=== PATIENT | female | born 1945 | race Caucasian/White ===

== ENCOUNTER 2016-06-14 19:11 | Inpatient (IN) | payer MEDICARE, OTHER ==
[~2016-06-14] VITALS: Ht 160 cm; Wt 65.3 kg
[~2016-06-14 19:11] MED LIST: ACET325T9 PO; ACET500T68 PO; AMLO5TAB4 PO; ATOR40TA59 PO; Albuterol Sulfate NEB; Amoxicillin/Potassium Clav PO; CARV12.5 PO; CLOP75TA PO; CYCL1DRO EACHEYE; DOCU-27 PO; DULO30CA2 PO; DULO60CA6 GT; FESO8TAB PO; FEXO1TAB31 PO; FURO-68 PO; Furosemide PO; GLUC1CAP57 PO; HYDR-2666 PO; HYDR-2868 GT; INSU100C4 SQ; INSU100I13 SQ; INSU100I17 SQ; INSU100V13 SQ; INSU100V8 SQ; IPRA4AER IH; Insulin Detemir SQ; LANS30CA17 PO; LEVO250T25 PO; LEVO500T38 PO; LISI-334 PO; META800T21 PO; MIRT15TA3 PO; MULT-121 PO; NITR0.4T SL; OMEG1CAP72 PO; ONDA4TAB7 PO; OXYB5TAB7 PO; PANT40GR GT; POTA10CA PO; POTA20LI PEG; POTA20PA8 GT; POTA20TA12 PO; POTA20TA82 PO; PREG100C PO; PREG150C PO; PREG300C PO; PREG50CA PO; PROM25TA10 PO; RAMI10CA28 GT; SIMV80TA3 GT; TRAM50TA GT; ZOLP10TA GT
[2016-06-14 20:00] LABS: BASO # 0.1 x10^3/uL (0.0-0.2); BASO % 1 % (0-3); EOS % 1 % (0-3); HEMATOCRIT 36.6 % (36.0-47.0); HEMOGLOBIN 12.1 g/dL (12.0-15.5); LYMPH # 1.4 x10^3/uL (1.0-4.8); LYMPH % 11 % (24-48); MEAN CORPUSCULAR HEMOGLOBIN 29 pg (25-35); MEAN CORPUSCULAR HGB CONC 33 g/dL (31-37); MEAN CORPUSCULAR VOLUME 89 fL (79-100); MONO % 8 % (0-9); NEUT % 79 % (31-73); PLATELET COUNT 202 x10^3/uL (140-400); RED BLOOD COUNT 4.12 x10^6/uL (3.50-5.40); WHITE BLOOD COUNT 12.1 x10^3/uL (4.0-11.0)
[2016-06-14 20:19] LABS: PROTHROMBIN TIME PATIENT 12.7 SEC (11.7-14.0)
[2016-06-14 20:22] LABS: CREATININE 0.9 mg/dL (0.6-1.0); GFR 61.5; POTASSIUM 3.9 mmol/L (3.5-5.1)
[2016-06-14 20:27] LABS: ALBUMIN/GLOBULIN RATIO 1.2 (1.0-1.7); TOTAL BILIRUBIN 0.5 mg/dL (0.2-1.0); TOTAL PROTEIN 7.3 g/dL (6.4-8.2)
[2016-06-14] MEDS ORDERED: IOHEXOL 300 MG/ML 75 ML VIAL IV ONE (20:30)
[2016-06-14] MEDS: FENTANYL PF 100 MCG/2 ML VIAL. IV PRN ×2 (21:20→21:46)
--- NOTE | 2016-06-14 21:22 | RAD ---
PROCEDURE CT head and C-spine without contrast HISTORY Syncope head and neck pain after fall CT HEAD WITHOUT CONTRAST: Noncontrast axial cross sectional CT scanning of the head was performed. COMPARISON April 05, 2014 FINDINGS There is moderate diffuse atrophy. There is encephalomalacia from an old large right MCA infarct and a moderate size old left parietal lobe infarct. No acute intracranial hemorrhage or midline shift or mass-effect or hydrocephalus or extra-axial fluid collection is seen. No focal hypodense area is seen to indicate an acute infarct or edema radiographically. No skull fracture or pneumocephalus is seen. No opacification of the mastoid sinuses or the paranasal sinuses is seen. The maxillary sinuses are not completely seen in this study. IMPRESSION Old infarcts and moderate atrophy. No acute intracranial abnormality is seen. CT of the C-spine without contrast: Axial helical images of the C-spine were obtained without contrast and axial coronal sagittal reconstruction was performed. The vertebra bodies are aligned. There is no loss of vertebral body stature. There is no prevertebral soft tissue swelling. There is a cyst carotid stent on the right. Evaluation of the central canal is limited without contrast however there does not appear to be significant central stenosis. There is moderate narrowing of a few the neuroforamen. Impression No acute findings. PQRS Statement: One or more of the following individualized dose reduction techniques were utilized for this study: 1. Automated exposure control. 2. Adjustment of the mA and/or kV according to patient size. 3. Use of iterative reconstruction technique. Electronically signed by: Eligio Loera MD (Jun 14, 2016 21:20:56)
--- NOTE | 2016-06-14 21:27 | RAD ---
PROCEDURE CT of the abdomen and pelvis with contrast HISTORY Generalized abdominal pain TECHNIQUE After IV infusion of95 cc of Optiray-320, helical CT scanning of the abdomen and pelvis was performed.GI contrast was not administered. FINDINGS The liveer is homogeous in appearance and normal in size. The spleen is unremarkable and normal in size. The pancreas is homogeneous in appearance and no focal enlargement is seen. The gallbladder appears normal and no intra or extrahepatic biliary ductal dilatation is seen. No focal aneurysmal dilatation of the abdominal aorta is seen. No enlarged abdominal or pelvic lymphadenopathy is seen. No soft tissue mass is seen. No obstructive bowel pattern or bowel wall thickening or inflammatory change is seen. No free intraperitoneal fluid or abscess or free intraperitoneal air is seen. The lung bases are clear. The right kidney is atrophic. The left kidney appears normal. The urinary bladder wall is smooth. No adrenal masses are seen. No osteolytic process is seen. There are stents in the common iliac arteries bilaterally which appear patent. The appendix is not well seen but appears normal. IMPRESSION Atrophic right kidney. No acute findings. Electronically signed by: Eligio Loera MD (Jun 14, 2016 21:26:11)
[2016-06-14 21:31] LABS: BILIRUBIN,URINE NEGATIVE (NEG); GLUCOSE,URINE NEGATIVE (NEG); NITRITE,URINE NEGATIVE (NEG); PH,URINE 6.5; PROTEIN,URINE NEGATIVE (NEG-TRACE); UROBILINOGEN,URINE 0.2 mg/dL (0.2 mg/dL)
[2016-06-14 21:40] LABS: BACTERIA,URINE MANY /HPF (0-FEW); RBC,URINE 0 /HPF (0-2); SQUAMOUS EPITHELIAL CELL,UR OCC /LPF
[2016-06-14] MEDS ORDERED: ONDANSETRON PF 4 MG/2 ML VIAL. ONE (22:00)
[2016-06-14] MEDS ORDERED: IV NORMAL SALINE 1000ML BAG 1,000 ML IV ONE (22:15)
[2016-06-14] MEDS ORDERED: PANTOPRAZOLE SODIUM IV 80 MG in IV NORMAL SALINE 100ML 100 ML IV ONE (22:15)
[2016-06-14] MEDS: IV NORMAL SALINE 1000ML BAG 1,000 ML IV SCH (22:27)
[2016-06-14] MEDS ORDERED: PANTOPRAZOLE IV PUSH 40 MG VIAL. IVP ONE (22:30)
[2016-06-14] MEDS ORDERED: ONDANSETRON PF 4 MG/2 ML VIAL. IV PRN (22:30)
[2016-06-14] MEDS: PANTOPRAZOLE SODIUM IV 80 MG in IV NORMAL SALINE 100ML 100 ML IV SCH (22:40)
[2016-06-14] MEDS ORDERED: ONDANSETRON PF 4 MG/2 ML VIAL. IV ONE (23:00)
[2016-06-14 23:30] VITALS: BP 162/82
--- NOTE | 2016-06-14 23:41 | ED.ADGEN ---
Past Medical History Past Medical History: CAD, CHF, Constipation, CVA, Depression, Diabetes-Type II , GERD, High Cholesterol, Hypertension, PA Additional Past Medical Histor: medication non compliance, DYSPHAGIA Past Surgical History: Hip Replacement, Other Additional Past Surgical Histo: carotid, peg tube placement Alcohol Use: None Drug Use: None Adult General Chief Complaint Chief Complaint: SYNCOPE HPI HPI Patient is a 70 year woman, history of CHF, CAD, CVA, depression, hypertension , who presents the emergency department with multiple complaints. Per EMS report , it is believed the patient expressed a syncopal episode, although patient is unclear, and thinks that she may have fallen. Patient however cannot recall the events surrounding the "fall". She is complaining of pain in the left wrist, which is noted to be swollen and slightly deformed. Patient's family is at bedside. They state that they arrived at the nursing facility state the patient out for dinner, and fell acute fallen earlier during the day. [facility] also reported the patient had one episode of emesis, which per EMS report was dark red, with food and fluid, with concern for GI bleeding. Patient does not have any history of GI bleeding. She denies any lightheadedness or dizziness, chest pain or shortness breath, complaining of mild lower quadrant abdominal pain. Denies any blood in stool. No fevers, no rashes, no headache or blurry vision, however patient is a very limited historian, and due to age, comorbidities, and presently distracting injury, a c-collar was placed upon arrival to the ED. Review of Systems Review of Systems Constitutional: Denies fever or chills. [] Eyes: Denies change in visual acuity. [] HENT: Denies nasal congestion or sore throat. [] Respiratory: Denies cough or shortness of breath. [] Cardiovascular: Denies chest pain or edema. [] GI: Denies bloody stools or diarrhea. [] Vomiting 1, with mild lower quadrant abdominal pain. : Denies dysuria. [] Musculoskeletal: Denies back pain, left wrist pain. Integument: Denies rash. [] Neurologic: Denies headache, focal weakness or sensory changes. [] Endocrine: Denies polyuria or polydipsia. [] Lymphatic: Denies swollen glands. [] Psychiatric: Denies depression or anxiety. [] Current Medications Current Medications Current Medications Medications (Trade) Dose Ordered Sig/Pawan Start Time Stop Time Status Last Admin Dose Admin Fentanyl Citrate (Fentanyl 2ml Vial) 25 mcg PRN Q15MIN PRN 06/14/16 19:45 06/15/16 19:44 06/14/16 21:46 25 MCG Iohexol (Omnipaque 300 Mg/ml) 75 ml 1X ONCE 06/14/16 20:30 06/14/16 20:31 DC 06/14/16 20:30 75 ML Allergies Allergies Allergies Coded Allergies Type Severity Reaction Last Updated Verified adhesive Allergy Intermediate Rash 11/25/15 Yes Physical Exam Physical Exam Constitutional: Well developed, well nourished, no acute distress, non-toxic appearance. [] HENT: Normocephalic, atraumatic, bilateral external ears normal, oropharynx moist, no oral exudates, nose normal. [] Eyes: PERRLA, EOMI, conjunctiva normal, no discharge. [] Neck: Normal range of motion, no tenderness, supple, no stridor. [] Cardiovascular:Heart rate regular rhythm, no murmur [] Lungs & Thorax: Bilateral breath sounds clear to auscultation [] Abdomen: Bowel sounds normal, soft, no tenderness, no masses, no pulsatile masses. [] Skin: Warm, dry, no erythema, no rash. [] Back: No tenderness, no CVA tenderness. [] Extremities: No tenderness, no cyanosis, no clubbing, ROM intact, no edema. [] Neurologic: Alert and oriented X 3, normal motor function, normal sensory function, no focal deficits noted. [] Psychologic: Affect normal, judgement normal, mood normal. [] Current Patient Data Vital Signs Vital Signs Date Time Temp Pulse Resp B/P Pulse Ox O2 Delivery O2 Flow Rate FiO2 06/14/16 21:39 98.5 90 20 227/91 99 Room Air 98.5 Lab Values Laboratory Tests Test 06/14/16 19:45 06/14/16 21:15 White Blood Count 12.1x10^3/uL (4.0-11.0) H Red Blood Count 4.12x10^6/uL (3.50-5.40) Hemoglobin 12.1g/dL (12.0-15.5) Hematocrit 36.6% (36.0-47.0) Mean Corpuscular Volume 89fL (79-100) Mean Corpuscular Hemoglobin 29pg (25-35) Mean Corpuscular Hemoglobin Concent 33g/dL (31-37) Red Cell Distribution Width 14.0% (11.5-14.5) Platelet Count 202x10^3/uL (140-400) Neutrophils (%) (Auto) 79% (31-73) H Lymphocytes (%) (Auto) 11% (24-48) L Monocytes (%) (Auto) 8% (0-9) Eosinophils (%) (Auto) 1% (0-3) Basophils (%) (Auto) 1% (0-3) Neutrophils # (Auto) 9.5x10^3uL (1.8-7.7) H Lymphocytes # (Auto) 1.4x10^3/uL (1.0-4.8) Monocytes # (Auto) 1.0x10^3/uL (0.0-1.1) Eosinophils # (Auto) 0.1x10^3/uL (0.0-0.7) Basophils # (Auto) 0.1x10^3/uL (0.0-0.2) Prothrombin Time 12.7SEC (11.7-14.0) Prothrombin Time INR 1.0 (0.8-1.1) PTT 25SEC (24-38) Sodium Level 135mmol/L (136-145) L Potassium Level 3.9mmol/L (3.5-5.1) Chloride Level 98mmol/L (98-107) Carbon Dioxide Level 19mmol/L (21-32) L Anion Gap 18 (6-14) H Blood Urea Nitrogen 18mg/dL (7-20) Creatinine 0.9mg/dL (0.6-1.0) Estimated GFR (Cockcroft-Gault) 61.5 BUN/Creatinine Ratio 20 (6-20) Glucose Level 119mg/dL (70-99) H Calcium Level 10.0mg/dL (8.5-10.1) Total Bilirubin 0.5mg/dL (0.2-1.0) Aspartate Amino Transferase (AST) 16U/L (15-37) Alanine Aminotransferase (ALT) 25U/L (14-59) Alkaline Phosphatase 87U/L (46-116) Troponin I Quantitative < 0.017ng/mL (0.000-0.055) RR-Msy-D-Type Natriuretic Peptide 521pg/mL (0-124) H Total Protein 7.3g/dL (6.4-8.2) Albumin 4.0g/dL (3.4-5.0) Albumin/Globulin Ratio 1.2 (1.0-1.7) Urine Color Yellow Urine Clarity Clear Urine pH 6.5 Urine Specific [place] 1.010 Urine Protein Negativemg/dL (NEG-TRACE) Urine Glucose (UA) Negativemg/dL (NEG) Urine Ketones (Stick) Negativemg/dL (NEG) Urine Blood Negative (NEG) Urine Nitrite Negative (NEG) Urine Bilirubin Negative (NEG) Urine Urobilinogen Dipstick 0.2mg/dL (0.2 mg/dL) Urine Leukocyte Esterase Small (NEG) Urine RBC 0/HPF (0-2) Urine WBC 1-4/HPF (0-4) Urine Squamous Epithelial Cells Occ/LPF Urine Bacteria Many/HPF (0-FEW) Laboratory Tests 06/14/16 19:45 Laboratory Tests 06/14/16 19:45 EKG EKG EC: Patient with sinus rhythm, heart rate 91 bpm, QTC of 444, FL 100, QRS of 106, patient with contour abnormalities noted in the inferior and lateral leads, does not meet STEMI criteria. Abnormal ECG. As interpreted by me. [] Radiology/Procedures Radiology/Procedures [] [facility] [address] [place] [address] IMAGING REPORT Signed PATIENT: BELLA SAONN ACCOUNT: [id number] : 1945 LOCATION: ER AGE: 70 SEX: F EXAM STATUS: REG ER ORD. PHYSICIAN: SONAL MOHR DO REASON: abd pain/hematemesis PROCEDURE: ABD PELV W/ IV CONTRAST ONLY PROCEDURE CT of the abdomen and pelvis with contrast HISTORY Generalized abdominal pain TECHNIQUE After IV infusion of95 cc of Optiray-320, helical CT scanning of the abdomen and pelvis was performed.GI contrast was not administered. FINDINGS The liveer is homogeous in appearance and normal in size. The spleen is unremarkable and normal in size. The pancreas is homogeneous in appearance and no focal enlargement is seen. The gallbladder appears normal and no intra or extrahepatic biliary ductal dilatation is seen. No focal aneurysmal dilatation of the abdominal aorta is seen. No enlarged abdominal or pelvic lymphadenopathy is seen. No soft tissue mass is seen. No obstructive bowel pattern or bowel wall thickening or inflammatory change is seen. No free intraperitoneal fluid or abscess or free intraperitoneal air is seen. The lung bases are clear. The right kidney is atrophic. The left kidney appears normal. The urinary bladder wall is smooth. No adrenal masses are seen. No osteolytic process is seen. There are stents in the common iliac arteries bilaterally which appear patent. The appendix is not well seen but appears normal. IMPRESSION Atrophic right kidney. No acute findings. Electronically signed by: Tory De MD (Jun 14, 2016 21:26:11) DICTATED and SIGNED BY: TORY DE III, MD DATE: 06/14/162124 CC: SONAL MOHR DO; CRISTIANO MARTINEZ MD ~ Impressions: [facility] [address] [place] [address] IMAGING REPORT Signed PATIENT: BELLA SANON ACCOUNT: [id number] : 1945 LOCATION: ER AGE: 70 SEX: F EXAM STATUS: REG ER ORD. PHYSICIAN: SONAL MOHR DO REASON: syncope PROCEDURE: HEAD AND CERVICAL SPINE WO PROCEDURE CT head and C-spine without contrast HISTORY Syncope head and neck pain after fall CT HEAD WITHOUT CONTRAST: Noncontrast axial cross sectional CT scanning of the head was performed. COMPARISON April 05, 2014 FINDINGS There is moderate diffuse atrophy. There is encephalomalacia from an old large right MCA infarct and a moderate size old left parietal lobe infarct. No acute intracranial hemorrhage or midline shift or mass-effect or hydrocephalus or extra-axial fluid collection is seen. No focal hypodense area is seen to indicate an acute infarct or edema radiographically. No skull fracture or pneumocephalus is seen. No opacification of the mastoid sinuses or the paranasal sinuses is seen. The maxillary sinuses are not completely seen in this study. IMPRESSION Old infarcts and moderate atrophy. No acute intracranial abnormality is seen. CT of the C-spine without contrast: Axial helical images of the C-spine were obtained without contrast and axial coronal sagittal reconstruction was performed. The vertebra bodies are aligned. There is no loss of vertebral body stature. There is no prevertebral soft tissue swelling. There is a cyst carotid stent on the right. Evaluation of the central canal is limited without contrast however there does not appear to be significant central stenosis. There is moderate narrowing of a few the neuroforamen. Impression No acute findings. PQRS Statement: One or more of the following individualized dose reduction techniques were utilized for this study: 1. Automated exposure control. 2. Adjustment of the mA and/or kV according to patient size. 3. Use of iterative reconstruction technique. Electronically signed by: Tory De MD (Jun 14, 2016 21:20:56) DICTATED and SIGNED BY: TORY DE III, MD DATE: 06/14/162119 CC: SONAL MOHR DO; CRISTIANO MARTINEZ MD ~ Course & Med Decision Making Course & Med Decision Making Pertinent Labs and Imaging studies reviewed. (See chart for details) As stated, patient's picture was unclear upon her initial arrival, whether she had a mechanical fall, episode of syncope, and even if there had been an episode of vomiting with potentially GI bleeding. We did contact the nursing facility to obtain additional information. Patient received CT of the head and neck, x-ray of the shoulder, forearm, and wrist of the left upper extremity. Did reveal evidence of a distal radius fracture with an ulnar styloid fracture, a sugar tong splint was placed with good effect, please see covering noted. Patient's head and neck CT were unremarkable, as was her abdominal CT. Patient had an episode of vomiting in the ED, which was dark red in nature, food and fluid, consistent with an upper GI bleeding source. Patient is resting comfortably at this time, denies any nausea, was initiated on Protonix bolus and Protonix infusion, she has no history of GI bleeding. Denies any pain at this time. Laboratory studies reveal hemoglobin 12.1. I did discuss these changes with patient and family, they are agreeable for admission, consultation with GI and orthopedics, close monitoring. Findings as above discussed with Dr. Page of internal medicine, patient accepted his service as a full admission to the medical telemetry floor, as vital signs remained stable in the emergency department, with consultation and bridge orders as stated. Dragon Disclaimer Dragon Disclaimer This electronic medical record was generated, in whole or in part, using a voice recognition dictation system. Departure Impression: Primary Impression: Syncope Additional Impressions: GI bleed Distal radius fracture Disposition: ADMITTED INPATIENT Admitting Physician: Sri Page Condition: STABLE Splinting [PATIENT/GUARDIAN/FAMILY: Patient family informed of distal radius fracture, slightly comminuted, nondisplaced, with ulnar styloid fracture, patient agreeable to placement of splint, patient with a sugar tong splint placed by [facility] without issue. She tolerated procedure without issue. Splint checked by myself, Dr. Mohr, adequate stabilization stabilization of the injury. Distal capillary refill normal, neurovascularly intact. Problem Qualifiers SONAL MOHR DO Jun 14, 2016 23:41
[2016-06-15] MEDS ORDERED: PANT40TA3 PO (00:38)
[2016-06-15] MEDS ORDERED: POLY17PO5 PO ×2 (00:38)
[2016-06-15] MEDS ORDERED: SENN1TAB99 PO (00:38)
[2016-06-15] MEDS ORDERED: MELA3TAB PO (00:38)
[2016-06-15] MEDS ORDERED: NICO1PAT21 TP (00:38)
[2016-06-15] MEDS ORDERED: ACET325T9 PO (00:38)
--- NOTE | 2016-06-15 01:20 | ACF ---
Admission Forms Criteria SYNCOPE Clinical Indications for Admission to Inpatient Care ( Place 'X' for any and all applicable criteria): Admission is indicated for syncope and ANY ONE of the following (1)(2)(3)(4)(5) (6)(7) : [ ]I. Inpatient admission required rather than observation care (Also use Syncope: Observation Care Criteria as appropriate) because of ANY ONE of the following: [ ]a) Hemodynamic instability that is severe or persistent [ ]b) Cardiac arrhythmias of immediate concern identified or strongly suspected (eg, needs electrophysiologic study) [ ]c) Acute coronary syndrome identified (Also use Myocardial Infarction or Angina Criteria form ) [ ]d) Structural cardiac disorder (eg, aortic stenosis) suspected as cause that requires immediate correction [ ]e) Respiratory symptoms (eg, dyspnea, tachypnea) that are severe or persistent [ ]f) Neurologic signs or symptoms that are severe or persistent ( eg, stroke, seizures, altered mental status) [ ]g) Severe electrolyte abnormalities requiring inpatient care [ ]h) Supplemental oxygen or respiratory treatment for over 24 hrs that are performable only in acute inpatient setting [ ]i) IV fluid to replace significant ongoing (eg, for over 24 hrs ) losses (>3 L/m2 per day) [ ]j) Continuous intravenous infusion of anticoagulation, platelet inhibitor, vasoactive, or antiarrhythmic medication(15)(16) [ ]k) Pulmonary artery catheter monitoring [ ]l) Temporary pacemaker placement(17) [ ]m) Emergent cardioversion(18) [ ]n) Other conditions, treatment or monitoring requiring inpatient admission [ ]II. Suspicion of imminently dangerous cause (eg, rare causes like pericardial tamponade, pulmonary embolism) [X]III. Syncope causing severe injury requiring hospitalization Extended stay beyond goal length of stay may be needed for(28) [ ]a) Dangerous arrhythmia(15)(23)(27)(29) [ ]b) Myocardial ischemia [ ]c) Seizure disorder [ ]d) Syncope-related injuries The original [email or web address] content created by [email or web address] has been revised. The portions of the content which have been revised are identified through the use of italic text or in bold, and [facility] has neither reviewed nor approved the modified material. All other unmodified content is copyright [facility]. Please see references footnoted in the original [facility] 2016 Admission Criteria Met?: Yes LIZ LYNCH Jun 15, 2016 01:20
[2016-06-15] MEDS: MORPHINE SULFATE 2 MG/ML DISP.SYRIN. IV PRN ×7 (01:21→20:33)
[2016-06-15 03:20] VITALS: BP 187/73
--- NOTE | 2016-06-15 06:39 | EKG ---
[facility] [address] [place] [address] Test Date: 2016-06-14 Test Time: 19:21:45 Pat Name: BELLA SANON Department: Room: Gender: F Licensing Specialist: : 1945 Requested By: SONAL MOHR Order Number: [id number] Reading MD: Measurements Intervals [place] Rate: 91 P: 90 [place]: 100 QRS: 60 QRSD: 106 T: -21 QT: 360 QTc: 444 Interpretive Statements SINUS RHYTHM LEFT ATRIAL ABNORMALITY QRS(T) CONTOUR ABNORMALITY CONSIDER INFERIOR MYOCARDIAL DAMAGE ABNORMAL ECG RI6.01 No previous ECG available for comparison
[2016-06-15 07:00] VITALS: BP 193/66
[2016-06-15] MEDS: IV NORMAL SALINE 1000ML BAG 1,000 ML IV SCH ×2 (08:39→17:25)
--- NOTE | 2016-06-15 08:47 | RAD ---
Portable left shoulder, 3 views, 06/14/2016: History: Fall, pain The bony structures are demineralized. No shoulder fracture or dislocation is identified. There is minimal spurring along the glenoid rim and at the AC joint. Old healed rib fractures are present on the lower left. IMPRESSION: 1. Demineralization. 2. No acute abnormality is detected.
[2016-06-15 08:52] LABS: BASO % 1 % (0-3); EOS % 1 % (0-3); HEMATOCRIT 36.3 % (36.0-47.0); LYMPH # 0.9 x10^3/uL (1.0-4.8); LYMPH % 14 % (24-48); MEAN CORPUSCULAR HEMOGLOBIN 30 pg (25-35); MEAN CORPUSCULAR HGB CONC 33 g/dL (31-37); MEAN CORPUSCULAR VOLUME 90 fL (79-100); MONO % 13 % (0-9); NEUT % 71 % (31-73); PLATELET COUNT 185 x10^3/uL (140-400); RED BLOOD COUNT 4.06 x10^6/uL (3.50-5.40); WHITE BLOOD COUNT 6.5 x10^3/uL (4.0-11.0)
--- NOTE | 2016-06-15 08:54 | RAD ---
Portable chest, 06/14/2016: History: Syncope, altered mental status Comparison is made to a study from 11/24/2015. The heart size is normal. There is calcific plaquing of the aorta. The pulmonary vascularity is within normal limits. No pulmonary infiltrates are seen. There is no evidence of pleural fluid or pneumothorax. Old healed rib fractures are present on the lower left. IMPRESSION: No acute cardiopulmonary abnormality is detected.
--- NOTE | 2016-06-15 08:55 | RAD ---
Left elbow, 3 views, 06/14/2016: History: Fall, injuries No fracture or dislocation is identified. There is mild spurring at the elbow joint. There is no radiographic evidence of a joint effusion. IMPRESSION: No acute bony abnormality is detected.
--- NOTE | 2016-06-15 09:00 | RAD ---
Left wrist, 3 views, 06/14/2016: History: Injury There is patchy bony demineralization. There is a comminuted fracture of the distal radius. The fracture fragments are impacted. A fracture line involves the articular surface of the distal radius. A nondisplaced ulnar styloid fracture is also present. No carpal bone fracture is seen. There is moderate diffuse soft tissue swelling. Left hand, 3 views, 06/14/2016: No additional fracture or dislocation is identified. There are mild scattered degenerative changes. Left forearm, 2 views, 06/14/2016: No additional fracture or bony abnormality is detected. IMPRESSION: 1. Comminuted, impacted fracture of the distal left radius with intra-articular extension. 2. Ulnar styloid fracture.
[2016-06-15] MEDS: PANTOPRAZOLE SODIUM IV 80 MG in IV NORMAL SALINE 100ML 100 ML IV SCH (09:04)
[2016-06-15 09:07] LABS: CALCIUM 9.6 mg/dL (8.5-10.1); CREATININE 0.8 mg/dL (0.6-1.0); GFR 70.5; POTASSIUM 4.5 mmol/L (3.5-5.1)
[2016-06-15] MEDS ORDERED: ONDANSETRON PF 4 MG/2 ML VIAL. IV PRN (10:06)
[2016-06-15] MEDS ORDERED: LABETALOL 20 MG/4 ML DISP.SYRIN. IVP PRN (10:15)
--- NOTE | 2016-06-15 10:24 | PDOC2 ---
GI CONSULT Reason For Consult: GI Bleed HPI: HPI: 70 y/o female brought to ER via EMS after fall, admitted w/ distal radius fracture with an ulnar styloid fracture. Noted w/ dark red emesis x 1 in ambulance and x 1 in ER. No recurrence since admission. Labs WBC 12.1, Hgb 12.1, normal plt and INR, BNP 571, normal BUN and Cr. In room w/ daughter and who supplement history. They say she occasionally c/o "upset stomach" and indigestion and had a couple episodes of vomiting recently. She takes Tums PRN. Med list also shows PPI; family unsure about this. Did have previous EGD for PEG placement after CVA; has since been removed, maintains normal diet. H/ o alternating diarrhea and constipation which is of no concern at this time. Last BM 06/14. No melena or hematochezia. Recalls previous colonoscopy (unsure when) as normal. Daughter believes she takes Naproxen for arthritis. Has been kept NPO on PPI drip. Note usually on Plavix (held). PMH: PMH: CVA, dementia, CHF, NH, HTN, HLD, OA, DM, depression, carotid endarterectomy, previous G tube placement/removal. left hip surgery FH: Family History: CAD Social History: Smoke: Quit ALCOHOL: none Drugs: None ROS: GEN: Denies fevers, chills, sweats HEENT: Denies blurred vision, sore throat CV: Denies chest pain RESP: Denies shortness of air, cough GI: Per HPI : Denies hematuria, dysuria ENDO: Denies weight changes NEURO: +dementia MSK: +left arm pain SKIN: Denies jaundice, pruritus VItals: Vitals: Vital Signs Date Time Temp Pulse Resp B/P Pulse Ox O2 Delivery O2 Flow Rate FiO2 06/15/16 09:18 18 95 Room Air 06/15/16 07:00 97.9 72 193/66 97.9 Labs: Labs: Laboratory Tests Test 06/14/16 19:45 06/14/16 21:15 06/15/16 02:03 06/15/16 08:10 White Blood Count 12.1x10^3/uL (4.0-11.0) 6.5x10^3/uL (4.0-11.0) Red Blood Count 4.12x10^6/uL (3.50-5.40) 4.06x10^6/uL (3.50-5.40) Hemoglobin 12.1g/dL (12.0-15.5) 12.0g/dL (12.0-15.5) Hematocrit 36.6% (36.0-47.0) 36.3% (36.0-47.0) Mean Corpuscular Volume 89fL (79-100) 90fL (79-100) Mean Corpuscular Hemoglobin 29pg (25-35) 30pg (25-35) Mean Corpuscular Hemoglobin Concent 33g/dL (31-37) 33g/dL (31-37) Red Cell Distribution Width 14.0% (11.5-14.5) 14.0% (11.5-14.5) Platelet Count 202x10^3/uL (140-400) 185x10^3/uL (140-400) Neutrophils (%) (Auto) 79% (31-73) 71% (31-73) Lymphocytes (%) (Auto) 11% (24-48) 14% (24-48) Monocytes (%) (Auto) 8% (0-9) 13% (0-9) Eosinophils (%) (Auto) 1% (0-3) 1% (0-3) Basophils (%) (Auto) 1% (0-3) 1% (0-3) Neutrophils # (Auto) 9.5x10^3uL (1.8-7.7) 4.6x10^3uL (1.8-7.7) Lymphocytes # (Auto) 1.4x10^3/uL (1.0-4.8) 0.9x10^3/uL (1.0-4.8) Monocytes # (Auto) 1.0x10^3/uL (0.0-1.1) 0.9x10^3/uL (0.0-1.1) Eosinophils # (Auto) 0.1x10^3/uL (0.0-0.7) 0.0x10^3/uL (0.0-0.7) Basophils # (Auto) 0.1x10^3/uL (0.0-0.2) 0.0x10^3/uL (0.0-0.2) Prothrombin Time 12.7SEC (11.7-14.0) Prothromb Time International Ratio 1.0 (0.8-1.1) Activated Partial Thromboplast Time 25SEC (24-38) Sodium Level 135mmol/L (136-145) 139mmol/L (136-145) Potassium Level 3.9mmol/L (3.5-5.1) 4.5mmol/L (3.5-5.1) Chloride Level 98mmol/L (98-107) 105mmol/L (98-107) Carbon Dioxide Level 19mmol/L (21-32) 22mmol/L (21-32) Anion Gap 18 (6-14) 12 (6-14) Blood Urea Nitrogen 18mg/dL (7-20) 12mg/dL (7-20) Creatinine 0.9mg/dL (0.6-1.0) 0.8mg/dL (0.6-1.0) Estimated GFR (Cockcroft-Gault) 61.5 70.5 BUN/Creatinine Ratio 20 (6-20) Glucose Level 119mg/dL (70-99) 181mg/dL (70-99) Calcium Level 10.0mg/dL (8.5-10.1) 9.6mg/dL (8.5-10.1) Total Bilirubin 0.5mg/dL (0.2-1.0) Aspartate Amino Transf (AST/SGOT) 16U/L (15-37) Alanine Aminotransferase (ALT/SGPT) 25U/L (14-59) Alkaline Phosphatase 87U/L (46-116) Troponin I Quantitative < 0.017ng/mL (0.000-0.055) < 0.017ng/mL (0.000-0.055) < 0.017ng/mL (0.000-0.055) AN-Yrv-T-Type Natriuretic Peptide 521pg/mL (0-124) Total Protein 7.3g/dL (6.4-8.2) Albumin 4.0g/dL (3.4-5.0) Albumin/Globulin Ratio 1.2 (1.0-1.7) Urine Color Yellow Urine Clarity Clear Urine pH 6.5 Urine Specific [place] 1.010 Urine Protein Negativemg/dL (NEG-TRACE) Urine Glucose (UA) Negativemg/dL (NEG) Urine Ketones (Stick) Negativemg/dL (NEG) Urine Blood Negative (NEG) Urine Nitrite Negative (NEG) Urine Bilirubin Negative (NEG) Urine Urobilinogen Dipstick 0.2mg/dL (0.2 mg/dL) Urine Leukocyte Esterase Small (NEG) Urine RBC 0/HPF (0-2) Urine WBC 1-4/HPF (0-4) Urine Squamous Epithelial Cells Occ/LPF Urine Bacteria Many/HPF (0-FEW) Allergies: Coded Allergies: adhesive (Verified Allergy, Intermediate, Rash, 11/25/15) Medications: Current Medications Medications (Trade) Dose Ordered Sig/Pawan Route PRN Reason Start Time Stop Time Status Last Admin Dose Admin Fentanyl Citrate (Fentanyl 2ml Vial) 25 mcg PRN Q15MIN PRN IV PAIN GREATER THAN 3/10 06/14/16 19:45 06/15/16 10:09 DC 06/14/16 21:46 Iohexol 75 ml 75 ml 1X ONCE IV 06/14/16 20:30 06/14/16 20:31 DC 06/14/16 20:30 Pantoprazole Sodium 80 mg/ Sodium Chloride 100 ml @ 10 mls/hr Q10H IV 06/14/16 23:00 06/15/16 22:59 06/15/16 09:04 Sodium Chloride (Iv Sodium Chloride 0.9% 1000ml Bag) 1,000 ml @ 100 mls/hr 1X ONCE IV 06/14/16 22:15 06/15/16 08:14 DC 06/14/16 22:40 Pantoprazole Sodium (Protonix Vial) 80 mg 1X ONCE IVP 06/14/16 22:30 06/14/16 22:31 DC 06/14/16 22:40 Ondansetron HCl (Zofran) 4 mg 1X ONCE IV 06/14/16 23:00 06/14/16 23:01 DC 06/14/16 22:10 Morphine Sulfate 2 mg 2 mg PRN Q2HR PRN IV SEVERE PAIN 06/14/16 22:30 06/15/16 22:29 06/15/16 08:46 Sodium Chloride (Iv Sodium Chloride 0.9% 1000ml Bag) 1,000 ml @ 100 mls/hr Q10H IV 06/14/16 22:27 06/15/16 22:26 06/15/16 08:39 Imaging: Imaging: CT A/P 06/14/16 IMPRESSION Atrophic right kidney. No acute findings. PE: GEN: NAD HEENT: Atraumatic, PERRL LUNGS: clear anteriorly HEART: S1S2 ABD: NABS, S/ND/NT EXTREMITY: left forearm wrapped w/ ice SKIN: No rashes, no jaundice NEURO/PSYCH: probably some confusion A/P: A/P: Distal radius fracture, ulnar styloid fracture Dark red emesis -x 2 yesterday -Hgb 12.1 -has been NPO on IV PPI Dyspepsia -family reports -improved w/ Tums, unsure if taking PPI at home H/o CVA w/ previous PEG (removed) -usually on Plavix ?NSAID use -Naproxen for arthritis Alternating constipation and diarrhea - unchanged CRC screen -recalls previous normal colonoscopy, unsure of date -- Will keep NPO (w/ ice chips) until Dr. Crouch sees. Agree w/ PPI. GENOVEVA ROJAS Jun 15, 2016 10:24
[2016-06-15] MEDS: NICOTINE 21MG PATCH. TD SCH (10:49)
[2016-06-15] MEDS: AMLODIPINE BESYLATE 10 MG TABLET PO SCH (10:51)
[2016-06-15] MEDS: CARVEDILOL 12.5 MG TABLET PO SCH ×2 (10:51→17:25)
[2016-06-15] MEDS: POLYETHYLENE GLYCOL 3350 17 GM PACKET. PO SCH (10:51)
[2016-06-15] MEDS: OXYBUTYNIN CHLORIDE 5 MG TABLET PO SCH ×2 (10:51→20:32)
[2016-06-15] MEDS: DULOXETINE HCL 30 MG CAPSULE.DR. PO SCH (10:51)
[2016-06-15] MEDS: LISINOPRIL 20 MG TABLET PO SCH (10:51)
[2016-06-15] MEDS: INSULIN DETEMIR 300 UNITS/3 ML INSULN.PEN. SQ SCH ×2 (10:52→20:40)
[2016-06-15 11:00] VITALS: BP 188/57
[2016-06-15] MEDS ORDERED: METOCLOPRAMIDE HCL 10 MG/2 ML VIAL. IV ONE (11:15)
[2016-06-15] MEDS: ACETAMINOPHEN 325 MG TABLET. PO SCH ×2 (12:27→20:34)
[2016-06-15] MEDS ORDERED: PROPOFOL 20 ML IV ONE (12:36)
[2016-06-15] MEDS ORDERED: EPHEDRINE PF IN SALINE 50 MG/5 ML DISP.SYRIN. IV ONE (12:37)
[2016-06-15] MEDS ORDERED: LIDOCAINE 2% PF Vial for OR 5 ML VIAL. ONE (12:37)
--- NOTE | 2016-06-15 13:05 | PDOC4 ---
PROCEDURE Procedure EGD Indication: hematemesis Meds: per anesthesia Findings: E-irregular Z-line c/w some reflux. No MW, etc. G--Normal with sliding HH. D--Normal to second portion; careful exam of apex/second portion junction. tolerated well. IMP: Healed GERD No active or potential bleeding site seen. REC: OK to feed Continue PPI, po. Observe for any problems. Thanks. ИРИНА ZARCO MD Jun 15, 2016 13:05
--- NOTE | 2016-06-15 14:25 | PDOC1 ---
History and Physical Date of Admission Date of Admission DATE: 06/15/16 TIME: 14:20 Identification/Chief Complaint Chief Complaint fall in SNU Source Source: Caregiver, Chart review, Patient History of Present Illness History of Present Illness 70 y.o female, SNU resident, lots of past medical hx and recent admits here for the ff: 1. AMS, likely 2/2 hypoglycemia 2. hypoglycemia with insulin but low po intake 3. h/o CAD wo stents 4. accelerated HTN 5. CHF 6. CVA WIth mild left side residual weakness 7. DM2 8. hld 9. UTI 10. mild malnutrition Came in bec vomited food and blood like material in SNU 1 day [employer] and possibly might have syncopized or had a syncopal like event at SNU. Hemodyanamically stable based on labs but on imaing of left wrist/arm which she was complaining of pain and visible was displaced/dislocated, showed distal radius and ulnar fx. Seen by ortho, non surgical EGD done already, clean,. Pt poor historian, appears weak, full code per documentation PPI gtt running Past Medical History Cardiovascular: CAD, CHF, HTN, Hyperlipidemia Pulmonary: COPD CENTRAL NERVOUS SYSTEM: CVA Psych: Depression Musculoskeletal: Osteoarthritis Renal/: UTI Endocrine: Diabetes Past Surgical History Past Surgical History: Other Family History Family History: Diabetes, Hypertension, Family History Unknown Social History Smoke: No ALCOHOL: none Drugs: None Current Problem List Problem List Problems Medical Problems: (1) Distal radius fracture Status: Acute (2) GI bleed Status: Acute (3) Syncope Status: Acute Problems: Current Medications Current Medications Current Medications Fentanyl Citrate (Fentanyl 2ml Vial) 25 mcg PRN Q15MIN PRN IV PAIN GREATER THAN 3/10 Last administered on 06/14/16 21:46; Start 06/14/16 at 19:45; Stop at 10:09; Status DC Iohexol 75 ml 75 ml 1X ONCE IV Last administered on 06/14/16 20:30; Start at 20:30; Stop 06/14/16 at 20:31; Status DC Pantoprazole Sodium 80 mg/ Sodium Chloride 100 ml @ 10 mls/hr 1X ONCE IV ; Start 06/14/16 at 22:15; Stop 06/15/16 at 08:14; Status UNV Pantoprazole Sodium 80 mg/ Sodium Chloride 100 ml @ 10 mls/hr Q10H IV Last administered on 06/15/16 09:04; Start 06/14/16 at 23:00; Stop 06/15/16 at 13:06 ; Status DC Sodium Chloride (Iv Sodium Chloride 0.9% 1000ml Bag) 1,000 ml @ 100 mls/hr 1X ONCE IV Last administered on 06/14/16 22:40; Start 06/14/16 at 22:15; Stop at 08:14; Status DC Pantoprazole Sodium (Protonix Vial) 80 mg 1X ONCE IVP Last administered on 22:40; Start 06/14/16 at 22:30; Stop 06/14/16 at 22:31; Status DC Ondansetron HCl (Zofran) 4 mg 1X ONCE IV Last administered on 06/14/16 22:10 ; Start 06/14/16 at 23:00; Stop 06/14/16 at 23:01; Status DC Ondansetron HCl (Zofran) 4 mg PRN Q8HRS PRN IV NAUSEA/VOMITING; Start 06/14/16 at 22:30; Stop 06/15/16 at 10:09; Status DC Morphine Sulfate 2 mg 2 mg PRN Q2HR PRN IV SEVERE PAIN Last administered on 14:04; Start 06/14/16 at 22:30; Stop 06/15/16 at 22:29 Sodium Chloride (Iv Sodium Chloride 0.9% 1000ml Bag) 1,000 ml @ 100 mls/hr Q10H IV Last administered on 06/15/16 08:39; Start 06/14/16 at 22:27; Stop at 22:26 Ondansetron HCl (Zofran) 4 mg STK-MED ONCE .ROUTE ; Start 06/14/16 at 22:00; Stop 06/15/16 at 10:04; Status DC Ondansetron HCl (Zofran) 4 mg PRN Q6HRS PRN IV NAUSEA/VOMITING; Start 06/15/16 at 10:06 Labetalol HCl (Normodyne) 10 mg PRN Q2HR PRN IVP HYPERTENSION, SEE COMMENTS; Start 06/15/16 at 10:15 Acetaminophen/ Hydrocodone Bitart (Lortab 5/325) 1 tab PRN Q4HRS PRN PO PAIN; Start 06/15/16 at 10:15 Acetaminophen (Tylenol) 650 mg TID PO ; Start 06/15/16 at 14:00 Amlodipine Besylate (Norvasc) 10 mg DAILY PO ; Start 06/15/16 at 11:00 Atorvastatin Calcium (Lipitor) 40 mg QHS PO ; Start 06/15/16 at 21:00 Carvedilol (Coreg) 25 mg BIDWMEALS PO ; Start 06/15/16 at 11:00 Cyclosporine (Restasis) 1 drop HS OU ; Start 06/15/16 at 21:00 Duloxetine HCl (Cymbalta) 30 mg DAILY PO ; Start 06/15/16 at 11:00 Lisinopril (Prinivil) 20 mg DAILY PO ; Start 06/15/16 at 11:00 Mirtazapine (Remeron) 15 mg QHS PO ; Start 06/15/16 at 21:00 Nicotine (Nicoderm Cq 21mg) 1 patch DAILY TD Last administered on 06/15/16t 10: 49; Start 06/15/16 at 11:00 Oxybutynin Chloride (Ditropan) 5 mg BID PO ; Start 06/15/16 at 11:00 Polyethylene Glycol (miraLAX PACKET) 17 gm DAILY PO ; Start 06/15/16 at 11:00 Senna/Docusate Sodium (Senna Plus) 2 tab HS PO ; Start 06/15/16 at 21:00 Insulin Aspart (Novolog) 5 units DAILYWSUP SQ ; Start 06/15/16 at 17:00 Insulin Detemir (Levemir) 30 units DAILY SQ ; Start 06/15/16 at 11:00 Non-Formulary Medication 10 mg QHS PO ; Start 06/15/16 at 21:00; Stop 06/15/16 at 21:00; Status DC Potassium Chloride (Klor-Con) 10 meq DAILYWBKFT PO ; Start 06/16/16 at 08:00 Metoclopramide HCl 10 mg 10 mg 1X ONCE IV Last administered on 06/15/16t 11:18 ; Start 06/15/16 at 11:15; Stop 06/15/16 at 11:16; Status DC Propofol (Diprivan) 20 ml @ As Directed STK-MED ONCE IV ; Start 06/15/16 at 12: 36; Stop 06/15/16 at 12:37; Status DC Lidocaine HCl (Lidocaine Pf 2% Vial) 5 ml STK-MED ONCE .ROUTE ; Start 06/15/16 at 12:37; Stop 06/15/16 at 12:38; Status DC Ephedrine Sulfate 50 mg STK-MED ONCE IV ; Start 06/15/16 at 12:37; Stop at 12:38; Status DC Active Scripts Active Reported Tylenol (Acetaminophen) 325 Mg Tablet 650 Mg PO TID Senna-Docusate Sodium Tablet (Sennosides/Docusate Sodium) 1 Each Tablet 2 Each PO HS Protonix (Pantoprazole Sodium) 40 Mg Tablet.dr 1 Tab PO DAILY NICODERM CQ 21mg (Nicotine) 1 Each Patch.td24 1 Patch TP DAILY Miralax (Polyethylene Glycol 3350) 17 Gm Powd.pack 1 Packet PO DAILY Miralax (Polyethylene Glycol 3350) 17 Gm Powd.pack 1 Packet PO PRN DAILY PRN Melatonin 3 Mg Tablet 10 Mg PO QHS Mirtazapine 15 Mg Tablet 1 Tab PO QHS Cymbalta (Duloxetine Hcl) 30 Mg Capsule.dr 1 Cap PO DAILY Acetaminophen 500 Mg Tablet 1 Tab PO PRN Q6HRS PRN Novolog (Insulin Aspart) 100 Unit/1 Ml Cartridge 5 Unit SQ DAILYWSUP Restasis (Cyclosporine) 1 Each Droperette 1 Drop EACHEYE HS Multiple Vitamins (Multivitamin) 1 Each Tablet 1 Each PO Potassium Chloride 10 Meq Capsule.er 1 Cap PO DAILY05 Levemir (Insulin Detemir) 100 Unit/1 Ml Vial 30 Unit SQ DAILY Atorvastatin Calcium 40 Mg Tablet 1 Tab PO DAILY Lisinopril 20 Mg Tablet 1 Tab PO DAILY Oxybutynin Chloride 5 Mg Tablet 5 Mg PO BID Norvasc (Amlodipine Besylate) 5 Mg Tablet 10 Mg PO DAILY Clopidogrel (Clopidogrel Bisulfate) 75 Mg Tablet 75 Mg PO DAILY Coreg (Carvedilol) 12.5 Mg Tablet 25 Mg PO BID Allergies Allergies: Coded Allergies: adhesive (Verified Allergy, Intermediate, Rash, 06/15/16) ROS Review of System limited sec to dementia Physical Exam General: No acute distress, Other (weak looking, frail) HEENT: PERRLA Lungs: Clear to auscultation, Normal air movement Heart: S1S2 Cardiovascular: S1, S2 Breasts: Normal Abdomen: Normal bowel sounds, Soft, No tenderness, No hepatosplenomegaly, No masses PELVIC: Nml ext genitalia Extremities: No clubbing, No cyanosis, No edema, Normal pulses, No tenderness/ swelling Skin: No rashes, No breakdown, No significant lesion Neuro: Normal gait, Normal speech, Strength at 5/5 X4 ext, Normal tone, Sensation intact, Cranial nerves 3-12 NL, Reflexes 2+ Psych/Mental Status: Mental status NL, Mood NL Vitals Vitals Vital Signs Date Time Temp Pulse Resp B/P Pulse Ox O2 Delivery O2 Flow Rate FiO2 06/15/16 14:04 18 98 Room Air 2.0 06/15/16 13:18 99.2 85 178/77 99.2 Labs Labs Laboratory Tests Test 06/14/16 19:45 06/14/16 21:15 06/15/16 02:03 06/15/16 08:10 White Blood Count 12.1x10^3/uL (4.0-11.0) 6.5x10^3/uL (4.0-11.0) Red Blood Count 4.12x10^6/uL (3.50-5.40) 4.06x10^6/uL (3.50-5.40) Hemoglobin 12.1g/dL (12.0-15.5) 12.0g/dL (12.0-15.5) Hematocrit 36.6% (36.0-47.0) 36.3% (36.0-47.0) Mean Corpuscular Volume 89fL (79-100) 90fL (79-100) Mean Corpuscular Hemoglobin 29pg (25-35) 30pg (25-35) Mean Corpuscular Hemoglobin Concent 33g/dL (31-37) 33g/dL (31-37) Red Cell Distribution Width 14.0% (11.5-14.5) 14.0% (11.5-14.5) Platelet Count 202x10^3/uL (140-400) 185x10^3/uL (140-400) Neutrophils (%) (Auto) 79% (31-73) 71% (31-73) Lymphocytes (%) (Auto) 11% (24-48) 14% (24-48) Monocytes (%) (Auto) 8% (0-9) 13% (0-9) Eosinophils (%) (Auto) 1% (0-3) 1% (0-3) Basophils (%) (Auto) 1% (0-3) 1% (0-3) Neutrophils # (Auto) 9.5x10^3uL (1.8-7.7) 4.6x10^3uL (1.8-7.7) Lymphocytes # (Auto) 1.4x10^3/uL (1.0-4.8) 0.9x10^3/uL (1.0-4.8) Monocytes # (Auto) 1.0x10^3/uL (0.0-1.1) 0.9x10^3/uL (0.0-1.1) Eosinophils # (Auto) 0.1x10^3/uL (0.0-0.7) 0.0x10^3/uL (0.0-0.7) Basophils # (Auto) 0.1x10^3/uL (0.0-0.2) 0.0x10^3/uL (0.0-0.2) Prothrombin Time 12.7SEC (11.7-14.0) Prothromb Time International Ratio 1.0 (0.8-1.1) Activated Partial Thromboplast Time 25SEC (24-38) Sodium Level 135mmol/L (136-145) 139mmol/L (136-145) Potassium Level 3.9mmol/L (3.5-5.1) 4.5mmol/L (3.5-5.1) Chloride Level 98mmol/L (98-107) 105mmol/L (98-107) Carbon Dioxide Level 19mmol/L (21-32) 22mmol/L (21-32) Anion Gap 18 (6-14) 12 (6-14) Blood Urea Nitrogen 18mg/dL (7-20) 12mg/dL (7-20) Creatinine 0.9mg/dL (0.6-1.0) 0.8mg/dL (0.6-1.0) Estimated GFR (Cockcroft-Gault) 61.5 70.5 BUN/Creatinine Ratio 20 (6-20) Glucose Level 119mg/dL (70-99) 181mg/dL (70-99) Calcium Level 10.0mg/dL (8.5-10.1) 9.6mg/dL (8.5-10.1) Total Bilirubin 0.5mg/dL (0.2-1.0) Aspartate Amino Transf (AST/SGOT) 16U/L (15-37) Alanine Aminotransferase (ALT/SGPT) 25U/L (14-59) Alkaline Phosphatase 87U/L (46-116) Troponin I Quantitative < 0.017ng/mL (0.000-0.055) < 0.017ng/mL (0.000-0.055) < 0.017ng/mL (0.000-0.055) RF-Duw-I-Type Natriuretic Peptide 521pg/mL (0-124) Total Protein 7.3g/dL (6.4-8.2) Albumin 4.0g/dL (3.4-5.0) Albumin/Globulin Ratio 1.2 (1.0-1.7) Urine Color Yellow Urine Clarity Clear Urine pH 6.5 Urine Specific [place] 1.010 Urine Protein Negativemg/dL (NEG-TRACE) Urine Glucose (UA) Negativemg/dL (NEG) Urine Ketones (Stick) Negativemg/dL (NEG) Urine Blood Negative (NEG) Urine Nitrite Negative (NEG) Urine Bilirubin Negative (NEG) Urine Urobilinogen Dipstick 0.2mg/dL (0.2 mg/dL) Urine Leukocyte Esterase Small (NEG) Urine RBC 0/HPF (0-2) Urine WBC 1-4/HPF (0-4) Urine Squamous Epithelial Cells Occ/LPF Urine Bacteria Many/HPF (0-FEW) Laboratory Tests Test 06/14/16 19:45 06/14/16 21:15 06/15/16 02:03 06/15/16 08:10 White Blood Count 12.1x10^3/uL (4.0-11.0) 6.5x10^3/uL (4.0-11.0) Red Blood Count 4.12x10^6/uL (3.50-5.40) 4.06x10^6/uL (3.50-5.40) Hemoglobin 12.1g/dL (12.0-15.5) 12.0g/dL (12.0-15.5) Hematocrit 36.6% (36.0-47.0) 36.3% (36.0-47.0) Mean Corpuscular Volume 89fL (79-100) 90fL (79-100) Mean Corpuscular Hemoglobin 29pg (25-35) 30pg (25-35) Mean Corpuscular Hemoglobin Concent 33g/dL (31-37) 33g/dL (31-37) Red Cell Distribution Width 14.0% (11.5-14.5) 14.0% (11.5-14.5) Platelet Count 202x10^3/uL (140-400) 185x10^3/uL (140-400) Neutrophils (%) (Auto) 79% (31-73) 71% (31-73) Lymphocytes (%) (Auto) 11% (24-48) 14% (24-48) Monocytes (%) (Auto) 8% (0-9) 13% (0-9) Eosinophils (%) (Auto) 1% (0-3) 1% (0-3) Basophils (%) (Auto) 1% (0-3) 1% (0-3) Neutrophils # (Auto) 9.5x10^3uL (1.8-7.7) 4.6x10^3uL (1.8-7.7) Lymphocytes # (Auto) 1.4x10^3/uL (1.0-4.8) 0.9x10^3/uL (1.0-4.8) Monocytes # (Auto) 1.0x10^3/uL (0.0-1.1) 0.9x10^3/uL (0.0-1.1) Eosinophils # (Auto) 0.1x10^3/uL (0.0-0.7) 0.0x10^3/uL (0.0-0.7) Basophils # (Auto) 0.1x10^3/uL (0.0-0.2) 0.0x10^3/uL (0.0-0.2) Prothrombin Time 12.7SEC (11.7-14.0) Prothromb Time International Ratio 1.0 (0.8-1.1) Activated Partial Thromboplast Time 25SEC (24-38) Sodium Level 135mmol/L (136-145) 139mmol/L (136-145) Potassium Level 3.9mmol/L (3.5-5.1) 4.5mmol/L (3.5-5.1) Chloride Level 98mmol/L (98-107) 105mmol/L (98-107) Carbon Dioxide Level 19mmol/L (21-32) 22mmol/L (21-32) Anion Gap 18 (6-14) 12 (6-14) Blood Urea Nitrogen 18mg/dL (7-20) 12mg/dL (7-20) Creatinine 0.9mg/dL (0.6-1.0) 0.8mg/dL (0.6-1.0) Estimated GFR (Cockcroft-Gault) 61.5 70.5 BUN/Creatinine Ratio 20 (6-20) Glucose Level 119mg/dL (70-99) 181mg/dL (70-99) Calcium Level 10.0mg/dL (8.5-10.1) 9.6mg/dL (8.5-10.1) Total Bilirubin 0.5mg/dL (0.2-1.0) Aspartate Amino Transf (AST/SGOT) 16U/L (15-37) Alanine Aminotransferase (ALT/SGPT) 25U/L (14-59) Alkaline Phosphatase 87U/L (46-116) Troponin I Quantitative < 0.017ng/mL (0.000-0.055) < 0.017ng/mL (0.000-0.055) < 0.017ng/mL (0.000-0.055) AN-Jxp-L-Type Natriuretic Peptide 521pg/mL (0-124) Total Protein 7.3g/dL (6.4-8.2) Albumin 4.0g/dL (3.4-5.0) Albumin/Globulin Ratio 1.2 (1.0-1.7) Urine Color Yellow Urine Clarity Clear Urine pH 6.5 Urine Specific [place] 1.010 Urine Protein Negativemg/dL (NEG-TRACE) Urine Glucose (UA) Negativemg/dL (NEG) Urine Ketones (Stick) Negativemg/dL (NEG) Urine Blood Negative (NEG) Urine Nitrite Negative (NEG) Urine Bilirubin Negative (NEG) Urine Urobilinogen Dipstick 0.2mg/dL (0.2 mg/dL) Urine Leukocyte Esterase Small (NEG) Urine RBC 0/HPF (0-2) Urine WBC 1-4/HPF (0-4) Urine Squamous Epithelial Cells Occ/LPF Urine Bacteria Many/HPF (0-FEW) VTE Prophylaxis Ordered VTE Prophylaxis Devices: Yes VTE Pharmacological Prophylaxi: Yes Assessment/Plan Assessment/Plan 1. Left distal radius and ulnar fx - non surgical mx 2. Hematemesis s/o EGD clean 3. FRailty, gen weakness 4 severe pCM 5. HIgh fall risk 6. Fall encephalopathy, hypoglycemi,a CAD withs tents, DM2, dyslipidemia, UTI, PLAN: Start diet tonight (EGD is clean) PT/OT Julio Rodriguez elevls BAck to [facility] michelle if no more hemetemesis or acute issues overnight CAROLE BUTCHER MD Jun 15, 2016 14:25
[2016-06-15 15:00] VITALS: BP 179/61
[2016-06-15] MEDS: INSULIN ASPART 300 UNITS/3 ML INSULN.PEN SQ SCH (17:49)
[2016-06-15 19:15] VITALS: BP 168/57
[2016-06-15] MEDS ORDERED: ATORVASTATIN CALCIUM 40 MG TABLET. PO SCH (21:00)
[2016-06-15] MEDS ORDERED: SENNOSIDES/DOCUSATE 8.6/50MG TABLET. PO SCH (21:00)
[2016-06-15] MEDS ORDERED: MIRTAZAPINE 15 MG TABLET PO SCH (21:00)
[2016-06-15] MEDS ORDERED: NON FORMULARY ITEM (Melatonin 10 MG) PO SCH (21:00)
[2016-06-15] MEDS ORDERED: CYCLOSPORINE 0.05% OPTH DROPERETTE. OU SCH (21:00)
[2016-06-15 23:15] VITALS: BP 169/72
[2016-06-16 03:20] VITALS: BP 141/57
[2016-06-16] MEDS: HYDROCODONE/APAP 5/325MG TABLET. PO PRN ×4 (06:10→18:57)
[2016-06-16 07:00] VITALS: BP 191/52
[2016-06-16] MEDS ORDERED: PANTOPRAZOLE 40 MG TABLET. PO SCH (07:30)
[2016-06-16] MEDS ORDERED: POTASSIUM CHLORIDE 10 MEQ TABLET.ER. PO SCH (08:00)
[2016-06-16] MEDS: OXYBUTYNIN CHLORIDE 5 MG TABLET PO SCH (09:07)
[2016-06-16] MEDS: NICOTINE 21MG PATCH. TD SCH (09:07)
[2016-06-16] MEDS: POLYETHYLENE GLYCOL 3350 17 GM PACKET. PO SCH (09:07)
[2016-06-16] MEDS: DULOXETINE HCL 30 MG CAPSULE.DR. PO SCH (09:08)
[2016-06-16] MEDS: AMLODIPINE BESYLATE 10 MG TABLET PO SCH (09:08)
[2016-06-16] MEDS: ACETAMINOPHEN 325 MG TABLET. PO SCH ×2 (09:08→14:00)
[2016-06-16] MEDS: LISINOPRIL 20 MG TABLET PO SCH (09:09)
[2016-06-16] MEDS: CARVEDILOL 12.5 MG TABLET PO SCH ×2 (09:09→17:00)
[2016-06-16] MEDS: INSULIN DETEMIR 300 UNITS/3 ML INSULN.PEN. SQ SCH (09:22)
[2016-06-16] MEDS ORDERED: LABETALOL 20 MG/4 ML DISP.SYRIN. IVP PRN (10:00)
[2016-06-16 11:00] VITALS: BP 156/39
--- NOTE | 2016-06-16 11:05 | PDOC ---
G I PROGRESS NOTE Subjective No GI complaints. Tolerating diet. Physical Exam Lungs clear. RRR Abdomen soft, not tender nor distended. Review of Relevant I have reviewed the following items [place] (where applicable) has been applied. Labs Laboratory Tests Test 06/14/16 19:45 06/14/16 21:15 06/15/16 01:00 06/15/16 02:03 White Blood Count 12.1x10^3/uL (4.0-11.0) Red Blood Count 4.12x10^6/uL (3.50-5.40) Hemoglobin 12.1g/dL (12.0-15.5) Hematocrit 36.6% (36.0-47.0) Mean Corpuscular Volume 89fL (79-100) Mean Corpuscular Hemoglobin 29pg (25-35) Mean Corpuscular Hemoglobin Concent 33g/dL (31-37) Red Cell Distribution Width 14.0% (11.5-14.5) Platelet Count 202x10^3/uL (140-400) Neutrophils (%) (Auto) 79% (31-73) Lymphocytes (%) (Auto) 11% (24-48) Monocytes (%) (Auto) 8% (0-9) Eosinophils (%) (Auto) 1% (0-3) Basophils (%) (Auto) 1% (0-3) Neutrophils # (Auto) 9.5x10^3uL (1.8-7.7) Lymphocytes # (Auto) 1.4x10^3/uL (1.0-4.8) Monocytes # (Auto) 1.0x10^3/uL (0.0-1.1) Eosinophils # (Auto) 0.1x10^3/uL (0.0-0.7) Basophils # (Auto) 0.1x10^3/uL (0.0-0.2) Prothrombin Time 12.7SEC (11.7-14.0) Prothromb Time International Ratio 1.0 (0.8-1.1) Activated Partial Thromboplast Time 25SEC (24-38) Sodium Level 135mmol/L (136-145) Potassium Level 3.9mmol/L (3.5-5.1) Chloride Level 98mmol/L (98-107) Carbon Dioxide Level 19mmol/L (21-32) Anion Gap 18 (6-14) Blood Urea Nitrogen 18mg/dL (7-20) Creatinine 0.9mg/dL (0.6-1.0) Estimated GFR (Cockcroft-Gault) 61.5 BUN/Creatinine Ratio 20 (6-20) Glucose Level 119mg/dL (70-99) Calcium Level 10.0mg/dL (8.5-10.1) Total Bilirubin 0.5mg/dL (0.2-1.0) Aspartate Amino Transf (AST/SGOT) 16U/L (15-37) Alanine Aminotransferase (ALT/SGPT) 25U/L (14-59) Alkaline Phosphatase 87U/L (46-116) Troponin I Quantitative < 0.017ng/mL (0.000-0.055) < 0.017ng/mL (0.000-0.055) KD-Eja-F-Type Natriuretic Peptide 521pg/mL (0-124) Total Protein 7.3g/dL (6.4-8.2) Albumin 4.0g/dL (3.4-5.0) Albumin/Globulin Ratio 1.2 (1.0-1.7) Urine Color Yellow Urine Clarity Clear Urine pH 6.5 Urine Specific [place] 1.010 Urine Protein Negativemg/dL (NEG-TRACE) Urine Glucose (UA) Negativemg/dL (NEG) Urine Ketones (Stick) Negativemg/dL (NEG) Urine Blood Negative (NEG) Urine Nitrite Negative (NEG) Urine Bilirubin Negative (NEG) Urine Urobilinogen Dipstick 0.2mg/dL (0.2 mg/dL) Urine Leukocyte Esterase Small (NEG) Urine RBC 0/HPF (0-2) Urine WBC 1-4/HPF (0-4) Urine Squamous Epithelial Cells Occ/LPF Urine Bacteria Many/HPF (0-FEW) Nasal Screen MRSA (PCR) Negative (Negative) Test 06/15/16 08:10 06/15/16 17:34 06/15/16 20:33 06/16/16 09:16 White Blood Count 6.5x10^3/uL (4.0-11.0) Red Blood Count 4.06x10^6/uL (3.50-5.40) Hemoglobin 12.0g/dL (12.0-15.5) Hematocrit 36.3% (36.0-47.0) Mean Corpuscular Volume 90fL (79-100) Mean Corpuscular Hemoglobin 30pg (25-35) Mean Corpuscular Hemoglobin Concent 33g/dL (31-37) Red Cell Distribution Width 14.0% (11.5-14.5) Platelet Count 185x10^3/uL (140-400) Neutrophils (%) (Auto) 71% (31-73) Lymphocytes (%) (Auto) 14% (24-48) Monocytes (%) (Auto) 13% (0-9) Eosinophils (%) (Auto) 1% (0-3) Basophils (%) (Auto) 1% (0-3) Neutrophils # (Auto) 4.6x10^3uL (1.8-7.7) Lymphocytes # (Auto) 0.9x10^3/uL (1.0-4.8) Monocytes # (Auto) 0.9x10^3/uL (0.0-1.1) Eosinophils # (Auto) 0.0x10^3/uL (0.0-0.7) Basophils # (Auto) 0.0x10^3/uL (0.0-0.2) Sodium Level 139mmol/L (136-145) Potassium Level 4.5mmol/L (3.5-5.1) Chloride Level 105mmol/L (98-107) Carbon Dioxide Level 22mmol/L (21-32) Anion Gap 12 (6-14) Blood Urea Nitrogen 12mg/dL (7-20) Creatinine 0.8mg/dL (0.6-1.0) Estimated GFR (Cockcroft-Gault) 70.5 Glucose Level 181mg/dL (70-99) Calcium Level 9.6mg/dL (8.5-10.1) Troponin I Quantitative < 0.017ng/mL (0.000-0.055) 25-Hydroxy Vitamin D Total 19.6ng/mL (30.0-100.0) Glucose (Fingerstick) 278mg/dL (70-99) 207mg/dL (70-99) 124mg/dL (70-99) Laboratory Tests Test 06/15/16 17:34 06/15/16 20:33 06/16/16 09:16 Glucose (Fingerstick) 278mg/dL (70-99) 207mg/dL (70-99) 124mg/dL (70-99) Microbiology 06/14/16 Urine Culture - Preliminary, Resulted 06/14/16 Urine Culture Result 1 (ÁNGEL) - Preliminary, Resulted Medications Current Medications Fentanyl Citrate (Fentanyl 2ml Vial) 25 mcg PRN Q15MIN PRN IV PAIN GREATER THAN 3/10 Last administered on 06/14/16 21:46; Start 06/14/16 at 19:45; Stop at 10:09; Status DC Iohexol 75 ml 75 ml 1X ONCE IV Last administered on 06/14/16 20:30; Start at 20:30; Stop 06/14/16 at 20:31; Status DC Pantoprazole Sodium 80 mg/ Sodium Chloride 100 ml @ 10 mls/hr 1X ONCE IV ; Start 06/14/16 at 22:15; Stop 06/15/16 at 08:14; Status UNV Pantoprazole Sodium 80 mg/ Sodium Chloride 100 ml @ 10 mls/hr Q10H IV Last administered on 06/15/16 09:04; Start 06/14/16 at 23:00; Stop 06/15/16 at 13:06 ; Status DC Sodium Chloride (Iv Sodium Chloride 0.9% 1000ml Bag) 1,000 ml @ 100 mls/hr 1X ONCE IV Last administered on 06/14/16 22:40; Start 06/14/16 at 22:15; Stop at 08:14; Status DC Pantoprazole Sodium (Protonix Vial) 80 mg 1X ONCE IVP Last administered on 22:40; Start 06/14/16 at 22:30; Stop 06/14/16 at 22:31; Status DC Ondansetron HCl (Zofran) 4 mg 1X ONCE IV Last administered on 06/14/16 22:10 ; Start 06/14/16 at 23:00; Stop 06/14/16 at 23:01; Status DC Ondansetron HCl (Zofran) 4 mg PRN Q8HRS PRN IV NAUSEA/VOMITING; Start 06/14/16 at 22:30; Stop 06/15/16 at 10:09; Status DC Morphine Sulfate 2 mg 2 mg PRN Q2HR PRN IV SEVERE PAIN Last administered on 20:33; Start 06/14/16 at 22:30; Stop 06/15/16 at 22:29; Status DC Sodium Chloride (Iv Sodium Chloride 0.9% 1000ml Bag) 1,000 ml @ 100 mls/hr Q10H IV Last administered on 06/15/16 17:25; Start 06/14/16 at 22:27; Stop at 22:26; Status DC Ondansetron HCl (Zofran) 4 mg STK-MED ONCE .ROUTE ; Start 06/14/16 at 22:00; Stop 06/15/16 at 10:04; Status DC Ondansetron HCl (Zofran) 4 mg PRN Q6HRS PRN IV NAUSEA/VOMITING; Start 06/15/16 at 10:06 Labetalol HCl (Normodyne) 10 mg PRN Q2HR PRN IVP HYPERTENSION, SEE COMMENTS Last administered on 06/15/16 20:44; Start 06/15/16 at 10:15; Stop 06/16/16 at 10:03; Status DC Acetaminophen/ Hydrocodone Bitart (Lortab 5/325) 1 tab PRN Q4HRS PRN PO PAIN Last administered on 06/16/16 10:19; Start 06/15/16 at 10:15 Acetaminophen (Tylenol) 650 mg TID PO Last administered on 06/16/16 09:08; Start 06/15/16 at 14:00 Amlodipine Besylate (Norvasc) 10 mg DAILY PO Last administered on 06/16/16 09: 08; Start 06/15/16 at 11:00 Atorvastatin Calcium (Lipitor) 40 mg QHS PO Last administered on 06/15/16 20: 32; Start 06/15/16 at 21:00 Carvedilol (Coreg) 25 mg BIDWMEALS PO Last administered on 06/16/16 09:09; Start 06/15/16 at 11:00 Cyclosporine (Restasis) 1 drop HS OU Last administered on 06/15/16 20:32; Start 06/15/16 at 21:00 Duloxetine HCl (Cymbalta) 30 mg DAILY PO Last administered on 06/16/16 09:08; Start 06/15/16 at 11:00 Lisinopril (Prinivil) 20 mg DAILY PO Last administered on 06/16/16 09:09; Start 06/15/16 at 11:00 Mirtazapine (Remeron) 15 mg QHS PO Last administered on 06/15/16 20:32; Start 06/15/16 at 21:00 Nicotine (Nicoderm Cq 21mg) 1 patch DAILY TD Last administered on 06/16/16 09: 07; Start 06/15/16 at 11:00 Oxybutynin Chloride (Ditropan) 5 mg BID PO Last administered on 06/16/16 09:07 ; Start 06/15/16 at 11:00 Polyethylene Glycol (miraLAX PACKET) 17 gm DAILY PO Last administered on 09:07; Start 06/15/16 at 11:00 Senna/Docusate Sodium (Senna Plus) 2 tab HS PO Last administered on 06/15/16 20:32; Start 06/15/16 at 21:00 Insulin Aspart (Novolog) 5 units DAILYWSUP SQ Last administered on 06/15/16 17 :49; Start 06/15/16 at 17:00 Insulin Detemir (Levemir) 30 units DAILY SQ Last administered on 06/16/16 09: 22; Start 06/15/16 at 11:00 Non-Formulary Medication 10 mg QHS PO ; Start 06/15/16 at 21:00; Stop 06/15/16 at 21:00; Status DC Potassium Chloride (Klor-Con) 10 meq DAILYWBKFT PO Last administered on 09:08; Start 06/16/16 at 08:00 Metoclopramide HCl 10 mg 10 mg 1X ONCE IV Last administered on 06/15/16 11:18 ; Start 06/15/16 at 11:15; Stop 06/15/16 at 11:16; Status DC Propofol (Diprivan) 20 ml @ As Directed STK-MED ONCE IV ; Start 06/15/16 at 12: 36; Stop 06/15/16 at 12:37; Status DC Lidocaine HCl (Lidocaine Pf 2% Vial) 5 ml STK-MED ONCE .ROUTE ; Start 06/15/16 at 12:37; Stop 06/15/16 at 12:38; Status DC Ephedrine Sulfate 50 mg STK-MED ONCE IV ; Start 06/15/16 at 12:37; Stop at 12:38; Status DC Pantoprazole Sodium 40 mg 40 mg DAILYAC PO Last administered on 06/16/16 06:08 ; Start 06/16/16 at 07:30 Levofloxacin/ Dextrose (LEVAQUIN 500mg PREMIX) 100 ml @ 100 mls/hr Q24H IV Last administered on 06/15/16 17:26; Start 06/15/16 at 17:00 Labetalol HCl (Normodyne) 10 mg PRN Q2HR PRN IVP HYPERTENSION, SEE COMMENTS; Start 06/16/16 at 10:00 Active Scripts Active Reported Tylenol (Acetaminophen) 325 Mg Tablet 650 Mg PO TID Senna-Docusate Sodium Tablet (Sennosides/Docusate Sodium) 1 Each Tablet 2 Each PO HS Protonix (Pantoprazole Sodium) 40 Mg Tablet.dr 1 Tab PO DAILY NICODERM CQ 21mg (Nicotine) 1 Each Patch.td24 1 Patch TP DAILY Miralax (Polyethylene Glycol 3350) 17 Gm Powd.pack 1 Packet PO DAILY Miralax (Polyethylene Glycol 3350) 17 Gm Powd.pack 1 Packet PO PRN DAILY PRN Melatonin 3 Mg Tablet 10 Mg PO QHS Mirtazapine 15 Mg Tablet 1 Tab PO QHS Cymbalta (Duloxetine Hcl) 30 Mg Capsule.dr 1 Cap PO DAILY Acetaminophen 500 Mg Tablet 1 Tab PO PRN Q6HRS PRN Novolog (Insulin Aspart) 100 Unit/1 Ml Cartridge 5 Unit SQ DAILYWSUP Restasis (Cyclosporine) 1 Each Droperette 1 Drop EACHEYE HS Multiple Vitamins (Multivitamin) 1 Each Tablet 1 Each PO Potassium Chloride 10 Meq Capsule.er 1 Cap PO DAILY05 Levemir (Insulin Detemir) 100 Unit/1 Ml Vial 30 Unit SQ DAILY Atorvastatin Calcium 40 Mg Tablet 1 Tab PO DAILY Lisinopril 20 Mg Tablet 1 Tab PO DAILY Oxybutynin Chloride 5 Mg Tablet 5 Mg PO BID Norvasc (Amlodipine Besylate) 5 Mg Tablet 10 Mg PO DAILY Clopidogrel (Clopidogrel Bisulfate) 75 Mg Tablet 75 Mg PO DAILY Coreg (Carvedilol) 12.5 Mg Tablet 25 Mg PO BID Vitals/I & O Vital Sign - Last 24 Hours 06/15/16 06/15/16 06/15/16 06/15/16 12:11 12:28 13:03 13:18 Temp 99.4 99.2 99.2 99.4 99.2 99.2 Pulse 81 86 85 Resp 18 18 B/P 163/71 178/77 Pulse Ox 96 98 98 O2 Delivery Room Air Room Air Room Air Nasal Cannula O2 Flow Rate 2 06/15/16 06/15/16 06/15/16 06/15/16 14:04 15:00 17:24 17:25 Temp 98.0 98.0 Pulse 94 88 Resp 18 B/P 179/61 168/72 Pulse Ox 98 94 94 O2 Delivery Room Air Room Air Room Air O2 Flow Rate 2.0 2.0 06/15/16 06/15/16 06/15/16 06/15/16 17:57 19:15 20:00 20:44 Temp 99.3 99.3 Pulse 90 90 Resp 18 18 B/P 168/57 168/57 Pulse Ox 94 95 O2 Delivery Room Air Room Air Room Air O2 Flow Rate 2.0 06/15/16 06/16/16 06/16/16 06/16/16 23:15 03:20 07:00 07:25 Temp 97.9 97.7 97.7 97.9 97.7 97.7 Pulse 90 70 78 Resp 18 B/P 169/72 141/57 191/52 Pulse Ox 94 93 94 O2 Delivery Room Air Room Air Room Air Room Air 06/16/16 06/16/16 06/16/16 06/16/16 07:59 09:08 09:09 09:09 Pulse 78 78 78 B/P 191/52 191/52 191/52 O2 Delivery Room Air 06/16/16 10:19 O2 Delivery Room Air Intake and Output 06/15/16 06/15/16 06/16/16 15:00 23:00 07:00 Intake Total 1467 ml 250 ml Balance 1467 ml 250 ml Problem List Problems Medical Problems: (1) Distal radius fracture Status: Acute (2) GI bleed Status: Acute (3) Syncope Status: Acute Assessment "Hematemesis"; not sure what she vomited, but doubt was blood or at least blood from UGI tract. Probably some reflux issues. Plan of Care Note Continue PPI; consider chronic. ИРИНА ZARCO MD Jun 16, 2016 11:05
--- NOTE | 2016-06-16 14:01 | PDOC3 ---
Discharge Summary Visit Information Date of Admission: Jun 14, 2016 Date of Discharge: Jun 16, 2016 Admitting Diagnosis Comment: 1. Left distal radius and ulnar fx - non surgical mx 2. Hematemesis s/o EGD clean 3. FRailty, gen weakness 4 severe pCM 5. HIgh fall risk 6. Fall encephalopathy, hypoglycemi,a CAD withs tents, DM2, dyslipidemia, 7. UTI, lama sensitive Final Diagnosis Problems Medical Problems: (1) Complicated UTI (urinary tract infection) Status: Acute (2) Distal radius fracture Status: Acute (3) GI bleed Status: Acute (4) Syncope Status: Acute Brief Hospital Course Allergies Allergies Coded Allergies Type Severity Reaction Last Updated Verified adhesive Allergy Intermediate Rash 06/15/16 Yes Vital Signs Vital Signs Date Time Temp Pulse Resp B/P Pulse Ox O2 Delivery O2 Flow Rate FiO2 06/16/16 11:27 20 Room Air 06/16/16 11:00 97.9 72 156/39 97 97.9 06/15/16 17:57 2.0 Lab Results Laboratory Tests Test 06/14/16 19:45 06/14/16 21:15 06/15/16 01:00 06/15/16 02:03 White Blood Count 12.1x10^3/uL (4.0-11.0) Red Blood Count 4.12x10^6/uL (3.50-5.40) Hemoglobin 12.1g/dL (12.0-15.5) Hematocrit 36.6% (36.0-47.0) Mean Corpuscular Volume 89fL (79-100) Mean Corpuscular Hemoglobin 29pg (25-35) Mean Corpuscular Hemoglobin Concent 33g/dL (31-37) Red Cell Distribution Width 14.0% (11.5-14.5) Platelet Count 202x10^3/uL (140-400) Neutrophils (%) (Auto) 79% (31-73) Lymphocytes (%) (Auto) 11% (24-48) Monocytes (%) (Auto) 8% (0-9) Eosinophils (%) (Auto) 1% (0-3) Basophils (%) (Auto) 1% (0-3) Neutrophils # (Auto) 9.5x10^3uL (1.8-7.7) Lymphocytes # (Auto) 1.4x10^3/uL (1.0-4.8) Monocytes # (Auto) 1.0x10^3/uL (0.0-1.1) Eosinophils # (Auto) 0.1x10^3/uL (0.0-0.7) Basophils # (Auto) 0.1x10^3/uL (0.0-0.2) Prothrombin Time 12.7SEC (11.7-14.0) Prothromb Time International Ratio 1.0 (0.8-1.1) Activated Partial Thromboplast Time 25SEC (24-38) Sodium Level 135mmol/L (136-145) Potassium Level 3.9mmol/L (3.5-5.1) Chloride Level 98mmol/L (98-107) Carbon Dioxide Level 19mmol/L (21-32) Anion Gap 18 (6-14) Blood Urea Nitrogen 18mg/dL (7-20) Creatinine 0.9mg/dL (0.6-1.0) Estimated GFR (Cockcroft-Gault) 61.5 BUN/Creatinine Ratio 20 (6-20) Glucose Level 119mg/dL (70-99) Calcium Level 10.0mg/dL (8.5-10.1) Total Bilirubin 0.5mg/dL (0.2-1.0) Aspartate Amino Transf (AST/SGOT) 16U/L (15-37) Alanine Aminotransferase (ALT/SGPT) 25U/L (14-59) Alkaline Phosphatase 87U/L (46-116) Troponin I Quantitative < 0.017ng/mL (0.000-0.055) < 0.017ng/mL (0.000-0.055) LH-Tlb-U-Type Natriuretic Peptide 521pg/mL (0-124) Total Protein 7.3g/dL (6.4-8.2) Albumin 4.0g/dL (3.4-5.0) Albumin/Globulin Ratio 1.2 (1.0-1.7) Urine Color Yellow Urine Clarity Clear Urine pH 6.5 Urine Specific [place] 1.010 Urine Protein Negativemg/dL (NEG-TRACE) Urine Glucose (UA) Negativemg/dL (NEG) Urine Ketones (Stick) Negativemg/dL (NEG) Urine Blood Negative (NEG) Urine Nitrite Negative (NEG) Urine Bilirubin Negative (NEG) Urine Urobilinogen Dipstick 0.2mg/dL (0.2 mg/dL) Urine Leukocyte Esterase Small (NEG) Urine RBC 0/HPF (0-2) Urine WBC 1-4/HPF (0-4) Urine Squamous Epithelial Cells Occ/LPF Urine Bacteria Many/HPF (0-FEW) Nasal Screen MRSA (PCR) Negative (Negative) Test 06/15/16 08:10 06/15/16 17:34 06/15/16 20:33 06/16/16 09:16 White Blood Count 6.5x10^3/uL (4.0-11.0) Red Blood Count 4.06x10^6/uL (3.50-5.40) Hemoglobin 12.0g/dL (12.0-15.5) Hematocrit 36.3% (36.0-47.0) Mean Corpuscular Volume 90fL (79-100) Mean Corpuscular Hemoglobin 30pg (25-35) Mean Corpuscular Hemoglobin Concent 33g/dL (31-37) Red Cell Distribution Width 14.0% (11.5-14.5) Platelet Count 185x10^3/uL (140-400) Neutrophils (%) (Auto) 71% (31-73) Lymphocytes (%) (Auto) 14% (24-48) Monocytes (%) (Auto) 13% (0-9) Eosinophils (%) (Auto) 1% (0-3) Basophils (%) (Auto) 1% (0-3) Neutrophils # (Auto) 4.6x10^3uL (1.8-7.7) Lymphocytes # (Auto) 0.9x10^3/uL (1.0-4.8) Monocytes # (Auto) 0.9x10^3/uL (0.0-1.1) Eosinophils # (Auto) 0.0x10^3/uL (0.0-0.7) Basophils # (Auto) 0.0x10^3/uL (0.0-0.2) Sodium Level 139mmol/L (136-145) Potassium Level 4.5mmol/L (3.5-5.1) Chloride Level 105mmol/L (98-107) Carbon Dioxide Level 22mmol/L (21-32) Anion Gap 12 (6-14) Blood Urea Nitrogen 12mg/dL (7-20) Creatinine 0.8mg/dL (0.6-1.0) Estimated GFR (Cockcroft-Gault) 70.5 Glucose Level 181mg/dL (70-99) Calcium Level 9.6mg/dL (8.5-10.1) Troponin I Quantitative < 0.017ng/mL (0.000-0.055) 25-Hydroxy Vitamin D Total 19.6ng/mL (30.0-100.0) Glucose (Fingerstick) 278mg/dL (70-99) 207mg/dL (70-99) 124mg/dL (70-99) Test 06/16/16 11:29 Glucose (Fingerstick) 221mg/dL (70-99) Laboratory Tests Test 06/15/16 17:34 06/15/16 20:33 06/16/16 09:16 06/16/16 11:29 Glucose (Fingerstick) 278mg/dL (70-99) 207mg/dL (70-99) 124mg/dL (70-99) 221mg/dL (70-99) Brief Hospital Course Ms. Martinez is a 70 old female who c=vomited food and blood at [facility]U, on plavix, EGD done neg, Likely chronic, old, reflux, advised PPI which she is already on, Hemodynamically stable, Fell at SNU fractured left distal radius and ulna- non surgical per ortho, INcidental UTI< urine cx lama senstive - shifting to PO levaquin x 7 days Lots of med issues time 31mins Dw pt, rn and sw Pt seen and exmained Discharge Information Condition at Discharge: Improved, Stable Disposition/Orders: Other (snu) Scheduled Acetaminophen (Tylenol) 650 MG PO TID (Reported) Amlodipine Besylate (Norvasc) 10 MG PO DAILY (Reported) Atorvastatin Calcium (Atorvastatin Calcium) 1 TAB PO DAILY (Reported) Carvedilol (Coreg) 25 MG PO BID (Reported) Clopidogrel Bisulfate (Clopidogrel) 75 MG PO DAILY (Reported) Cyclosporine (Restasis) 1 DROP EACHEYE HS (Reported) Duloxetine Hcl (Cymbalta) 1 CAP PO DAILY (Reported) Insulin Aspart (Novolog) 5 UNIT SQ DAILYWSUP (Reported) Insulin Detemir (Levemir) 30 UNIT SQ DAILY (Reported) Lisinopril (Lisinopril) 1 TAB PO DAILY (Reported) Melatonin (Melatonin) 10 MG PO QHS (Reported) Mirtazapine (Mirtazapine) 1 TAB PO QHS (Reported) Nicotine (NICODERM CQ 21mg) 1 PATCH TP DAILY (Reported) Oxybutynin Chloride (Oxybutynin Chloride) 5 MG PO BID (Reported) Pantoprazole Sodium (Protonix) 1 TAB PO DAILY (Reported) Polyethylene Glycol 3350 (Miralax) 1 PACKET PO DAILY (Reported) Potassium Chloride (Potassium Chloride) 1 CAP PO DAILY05 (Reported) Sennosides/Docusate Sodium (Senna-Docusate Sodium Tablet) 2 EACH PO HS (Reported ) Scheduled PRN Acetaminophen (Acetaminophen) 1 TAB PO PRN Q6HRS PRN PRN PAIN (Reported) Polyethylene Glycol 3350 (Miralax) 1 PACKET PO PRN DAILY PRN PRN CONSTIPATION ( Reported) Miscellaneous Medications Multivitamin (Multiple Vitamins) 1 EACH PO (Reported) Discontinued Medications Lansoprazole (Prevacid) 1 CAP PO DAILY (Reported) Ondansetron Hcl (Zofran) 1 TAB PO PRN Q4-6HRS PRN PRN NAUSEA/VOMITING (Reported ) Potassium Chloride (Potassium Chloride) 1 TAB PO DAILY16 (Reported) CAROLE BUTCHER MD Jun 16, 2016 14:01
[2016-06-16 15:00] VITALS: BP 97/76
[2016-06-16 17:00] VITALS: BP 97/76
[2016-06-16] MEDS: INSULIN ASPART 300 UNITS/3 ML INSULN.PEN SQ SCH (17:45)
== END 2016-06-16 19:15 | DRG 377 ==
LOC: ER 19:11 → 6 SOUTH 21:44
PROVIDERS: ADMIT Internal Medicine; ATTEND Internal Medicine
PROC: 0DJ08ZZ Inspection of Upper Intestinal Tract, Via Natural or Artificial Opening Endoscopic (ICD-10-PCS; principal; 2016-06-15 13:00)
DX: K92.2 Gastrointestinal hemorrhage, unspecified (principal); G93.40 Encephalopathy, unspecified; E43 Unspecified severe protein-calorie malnutrition; S52.502A Unspecified fracture of the lower end of left radius, initial encounter for closed fracture; N39.0 Urinary tract infection, site not specified; I69.954 Hemiplegia and hemiparesis following unspecified cerebrovascular disease affecting left non-dominant side; S52.612A Displaced fracture of left ulna styloid process, initial encounter for closed fracture; K92.0 Hematemesis; E11.649 Type 2 diabetes mellitus with hypoglycemia without coma; E78.00 Pure hypercholesterolemia, unspecified; E78.5 Hyperlipidemia, unspecified; F03.90 Unspecified dementia, unspecified severity, without behavioral disturbance, psychotic disturbance, mood disturbance, and anxiety; I25.10 Atherosclerotic heart disease of native coronary artery without angina pectoris; I50.9 Heart failure, unspecified; J44.9 Chronic obstructive pulmonary disease, unspecified; K21.9 Gastro-esophageal reflux disease without esophagitis; Z96.649 Presence of unspecified artificial hip joint; F32.9 Major depressive disorder, single episode, unspecified; I11.0 Hypertensive heart disease with heart failure; W19.XXXA Unspecified fall, initial encounter; R13.10 Dysphagia, unspecified; K59.00 Constipation, unspecified; M19.90 Unspecified osteoarthritis, unspecified site; Z79.02 Long term (current) use of antithrombotics/antiplatelets; Z82.49 Family history of ischemic heart disease and other diseases of the circulatory system; Z91.14 Patient's other noncompliance with medication regimen; Y93.89 Activity, other specified; Y92.89 Other specified places as the place of occurrence of the external cause; Y99.8 Other external cause status; Z91.81 History of falling; Z88.8 Allergy status to other drugs, medicaments and biological substances; Z93.1 Gastrostomy status; Z79.1 Long term (current) use of non-steroidal anti-inflammatories (NSAID); Z68.25 Body mass index [BMI] 25.0-25.9, adult
CPT/HCPCS: 36415; 70450; 71010; 72125; 73030; 73080; 73090; 73110; 73130; 74177; 80048; 80053; 81001; 82306; 82947; 83880; 84484; 85027; 85610; 85730; 86850; 86900; 86901; 87086; 87186; 87641; 93005; 96374; 96375; C9113; J1815; J1956; J2270; J2405; J2704; J2765; J3010; J3490; J7030; Q9967; 97535; 99285-25

== ENCOUNTER 2016-06-30 06:41 | Inpatient (IN) | payer MEDICARE, OTHER ==
[~2016-06-30] VITALS: Ht 160 cm; Wt 62.8 kg
[~2016-06-30 06:41] MED LIST changes: +MELA3TAB PO; +NICO1PAT21 TP; +PANT40TA3 PO; +POLY17PO5 PO; +SENN1TAB99 PO
--- NOTE | 2016-06-30 06:57 | PHYS DOC ---
Past Medical History Past Medical History: CAD, CHF, Constipation, CVA, Depression, Diabetes-Type II , GERD, High Cholesterol, Hypertension, ID Additional Past Medical Histor: medication non compliance, DYSPHAGIA Past Surgical History: Hip Replacement, Other Additional Past Surgical Histo: carotid, peg tube placement Alcohol Use: None Drug Use: None Adult General Chief Complaint Chief Complaint: MECHANICAL FALL HPI HPI Patient is a 70 year old female who presents after being found down on the floor of her residence at [facility]. Patient says she is unsure how she ended up on the ground. Staff did not witness any fall. Patient has c/o pain in her R lower back/hip, L shoulder. She denies any lightheadedness, chest discomfort, SOB. No other acute complaints. Review of Systems Review of Systems Constitutional: Syncope? Denies fever or chills Eyes: Denies change in visual acuity or eye pain HENT: Denies nasal congestion or sore throat Respiratory: Denies cough or shortness of breath Cardiovascular: Denies chest pain GI: Denies abdominal pain, nausea, vomiting, bloody stools or diarrhea : Denies dysuria or hematuria Musculoskeletal: L shoulder pain, R lower back/hip pain Integument: Denies rash or skin lesions Neurologic: Denies headache, focal weakness or sensory changes Current Medications Current Medications Current Medications Medications (Trade) Dose Ordered Sig/Pawan Start Time Stop Time Status Last Admin Dose Admin Acetaminophen (Tylenol) 650 mg PRN Q4HRS PRN 06/30/16 08:45 07/01/16 08:44 UNV Dextrose 12.5 gm PRN Q15MIN PRN 06/30/16 08:45 UNV Insulin Aspart (Novolog) 0-7 UNITS TIDWMEALS 06/30/16 12:00 UNV Morphine Sulfate 2 mg PRN Q2HR PRN 06/30/16 08:45 07/01/16 08:44 UNV Ondansetron HCl (Zofran) 4 mg PRN Q8HRS PRN 06/30/16 08:45 07/01/16 08:44 UNV Ondansetron HCl 4 mg 4 mg 1X ONCE 06/30/16 07:15 06/30/16 07:16 DC 06/30/16 07:32 4 MG Sodium Chloride (Iv Sodium Chloride 0.9% 500ml Bag) 500 ml @ 500 mls/hr 1X ONCE 06/30/16 08:45 06/30/16 09:44 Allergies Allergies Allergies Coded Allergies Type Severity Reaction Last Updated Verified adhesive Allergy Intermediate Rash 06/15/16 Yes Physical Exam Physical Exam Constitutional: Well developed, well nourished, no acute distress, non-toxic appearance HENT: Normocephalic, atraumatic, bilateral external ears normal Eyes: PERRL, EOMI, conjunctiva normal, no discharge Neck: Normal range of motion, no stridor Cardiovascular: Heart rate normal, regular rhythm, no murmur Lungs & Thorax: Bilateral breath sounds clear to auscultation Abdomen: Bowel sounds normal, soft, non-distended, no TTP Skin: Warm, dry, no erythema, no rash Back: No tenderness, no stepoff or deformity Extremities: L wrist brace, LUE bruising (from prior incident); all extremities palpated and examined with no deformity or bony TTP; neurovascularly intact throughout Neurologic: Alert and oriented X 3, GCS 15, CN II-XII grossly intact, strength grossly intact and symmetrical throughout, sensation to light touch intact throughout Current Patient Data Vital Signs Vital Signs Date Time Temp Pulse Resp B/P Pulse Ox O2 Delivery O2 Flow Rate FiO2 06/30/16 06:52 98.4 74 20 152/65 92 Room Air 98.4 Lab Values Laboratory Tests Test 06/30/16 06:49 White Blood Count 9.4x10^3/uL (4.0-11.0) Red Blood Count 3.95x10^6/uL (3.50-5.40) Hemoglobin 11.8g/dL (12.0-15.5) L Hematocrit 35.8% (36.0-47.0) L Mean Corpuscular Volume 91fL (79-100) Mean Corpuscular Hemoglobin 30pg (25-35) Mean Corpuscular Hemoglobin Concent 33g/dL (31-37) Red Cell Distribution Width 13.7% (11.5-14.5) Platelet Count 204x10^3/uL (140-400) Neutrophils (%) (Auto) 77% (31-73) H Lymphocytes (%) (Auto) 8% (24-48) L Monocytes (%) (Auto) 13% (0-9) H Eosinophils (%) (Auto) 1% (0-3) Basophils (%) (Auto) 1% (0-3) Neutrophils # (Auto) 7.2x10^3uL (1.8-7.7) Lymphocytes # (Auto) 0.8x10^3/uL (1.0-4.8) L Monocytes # (Auto) 1.3x10^3/uL (0.0-1.1) H Eosinophils # (Auto) 0.1x10^3/uL (0.0-0.7) Basophils # (Auto) 0.1x10^3/uL (0.0-0.2) Sodium Level 135mmol/L (136-145) L Potassium Level 4.9mmol/L (3.5-5.1) Chloride Level 102mmol/L (98-107) Carbon Dioxide Level 23mmol/L (21-32) Anion Gap 10 (6-14) Blood Urea Nitrogen 26mg/dL (7-20) H Creatinine 1.5mg/dL (0.6-1.0) H Estimated GFR (Cockcroft-Gault) 34.1 Glucose Level 149mg/dL (70-99) H Calcium Level 9.8mg/dL (8.5-10.1) Troponin I Quantitative < 0.017ng/mL (0.000-0.055) Laboratory Tests 06/30/16 06:49 Laboratory Tests 06/30/16 06:49 EKG EKG EKG (my read): sinus rhythm, rate 78, normal axis, intervals wnl except for QRS 110ms, nonspecific ST changes Radiology/Procedures Radiology/Procedures CT head/C-spine: IMPRESSION: 1. No acute intracranial findings. 2. Encephalomalacia secondary to multiple chronic infarcts as detailed above. Moderate diffuse chronic small vessel ischemic white matter change. 3. Moderate generalized cerebral atrophy. 4. No cervical fracture or malalignment. 5. Degenerative disc disease is mild from C4 through C6. 6. Central canal stenosis is mild to moderate at C5-6 and mild at C4-5. 7. Foraminal stenosis is mild at multiple levels as detailed above. CXR/L shoulder: IMPRESSION: 1. No fracture or malalignment at the left shoulder. 2. 9 mm left basilar nodule, likely superimposed shadows versus additional chronic infiltrate as seen on prior CT. Radiographic follow-up is suggested to demonstrate stability/resolution. 3. Mild bibasilar opacities are consistent with atelectasis or chronic infiltrates as seen on prior CT. 4. Small to moderate hiatal hernia. X-ray Lumbar spine/R hip/pelvis: IMPRESSION: 1. Moderate T12 and mild L1 compression fractures are likely chronic, but are new since 2010. Correlate for focal tenderness. No evidence of significant retropulsion. 2. No acute pelvic or hip fracture. Chronic healed fractures as above. 3. Constipation. Course & Med Decision Making Course & Med Decision Making Pertinent Labs and Imaging studies reviewed. (See chart for details) Patient is 70 year old female who was found down on the floor of her residence at an assisted living facility. Concern for syncope as patient is otherwise A& Ox3. No obvious serious injury noted on exam, will obtain CT head/c-spine and x- rays of areas of reported pain. EKG and labs also ordered. Also of concern is hypoxia: O2 sats in mid to upper 70s on room air (does not wear O2 normally), although patient denies SOB. O2 sats improved with nasal cannula. Labs largely unremarkable, slight bump in creatinine from prior. Imaging results as above. Discussed results with patient and visitor. Discussed with Dr. Rush, will admit under her care for further evaluation and treatment. Dragon Disclaimer Dragon Disclaimer This electronic medical record was generated, in whole or in part, using a voice recognition dictation system. Departure Departure Impression: Primary Impression: Syncope Additional Impression: Hypoxia Disposition: ADMITTED INPATIENT Admitting Physician: Amber Rush Condition: STABLE Referrals: CRISTIANO MARTINEZ MD (PCP) Problem Qualifiers LESLIE JUNG MD Jun 30, 2016 06:57
[2016-06-30] MEDS ORDERED: ACETAMINOPHEN 500 MG TABLET PO ONE (07:00)
[2016-06-30 07:11] LABS: BASO # 0.1 x10^3/uL (0.0-0.2); BASO % 1 % (0-3); EOS % 1 % (0-3); HEMATOCRIT 35.8 % (36.0-47.0); HEMOGLOBIN 11.8 g/dL (12.0-15.5); LYMPH # 0.8 x10^3/uL (1.0-4.8); LYMPH % 8 % (24-48); MEAN CORPUSCULAR HEMOGLOBIN 30 pg (25-35); MEAN CORPUSCULAR HGB CONC 33 g/dL (31-37); MEAN CORPUSCULAR VOLUME 91 fL (79-100); MONO % 13 % (0-9); NEUT % 77 % (31-73); PLATELET COUNT 204 x10^3/uL (140-400); RED BLOOD COUNT 3.95 x10^6/uL (3.50-5.40); RED CELL DISTRIBUTION WIDTH 13.7 % (11.5-14.5); WHITE BLOOD COUNT 9.4 x10^3/uL (4.0-11.0)
[2016-06-30] MEDS ORDERED: ONDANSETRON PF 4 MG/2 ML VIAL. IV ONE (07:15)
[2016-06-30 07:22] LABS: CALCIUM 9.8 mg/dL (8.5-10.1); CREATININE 1.5 mg/dL (0.6-1.0); GFR 34.1; POTASSIUM 4.9 mmol/L (3.5-5.1)
--- NOTE | 2016-06-30 08:14 | RAD ---
EXAM: 1. CT head without contrast. 2. CT cervical spine without contrast. HISTORY: Fall. TECHNIQUE: Computed tomography of the head and cervical spine was performed without intravenous contrast. COMPARISON: 06/14/2016. FINDINGS: There is no intracranial hemorrhage. There is encephalomalacia consistent with a large chronic right middle cerebral artery territory infarct. Additional infarcts are seen in the left parietal lobe and bilaterally in the basal ganglia. There is moderate chronic small vessel ischemic white matter change elsewhere. There is some ex vacuo dilatation of the right lateral ventricle and Wallerian degeneration of the right cerebral peduncle. Generalized atrophy is moderate. There are changes of bilateral cataract surgery. The paranasal sinuses, temporal bones and calvarium are unremarkable. There is a stent in the right common carotid and proximal internal carotid artery. There are changes consistent with bilateral carotid in moderate to me. The thyroid is diffusely mildly enlarged. A mild cervical levocurvature is likely positional. There is mild to moderate osteoarthritis at C1-2 for patient age. No fractures are identified. Osteopenia is moderate. Degenerative disc disease is mild from C4 through C6. There is no prevertebral soft tissue swelling. At C2-3, there is a small posterior disc bulge. There is no stenosis. At C3-4, there is a small to be. There is mild bilateral uncovertebral osteoarthritis. Right facet osteoarthritis is moderate. There is no significant stenosis. At C4-5, there is a small posterior disc-osteophyte complex. The central canal is mildly narrowed. Uncovertebral osteoarthritis is moderate bilaterally. Facet osteoarthritis is mild to moderate bilaterally. Foraminal stenosis is mild on the right greater than left. At C5-6, there is a moderate posterior disc-osteophyte complex. Central canal stenosis appears mild to moderate. Uncovertebral osteoarthritis is moderate on the left greater than right. Facet osteoarthritis is mild to moderate on the left greater than right. Foraminal stenosis is mild on the left. At C6-7, there is a small posterior disc-osteophyte complex. Uncovertebral osteoarthritis is mild on the left. Left foraminal stenosis is mild. IMPRESSION: 1. No acute intracranial findings. 2. Encephalomalacia secondary to multiple chronic infarcts as detailed above. Moderate diffuse chronic small vessel ischemic white matter change. 3. Moderate generalized cerebral atrophy. 4. No cervical fracture or malalignment. 5. Degenerative disc disease is mild from C4 through C6. 6. Central canal stenosis is mild to moderate at C5-6 and mild at C4-5. 7. Foraminal stenosis is mild at multiple levels as detailed above. *One or more of the following individualized dose reduction techniques were utilized for this examination: 1. Automated exposure control. 2. Adjustment of the mA and/or kV according to patient size. 3. Use of iterative reconstruction technique.
--- NOTE | 2016-06-30 08:25 | RAD ---
EXAM: 1. Left shoulder 3 views. 2. Chest one view. HISTORY: Fall with left shoulder and chest pain. COMPARISON: 06/14/2016. 11/25/2015. FINDINGS: No fractures are appreciated at the left shoulder. Acromioclavicular and glenohumeral joint spaces and alignment are maintained for patient age. A right carotid stent is noted. There are surgical clips bilaterally in the neck. Atherosclerotic calcifications are noted. A nodular opacity projects between the left posterior seventh and eighth ribs and measures 9 mm. This was not clearly seen previously. There are mild opacities in both bases which may indicate atelectasis or chronic infiltrates as seen on prior CT of 11/25/2015. There is a small to moderate hiatal hernia with mild associated retrocardiac atelectasis. There is no pneumothorax or pleural effusion. The heart is not enlarged. There are chronic healed left lateral rib fractures. IMPRESSION: 1. No fracture or malalignment at the left shoulder. 2. 9 mm left basilar nodule, likely superimposed shadows versus additional chronic infiltrate as seen on prior CT. Radiographic follow-up is suggested to demonstrate stability/resolution. 3. Mild bibasilar opacities are consistent with atelectasis or chronic infiltrates as seen on prior CT. 4. Small to moderate hiatal hernia.
--- NOTE | 2016-06-30 08:31 | RAD ---
EXAM: 1. Lumbar spine 3 views. 2. Frontal pelvis with 2V right hip. HISTORY: Fall COMPARISON: 04/30/2010. FINDINGS: There is grade 1 anterolisthesis at L4-5. There is a moderate superior plate compression fracture at T12, likely chronic. There is mild central superior endplate depression at L1, also likely chronic. Osteopenia appears moderate to severe. Intervertebral disc heights are maintained for patient age, with only mild endplate remodeling. Stool throughout the colon is consistent with constipation. Multiple densities projecting throughout the abdomen are likely pills. Stents are noted in both common iliac arteries. There are vascular clips in the right proximal thigh. There are chronic healed fracture deformities of the right superior and inferior pubic rami. A chronic healed left proximal femoral fracture is status post internal fixation. There are also likely chronic healed fractures of the left superior and inferior pubic rami. No acute fractures are identified at the right hip or elsewhere. The joint spaces of both hips are maintained. IMPRESSION: 1. Moderate T12 and mild L1 compression fractures are likely chronic, but are new since 2010. Correlate for focal tenderness. No evidence of significant retropulsion. 2. No acute pelvic or hip fracture. Chronic healed fractures as above. 3. Constipation.
[2016-06-30] MEDS ORDERED: ACETAMINOPHEN 325 MG TABLET. PO PRN ×2 (08:45→12:15)
[2016-06-30] MEDS ORDERED: DEXTROSE 50% 25 GM / 50ML DISP.SYRIN. IV PRN (08:45)
[2016-06-30] MEDS ORDERED: ONDANSETRON PF 4 MG/2 ML VIAL. IV PRN (08:45)
[2016-06-30] MEDS ORDERED: IV NORMAL SALINE 500ML BAG 500 ML IV ONE (08:45)
[2016-06-30 09:09] LABS: BILIRUBIN,URINE NEGATIVE (NEG); GLUCOSE,URINE NEGATIVE (NEG); NITRITE,URINE NEGATIVE (NEG); PROTEIN,URINE NEGATIVE (NEG-TRACE); UROBILINOGEN,URINE 0.2 mg/dL (0.2 mg/dL)
[2016-06-30 09:10] LABS: BACTERIA,URINE 0 /HPF (0-FEW)
--- NOTE | 2016-06-30 09:31 | EKG ---
[facility] [address] [place] [address] Test Date: 2016-06-30 Test Time: 07:13:23 Pat Name: BELLA SANON Department: Room: Gender: F Senior Ui Designer: : 1945 Requested By: LESLIE JUNG Order Number: [id number] Reading MD: Measurements Intervals [place] Rate: 78 P: 59 [place]: 124 QRS: 19 QRSD: 110 T: 15 QT: 372 QTc: 428 Interpretive Statements SINUS RHYTHM QRS(T) CONTOUR ABNORMALITY CONSISTENT WITH INFERIOR INFARCT PROBABLY OLD RI6.01 Unconfirmed report No previous ECG available for comparison
--- NOTE | 2016-06-30 10:30 | ACF ---
Admission Forms Criteria SYNCOPE Clinical Indications for Admission to Inpatient Care ( Place 'X' for any and all applicable criteria): Admission is indicated for syncope and ANY ONE of the following (1)(2)(3)(4)(5) (6)(7) : [X]I. Inpatient admission required rather than observation care (Also use Syncope: Observation Care Criteria as appropriate) because of ANY ONE of the following: [ ]a) Hemodynamic instability that is severe or persistent [ ]b) Cardiac arrhythmias of immediate concern identified or strongly suspected (eg, needs electrophysiologic study) [ ]c) Acute coronary syndrome identified (Also use Myocardial Infarction or Angina Criteria form ) [ ]d) Structural cardiac disorder (eg, aortic stenosis) suspected as cause that requires immediate correction [ ]e) Respiratory symptoms (eg, dyspnea, tachypnea) that are severe or persistent [ ]f) Neurologic signs or symptoms that are severe or persistent ( eg, stroke, seizures, altered mental status) [ ]g) Severe electrolyte abnormalities requiring inpatient care [ ]h) Supplemental oxygen or respiratory treatment for over 24 hrs that are performable only in acute inpatient setting [ ]i) IV fluid to replace significant ongoing (eg, for over 24 hrs ) losses (>3 L/m2 per day) [ ]j) Continuous intravenous infusion of anticoagulation, platelet inhibitor, vasoactive, or antiarrhythmic medication(15)(16) [ ]k) Pulmonary artery catheter monitoring [ ]l) Temporary pacemaker placement(17) [ ]m) Emergent cardioversion(18) [X]n) Other conditions, treatment or monitoring requiring inpatient admission [ ]II. Suspicion of imminently dangerous cause (eg, rare causes like pericardial tamponade, pulmonary embolism) [ ]III. Syncope causing severe injury requiring hospitalization Extended stay beyond goal length of stay may be needed for(28) [ ]a) Dangerous arrhythmia(15)(23)(27)(29) [ ]b) Myocardial ischemia [ ]c) Seizure disorder [ ]d) Syncope-related injuries The original [employer] content created by [employer] has been revised. The portions of the content which have been revised are identified through the use of italic text or in bold, and [employer] has neither reviewed nor approved the modified material. All other unmodified content is copyright [employer]. Please see references footnoted in the original [facility] edition 2016 Admission Criteria Met?: Yes GABRIEL BASS Jun 30, 2016 10:30
[2016-06-30 10:45] VITALS: BP 137/46
[2016-06-30 10:48] VITALS: BP 137/46
[2016-06-30] MEDS ORDERED: PNEUMOCOCCAL VAX SCREEN BY RX. MC ONE (11:30)
[2016-06-30] MEDS: MORPHINE SULFATE 2 MG/ML DISP.SYRIN. IV PRN ×2 (12:05→17:56)
[2016-06-30] MEDS: INSULIN ASPART 300 UNITS/3 ML INSULN.PEN SQ SCH ×3 (12:12→18:01)
[2016-06-30] MEDS ORDERED: ACETAMINOPHEN 500 MG TABLET PO PRN (12:15)
[2016-06-30] MEDS ORDERED: IV NORMAL SALINE 1000ML BAG 1,000 ML IV ONE (12:15)
[2016-06-30] MEDS: POLYETHYLENE GLYCOL 3350 17 GM PACKET. PO SCH (13:00)
[2016-06-30] MEDS: OXYBUTYNIN CHLORIDE 5 MG TABLET PO SCH ×2 (13:21→20:40)
[2016-06-30] MEDS: POTASSIUM CHLORIDE 10 MEQ TABLET.ER. PO SCH (13:22)
[2016-06-30] MEDS: GUAIFENESIN ER 600 MG TABLET.ER PO SCH ×2 (13:22→20:40)
[2016-06-30] MEDS: CLOPIDOGREL BISULFATE 75 MG TABLET PO SCH (13:22)
[2016-06-30] MEDS: PANTOPRAZOLE 40 MG TABLET. PO SCH (13:22)
[2016-06-30] MEDS: AMLODIPINE BESYLATE 10 MG TABLET PO SCH (13:22)
[2016-06-30] MEDS: DOXYCYCLINE HYCLATE 100 MG TABLET PO SCH ×2 (13:22→20:40)
[2016-06-30] MEDS: DULOXETINE HCL 30 MG CAPSULE.DR. PO SCH (13:22)
[2016-06-30] MEDS: NICOTINE 21MG PATCH. TD SCH (13:22)
[2016-06-30] MEDS: HEPARIN PF for SUB-Q USE 5,000 UNIT/0.5 ML VIAL. SQ SCH ×2 (13:36→20:55)
[2016-06-30 14:09] LABS: OBC FLU VALID
--- NOTE | 2016-06-30 14:31 | PDOC ---
Provider Note Provider Note DICTATED DAVID OROZCO MD Jun 30, 2016 14:30
[2016-06-30 14:45] VITALS: BP 142/50
--- NOTE | 2016-06-30 15:11 | CONS ---
DATE OF CONSULTATION: ATTENDING PHYSICIAN: Judi Rush MD REASON FOR CONSULTATION: Abnormal chest x-ray. HISTORY OF PRESENT ILLNESS: The patient is a 70-year-old female who has history of chronic obstructive pulmonary disease. The patient was brought into the hospital after she was found down on the floor of her residence at [facility]. The patient states there was no syncopal episode. She was complaining of pain in her right lower back area and left shoulder. She has a mild cough. No fever, no chills, no chest pains. I have reviewed the patient's chest x-ray. There are faint prominent interstitial markings. There was a left 9 mm basilar nodule reported by radiologist. She had an old CT chest, which was also reviewed by me; this was from last year. At that time, the patient had bilateral reticulonodular fine interstitial infiltrates involving the lower lobes and right upper lobe. Etiology of that is not so obvious, suspect inflammatory. She does not appear to be in any obvious respiratory distress. She is on 2 liters nasal cannula. PAST MEDICAL HISTORY: History of coronary artery disease, congestive heart failure, constipation, cerebrovascular accident, depression, type 2 diabetes, gastroesophageal reflux disease, dyslipidemia, hypertension, myocardial infarction, and dysphagia. PAST SURGICAL HISTORY: Hip replacement, PEG tube placement, and carotid surgery. ALLERGIES: MEDICATIONS: All reviewed as listed in the MRAD including antibiotic and doxycycline. REVIEW OF SYSTEMS: A 10-point system obtained. Pertinent positives discussed in history of present illness, otherwise noncontributory. All systems that were negative were reviewed as well. SOCIAL HISTORY: She said she quit tobacco 10 years ago. PHYSICAL EXAMINATION: VITAL SIGNS: Stable, afebrile, pulse ox 94% on 3 liters. HEENT: Sclerae nonicteric. NECK: Supple. LUNGS: Diminished breath sounds. CARDIOVASCULAR: Regular rate and rhythm. ABDOMEN: Soft. EXTREMITIES: No pitting edema. LABORATORY DATA: Reviewed. Influenza is negative. BUN 26 and creatinine 1.5. White cell count 9.4, hemoglobin 11.8, and platelets are 204. IMPRESSION: 1. Syncope of unclear etiology, maybe she tripped and fell. From a pulmonary standpoint, she does have an abnormal chest x-ray and there is a left basilar nodule which needs to be further evaluated by CT chest. She also has some mildly prominent interstitial markings. Prior CT from last year showed some reticulonodular interstitial infiltrates and a CT chest would be ordered to follow up on that. 2. Possible mild chronic obstructive pulmonary disease. 3. Status post fall with no obvious fracture. 4. [id number] hiatal hernia. RECOMMENDATIONS: 1. Continue with present oxygen. 2. Noncontrast CT chest for further evaluation. 3. Consider cardiology evaluation for syncope. 4. Continue with empiric antibiotics. 5. Bronchodilators as needed. 6. Further recommendations to follow after review of CT chest. DAVID OROZCO MD DR: JESSICA/cl JOB#: [id number] / [id number]
--- NOTE | 2016-06-30 15:51 | PDOC1 ---
History and Physical Date of Admission Date of Admission 06/30/16 Identification/Chief Complaint Chief Complaint fall Problems: Source Source: Chart review, Patient History of Present Illness History of Present Illness HPI HPI Patient is a 70 year old female who presents after being found down on the floor of her residence at [facility]. p PT IS aaox3, SAYING SHE was walking in the assisted living facility, then fell, not sure how, but denies syncope. She yelled for help, and sent to ER. has back pain, cough for 1 week, no sob. smoking. has left arm fx recently with syncope, no sx , but i dont see ortho consultation note in the computer. denies chest pain, fever, chills. sat 70s on RA in ER. image neg for fx no meds for COPD AT HOME Past Medical History Cardiovascular: CAD, CHF, HTN, Hyperlipidemia Pulmonary: COPD CENTRAL NERVOUS SYSTEM: CVA Psych: Depression Renal/: UTI Endocrine: Diabetes Past Surgical History Past Surgical History: Other Family History Family History: Diabetes, Hypertension, Family History Unknown Social History Smoke: <1 pack per day ALCOHOL: none Drugs: None Current Problem List Problem List Problems Medical Problems: (1) Hypoxia Status: Acute (2) Syncope Status: Acute Current Medications Current Medications Current Medications Medications (Trade) Dose Ordered Sig/Pawan Start Time Stop Time Status Last Admin Dose Admin Acetaminophen (Tylenol) 650 mg PRN Q6HRS PRN 06/30/16 12:18 Amlodipine Besylate (Norvasc) 10 mg DAILY 06/30/16 13:00 06/30/16 13:22 10 MG Atorvastatin Calcium (Lipitor) 40 mg QHS 06/30/16 21:00 Carvedilol (Coreg) 25 mg BIDWMEALS 06/30/16 17:00 Clopidogrel Bisulfate (Plavix) 75 mg DAILY07 06/30/16 13:00 06/30/16 13:22 75 MG Cyclosporine (Restasis) 1 drop HS 06/30/16 21:00 Dextrose 12.5 gm PRN Q15MIN PRN 06/30/16 08:45 Doxycycline Hyclate (Vibra-Tab) 100 mg BID 06/30/16 13:00 06/30/16 13:22 100 MG Duloxetine HCl (Cymbalta) 30 mg DAILY 06/30/16 13:00 3/8/17 13:22 30 MG Guaifenesin 600 mg 600 mg BID 06/30/16 13:00 06/30/16 13:22 600 MG Heparin Sodium (Porcine) 5,000 unit Q8HRS 06/30/16 14:00 06/30/16 13:36 5,000 UNIT Insulin Aspart (Novolog) 5 units TIDAC 06/30/16 16:30 Insulin Detemir (Levemir) 20 units QHS 06/30/16 21:00 Mirtazapine (Remeron) 15 mg QHS 06/30/16 21:00 Morphine Sulfate 2 mg PRN Q2HR PRN 06/30/16 08:45 07/01/16 08:44 06/30/16 12:05 2 MG Nicotine (Nicoderm Cq 21mg) 1 patch DAILY 06/30/16 13:00 06/30/16 13:22 1 PATCH Non-Formulary Medication 10 mg QHS 06/30/16 21:00 UNV Ondansetron HCl (Zofran) 4 mg PRN Q6HRS PRN 06/30/16 12:15 Ondansetron HCl 4 mg 4 mg 1X ONCE 06/30/16 07:15 06/30/16 07:16 DC 06/30/16 07:32 4 MG Oxybutynin Chloride (Ditropan) 5 mg BID 06/30/16 13:00 06/30/16 13:21 5 MG Pantoprazole Sodium (Protonix) 40 mg DAILY07 06/30/16 13:00 06/30/16 13:22 40 MG Pneumococcal Polyvalent Vaccine (Do NOT chart on this placeholder) 1 each 1X ONCE 06/30/16 11:30 06/30/16 11:31 UNV Polyethylene Glycol (miraLAX PACKET) 17 gm DAILY 06/30/16 13:00 Potassium Chloride (Klor-Con) 10 meq DAILYWBKFT 06/30/16 13:00 06/30/16 13:22 10 MEQ Senna/Docusate Sodium (Senna Plus) 2 tab HS 06/30/16 21:00 Sodium Chloride (Iv Sodium Chloride 0.9% 500ml Bag) 500 ml @ 500 mls/hr 1X ONCE 06/30/16 08:45 06/30/16 09:44 DC 06/30/16 09:57 500 MLS/HR Sodium Chloride (Iv Sodium Chloride 0.9% 1000ml Bag) 1,000 ml @ 75 mls/hr 1X ONCE 06/30/16 12:15 07/01/16 01:34 06/30/16 13:21 75 MLS/HR Allergies Allergies Allergies Coded Allergies Type Severity Reaction Last Updated Verified adhesive Allergy Intermediate Rash 06/15/16 Yes ROS Review of System CONSTITUTIONAL: No fever or chills EYES: No recent changes SKIN: No rash or itching CARDIOVASCULAR: No chest pain, syncope, palpitations, or edema RESPIRATORY: No SOB or cough GASTROINTESTINAL: No nausea, vomiting or abdominal pain NEUROLOGICAL: No headaches or weakness ENDOCRINE: No cold or heat intolerance GENITOURINARY: No urgency or frequency of urination MUSCULOSKELETAL: No back pain or joint pain LYMPHATICS: No enlarged lymph nodes PSYCHIATRIC: No anxiety or depression Physical Exam Physical Exam GEN.: No apparent distress. Alert and oriented. HEENT: Head is normocephalic, atraumatic NECK: Supple. LUNGS: bl decreased bs HEART: RRR, S1, S2 present. Peripheral pulses intact ABDOMEN: Soft, nontender. Positive bowel sounds. EXTREMITIES: Without any cyanosis. NEUROLOGIC: Normal speech, normal tone PSYCHIATRIC: Normal affect, normal mood. SKIN: No ulcerations Vitals Vitals Vital Signs Date Time Temp Pulse Resp B/P Pulse Ox O2 Delivery O2 Flow Rate FiO2 06/30/16 14:45 97.3 82 18 142/50 93 Nasal Cannula 2.0 97.3 Labs Labs Laboratory Tests Test 06/30/16 06:49 06/30/16 08:35 06/30/16 12:03 06/30/16 13:37 White Blood Count 9.4x10^3/uL (4.0-11.0) Red Blood Count 3.95x10^6/uL (3.50-5.40) Hemoglobin 11.8g/dL (12.0-15.5) Hematocrit 35.8% (36.0-47.0) Mean Corpuscular Volume 91fL (79-100) Mean Corpuscular Hemoglobin 30pg (25-35) Mean Corpuscular Hemoglobin Concent 33g/dL (31-37) Red Cell Distribution Width 13.7% (11.5-14.5) Platelet Count 204x10^3/uL (140-400) Neutrophils (%) (Auto) 77% (31-73) Lymphocytes (%) (Auto) 8% (24-48) Monocytes (%) (Auto) 13% (0-9) Eosinophils (%) (Auto) 1% (0-3) Basophils (%) (Auto) 1% (0-3) Neutrophils # (Auto) 7.2x10^3uL (1.8-7.7) Lymphocytes # (Auto) 0.8x10^3/uL (1.0-4.8) Monocytes # (Auto) 1.3x10^3/uL (0.0-1.1) Eosinophils # (Auto) 0.1x10^3/uL (0.0-0.7) Basophils # (Auto) 0.1x10^3/uL (0.0-0.2) Sodium Level 135mmol/L (136-145) Potassium Level 4.9mmol/L (3.5-5.1) Chloride Level 102mmol/L (98-107) Carbon Dioxide Level 23mmol/L (21-32) Anion Gap 10 (6-14) Blood Urea Nitrogen 26mg/dL (7-20) Creatinine 1.5mg/dL (0.6-1.0) Estimated GFR (Cockcroft-Gault) 34.1 Glucose Level 149mg/dL (70-99) Calcium Level 9.8mg/dL (8.5-10.1) Troponin I Quantitative < 0.017ng/mL (0.000-0.055) Urine Collection Type U cath Urine Color Yellow Urine Clarity Cloudy Urine pH 6.0 Urine Specific Ione 1.010 Urine Protein Negativemg/dL (NEG-TRACE) Urine Glucose (UA) Negativemg/dL (NEG) Urine Ketones (Stick) Negativemg/dL (NEG) Urine Blood Small (NEG) Urine Nitrite Negative (NEG) Urine Bilirubin Negative (NEG) Urine Urobilinogen Dipstick 0.2mg/dL (0.2 mg/dL) Urine Leukocyte Esterase Large (NEG) Urine RBC 6-10/HPF (0-2) Urine WBC 11-20/HPF (0-4) Urine Bacteria 0/HPF (0-FEW) Glucose (Fingerstick) 287mg/dL (70-99) Influenza Type A Antigen Negative (NEGATIVE) Influenza Type B Antigen Negative (NEGATIVE) Laboratory Tests Test 06/30/16 06:49 06/30/16 08:35 06/30/16 12:03 06/30/16 13:37 White Blood Count 9.4x10^3/uL (4.0-11.0) Red Blood Count 3.95x10^6/uL (3.50-5.40) Hemoglobin 11.8g/dL (12.0-15.5) Hematocrit 35.8% (36.0-47.0) Mean Corpuscular Volume 91fL (79-100) Mean Corpuscular Hemoglobin 30pg (25-35) Mean Corpuscular Hemoglobin Concent 33g/dL (31-37) Red Cell Distribution Width 13.7% (11.5-14.5) Platelet Count 204x10^3/uL (140-400) Neutrophils (%) (Auto) 77% (31-73) Lymphocytes (%) (Auto) 8% (24-48) Monocytes (%) (Auto) 13% (0-9) Eosinophils (%) (Auto) 1% (0-3) Basophils (%) (Auto) 1% (0-3) Neutrophils # (Auto) 7.2x10^3uL (1.8-7.7) Lymphocytes # (Auto) 0.8x10^3/uL (1.0-4.8) Monocytes # (Auto) 1.3x10^3/uL (0.0-1.1) Eosinophils # (Auto) 0.1x10^3/uL (0.0-0.7) Basophils # (Auto) 0.1x10^3/uL (0.0-0.2) Sodium Level 135mmol/L (136-145) Potassium Level 4.9mmol/L (3.5-5.1) Chloride Level 102mmol/L (98-107) Carbon Dioxide Level 23mmol/L (21-32) Anion Gap 10 (6-14) Blood Urea Nitrogen 26mg/dL (7-20) Creatinine 1.5mg/dL (0.6-1.0) Estimated GFR (Cockcroft-Gault) 34.1 Glucose Level 149mg/dL (70-99) Calcium Level 9.8mg/dL (8.5-10.1) Troponin I Quantitative < 0.017ng/mL (0.000-0.055) Urine Collection Type U cath Urine Color Yellow Urine Clarity Cloudy Urine pH 6.0 Urine Specific Ione 1.010 Urine Protein Negativemg/dL (NEG-TRACE) Urine Glucose (UA) Negativemg/dL (NEG) Urine Ketones (Stick) Negativemg/dL (NEG) Urine Blood Small (NEG) Urine Nitrite Negative (NEG) Urine Bilirubin Negative (NEG) Urine Urobilinogen Dipstick 0.2mg/dL (0.2 mg/dL) Urine Leukocyte Esterase Large (NEG) Urine RBC 6-10/HPF (0-2) Urine WBC 11-20/HPF (0-4) Urine Bacteria 0/HPF (0-FEW) Glucose (Fingerstick) 287mg/dL (70-99) Influenza Type A Antigen Negative (NEGATIVE) Influenza Type B Antigen Negative (NEGATIVE) VTE Prophylaxis Ordered VTE Prophylaxis Devices: No VTE Pharmacological Prophylaxi: Yes Assessment/Plan Assessment/Plan 1. acute resp failure with COPD likely 2. fall, 2/2 unsteady gait likely 3. recent syncope and left forearm fx, no sx 4. h/o CAD 5. h/o CHF 6. H/O cva WITH MILD left side weakness 7. depression 8. dm2 on insulin 9. gerd 10. htn 11. hld 12. MELONIE, vasomotor 13. h/o PEG 14. cervical DJD, CHRONIC spine fx 15. CT showed one 9mm lung nodule plan: 1. pulm, ortho, dr. López consult 2. duoneb 3. chest CT as per pulm 4. ptot 5. check orthostatic hold lisinopril for htn, on coreg, amlodipine ivf labs tmr 6. aspart 5u tid, levemir 20u qhs, ssi gi ppx flu neg SW for snf ADINA DEVI MD Jun 30, 2016 15:51
--- NOTE | 2016-06-30 16:16 | RAD ---
CT scan of the chest without contrast 06/30/2016 Clinical history: Nodular density seen in the left lower lobe recent chest radiograph. Technique: Unenhanced, contiguous, 5 mm axial sections were obtained through the chest and upper abdomen. One or more of the following individualized dose reduction techniques were utilized for this study: 1. Automated exposure control. 2. Adjustment of the mA and/or kV according to patient size. 3. Use of iterative reconstruction technique. Findings: Comparison is made to the patient's portable chest radiograph performed earlier today. Additional comparison is made to the patient's previous CT scan of the chest dated 11/25/2015. Moderate atherosclerotic calcification of the thoracic aorta and its branches to include the coronary arteries is seen. The heart is mildly enlarged. The thoracic aorta is tortuous but tapers normally. Slightly prominent likely reactive mediastinal lymph nodes are seen which measure 1 to 1.5 cm in size. They have not significantly changed. There is minimal right pleural effusion. Dependent atelectasis is seen involving both lungs particularly involving both lower lobes. No pneumothorax is seen. No pulmonary mass or nodule is seen. The nodular opacity seen on the patient's chest radiograph likely reflected superimposition of normal structures. Images through the upper abdomen demonstrate mild to moderate atherosclerotic calcification of the abdominal aorta and its branches. Degenerative changes are seen involving the thoracic spine. Impression: No pulmonary mass or nodule is seen.
[2016-06-30] MEDS ORDERED: MAGNESIUM HYDROXIDE 2,400 MG/30 ML ORAL.SUSP. PO PRN (17:30)
[2016-06-30] MEDS: CARVEDILOL 12.5 MG TABLET PO SCH (17:55)
[2016-06-30 19:00] VITALS: BP 159/53
[2016-06-30] MEDS: SENNOSIDES/DOCUSATE 8.6/50MG TABLET. PO SCH (20:40)
[2016-06-30] MEDS: CYCLOSPORINE 0.05% OPTH DROPERETTE. OU SCH (20:40)
[2016-06-30] MEDS: ATORVASTATIN CALCIUM 40 MG TABLET. PO SCH (20:40)
[2016-06-30] MEDS: MIRTAZAPINE 15 MG TABLET PO SCH (20:40)
[2016-06-30] MEDS ORDERED: NON FORMULARY ITEM (Melatonin 10 MG) PO SCH (21:00)
[2016-06-30] MEDS ORDERED: INSULIN DETEMIR 300 UNITS/3 ML INSULN.PEN. SQ SCH (21:00)
[2016-06-30 23:00] VITALS: BP 170/57
[2016-07-01] VITALS (7 sets, daily range): BP systolic 105–178; BP diastolic 51–68
[2016-07-01 03:51] LABS: BASO # 0.1 x10^3/uL (0.0-0.2); BASO % 1 % (0-3); EOS % 1 % (0-3); HEMATOCRIT 34.8 % (36.0-47.0); HEMOGLOBIN 11.6 g/dL (12.0-15.5); LYMPH # 0.9 x10^3/uL (1.0-4.8); LYMPH % 12 % (24-48); MEAN CORPUSCULAR HEMOGLOBIN 30 pg (25-35); MEAN CORPUSCULAR HGB CONC 33 g/dL (31-37); MEAN CORPUSCULAR VOLUME 89 fL (79-100); MONO % 14 % (0-9); NEUT % 73 % (31-73); PLATELET COUNT 205 x10^3/uL (140-400); RED BLOOD COUNT 3.94 x10^6/uL (3.50-5.40); RED CELL DISTRIBUTION WIDTH 13.8 % (11.5-14.5); WHITE BLOOD COUNT 7.7 x10^3/uL (4.0-11.0)
[2016-07-01 04:05] LABS: CALCIUM 9.7 mg/dL (8.5-10.1); CREATININE 0.9 mg/dL (0.6-1.0); GFR 61.5; POTASSIUM 4.5 mmol/L (3.5-5.1)
[2016-07-01] MEDS: CLOPIDOGREL BISULFATE 75 MG TABLET PO SCH (05:16)
[2016-07-01] MEDS: PANTOPRAZOLE 40 MG TABLET. PO SCH (05:16)
[2016-07-01] MEDS: MORPHINE SULFATE 2 MG/ML DISP.SYRIN. IV PRN (05:16)
[2016-07-01] MEDS: HEPARIN PF for SUB-Q USE 5,000 UNIT/0.5 ML VIAL. SQ SCH ×3 (05:24→21:13)
[2016-07-01] MEDS: POLYETHYLENE GLYCOL 3350 17 GM PACKET. PO SCH (08:34)
[2016-07-01] MEDS: NICOTINE 21MG PATCH. TD SCH (08:35)
[2016-07-01] MEDS: CARVEDILOL 12.5 MG TABLET PO SCH ×2 (08:35→17:56)
[2016-07-01] MEDS: OXYBUTYNIN CHLORIDE 5 MG TABLET PO SCH ×2 (08:36→20:40)
[2016-07-01] MEDS: DULOXETINE HCL 30 MG CAPSULE.DR. PO SCH (08:36)
[2016-07-01] MEDS: GUAIFENESIN ER 600 MG TABLET.ER PO SCH ×2 (08:36→20:54)
[2016-07-01] MEDS: DOXYCYCLINE HYCLATE 100 MG TABLET PO SCH ×2 (08:36→20:40)
[2016-07-01] MEDS: POTASSIUM CHLORIDE 10 MEQ TABLET.ER. PO SCH (08:36)
[2016-07-01] MEDS: AMLODIPINE BESYLATE 10 MG TABLET PO SCH (08:36)
[2016-07-01] MEDS: INSULIN ASPART 300 UNITS/3 ML INSULN.PEN SQ SCH ×6 (08:46→17:58)
--- NOTE | 2016-07-01 09:57 | PDOC ---
PROGRESS NOTES Subjective Subjective She admits continued low back pain. Objective Objective Vital Signs Date Time Temp Pulse Resp B/P Pulse Ox O2 Delivery O2 Flow Rate FiO2 07/01/16 08:36 92 148/68 07/01/16 05:48 93 Nasal Cannula 3.0 07/01/16 03:19 98.1 20 98.1 Intake and Output 07/01/16 07:00 Intake Total 760.83 ml Balance 760.83 ml Intake Oral 600 ml IV Total 160.83 ml # Voids 3 Physical Exam Physical Exam She had painfully limited movements of lumbar spine with tenderness to palpation over lower thoracic and upper lumbar paraspinal muscles.She keeps oxygen away from her nostrils. Assessment Assessment Problems Medical Problems: (1) Hypoxia Status: Acute (2) Syncope Status: Acute Plan Plan of Care Await mri scan to rule out any new compression fracture and to try her with lumbar corset and physical therapy and occupational therapy to see her.To consider asking interventional radiology for consideration of kyphoplasty if there is a new vertebral body compression fracture. Comment Review of Relevant I have reviewed the following items carlota (where applicable) has been applied. Labs Laboratory Tests Test 06/30/16 06:49 06/30/16 08:35 06/30/16 12:03 06/30/16 12:16 White Blood Count 9.4x10^3/uL (4.0-11.0) Red Blood Count 3.95x10^6/uL (3.50-5.40) Hemoglobin 11.8g/dL (12.0-15.5) Hematocrit 35.8% (36.0-47.0) Mean Corpuscular Volume 91fL (79-100) Mean Corpuscular Hemoglobin 30pg (25-35) Mean Corpuscular Hemoglobin Concent 33g/dL (31-37) Red Cell Distribution Width 13.7% (11.5-14.5) Platelet Count 204x10^3/uL (140-400) Neutrophils (%) (Auto) 77% (31-73) Lymphocytes (%) (Auto) 8% (24-48) Monocytes (%) (Auto) 13% (0-9) Eosinophils (%) (Auto) 1% (0-3) Basophils (%) (Auto) 1% (0-3) Neutrophils # (Auto) 7.2x10^3uL (1.8-7.7) Lymphocytes # (Auto) 0.8x10^3/uL (1.0-4.8) Monocytes # (Auto) 1.3x10^3/uL (0.0-1.1) Eosinophils # (Auto) 0.1x10^3/uL (0.0-0.7) Basophils # (Auto) 0.1x10^3/uL (0.0-0.2) Sodium Level 135mmol/L (136-145) Potassium Level 4.9mmol/L (3.5-5.1) Chloride Level 102mmol/L (98-107) Carbon Dioxide Level 23mmol/L (21-32) Anion Gap 10 (6-14) Blood Urea Nitrogen 26mg/dL (7-20) Creatinine 1.5mg/dL (0.6-1.0) Estimated GFR (Cockcroft-Gault) 34.1 Glucose Level 149mg/dL (70-99) Calcium Level 9.8mg/dL (8.5-10.1) Troponin I Quantitative < 0.017ng/mL (0.000-0.055) Urine Collection Type U cath Urine Color Yellow Urine Clarity Cloudy Urine pH 6.0 Urine Specific Mead 1.010 Urine Protein Negativemg/dL (NEG-TRACE) Urine Glucose (UA) Negativemg/dL (NEG) Urine Ketones (Stick) Negativemg/dL (NEG) Urine Blood Small (NEG) Urine Nitrite Negative (NEG) Urine Bilirubin Negative (NEG) Urine Urobilinogen Dipstick 0.2mg/dL (0.2 mg/dL) Urine Leukocyte Esterase Large (NEG) Urine RBC 6-10/HPF (0-2) Urine WBC 11-20/HPF (0-4) Urine Bacteria 0/HPF (0-FEW) Glucose (Fingerstick) 287mg/dL (70-99) Nasal Screen MRSA (PCR) Negative (Negative) Test 06/30/16 13:37 06/30/16 16:06 07/01/16 03:15 07/01/16 07:24 Influenza Type A Antigen Negative (NEGATIVE) Influenza Type B Antigen Negative (NEGATIVE) Glucose (Fingerstick) 228mg/dL (70-99) 160mg/dL (70-99) White Blood Count 7.7x10^3/uL (4.0-11.0) Red Blood Count 3.94x10^6/uL (3.50-5.40) Hemoglobin 11.6g/dL (12.0-15.5) Hematocrit 34.8% (36.0-47.0) Mean Corpuscular Volume 89fL (79-100) Mean Corpuscular Hemoglobin 30pg (25-35) Mean Corpuscular Hemoglobin Concent 33g/dL (31-37) Red Cell Distribution Width 13.8% (11.5-14.5) Platelet Count 205x10^3/uL (140-400) Neutrophils (%) (Auto) 73% (31-73) Lymphocytes (%) (Auto) 12% (24-48) Monocytes (%) (Auto) 14% (0-9) Eosinophils (%) (Auto) 1% (0-3) Basophils (%) (Auto) 1% (0-3) Neutrophils # (Auto) 5.6x10^3uL (1.8-7.7) Lymphocytes # (Auto) 0.9x10^3/uL (1.0-4.8) Monocytes # (Auto) 1.1x10^3/uL (0.0-1.1) Eosinophils # (Auto) 0.0x10^3/uL (0.0-0.7) Basophils # (Auto) 0.1x10^3/uL (0.0-0.2) Sodium Level 137mmol/L (136-145) Potassium Level 4.5mmol/L (3.5-5.1) Chloride Level 103mmol/L (98-107) Carbon Dioxide Level 22mmol/L (21-32) Anion Gap 12 (6-14) Blood Urea Nitrogen 18mg/dL (7-20) Creatinine 0.9mg/dL (0.6-1.0) Estimated GFR (Cockcroft-Gault) 61.5 Glucose Level 214mg/dL (70-99) Calcium Level 9.7mg/dL (8.5-10.1) Laboratory Tests Test 06/30/16 12:03 06/30/16 12:16 06/30/16 13:37 06/30/16 16:06 Glucose (Fingerstick) 287mg/dL (70-99) 228mg/dL (70-99) Nasal Screen MRSA (PCR) Negative (Negative) Influenza Type A Antigen Negative (NEGATIVE) Influenza Type B Antigen Negative (NEGATIVE) Test 07/01/16 03:15 07/01/16 07:24 White Blood Count 7.7x10^3/uL (4.0-11.0) Red Blood Count 3.94x10^6/uL (3.50-5.40) Hemoglobin 11.6g/dL (12.0-15.5) Hematocrit 34.8% (36.0-47.0) Mean Corpuscular Volume 89fL (79-100) Mean Corpuscular Hemoglobin 30pg (25-35) Mean Corpuscular Hemoglobin Concent 33g/dL (31-37) Red Cell Distribution Width 13.8% (11.5-14.5) Platelet Count 205x10^3/uL (140-400) Neutrophils (%) (Auto) 73% (31-73) Lymphocytes (%) (Auto) 12% (24-48) Monocytes (%) (Auto) 14% (0-9) Eosinophils (%) (Auto) 1% (0-3) Basophils (%) (Auto) 1% (0-3) Neutrophils # (Auto) 5.6x10^3uL (1.8-7.7) Lymphocytes # (Auto) 0.9x10^3/uL (1.0-4.8) Monocytes # (Auto) 1.1x10^3/uL (0.0-1.1) Eosinophils # (Auto) 0.0x10^3/uL (0.0-0.7) Basophils # (Auto) 0.1x10^3/uL (0.0-0.2) Sodium Level 137mmol/L (136-145) Potassium Level 4.5mmol/L (3.5-5.1) Chloride Level 103mmol/L (98-107) Carbon Dioxide Level 22mmol/L (21-32) Anion Gap 12 (6-14) Blood Urea Nitrogen 18mg/dL (7-20) Creatinine 0.9mg/dL (0.6-1.0) Estimated GFR (Cockcroft-Gault) 61.5 Glucose Level 214mg/dL (70-99) Calcium Level 9.7mg/dL (8.5-10.1) Glucose (Fingerstick) 160mg/dL (70-99) Medications Current Medications Acetaminophen (Tylenol) 1,000 mg 1X ONCE PO Last administered on 06/30/16 07: 33; Start 06/30/16 at 07:00; Stop 06/30/16 at 07:04; Status DC Ondansetron HCl 4 mg 4 mg 1X ONCE IV Last administered on 06/30/16 07:32; Start 06/30/16 at 07:15; Stop 06/30/16 at 07:16; Status DC Sodium Chloride (Iv Sodium Chloride 0.9% 500ml Bag) 500 ml @ 500 mls/hr 1X ONCE IV Last administered on 06/30/16 09:57; Start 06/30/16 at 08:45; Stop at 09:44; Status DC Ondansetron HCl (Zofran) 4 mg PRN Q8HRS PRN IV NAUSEA/VOMITING Last administered on 06/30/16 20:58; Start 06/30/16 at 08:45; Stop 07/01/16 at 08:44; Status DC Morphine Sulfate 2 mg PRN Q2HR PRN IV PAIN Last administered on 07/01/16 05:16 ; Start 06/30/16 at 08:45; Stop 07/01/16 at 08:44; Status DC Acetaminophen (Tylenol) 650 mg PRN Q4HRS PRN PO FEVER Last administered on 20:40; Start 06/30/16 at 08:45; Stop 07/01/16 at 08:44; Status DC Insulin Aspart (Novolog) 0-7 UNITS TIDWMEALS SQ Last administered on 07/01/16 08:46; Start 06/30/16 at 12:00 Dextrose 12.5 gm PRN Q15MIN PRN IV SEE COMMENTS; Start 06/30/16 at 08:45 Pneumococcal Polyvalent Vaccine (Do NOT chart on this placeholder) 1 each 1X ONCE MC ; Start 06/30/16 at 11:30; Stop 06/30/16 at 11:31; Status UNV Acetaminophen (Tylenol) 650 mg PRN Q6HRS PRN PO PAIN; Start 06/30/16 at 12:15; Stop 06/30/16 at 12:18; Status DC Amlodipine Besylate (Norvasc) 10 mg DAILY PO Last administered on 07/01/16 08: 36; Start 06/30/16 at 13:00 Atorvastatin Calcium (Lipitor) 40 mg QHS PO Last administered on 06/30/16 20:40 ; Start 06/30/16 at 21:00 Carvedilol (Coreg) 25 mg BIDWMEALS PO Last administered on 07/01/16 08:35; Start 06/30/16 at 17:00 Clopidogrel Bisulfate (Plavix) 75 mg DAILY07 PO Last administered on 07/01/16 05:16; Start 06/30/16 at 13:00 Cyclosporine (Restasis) 1 drop HS OU ; Start 06/30/16 at 21:00 Duloxetine HCl (Cymbalta) 30 mg DAILY PO Last administered on 07/01/16 08:36; Start 06/30/16 at 13:00 Mirtazapine (Remeron) 15 mg QHS PO Last administered on 06/30/16 20:40; Start 06/30/16 at 21:00 Nicotine (Nicoderm Cq 21mg) 1 patch DAILY TD Last administered on 07/01/16 08: 35; Start 06/30/16 at 13:00 Oxybutynin Chloride (Ditropan) 5 mg BID PO Last administered on 07/01/16 08:36 ; Start 06/30/16 at 13:00 Pantoprazole Sodium (Protonix) 40 mg DAILY07 PO Last administered on 07/01/16 05:16; Start 06/30/16 at 13:00 Polyethylene Glycol (miraLAX PACKET) 17 gm DAILY PO Last administered on 08:34; Start 06/30/16 at 13:00 Senna/Docusate Sodium (Senna Plus) 2 tab HS PO Last administered on 06/30/16 20 :40; Start 06/30/16 at 21:00 Non-Formulary Medication 10 mg QHS PO ; Start 06/30/16 at 21:00; Status UNV Potassium Chloride (Klor-Con) 10 meq DAILYWBKFT PO Last administered on 08:36; Start 06/30/16 at 13:00 Acetaminophen (Tylenol) 650 mg PRN Q6HRS PRN PO MILD PAIN / TEMP; Start at 12:15; Status UNV Ondansetron HCl (Zofran) 4 mg PRN Q6HRS PRN IV NAUSEA/VOMITING; Start 06/30/16 at 12:15 Heparin Sodium (Porcine) 5,000 unit Q8HRS SQ Last administered on 07/01/16 05: 24; Start 06/30/16 at 14:00 Insulin Aspart (Novolog) 5 units TIDAC SQ Last administered on 07/01/16 08:46; Start 06/30/16 at 16:30 Insulin Detemir (Levemir) 20 units QHS SQ Last administered on 06/30/16 20:55; Start 06/30/16 at 21:00 Doxycycline Hyclate (Vibra-Tab) 100 mg BID PO Last administered on 07/01/16 08: 36; Start 06/30/16 at 13:00 Guaifenesin 600 mg 600 mg BID PO Last administered on 07/01/16 08:36; Start 06/30/16 at 13:00 Sodium Chloride (Iv Sodium Chloride 0.9% 1000ml Bag) 1,000 ml @ 75 mls/hr 1X ONCE IV Last administered on 06/30/16 13:21; Start 06/30/16 at 12:15; Stop at 01:34; Status DC Acetaminophen (Tylenol) 650 mg PRN Q6HRS PRN PO PAIN; Start 06/30/16 at 12:18 Magnesium Hydroxide (Milk Of Magnesia) 2,400 mg PRN DAILY PRN PO CONSTIPATION; Start 06/30/16 at 17:30 Active Scripts Active Reported Tylenol (Acetaminophen) 325 Mg Tablet 650 Mg PO TID Senna-Docusate Sodium Tablet (Sennosides/Docusate Sodium) 1 Each Tablet 2 Each PO HS Protonix (Pantoprazole Sodium) 40 Mg Tablet.dr 1 Tab PO DAILY NICODERM CQ 21mg (Nicotine) 1 Each Patch.td24 1 Patch TP DAILY Miralax (Polyethylene Glycol 3350) 17 Gm Powd.pack 1 Packet PO DAILY Miralax (Polyethylene Glycol 3350) 17 Gm Powd.pack 1 Packet PO PRN DAILY PRN Melatonin 3 Mg Tablet 10 Mg PO QHS Mirtazapine 15 Mg Tablet 1 Tab PO QHS Cymbalta (Duloxetine Hcl) 30 Mg Capsule.dr 1 Cap PO DAILY Acetaminophen 500 Mg Tablet 1 Tab PO PRN Q6HRS PRN Novolog (Insulin Aspart) 100 Unit/1 Ml Cartridge 5 Unit SQ DAILYWSUP Restasis (Cyclosporine) 1 Each Droperette 1 Drop EACHEYE HS Multiple Vitamins (Multivitamin) 1 Each Tablet 1 Each PO Potassium Chloride 10 Meq Capsule.er 1 Cap PO DAILY05 Levemir (Insulin Detemir) 100 Unit/1 Ml Vial 30 Unit SQ DAILY Atorvastatin Calcium 40 Mg Tablet 1 Tab PO DAILY Lisinopril 20 Mg Tablet 1 Tab PO DAILY Oxybutynin Chloride 5 Mg Tablet 5 Mg PO BID Norvasc (Amlodipine Besylate) 5 Mg Tablet 10 Mg PO DAILY Clopidogrel (Clopidogrel Bisulfate) 75 Mg Tablet 75 Mg PO DAILY Coreg (Carvedilol) 12.5 Mg Tablet 25 Mg PO BID Vitals/I & O Vital Sign - Last 24 Hours 06/30/16 06/30/16 06/30/16 06/30/16 10:45 10:48 11:10 12:05 Temp 97.5 97.5 97.5 97.5 Pulse 82 82 Resp 18 18 B/P 137/46 137/46 Pulse Ox 94 94 O2 Delivery Nasal Cannula Nasal Cannula Nasal Cannula Nasal Cannula O2 Flow Rate 2.0 3.0 3.0 3.0 06/30/16 06/30/16 06/30/16 06/30/16 13:22 14:45 17:55 17:56 Temp 97.3 97.3 Pulse 82 82 82 Resp 18 B/P 137/46 142/50 142/50 Pulse Ox 93 O2 Delivery Nasal Cannula Nasal Cannula O2 Flow Rate 2.0 3.0 06/30/16 06/30/16 06/30/16 07/01/16 19:00 19:47 23:00 03:19 Temp 101.1 98.3 98.1 101.1 98.3 98.1 Pulse 94 90 90 Resp 20 20 20 B/P 159/53 170/57 178/67 Pulse Ox 91 94 91 O2 Delivery Nasal Cannula Nasal Cannula Nasal Cannula Nasal Cannula O2 Flow Rate 3.0 07/01/16 07/01/16 07/01/16 07/01/16 03:58 05:16 05:48 08:35 Pulse 92 92 B/P 148/68 148/68 Pulse Ox 93 93 93 O2 Delivery Nasal Cannula Nasal Cannula Nasal Cannula O2 Flow Rate 3.0 3.0 3.0 07/01/16 08:36 Pulse 92 B/P 148/68 Intake and Output 06/30/16 06/30/16 07/01/16 15:00 23:00 07:00 Intake Total 240 ml 400.83 ml 120 ml Balance 240 ml 400.83 ml 120 ml FLORY SMITH MD Jul 01, 2016 09:57
--- NOTE | 2016-07-01 11:05 | PDOC ---
PULMONARY PROGRESS NOTES Subjective feels better Vitals Vital Signs Date Time Temp Pulse Resp B/P Pulse Ox O2 Delivery O2 Flow Rate FiO2 07/01/16 08:36 92 148/68 07/01/16 05:48 93 Nasal Cannula 3.0 07/01/16 03:19 98.1 20 98.1 General: Alert, No acute distress Lungs: Other (decrease bs) Cardiovascular: S1, S2 Abdomen: Soft Extremities: No Edema Labs Laboratory Tests Test 06/30/16 06:49 06/30/16 08:35 06/30/16 12:03 06/30/16 12:16 White Blood Count 9.4x10^3/uL (4.0-11.0) Red Blood Count 3.95x10^6/uL (3.50-5.40) Hemoglobin 11.8g/dL (12.0-15.5) Hematocrit 35.8% (36.0-47.0) Mean Corpuscular Volume 91fL (79-100) Mean Corpuscular Hemoglobin 30pg (25-35) Mean Corpuscular Hemoglobin Concent 33g/dL (31-37) Red Cell Distribution Width 13.7% (11.5-14.5) Platelet Count 204x10^3/uL (140-400) Neutrophils (%) (Auto) 77% (31-73) Lymphocytes (%) (Auto) 8% (24-48) Monocytes (%) (Auto) 13% (0-9) Eosinophils (%) (Auto) 1% (0-3) Basophils (%) (Auto) 1% (0-3) Neutrophils # (Auto) 7.2x10^3uL (1.8-7.7) Lymphocytes # (Auto) 0.8x10^3/uL (1.0-4.8) Monocytes # (Auto) 1.3x10^3/uL (0.0-1.1) Eosinophils # (Auto) 0.1x10^3/uL (0.0-0.7) Basophils # (Auto) 0.1x10^3/uL (0.0-0.2) Sodium Level 135mmol/L (136-145) Potassium Level 4.9mmol/L (3.5-5.1) Chloride Level 102mmol/L (98-107) Carbon Dioxide Level 23mmol/L (21-32) Anion Gap 10 (6-14) Blood Urea Nitrogen 26mg/dL (7-20) Creatinine 1.5mg/dL (0.6-1.0) Estimated GFR (Cockcroft-Gault) 34.1 Glucose Level 149mg/dL (70-99) Calcium Level 9.8mg/dL (8.5-10.1) Troponin I Quantitative < 0.017ng/mL (0.000-0.055) Urine Collection Type U cath Urine Color Yellow Urine Clarity Cloudy Urine pH 6.0 Urine Specific [place] 1.010 Urine Protein Negativemg/dL (NEG-TRACE) Urine Glucose (UA) Negativemg/dL (NEG) Urine Ketones (Stick) Negativemg/dL (NEG) Urine Blood Small (NEG) Urine Nitrite Negative (NEG) Urine Bilirubin Negative (NEG) Urine Urobilinogen Dipstick 0.2mg/dL (0.2 mg/dL) Urine Leukocyte Esterase Large (NEG) Urine RBC 6-10/HPF (0-2) Urine WBC 11-20/HPF (0-4) Urine Bacteria 0/HPF (0-FEW) Glucose (Fingerstick) 287mg/dL (70-99) Nasal Screen MRSA (PCR) Negative (Negative) Test 06/30/16 13:37 06/30/16 16:06 07/01/16 03:15 07/01/16 07:24 Influenza Type A Antigen Negative (NEGATIVE) Influenza Type B Antigen Negative (NEGATIVE) Glucose (Fingerstick) 228mg/dL (70-99) 160mg/dL (70-99) White Blood Count 7.7x10^3/uL (4.0-11.0) Red Blood Count 3.94x10^6/uL (3.50-5.40) Hemoglobin 11.6g/dL (12.0-15.5) Hematocrit 34.8% (36.0-47.0) Mean Corpuscular Volume 89fL (79-100) Mean Corpuscular Hemoglobin 30pg (25-35) Mean Corpuscular Hemoglobin Concent 33g/dL (31-37) Red Cell Distribution Width 13.8% (11.5-14.5) Platelet Count 205x10^3/uL (140-400) Neutrophils (%) (Auto) 73% (31-73) Lymphocytes (%) (Auto) 12% (24-48) Monocytes (%) (Auto) 14% (0-9) Eosinophils (%) (Auto) 1% (0-3) Basophils (%) (Auto) 1% (0-3) Neutrophils # (Auto) 5.6x10^3uL (1.8-7.7) Lymphocytes # (Auto) 0.9x10^3/uL (1.0-4.8) Monocytes # (Auto) 1.1x10^3/uL (0.0-1.1) Eosinophils # (Auto) 0.0x10^3/uL (0.0-0.7) Basophils # (Auto) 0.1x10^3/uL (0.0-0.2) Sodium Level 137mmol/L (136-145) Potassium Level 4.5mmol/L (3.5-5.1) Chloride Level 103mmol/L (98-107) Carbon Dioxide Level 22mmol/L (21-32) Anion Gap 12 (6-14) Blood Urea Nitrogen 18mg/dL (7-20) Creatinine 0.9mg/dL (0.6-1.0) Estimated GFR (Cockcroft-Gault) 61.5 Glucose Level 214mg/dL (70-99) Calcium Level 9.7mg/dL (8.5-10.1) Laboratory Tests Test 06/30/16 12:03 06/30/16 12:16 06/30/16 13:37 06/30/16 16:06 Glucose (Fingerstick) 287mg/dL (70-99) 228mg/dL (70-99) Nasal Screen MRSA (PCR) Negative (Negative) Influenza Type A Antigen Negative (NEGATIVE) Influenza Type B Antigen Negative (NEGATIVE) Test 07/01/16 03:15 07/01/16 07:24 White Blood Count 7.7x10^3/uL (4.0-11.0) Red Blood Count 3.94x10^6/uL (3.50-5.40) Hemoglobin 11.6g/dL (12.0-15.5) Hematocrit 34.8% (36.0-47.0) Mean Corpuscular Volume 89fL (79-100) Mean Corpuscular Hemoglobin 30pg (25-35) Mean Corpuscular Hemoglobin Concent 33g/dL (31-37) Red Cell Distribution Width 13.8% (11.5-14.5) Platelet Count 205x10^3/uL (140-400) Neutrophils (%) (Auto) 73% (31-73) Lymphocytes (%) (Auto) 12% (24-48) Monocytes (%) (Auto) 14% (0-9) Eosinophils (%) (Auto) 1% (0-3) Basophils (%) (Auto) 1% (0-3) Neutrophils # (Auto) 5.6x10^3uL (1.8-7.7) Lymphocytes # (Auto) 0.9x10^3/uL (1.0-4.8) Monocytes # (Auto) 1.1x10^3/uL (0.0-1.1) Eosinophils # (Auto) 0.0x10^3/uL (0.0-0.7) Basophils # (Auto) 0.1x10^3/uL (0.0-0.2) Sodium Level 137mmol/L (136-145) Potassium Level 4.5mmol/L (3.5-5.1) Chloride Level 103mmol/L (98-107) Carbon Dioxide Level 22mmol/L (21-32) Anion Gap 12 (6-14) Blood Urea Nitrogen 18mg/dL (7-20) Creatinine 0.9mg/dL (0.6-1.0) Estimated GFR (Cockcroft-Gault) 61.5 Glucose Level 214mg/dL (70-99) Calcium Level 9.7mg/dL (8.5-10.1) Glucose (Fingerstick) 160mg/dL (70-99) Medications Active Scripts Medications Dose Route/Sig Days Date Category Tylenol (Acetaminophen) 325 Mg Tablet 650 Mg PO TID 06/15/16 Reported Senna-Docusate Sodium Tablet (Sennosides/Docusate Sodium) 1 Each Tablet 2 Each PO HS 06/15/16 Reported Protonix (Pantoprazole Sodium) 40 Mg Tablet.dr 1 Tab PO DAILY 06/15/16 Reported NICODERM CQ 21mg (Nicotine) 1 Each Patch.td24 1 Patch TP DAILY 06/15/16 Reported Miralax (Polyethylene Glycol 3350) 17 Gm Powd.pack 1 Packet PO DAILY 06/15/16 Reported Miralax (Polyethylene Glycol 3350) 17 Gm Powd.pack 1 Packet PO PRN DAILY PRN 06/15/16 Reported Melatonin 3 Mg Tablet 10 Mg PO QHS 06/15/16 Reported Mirtazapine 15 Mg Tablet 1 Tab PO QHS 07/17/15 Reported Cymbalta (Duloxetine Hcl) 30 Mg Capsule.dr 1 Cap PO DAILY 07/17/15 Reported Acetaminophen 500 Mg Tablet 1 Tab PO PRN Q6HRS PRN 07/17/15 Reported Novolog (Insulin Aspart) 100 Unit/1 Ml Cartridge 5 Unit SQ DAILYWSUP 07/17/15 Reported Restasis (Cyclosporine) 1 Each Droperette 1 Drop EACHEYE HS 07/17/15 Reported Multiple Vitamins (Multivitamin) 1 Each Tablet 1 Each PO 07/17/15 Reported Potassium Chloride 10 Meq Capsule.er 1 Cap PO DAILY05 07/17/15 Reported Levemir (Insulin Detemir) 100 Unit/1 Ml Vial 30 Unit SQ DAILY 07/17/15 Reported Atorvastatin Calcium 40 Mg Tablet 1 Tab PO DAILY 08/17/14 Reported Lisinopril 20 Mg Tablet 1 Tab PO DAILY 08/17/14 Reported Oxybutynin Chloride 5 Mg Tablet 5 Mg PO BID 07/08/14 Reported Norvasc (Amlodipine Besylate) 5 Mg Tablet 10 Mg PO DAILY 07/08/14 Reported Clopidogrel (Clopidogrel Bisulfate) 75 Mg Tablet 75 Mg PO DAILY 09/28/13 Reported Coreg (Carvedilol) 12.5 Mg Tablet 25 Mg PO BID 09/28/13 Reported Impression . 1. Syncope of unclear etiology, maybe she tripped and fell. From a pulmonary standpoint, she does have an abnormal chest x-ray and there is a ?left basilar nodule . Repeat CT chest 06/30 with no nodule .Mild basal interstitial infiltrates vs atelectasis 2. Possible mild chronic obstructive pulmonary disease. 3. Status post fall with no obvious fracture. 4. [id number] hiatal hernia. Plan . 1. Continue with present oxygen. 2. Noncontrast CT chest reviewed 3. cardiology evaluation for syncope. 4. Continue with empiric antibiotics.monitor fever 5. Bronchodilators as needed. DAVID OROZCO MD Jul 01, 2016 11:05
--- NOTE | 2016-07-01 11:33 | PDOC ---
Provider Note Provider Note IR Note: Asked by Dr López to consider vertebral augmentation, if acute fracture is identified---thank you. 70 YO female with recent fall and with severe LBP. Images from [facility] CT chest raise question of old T12 compression and possible new L1 compression. MRI L-spine is pending. If MRI reveals acute fracture, could proceed to vertebral augmentation tomorrow , if OK with HIMS. Significant CV co-morbidities, with CAD, HTN, DM, and cerebrovascular disease. Given her recent syncopal episode and past H/O severe cerebrovascular disease ( CVA, CEA x 2 on left, CEA + JUAN on right, high grade proximal left CCA stenosis) , would recommend bilateral carotid duplex Doppler prior to mod sedation for spine intervention. Will follow. NETTIE PAZ MD Jul 01, 2016 11:33
--- NOTE | 2016-07-01 11:44 | PDOC ---
PROGRESS NOTES Chief Complaint Chief Complaint Assessment/Plan 1. acute resp failure with COPD likely 2. fall, 2/2 unsteady gait likely 3. recent syncope and left forearm fx, no sx 4. h/o CAD 5. h/o CHF 6. H/O cva WITH MILD left side weakness 7. depression 8. dm2 on insulin 9. gerd 10. htn 11. hld 12. MELONIE, vasomotor 13. h/o PEG 14. cervical DJD, CHRONIC spine fx plan: 1. pulm, ortho, dr. López consult 2. duoneb, doxy 3. chest CT as per pulm, neg 4. ptot 5. check orthostatic hold lisinopril for htn, on coreg, amlodipine labs tmr 6. increase aspart 7u tid, levemir 22u qhs, ssi gi ppx flu neg SW for snf IR consulted, MRI spine as per dr. López. History of Present Illness History of Present Illness new on NC 2 L cough, no sputum fever overnight Vitals Vitals Vital Signs Date Time Temp Pulse Resp B/P Pulse Ox O2 Delivery O2 Flow Rate FiO2 07/01/16 08:36 92 148/68 07/01/16 08:00 Nasal Cannula 2.0 07/01/16 05:48 93 07/01/16 03:19 98.1 20 98.1 Physical Exam General: Alert, Oriented X3, Cooperative Heart: Regular rate, Normal S1, Normal S2 Lungs: Other (decrease bs) Abdomen: Normal bowel sounds, Soft Extremities: No clubbing, No cyanosis Skin: No rashes Labs LABS Laboratory Tests Test 06/30/16 12:03 06/30/16 12:16 06/30/16 13:37 06/30/16 16:06 Glucose (Fingerstick) 287mg/dL (70-99) 228mg/dL (70-99) Nasal Screen MRSA (PCR) Negative (Negative) Influenza Type A Antigen Negative (NEGATIVE) Influenza Type B Antigen Negative (NEGATIVE) Test 07/01/16 03:15 07/01/16 07:24 White Blood Count 7.7x10^3/uL (4.0-11.0) Red Blood Count 3.94x10^6/uL (3.50-5.40) Hemoglobin 11.6g/dL (12.0-15.5) Hematocrit 34.8% (36.0-47.0) Mean Corpuscular Volume 89fL (79-100) Mean Corpuscular Hemoglobin 30pg (25-35) Mean Corpuscular Hemoglobin Concent 33g/dL (31-37) Red Cell Distribution Width 13.8% (11.5-14.5) Platelet Count 205x10^3/uL (140-400) Neutrophils (%) (Auto) 73% (31-73) Lymphocytes (%) (Auto) 12% (24-48) Monocytes (%) (Auto) 14% (0-9) Eosinophils (%) (Auto) 1% (0-3) Basophils (%) (Auto) 1% (0-3) Neutrophils # (Auto) 5.6x10^3uL (1.8-7.7) Lymphocytes # (Auto) 0.9x10^3/uL (1.0-4.8) Monocytes # (Auto) 1.1x10^3/uL (0.0-1.1) Eosinophils # (Auto) 0.0x10^3/uL (0.0-0.7) Basophils # (Auto) 0.1x10^3/uL (0.0-0.2) Sodium Level 137mmol/L (136-145) Potassium Level 4.5mmol/L (3.5-5.1) Chloride Level 103mmol/L (98-107) Carbon Dioxide Level 22mmol/L (21-32) Anion Gap 12 (6-14) Blood Urea Nitrogen 18mg/dL (7-20) Creatinine 0.9mg/dL (0.6-1.0) Estimated GFR (Cockcroft-Gault) 61.5 Glucose Level 214mg/dL (70-99) Calcium Level 9.7mg/dL (8.5-10.1) Glucose (Fingerstick) 160mg/dL (70-99) Review of Systems Review of Systems no chills, chest pain Assessment and Plan Assessmemt and Plan Problems Medical Problems: (1) Hypoxia Status: Acute (2) Syncope Status: Acute Problems: Comment Review of Relevant I have reviewed the following items carlota (where applicable) has been applied. Labs Laboratory Tests Test 06/30/16 06:49 06/30/16 08:35 06/30/16 12:03 06/30/16 12:16 White Blood Count 9.4x10^3/uL (4.0-11.0) Red Blood Count 3.95x10^6/uL (3.50-5.40) Hemoglobin 11.8g/dL (12.0-15.5) Hematocrit 35.8% (36.0-47.0) Mean Corpuscular Volume 91fL (79-100) Mean Corpuscular Hemoglobin 30pg (25-35) Mean Corpuscular Hemoglobin Concent 33g/dL (31-37) Red Cell Distribution Width 13.7% (11.5-14.5) Platelet Count 204x10^3/uL (140-400) Neutrophils (%) (Auto) 77% (31-73) Lymphocytes (%) (Auto) 8% (24-48) Monocytes (%) (Auto) 13% (0-9) Eosinophils (%) (Auto) 1% (0-3) Basophils (%) (Auto) 1% (0-3) Neutrophils # (Auto) 7.2x10^3uL (1.8-7.7) Lymphocytes # (Auto) 0.8x10^3/uL (1.0-4.8) Monocytes # (Auto) 1.3x10^3/uL (0.0-1.1) Eosinophils # (Auto) 0.1x10^3/uL (0.0-0.7) Basophils # (Auto) 0.1x10^3/uL (0.0-0.2) Sodium Level 135mmol/L (136-145) Potassium Level 4.9mmol/L (3.5-5.1) Chloride Level 102mmol/L (98-107) Carbon Dioxide Level 23mmol/L (21-32) Anion Gap 10 (6-14) Blood Urea Nitrogen 26mg/dL (7-20) Creatinine 1.5mg/dL (0.6-1.0) Estimated GFR (Cockcroft-Gault) 34.1 Glucose Level 149mg/dL (70-99) Calcium Level 9.8mg/dL (8.5-10.1) Troponin I Quantitative < 0.017ng/mL (0.000-0.055) Urine Collection Type U cath Urine Color Yellow Urine Clarity Cloudy Urine pH 6.0 Urine Specific [place] 1.010 Urine Protein Negativemg/dL (NEG-TRACE) Urine Glucose (UA) Negativemg/dL (NEG) Urine Ketones (Stick) Negativemg/dL (NEG) Urine Blood Small (NEG) Urine Nitrite Negative (NEG) Urine Bilirubin Negative (NEG) Urine Urobilinogen Dipstick 0.2mg/dL (0.2 mg/dL) Urine Leukocyte Esterase Large (NEG) Urine RBC 6-10/HPF (0-2) Urine WBC 11-20/HPF (0-4) Urine Bacteria 0/HPF (0-FEW) Glucose (Fingerstick) 287mg/dL (70-99) Nasal Screen MRSA (PCR) Negative (Negative) Test 06/30/16 13:37 06/30/16 16:06 07/01/16 03:15 07/01/16 07:24 Influenza Type A Antigen Negative (NEGATIVE) Influenza Type B Antigen Negative (NEGATIVE) Glucose (Fingerstick) 228mg/dL (70-99) 160mg/dL (70-99) White Blood Count 7.7x10^3/uL (4.0-11.0) Red Blood Count 3.94x10^6/uL (3.50-5.40) Hemoglobin 11.6g/dL (12.0-15.5) Hematocrit 34.8% (36.0-47.0) Mean Corpuscular Volume 89fL (79-100) Mean Corpuscular Hemoglobin 30pg (25-35) Mean Corpuscular Hemoglobin Concent 33g/dL (31-37) Red Cell Distribution Width 13.8% (11.5-14.5) Platelet Count 205x10^3/uL (140-400) Neutrophils (%) (Auto) 73% (31-73) Lymphocytes (%) (Auto) 12% (24-48) Monocytes (%) (Auto) 14% (0-9) Eosinophils (%) (Auto) 1% (0-3) Basophils (%) (Auto) 1% (0-3) Neutrophils # (Auto) 5.6x10^3uL (1.8-7.7) Lymphocytes # (Auto) 0.9x10^3/uL (1.0-4.8) Monocytes # (Auto) 1.1x10^3/uL (0.0-1.1) Eosinophils # (Auto) 0.0x10^3/uL (0.0-0.7) Basophils # (Auto) 0.1x10^3/uL (0.0-0.2) Sodium Level 137mmol/L (136-145) Potassium Level 4.5mmol/L (3.5-5.1) Chloride Level 103mmol/L (98-107) Carbon Dioxide Level 22mmol/L (21-32) Anion Gap 12 (6-14) Blood Urea Nitrogen 18mg/dL (7-20) Creatinine 0.9mg/dL (0.6-1.0) Estimated GFR (Cockcroft-Gault) 61.5 Glucose Level 214mg/dL (70-99) Calcium Level 9.7mg/dL (8.5-10.1) Laboratory Tests Test 06/30/16 12:03 06/30/16 12:16 06/30/16 13:37 06/30/16 16:06 Glucose (Fingerstick) 287mg/dL (70-99) 228mg/dL (70-99) Nasal Screen MRSA (PCR) Negative (Negative) Influenza Type A Antigen Negative (NEGATIVE) Influenza Type B Antigen Negative (NEGATIVE) Test 07/01/16 03:15 07/01/16 07:24 White Blood Count 7.7x10^3/uL (4.0-11.0) Red Blood Count 3.94x10^6/uL (3.50-5.40) Hemoglobin 11.6g/dL (12.0-15.5) Hematocrit 34.8% (36.0-47.0) Mean Corpuscular Volume 89fL (79-100) Mean Corpuscular Hemoglobin 30pg (25-35) Mean Corpuscular Hemoglobin Concent 33g/dL (31-37) Red Cell Distribution Width 13.8% (11.5-14.5) Platelet Count 205x10^3/uL (140-400) Neutrophils (%) (Auto) 73% (31-73) Lymphocytes (%) (Auto) 12% (24-48) Monocytes (%) (Auto) 14% (0-9) Eosinophils (%) (Auto) 1% (0-3) Basophils (%) (Auto) 1% (0-3) Neutrophils # (Auto) 5.6x10^3uL (1.8-7.7) Lymphocytes # (Auto) 0.9x10^3/uL (1.0-4.8) Monocytes # (Auto) 1.1x10^3/uL (0.0-1.1) Eosinophils # (Auto) 0.0x10^3/uL (0.0-0.7) Basophils # (Auto) 0.1x10^3/uL (0.0-0.2) Sodium Level 137mmol/L (136-145) Potassium Level 4.5mmol/L (3.5-5.1) Chloride Level 103mmol/L (98-107) Carbon Dioxide Level 22mmol/L (21-32) Anion Gap 12 (6-14) Blood Urea Nitrogen 18mg/dL (7-20) Creatinine 0.9mg/dL (0.6-1.0) Estimated GFR (Cockcroft-Gault) 61.5 Glucose Level 214mg/dL (70-99) Calcium Level 9.7mg/dL (8.5-10.1) Glucose (Fingerstick) 160mg/dL (70-99) Medications Current Medications Acetaminophen (Tylenol) 1,000 mg 1X ONCE PO Last administered on 06/30/16 07: 33; Start 06/30/16 at 07:00; Stop 06/30/16 at 07:04; Status DC Ondansetron HCl 4 mg 4 mg 1X ONCE IV Last administered on 06/30/16 07:32; Start 06/30/16 at 07:15; Stop 06/30/16 at 07:16; Status DC Sodium Chloride (Iv Sodium Chloride 0.9% 500ml Bag) 500 ml @ 500 mls/hr 1X ONCE IV Last administered on 06/30/16 09:57; Start 06/30/16 at 08:45; Stop at 09:44; Status DC Ondansetron HCl (Zofran) 4 mg PRN Q8HRS PRN IV NAUSEA/VOMITING Last administered on 06/30/16 20:58; Start 06/30/16 at 08:45; Stop 07/01/16 at 08:44; Status DC Morphine Sulfate 2 mg PRN Q2HR PRN IV PAIN Last administered on 07/01/16 05:16 ; Start 06/30/16 at 08:45; Stop 07/01/16 at 08:44; Status DC Acetaminophen (Tylenol) 650 mg PRN Q4HRS PRN PO FEVER Last administered on 20:40; Start 06/30/16 at 08:45; Stop 07/01/16 at 08:44; Status DC Insulin Aspart (Novolog) 0-7 UNITS TIDWMEALS SQ Last administered on 07/01/16 08:46; Start 06/30/16 at 12:00 Dextrose 12.5 gm PRN Q15MIN PRN IV SEE COMMENTS; Start 06/30/16 at 08:45 Pneumococcal Polyvalent Vaccine (Do NOT chart on this placeholder) 1 each 1X ONCE MC ; Start 06/30/16 at 11:30; Stop 06/30/16 at 11:31; Status UNV Acetaminophen (Tylenol) 650 mg PRN Q6HRS PRN PO PAIN; Start 06/30/16 at 12:15; Stop 06/30/16 at 12:18; Status DC Amlodipine Besylate (Norvasc) 10 mg DAILY PO Last administered on 07/01/16 08: 36; Start 06/30/16 at 13:00 Atorvastatin Calcium (Lipitor) 40 mg QHS PO Last administered on 06/30/16 20:40 ; Start 06/30/16 at 21:00 Carvedilol (Coreg) 25 mg BIDWMEALS PO Last administered on 07/01/16 08:35; Start 06/30/16 at 17:00 Clopidogrel Bisulfate (Plavix) 75 mg DAILY07 PO Last administered on 07/01/16 05:16; Start 06/30/16 at 13:00 Cyclosporine (Restasis) 1 drop HS OU ; Start 06/30/16 at 21:00 Duloxetine HCl (Cymbalta) 30 mg DAILY PO Last administered on 07/01/16 08:36; Start 06/30/16 at 13:00 Mirtazapine (Remeron) 15 mg QHS PO Last administered on 06/30/16 20:40; Start 06/30/16 at 21:00 Nicotine (Nicoderm Cq 21mg) 1 patch DAILY TD Last administered on 07/01/16 08: 35; Start 06/30/16 at 13:00 Oxybutynin Chloride (Ditropan) 5 mg BID PO Last administered on 07/01/16 08:36 ; Start 06/30/16 at 13:00 Pantoprazole Sodium (Protonix) 40 mg DAILY07 PO Last administered on 07/01/16 05:16; Start 06/30/16 at 13:00 Polyethylene Glycol (miraLAX PACKET) 17 gm DAILY PO Last administered on 08:34; Start 06/30/16 at 13:00 Senna/Docusate Sodium (Senna Plus) 2 tab HS PO Last administered on 06/30/16 20 :40; Start 06/30/16 at 21:00 Non-Formulary Medication 10 mg QHS PO ; Start 06/30/16 at 21:00; Status UNV Potassium Chloride (Klor-Con) 10 meq DAILYWBKFT PO Last administered on 08:36; Start 06/30/16 at 13:00 Acetaminophen (Tylenol) 650 mg PRN Q6HRS PRN PO MILD PAIN / TEMP; Start at 12:15; Status UNV Ondansetron HCl (Zofran) 4 mg PRN Q6HRS PRN IV NAUSEA/VOMITING; Start 06/30/16 at 12:15 Heparin Sodium (Porcine) 5,000 unit Q8HRS SQ Last administered on 07/01/16 05: 24; Start 06/30/16 at 14:00 Insulin Aspart (Novolog) 5 units TIDAC SQ Last administered on 07/01/16 08:46; Start 06/30/16 at 16:30 Insulin Detemir (Levemir) 20 units QHS SQ Last administered on 06/30/16 20:55; Start 06/30/16 at 21:00 Doxycycline Hyclate (Vibra-Tab) 100 mg BID PO Last administered on 07/01/16 08: 36; Start 06/30/16 at 13:00 Guaifenesin 600 mg 600 mg BID PO Last administered on 07/01/16 08:36; Start 06/30/16 at 13:00 Sodium Chloride (Iv Sodium Chloride 0.9% 1000ml Bag) 1,000 ml @ 75 mls/hr 1X ONCE IV Last administered on 06/30/16t 13:21; Start 06/30/16 at 12:15; Stop at 01:34; Status DC Acetaminophen (Tylenol) 650 mg PRN Q6HRS PRN PO PAIN; Start 06/30/16 at 12:18 Magnesium Hydroxide (Milk Of Magnesia) 2,400 mg PRN DAILY PRN PO CONSTIPATION; Start 06/30/16 at 17:30 Active Scripts Active Reported Tylenol (Acetaminophen) 325 Mg Tablet 650 Mg PO TID Senna-Docusate Sodium Tablet (Sennosides/Docusate Sodium) 1 Each Tablet 2 Each PO HS Protonix (Pantoprazole Sodium) 40 Mg Tablet.dr 1 Tab PO DAILY NICODERM CQ 21mg (Nicotine) 1 Each Patch.td24 1 Patch TP DAILY Miralax (Polyethylene Glycol 3350) 17 Gm Powd.pack 1 Packet PO DAILY Miralax (Polyethylene Glycol 3350) 17 Gm Powd.pack 1 Packet PO PRN DAILY PRN Melatonin 3 Mg Tablet 10 Mg PO QHS Mirtazapine 15 Mg Tablet 1 Tab PO QHS Cymbalta (Duloxetine Hcl) 30 Mg Capsule.dr 1 Cap PO DAILY Acetaminophen 500 Mg Tablet 1 Tab PO PRN Q6HRS PRN Novolog (Insulin Aspart) 100 Unit/1 Ml Cartridge 5 Unit SQ DAILYWSUP Restasis (Cyclosporine) 1 Each Droperette 1 Drop EACHEYE HS Multiple Vitamins (Multivitamin) 1 Each Tablet 1 Each PO Potassium Chloride 10 Meq Capsule.er 1 Cap PO DAILY05 Levemir (Insulin Detemir) 100 Unit/1 Ml Vial 30 Unit SQ DAILY Atorvastatin Calcium 40 Mg Tablet 1 Tab PO DAILY Lisinopril 20 Mg Tablet 1 Tab PO DAILY Oxybutynin Chloride 5 Mg Tablet 5 Mg PO BID Norvasc (Amlodipine Besylate) 5 Mg Tablet 10 Mg PO DAILY Clopidogrel (Clopidogrel Bisulfate) 75 Mg Tablet 75 Mg PO DAILY Coreg (Carvedilol) 12.5 Mg Tablet 25 Mg PO BID Vitals/I & O Vital Sign - Last 24 Hours 06/30/16 06/30/16 06/30/16 06/30/16 12:05 13:22 14:45 17:55 Temp 97.3 97.3 Pulse 82 82 82 Resp 18 B/P 137/46 142/50 142/50 Pulse Ox 93 O2 Delivery Nasal Cannula Nasal Cannula O2 Flow Rate 3.0 2.0 06/30/16 06/30/16 06/30/16 06/30/16 17:56 19:00 19:47 23:00 Temp 101.1 98.3 101.1 98.3 Pulse 94 90 Resp 20 20 B/P 159/53 170/57 Pulse Ox 91 94 O2 Delivery Nasal Cannula Nasal Cannula Nasal Cannula Nasal Cannula O2 Flow Rate 3.0 3.0 07/01/16 07/01/16 07/01/16 07/01/16 03:19 03:58 05:16 05:48 Temp 98.1 98.1 Pulse 90 92 Resp 20 B/P 178/67 148/68 Pulse Ox 91 93 93 93 O2 Delivery Nasal Cannula Nasal Cannula Nasal Cannula Nasal Cannula O2 Flow Rate 3.0 3.0 3.0 07/01/16 07/01/16 07/01/16 08:00 08:35 08:36 Pulse 92 92 B/P 148/68 148/68 O2 Delivery Nasal Cannula O2 Flow Rate 2.0 Intake and Output 06/30/16 06/30/16 07/01/16 15:00 23:00 07:00 Intake Total 240 ml 400.83 ml 120 ml Balance 240 ml 400.83 ml 120 ml ADINA DEVI MD Jul 01, 2016 11:44
[2016-07-01] MEDS ORDERED: INSULIN ASPART 300 UNITS/3 ML INSULN.PEN SQ SCH (12:00)
--- NOTE | 2016-07-01 13:16 | CONS ---
DATE OF CONSULTATION: 06/30/2016 ATTENDING PHYSICIAN: Dr. Rush. The patient was seen at the request of Dr. Rush for rehab evaluation. HISTORY OF PRESENT ILLNESS: This is a 70-year-old female who was found down on the floor at her residence at [facility]. The patient was walking and then fell. She usually walks using a walker. She has been in the assisted living facility for about 6 months since she had a stroke and her could not be able to handle her. The patient apparently had about 4 falls in the last 6 months. She also had recent left wrist fracture for which she received wrist Cock-up splint. The patient was noted with hypoxemia and she is receiving oxygen at present time. Her oxygen saturation was in 70s on room air in the Emergency Room. The patient apparently is not taking any medications for chronic obstructive pulmonary disease. PAST MEDICAL HISTORY: Includes coronary artery disease, congestive heart failure, hypertension, hyperlipidemia, chronic obstructive pulmonary disease, cerebrovascular accident, depression, urinary tract infection, diabetes mellitus, dysphagia, medication noncompliance, myocardial infarction, hip replacement, carotid endarterectomy and PEG tube placement in the past. SOCIAL HISTORY: The patient smokes less than 1 pack per day. ALLERGIES: SHE HAS KNOWN ALLERGY TO ADACEL. The patient admits chronic lower back pain, but much worse since the fall. The patient was noted with T12 and L1 vertebral body compression fractures as per x-rays. Other radiological studies failed to reveal any significant abnormalities including CT scan of her brain, which revealed generalized cerebral atrophy and encephalomalacia secondary to multiple chronic infarcts, moderate diffuse chronic small vessel ischemic white matter changes, degenerative disk disease of cervical vertebrae from C4-C6 with some degree of central spinal and neural foraminal compromise. The patient had CT of the chest, which revealed no apparent mass and nodular lesions. PHYSICAL EXAMINATION: Today revealed an elderly female. She is awake, oriented to place and person, follows commands appropriately, moves all 4 extremities voluntarily where she had 4+/5 grade muscle strength. Deep tendon reflexes are 1-2+ and symmetrical, maybe slightly exaggerated on the left side with absent ankle jerks bilaterally. She had equal perception of touch and pinprick sensation bilaterally. She had a crepitus on range of motion on both knee joints. She had tenderness to palpation over lower thoracic and lumbar paraspinal muscles extending over to sacroiliac joint area and straight leg raising test is negative bilaterally. She is requiring some assistance with bed mobility and transfers. Once up, she walks with a roller walker, she does not use any safe techniques, especially during the transfers, she had a minimal degree of lower thoracic and upper lumbar paraspinal muscle spasm. ASSESSMENT: An elderly female with cerebrovascular accident with mild left hemiparesis and frequent falls, onset about 6 months ago with radiological evidence of T12 and L1 vertebral body compression fractures and spondylolysis of L4 and L5 with exacerbation of chronic lower back pain without any clinical evidence of ongoing lumbar radiculopathy. She presents with peripheral neuropathy. The patient with known diabetes mellitus, hypertension, coronary artery disease, hyperlipidemia, gastroesophageal reflux disease, depression, chronic constipation, and congestive heart failure. RECOMMENDATIONS: To obtain MRI scan of her lumbar vertebrae to make sure there is no new vertebral body compression fractures, to get her lumbar corset for use while up. She is also using left wrist Cock-up splint. I did not see any significant pain on range of motion of her left wrist. Dr. Rush, I appreciate asking me to participate in the care of this interesting patient. I will be glad to follow her with you as needed for her rehabilitation. FLORY SMITH MD DR: VITALY/cl JOB#: [id number] / [id number]
--- NOTE | 2016-07-01 13:42 | PDOC2 ---
CONSULT Date of Consult Date of Consult DATE: 07/01/16 TIME: 13:35 Reason for Consult Reason for Consult: left wrist fracture, shoulder pain Identification/Chief Complaint Chief Complaint left upper extremity pain Source Source: Chart review, Patient History of Present Illness Reason for Visit: The patient is a 70 year old right-hand dominant female who is well known to me for her left distal radius fracture. She originally fell on 06/14/16, sustaining a left distal radius fracture. She has since been since in the clinic by me and the family decided she would do best with a wrist splint versus a cast. She is again admitted to the hospital after another fall and possible syncope. The patient herself is a poor historian. She is complaining of left wrist and shoulder pain. Past Medical History Cardiovascular: CAD, CHF, HTN, Hyperlipidemia Pulmonary: COPD CENTRAL NERVOUS SYSTEM: CVA Psych: Depression Musculoskeletal: Osteoarthritis Renal/: UTI Endocrine: Diabetes Past Surgical History Past Surgical History: Other Family History Family History: Diabetes, Hypertension, Family History Unknown Social History <1 pack per day ALCOHOL: none Drugs: None Lives: with Family Current Problem List Problem List Problems Medical Problems: (1) Hypoxia Status: Acute (2) Syncope Status: Acute Current Medications Current Medications Current Medications Acetaminophen (Tylenol) 1,000 mg 1X ONCE PO Last administered on 06/30/16 07: 33; Start 06/30/16 at 07:00; Stop 06/30/16 at 07:04; Status DC Ondansetron HCl 4 mg 4 mg 1X ONCE IV Last administered on 06/30/16 07:32; Start 06/30/16 at 07:15; Stop 06/30/16 at 07:16; Status DC Sodium Chloride (Iv Sodium Chloride 0.9% 500ml Bag) 500 ml @ 500 mls/hr 1X ONCE IV Last administered on 06/30/16 09:57; Start 06/30/16 at 08:45; Stop at 09:44; Status DC Ondansetron HCl (Zofran) 4 mg PRN Q8HRS PRN IV NAUSEA/VOMITING Last administered on 06/30/16 20:58; Start 06/30/16 at 08:45; Stop 07/01/16 at 08:44; Status DC Morphine Sulfate 2 mg PRN Q2HR PRN IV PAIN Last administered on 07/01/16 05:16 ; Start 06/30/16 at 08:45; Stop 07/01/16 at 08:44; Status DC Acetaminophen (Tylenol) 650 mg PRN Q4HRS PRN PO FEVER Last administered on 20:40; Start 06/30/16 at 08:45; Stop 07/01/16 at 08:44; Status DC Insulin Aspart (Novolog) 0-7 UNITS TIDWMEALS SQ Last administered on 07/01/16 08:46; Start 06/30/16 at 12:00 Dextrose 12.5 gm PRN Q15MIN PRN IV SEE COMMENTS; Start 06/30/16 at 08:45 Pneumococcal Polyvalent Vaccine (Do NOT chart on this placeholder) 1 each 1X ONCE MC ; Start 06/30/16 at 11:30; Stop 06/30/16 at 11:31; Status UNV Acetaminophen (Tylenol) 650 mg PRN Q6HRS PRN PO PAIN; Start 06/30/16 at 12:15; Stop 06/30/16 at 12:18; Status DC Amlodipine Besylate (Norvasc) 10 mg DAILY PO Last administered on 07/01/16 08: 36; Start 06/30/16 at 13:00 Atorvastatin Calcium (Lipitor) 40 mg QHS PO Last administered on 06/30/16 20:40 ; Start 06/30/16 at 21:00 Carvedilol (Coreg) 25 mg BIDWMEALS PO Last administered on 07/01/16 08:35; Start 06/30/16 at 17:00 Clopidogrel Bisulfate (Plavix) 75 mg DAILY07 PO Last administered on 07/01/16 05:16; Start 06/30/16 at 13:00 Cyclosporine (Restasis) 1 drop HS OU ; Start 06/30/16 at 21:00 Duloxetine HCl (Cymbalta) 30 mg DAILY PO Last administered on 07/01/16 08:36; Start 06/30/16 at 13:00 Mirtazapine (Remeron) 15 mg QHS PO Last administered on 06/30/16 20:40; Start 06/30/16 at 21:00 Nicotine (Nicoderm Cq 21mg) 1 patch DAILY TD Last administered on 07/01/16 08: 35; Start 06/30/16 at 13:00 Oxybutynin Chloride (Ditropan) 5 mg BID PO Last administered on 07/01/16 08:36 ; Start 06/30/16 at 13:00 Pantoprazole Sodium (Protonix) 40 mg DAILY07 PO Last administered on 07/01/16 05:16; Start 06/30/16 at 13:00 Polyethylene Glycol (miraLAX PACKET) 17 gm DAILY PO Last administered on 08:34; Start 06/30/16 at 13:00 Senna/Docusate Sodium (Senna Plus) 2 tab HS PO Last administered on 06/30/16 20 :40; Start 06/30/16 at 21:00 Non-Formulary Medication 10 mg QHS PO ; Start 06/30/16 at 21:00; Status UNV Potassium Chloride (Klor-Con) 10 meq DAILYWBKFT PO Last administered on 08:36; Start 06/30/16 at 13:00 Acetaminophen (Tylenol) 650 mg PRN Q6HRS PRN PO MILD PAIN / TEMP; Start at 12:15; Status UNV Ondansetron HCl (Zofran) 4 mg PRN Q6HRS PRN IV NAUSEA/VOMITING; Start 06/30/16 at 12:15 Heparin Sodium (Porcine) 5,000 unit Q8HRS SQ Last administered on 07/01/16 05: 24; Start 06/30/16 at 14:00 Insulin Aspart (Novolog) 5 units TIDAC SQ Last administered on 07/01/16 08:46; Start 06/30/16 at 16:30; Stop 07/01/16 at 11:45; Status DC Insulin Detemir (Levemir) 20 units QHS SQ Last administered on 06/30/16 20:55; Start 06/30/16 at 21:00; Stop 07/01/16 at 11:45; Status DC Doxycycline Hyclate (Vibra-Tab) 100 mg BID PO Last administered on 07/01/16 08: 36; Start 06/30/16 at 13:00 Guaifenesin 600 mg 600 mg BID PO Last administered on 07/01/16 08:36; Start 06/30/16 at 13:00 Sodium Chloride (Iv Sodium Chloride 0.9% 1000ml Bag) 1,000 ml @ 75 mls/hr 1X ONCE IV Last administered on 06/30/16t 13:21; Start 06/30/16 at 12:15; Stop at 01:34; Status DC Acetaminophen (Tylenol) 650 mg PRN Q6HRS PRN PO PAIN; Start 06/30/16 at 12:18 Magnesium Hydroxide (Milk Of Magnesia) 2,400 mg PRN DAILY PRN PO CONSTIPATION; Start 06/30/16 at 17:30 Insulin Aspart (Novolog) 7 units TIDAC SQ ; Start 07/01/16 at 12:00; Stop at 12:57; Status DC Insulin Detemir (Levemir) 22 units QHS SQ ; Start 07/01/16 at 21:00 Insulin Aspart (Novolog) 5 units TIDAC SQ ; Start 07/01/16 at 16:30 Active Scripts Active Reported Tylenol (Acetaminophen) 325 Mg Tablet 650 Mg PO TID Senna-Docusate Sodium Tablet (Sennosides/Docusate Sodium) 1 Each Tablet 2 Each PO HS Protonix (Pantoprazole Sodium) 40 Mg Tablet.dr 1 Tab PO DAILY NICODERM CQ 21mg (Nicotine) 1 Each Patch.td24 1 Patch TP DAILY Miralax (Polyethylene Glycol 3350) 17 Gm Powd.pack 1 Packet PO DAILY Miralax (Polyethylene Glycol 3350) 17 Gm Powd.pack 1 Packet PO PRN DAILY PRN Melatonin 3 Mg Tablet 10 Mg PO QHS Mirtazapine 15 Mg Tablet 1 Tab PO QHS Cymbalta (Duloxetine Hcl) 30 Mg Capsule.dr 1 Cap PO DAILY Acetaminophen 500 Mg Tablet 1 Tab PO PRN Q6HRS PRN Novolog (Insulin Aspart) 100 Unit/1 Ml Cartridge 5 Unit SQ DAILYWSUP Restasis (Cyclosporine) 1 Each Droperette 1 Drop EACHEYE HS Multiple Vitamins (Multivitamin) 1 Each Tablet 1 Each PO Potassium Chloride 10 Meq Capsule.er 1 Cap PO DAILY05 Levemir (Insulin Detemir) 100 Unit/1 Ml Vial 30 Unit SQ DAILY Atorvastatin Calcium 40 Mg Tablet 1 Tab PO DAILY Lisinopril 20 Mg Tablet 1 Tab PO DAILY Oxybutynin Chloride 5 Mg Tablet 5 Mg PO BID Norvasc (Amlodipine Besylate) 5 Mg Tablet 10 Mg PO DAILY Clopidogrel (Clopidogrel Bisulfate) 75 Mg Tablet 75 Mg PO DAILY Coreg (Carvedilol) 12.5 Mg Tablet 25 Mg PO BID Allergies Allergies: Coded Allergies: adhesive (Verified Allergy, Intermediate, Rash, 06/15/16) ROS General: No: Appetite, Chills, Fatigue, Malaise, Night Sweats, Other Musculoskeletal: Yes Joint Pain, Yes Joint Swelling Physical Exam Physical Exam No gross deformities noted. In no apparent distress. The patient appears their stated age and is well groomed. LUE tenderness to palpation over the left distal radius with sweling and ecchymosis. neurovascularly intact distally. mild tenderness to palpation at the medial/ lateral epicondyles of the elbow. shoulder with active FE 120, passive to 130. ER equal bilaterally at 45. General: Alert, Cooperative, No acute distress HEENT: Atraumatic Lungs: Normal air movement Psych/Mental Status: Mental status NL, Mood NL Vitals VITALS Vital Signs Date Time Temp Pulse Resp B/P Pulse Ox O2 Delivery O2 Flow Rate FiO2 07/01/16 11:00 98.6 82 17 155/51 92 Nasal Cannula 3.0 98.6 Labs Labs Laboratory Tests Test 06/30/16 06:49 06/30/16 08:35 06/30/16 12:03 06/30/16 12:16 White Blood Count 9.4x10^3/uL (4.0-11.0) Red Blood Count 3.95x10^6/uL (3.50-5.40) Hemoglobin 11.8g/dL (12.0-15.5) Hematocrit 35.8% (36.0-47.0) Mean Corpuscular Volume 91fL (79-100) Mean Corpuscular Hemoglobin 30pg (25-35) Mean Corpuscular Hemoglobin Concent 33g/dL (31-37) Red Cell Distribution Width 13.7% (11.5-14.5) Platelet Count 204x10^3/uL (140-400) Neutrophils (%) (Auto) 77% (31-73) Lymphocytes (%) (Auto) 8% (24-48) Monocytes (%) (Auto) 13% (0-9) Eosinophils (%) (Auto) 1% (0-3) Basophils (%) (Auto) 1% (0-3) Neutrophils # (Auto) 7.2x10^3uL (1.8-7.7) Lymphocytes # (Auto) 0.8x10^3/uL (1.0-4.8) Monocytes # (Auto) 1.3x10^3/uL (0.0-1.1) Eosinophils # (Auto) 0.1x10^3/uL (0.0-0.7) Basophils # (Auto) 0.1x10^3/uL (0.0-0.2) Sodium Level 135mmol/L (136-145) Potassium Level 4.9mmol/L (3.5-5.1) Chloride Level 102mmol/L (98-107) Carbon Dioxide Level 23mmol/L (21-32) Anion Gap 10 (6-14) Blood Urea Nitrogen 26mg/dL (7-20) Creatinine 1.5mg/dL (0.6-1.0) Estimated GFR (Cockcroft-Gault) 34.1 Glucose Level 149mg/dL (70-99) Calcium Level 9.8mg/dL (8.5-10.1) Troponin I Quantitative < 0.017ng/mL (0.000-0.055) Urine Collection Type U cath Urine Color Yellow Urine Clarity Cloudy Urine pH 6.0 Urine Specific [place] 1.010 Urine Protein Negativemg/dL (NEG-TRACE) Urine Glucose (UA) Negativemg/dL (NEG) Urine Ketones (Stick) Negativemg/dL (NEG) Urine Blood Small (NEG) Urine Nitrite Negative (NEG) Urine Bilirubin Negative (NEG) Urine Urobilinogen Dipstick 0.2mg/dL (0.2 mg/dL) Urine Leukocyte Esterase Large (NEG) Urine RBC 6-10/HPF (0-2) Urine WBC 11-20/HPF (0-4) Urine Bacteria 0/HPF (0-FEW) Glucose (Fingerstick) 287mg/dL (70-99) Nasal Screen MRSA (PCR) Negative (Negative) Test 06/30/16 13:37 06/30/16 16:06 07/01/16 03:15 07/01/16 07:24 Influenza Type A Antigen Negative (NEGATIVE) Influenza Type B Antigen Negative (NEGATIVE) Glucose (Fingerstick) 228mg/dL (70-99) 160mg/dL (70-99) White Blood Count 7.7x10^3/uL (4.0-11.0) Red Blood Count 3.94x10^6/uL (3.50-5.40) Hemoglobin 11.6g/dL (12.0-15.5) Hematocrit 34.8% (36.0-47.0) Mean Corpuscular Volume 89fL (79-100) Mean Corpuscular Hemoglobin 30pg (25-35) Mean Corpuscular Hemoglobin Concent 33g/dL (31-37) Red Cell Distribution Width 13.8% (11.5-14.5) Platelet Count 205x10^3/uL (140-400) Neutrophils (%) (Auto) 73% (31-73) Lymphocytes (%) (Auto) 12% (24-48) Monocytes (%) (Auto) 14% (0-9) Eosinophils (%) (Auto) 1% (0-3) Basophils (%) (Auto) 1% (0-3) Neutrophils # (Auto) 5.6x10^3uL (1.8-7.7) Lymphocytes # (Auto) 0.9x10^3/uL (1.0-4.8) Monocytes # (Auto) 1.1x10^3/uL (0.0-1.1) Eosinophils # (Auto) 0.0x10^3/uL (0.0-0.7) Basophils # (Auto) 0.1x10^3/uL (0.0-0.2) Sodium Level 137mmol/L (136-145) Potassium Level 4.5mmol/L (3.5-5.1) Chloride Level 103mmol/L (98-107) Carbon Dioxide Level 22mmol/L (21-32) Anion Gap 12 (6-14) Blood Urea Nitrogen 18mg/dL (7-20) Creatinine 0.9mg/dL (0.6-1.0) Estimated GFR (Cockcroft-Gault) 61.5 Glucose Level 214mg/dL (70-99) Calcium Level 9.7mg/dL (8.5-10.1) Test 07/01/16 11:25 Glucose (Fingerstick) 119mg/dL (70-99) Laboratory Tests Test 06/30/16 13:37 06/30/16 16:06 07/01/16 03:15 07/01/16 07:24 Influenza Type A Antigen Negative (NEGATIVE) Influenza Type B Antigen Negative (NEGATIVE) Glucose (Fingerstick) 228mg/dL (70-99) 160mg/dL (70-99) White Blood Count 7.7x10^3/uL (4.0-11.0) Red Blood Count 3.94x10^6/uL (3.50-5.40) Hemoglobin 11.6g/dL (12.0-15.5) Hematocrit 34.8% (36.0-47.0) Mean Corpuscular Volume 89fL (79-100) Mean Corpuscular Hemoglobin 30pg (25-35) Mean Corpuscular Hemoglobin Concent 33g/dL (31-37) Red Cell Distribution Width 13.8% (11.5-14.5) Platelet Count 205x10^3/uL (140-400) Neutrophils (%) (Auto) 73% (31-73) Lymphocytes (%) (Auto) 12% (24-48) Monocytes (%) (Auto) 14% (0-9) Eosinophils (%) (Auto) 1% (0-3) Basophils (%) (Auto) 1% (0-3) Neutrophils # (Auto) 5.6x10^3uL (1.8-7.7) Lymphocytes # (Auto) 0.9x10^3/uL (1.0-4.8) Monocytes # (Auto) 1.1x10^3/uL (0.0-1.1) Eosinophils # (Auto) 0.0x10^3/uL (0.0-0.7) Basophils # (Auto) 0.1x10^3/uL (0.0-0.2) Sodium Level 137mmol/L (136-145) Potassium Level 4.5mmol/L (3.5-5.1) Chloride Level 103mmol/L (98-107) Carbon Dioxide Level 22mmol/L (21-32) Anion Gap 12 (6-14) Blood Urea Nitrogen 18mg/dL (7-20) Creatinine 0.9mg/dL (0.6-1.0) Estimated GFR (Cockcroft-Gault) 61.5 Glucose Level 214mg/dL (70-99) Calcium Level 9.7mg/dL (8.5-10.1) Test 07/01/16 11:25 Glucose (Fingerstick) 119mg/dL (70-99) Images Images I have ordered xrays of her left wrist. Her left shoulder xrays are negative for fracture or dislocation Assessment/Plan Assessment/Plan The patient is a 70 year old right-hand dominant female. Will order new xrays on her left wrist after her fall. Would like to obtain an axillary view of her left shoulder to ensure she does not have a posterior dislocation. It is very unlikely ,but she continues to complain of pain in the shoulder Depending on xrays may place her in a cast on the left wrist if it is more displaced, versus staying in the splint. AMY DODSON MD Jul 01, 2016 13:42
--- NOTE | 2016-07-01 14:38 | RAD ---
PROCEDURE Lumbar spine MRI without contrast. HISTORY Chronic lower back pain. TECHNIQUE Multiplanar and multi sequence magnetic resonance imaging of the lumbar spine was performed without contrast. COMPARISON Radiographs dated 06/30/2016. FINDINGS There is a mild subacute compression fracture of L1 with approximately 25 percent loss of central vertebral body height and 1-2 mm retropulsion of the posterior superior cortex into the central canal, without significant stenosis. There is a moderate wedge compression fracture at T12, likely chronic given the absence of significant marrow edema. There is slight increased signal along the superior endplate at this level, not clearly within limits to suggest an acute or subacute etiology. There is 4 mm retropulsion of the cortex at this level, resulting in minimal central canal stenosis. The remainder of the vertebral bodies are normal in height. There is grade 1 anterolisthesis of L4 on L5, and to a lesser extent, L3 on L4. There is lumbar scoliosis. No suspicious osseous lesion is seen. There is a distended bladder. There is a suspected small uterine fibroid. There is mild right renal atrophy. The conus terminates at L1. At L1-L2, there is no stenosis. At L2-L3, there is no stenosis. At L3-L4, there is a right lateral predominant disc bulge and and right lateral annular tear superimposed on endplate remodeling. There is mild facet arthropathy. There is hypertrophy of the ligamentum flavum. There is grade 1 anterolisthesis. There is mild right foraminal stenosis. At L4-L5, there is a left lateral predominant disc bulge with left anterior annular tear and endplate remodeling. There is mild right and moderate left facet arthropathy. There is anterolisthesis. There is mild central canal stenosis. At L5-S1, there is a left posterior lateral predominant disc bulge and endplate remodeling. There is mild left facet arthropathy. There is no stenosis. IMPRESSION 1. Mild subacute compression fracture of L1 with minimal retropulsion of the cortex and no central canal stenosis. 2. Moderate suspected chronic compression fracture of T12 with mild retropulsion of the cortex, resulting in minimal central canal stenosis. 3. Multilevel degenerative change within the lumbar spine, described in detail above. 4. Lumbar hyperlordosis and multilevel listhesis, described above. Electronically signed by: Gloria Kumar (Jul 01, 2016 14:36:28)
--- NOTE | 2016-07-01 15:03 | RAD ---
Left wrist, 3 views, 07/01/2016: History: Follow-up wrist fracture Comparison is made to a study from 06/14/2016. There is severe patchy bony demineralization. An impacted fracture of the distal left radius is again identified. The fracture fragments are mildly impacted. There is a cortical offset involving the articular surface of the distal radius. Impaction of the lateral fracture fragment appears to have worsened slightly. Bridging callus is not evident. The distal ulnar styloid fracture is unchanged. IMPRESSION: 1. Severe bony demineralization. 2. Slight interval worsening of the impaction at the site of the distal radial fracture.
--- NOTE | 2016-07-01 15:04 | RAD ---
Left shoulder-axillary view, 07/01/2016: History: Shoulder pain This single image is correlated with yesterday's other shoulder views. The bony structures are demineralized. No fracture or dislocation is evident.
[2016-07-01 16:18] LABS: INR 1.2 (0.8-1.1); PROTHROMBIN TIME PATIENT 14.4 SEC (11.7-14.0)
--- NOTE | 2016-07-01 16:49 | RAD ---
EXAM: Carotid Doppler sonogram. HISTORY: Preoperative risk factors. Cerebrovascular disease. TECHNIQUE: Hester scale and color Doppler sonographic evaluation of the neck with spectral waveform analysis was performed and static images are submitted for review. FINDINGS: RIGHT: The peak systolic velocity within the common carotid artery is 133 cm/sec. The peak systolic velocity within the internal carotid artery is 120 cm/sec and the end diastolic velocity within the internal carotid artery is 30 cm/sec. The ICA/CCA ratio is 0.9. Grayscale images demonstrate diffuse moderate mostly uncalcified plaquing. LEFT: The peak systolic velocity within the common carotid artery is 30 cm/sec. The peak systolic velocity within the internal carotid artery is 331 cm/sec and the end diastolic velocity within the internal carotid artery is 81 cm/sec. The ICA/CCA ratio is 11. Grayscale images demonstrate diffuse moderate to severe mostly uncalcified plaquing. There is antegrade flow within both vertebral arteries. IMPRESSION: 1. >70% stenosis within the proximal and mid left internal carotid artery. 50-69% stenosis more distally. CTA or MRA could further characterize stenosis if there is further concern. PQRS Compliance Statement - Stenosis calculations for CT, MR and conventional angiography are based upon measurement of the distal ICA diameter in accordance with the NASCET methodology. Stenosis calculations for carotid ultrasound studies are derived from validated velocity criteria which are known to correlate with the NASCET methodology.
[2016-07-01] MEDS: CYCLOSPORINE 0.05% OPTH DROPERETTE. OU SCH (20:39)
[2016-07-01] MEDS: SENNOSIDES/DOCUSATE 8.6/50MG TABLET. PO SCH (20:40)
[2016-07-01] MEDS: ATORVASTATIN CALCIUM 40 MG TABLET. PO SCH (20:40)
[2016-07-01] MEDS: MIRTAZAPINE 15 MG TABLET PO SCH (20:40)
[2016-07-01] MEDS: INSULIN DETEMIR 300 UNITS/3 ML INSULN.PEN. SQ SCH (21:13)
[2016-07-01] MEDS: ACETAMINOPHEN 325 MG TABLET. PO PRN (21:16)
[2016-07-02 03:00] VITALS: BP 158/61
[2016-07-02] MEDS: HEPARIN PF for SUB-Q USE 5,000 UNIT/0.5 ML VIAL. SQ SCH ×3 (05:07→22:30)
[2016-07-02] MEDS: CLOPIDOGREL BISULFATE 75 MG TABLET PO SCH (05:07)
[2016-07-02 05:21] LABS: BASO # 0.1 x10^3/uL (0.0-0.2); BASO % 1 % (0-3); EOS % 1 % (0-3); HEMATOCRIT 33.5 % (36.0-47.0); HEMOGLOBIN 11.2 g/dL (12.0-15.5); LYMPH # 1.1 x10^3/uL (1.0-4.8); LYMPH % 16 % (24-48); MEAN CORPUSCULAR HEMOGLOBIN 29 pg (25-35); MEAN CORPUSCULAR HGB CONC 33 g/dL (31-37); MEAN CORPUSCULAR VOLUME 88 fL (79-100); MONO % 14 % (0-9); NEUT % 68 % (31-73); PLATELET COUNT 218 x10^3/uL (140-400); RED CELL DISTRIBUTION WIDTH 13.4 % (11.5-14.5); WHITE BLOOD COUNT 7.1 x10^3/uL (4.0-11.0)
[2016-07-02 05:23] LABS: CALCIUM 9.8 mg/dL (8.5-10.1); CREATININE 0.9 mg/dL (0.6-1.0); GFR 61.5; POTASSIUM 4.4 mmol/L (3.5-5.1)
[2016-07-02] MEDS: PANTOPRAZOLE 40 MG TABLET. PO SCH (05:48)
[2016-07-02 07:00] VITALS: BP 181/64
[2016-07-02] MEDS: INSULIN ASPART 300 UNITS/3 ML INSULN.PEN SQ SCH ×6 (07:30→17:20)
--- NOTE | 2016-07-02 10:13 | PDOC ---
PULMONARY PROGRESS NOTES Subjective feels better Vitals Vital Signs Date Time Temp Pulse Resp B/P Pulse Ox O2 Delivery O2 Flow Rate FiO2 07/02/16 07:00 100.0 93 18 181/64 95 Nasal Cannula 3.0 100.0 General: Alert, No acute distress Lungs: Other (decrease bs) Cardiovascular: S1, S2 Abdomen: Soft Extremities: No Edema Labs Laboratory Tests Test 06/30/16 12:03 06/30/16 12:16 06/30/16 13:37 06/30/16 16:06 Glucose (Fingerstick) 287mg/dL (70-99) 228mg/dL (70-99) Nasal Screen MRSA (PCR) Negative (Negative) Influenza Type A Antigen Negative (NEGATIVE) Influenza Type B Antigen Negative (NEGATIVE) Test 07/01/16 03:15 07/01/16 07:24 07/01/16 11:25 07/01/16 15:35 White Blood Count 7.7x10^3/uL (4.0-11.0) Red Blood Count 3.94x10^6/uL (3.50-5.40) Hemoglobin 11.6g/dL (12.0-15.5) Hematocrit 34.8% (36.0-47.0) Mean Corpuscular Volume 89fL (79-100) Mean Corpuscular Hemoglobin 30pg (25-35) Mean Corpuscular Hemoglobin Concent 33g/dL (31-37) Red Cell Distribution Width 13.8% (11.5-14.5) Platelet Count 205x10^3/uL (140-400) Neutrophils (%) (Auto) 73% (31-73) Lymphocytes (%) (Auto) 12% (24-48) Monocytes (%) (Auto) 14% (0-9) Eosinophils (%) (Auto) 1% (0-3) Basophils (%) (Auto) 1% (0-3) Neutrophils # (Auto) 5.6x10^3uL (1.8-7.7) Lymphocytes # (Auto) 0.9x10^3/uL (1.0-4.8) Monocytes # (Auto) 1.1x10^3/uL (0.0-1.1) Eosinophils # (Auto) 0.0x10^3/uL (0.0-0.7) Basophils # (Auto) 0.1x10^3/uL (0.0-0.2) Sodium Level 137mmol/L (136-145) Potassium Level 4.5mmol/L (3.5-5.1) Chloride Level 103mmol/L (98-107) Carbon Dioxide Level 22mmol/L (21-32) Anion Gap 12 (6-14) Blood Urea Nitrogen 18mg/dL (7-20) Creatinine 0.9mg/dL (0.6-1.0) Estimated GFR (Cockcroft-Gault) 61.5 Glucose Level 214mg/dL (70-99) Calcium Level 9.7mg/dL (8.5-10.1) Glucose (Fingerstick) 160mg/dL (70-99) 119mg/dL (70-99) Prothrombin Time 14.4SEC (11.7-14.0) Prothromb Time International Ratio 1.2 (0.8-1.1) Test 07/01/16 16:46 07/01/16 21:02 07/02/16 03:50 07/02/16 08:19 Glucose (Fingerstick) 169mg/dL (70-99) 164mg/dL (70-99) 156mg/dL (70-99) White Blood Count 7.1x10^3/uL (4.0-11.0) Red Blood Count 3.80x10^6/uL (3.50-5.40) Hemoglobin 11.2g/dL (12.0-15.5) Hematocrit 33.5% (36.0-47.0) Mean Corpuscular Volume 88fL (79-100) Mean Corpuscular Hemoglobin 29pg (25-35) Mean Corpuscular Hemoglobin Concent 33g/dL (31-37) Red Cell Distribution Width 13.4% (11.5-14.5) Platelet Count 218x10^3/uL (140-400) Neutrophils (%) (Auto) 68% (31-73) Lymphocytes (%) (Auto) 16% (24-48) Monocytes (%) (Auto) 14% (0-9) Eosinophils (%) (Auto) 1% (0-3) Basophils (%) (Auto) 1% (0-3) Neutrophils # (Auto) 4.8x10^3uL (1.8-7.7) Lymphocytes # (Auto) 1.1x10^3/uL (1.0-4.8) Monocytes # (Auto) 1.0x10^3/uL (0.0-1.1) Eosinophils # (Auto) 0.1x10^3/uL (0.0-0.7) Basophils # (Auto) 0.1x10^3/uL (0.0-0.2) Sodium Level 139mmol/L (136-145) Potassium Level 4.4mmol/L (3.5-5.1) Chloride Level 103mmol/L (98-107) Carbon Dioxide Level 23mmol/L (21-32) Anion Gap 13 (6-14) Blood Urea Nitrogen 17mg/dL (7-20) Creatinine 0.9mg/dL (0.6-1.0) Estimated GFR (Cockcroft-Gault) 61.5 Glucose Level 146mg/dL (70-99) Calcium Level 9.8mg/dL (8.5-10.1) Laboratory Tests Test 07/01/16 11:25 07/01/16 15:35 07/01/16 16:46 07/01/16 21:02 Glucose (Fingerstick) 119mg/dL (70-99) 169mg/dL (70-99) 164mg/dL (70-99) Prothrombin Time 14.4SEC (11.7-14.0) Prothromb Time International Ratio 1.2 (0.8-1.1) Test 07/02/16 03:50 07/02/16 08:19 White Blood Count 7.1x10^3/uL (4.0-11.0) Red Blood Count 3.80x10^6/uL (3.50-5.40) Hemoglobin 11.2g/dL (12.0-15.5) Hematocrit 33.5% (36.0-47.0) Mean Corpuscular Volume 88fL (79-100) Mean Corpuscular Hemoglobin 29pg (25-35) Mean Corpuscular Hemoglobin Concent 33g/dL (31-37) Red Cell Distribution Width 13.4% (11.5-14.5) Platelet Count 218x10^3/uL (140-400) Neutrophils (%) (Auto) 68% (31-73) Lymphocytes (%) (Auto) 16% (24-48) Monocytes (%) (Auto) 14% (0-9) Eosinophils (%) (Auto) 1% (0-3) Basophils (%) (Auto) 1% (0-3) Neutrophils # (Auto) 4.8x10^3uL (1.8-7.7) Lymphocytes # (Auto) 1.1x10^3/uL (1.0-4.8) Monocytes # (Auto) 1.0x10^3/uL (0.0-1.1) Eosinophils # (Auto) 0.1x10^3/uL (0.0-0.7) Basophils # (Auto) 0.1x10^3/uL (0.0-0.2) Sodium Level 139mmol/L (136-145) Potassium Level 4.4mmol/L (3.5-5.1) Chloride Level 103mmol/L (98-107) Carbon Dioxide Level 23mmol/L (21-32) Anion Gap 13 (6-14) Blood Urea Nitrogen 17mg/dL (7-20) Creatinine 0.9mg/dL (0.6-1.0) Estimated GFR (Cockcroft-Gault) 61.5 Glucose Level 146mg/dL (70-99) Calcium Level 9.8mg/dL (8.5-10.1) Glucose (Fingerstick) 156mg/dL (70-99) Medications Active Scripts Medications Dose Route/Sig Days Date Category Tylenol (Acetaminophen) 325 Mg Tablet 650 Mg PO TID 06/15/16 Reported Senna-Docusate Sodium Tablet (Sennosides/Docusate Sodium) 1 Each Tablet 2 Each PO HS 06/15/16 Reported Protonix (Pantoprazole Sodium) 40 Mg Tablet.dr 1 Tab PO DAILY 06/15/16 Reported NICODERM CQ 21mg (Nicotine) 1 Each Patch.td24 1 Patch TP DAILY 06/15/16 Reported Miralax (Polyethylene Glycol 3350) 17 Gm Powd.pack 1 Packet PO DAILY 06/15/16 Reported Miralax (Polyethylene Glycol 3350) 17 Gm Powd.pack 1 Packet PO PRN DAILY PRN 06/15/16 Reported Melatonin 3 Mg Tablet 10 Mg PO QHS 06/15/16 Reported Mirtazapine 15 Mg Tablet 1 Tab PO QHS 07/17/15 Reported Cymbalta (Duloxetine Hcl) 30 Mg Capsule.dr 1 Cap PO DAILY 07/17/15 Reported Acetaminophen 500 Mg Tablet 1 Tab PO PRN Q6HRS PRN 07/17/15 Reported Novolog (Insulin Aspart) 100 Unit/1 Ml Cartridge 5 Unit SQ DAILYWSUP 07/17/15 Reported Restasis (Cyclosporine) 1 Each Droperette 1 Drop EACHEYE HS 07/17/15 Reported Multiple Vitamins (Multivitamin) 1 Each Tablet 1 Each PO 07/17/15 Reported Potassium Chloride 10 Meq Capsule.er 1 Cap PO DAILY05 07/17/15 Reported Levemir (Insulin Detemir) 100 Unit/1 Ml Vial 30 Unit SQ DAILY 07/17/15 Reported Atorvastatin Calcium 40 Mg Tablet 1 Tab PO DAILY 08/17/14 Reported Lisinopril 20 Mg Tablet 1 Tab PO DAILY 08/17/14 Reported Oxybutynin Chloride 5 Mg Tablet 5 Mg PO BID 07/08/14 Reported Norvasc (Amlodipine Besylate) 5 Mg Tablet 10 Mg PO DAILY 07/08/14 Reported Clopidogrel (Clopidogrel Bisulfate) 75 Mg Tablet 75 Mg PO DAILY 09/28/13 Reported Coreg (Carvedilol) 12.5 Mg Tablet 25 Mg PO BID 09/28/13 Reported Impression . 1. Syncope of unclear etiology, maybe she tripped and fell. From a pulmonary standpoint, she does have an abnormal chest x-ray and there is a ?left basilar nodule .CT chest 06/30 with no nodule .Mild basal infiltrates vs atelectasis 2. Possible mild chronic obstructive pulmonary disease. 3. Status post fall with no obvious fracture. 4. [id number] hiatal hernia. 5. Persistent fevers/? doubt pulmonary source Plan . 1. Continue with present oxygen. 2. Noncontrast CT chest reviewed 3. cardiology evaluation for syncope. 4. Continue with empiric antibiotics. persistent fevers. consult ID 5. Bronchodilators as needed. DAVID OROZCO MD Jul 02, 2016 10:13
--- NOTE | 2016-07-02 10:26 | PDOC ---
PROGRESS NOTES Subjective Subjective She admits continued low back pain. Objective Objective Vital Signs Date Time Temp Pulse Resp B/P Pulse Ox O2 Delivery O2 Flow Rate FiO2 07/02/16 07:00 100.0 93 18 181/64 95 Nasal Cannula 3.0 100.0 Intake and Output 07/02/16 07:00 Intake Total 1640 ml Output Total 3 ml Balance 1637 ml Intake Oral 1640 ml Output Urine Total 3 ml # Voids 1 Physical Exam Physical Exam Mri scan revealed subacute L1 vertebral body compression fracture. Assessment Assessment Problems Medical Problems: (1) Hypoxia Status: Acute (2) Syncope Status: Acute Plan Plan of Care To see how she does after L1 kyphoplasty to be done later on today. Comment Review of Relevant I have reviewed the following items carlota (where applicable) has been applied. Labs Laboratory Tests Test 06/30/16 12:03 06/30/16 12:16 06/30/16 13:37 06/30/16 16:06 Glucose (Fingerstick) 287mg/dL (70-99) 228mg/dL (70-99) Nasal Screen MRSA (PCR) Negative (Negative) Influenza Type A Antigen Negative (NEGATIVE) Influenza Type B Antigen Negative (NEGATIVE) Test 07/01/16 03:15 07/01/16 07:24 07/01/16 11:25 07/01/16 15:35 White Blood Count 7.7x10^3/uL (4.0-11.0) Red Blood Count 3.94x10^6/uL (3.50-5.40) Hemoglobin 11.6g/dL (12.0-15.5) Hematocrit 34.8% (36.0-47.0) Mean Corpuscular Volume 89fL (79-100) Mean Corpuscular Hemoglobin 30pg (25-35) Mean Corpuscular Hemoglobin Concent 33g/dL (31-37) Red Cell Distribution Width 13.8% (11.5-14.5) Platelet Count 205x10^3/uL (140-400) Neutrophils (%) (Auto) 73% (31-73) Lymphocytes (%) (Auto) 12% (24-48) Monocytes (%) (Auto) 14% (0-9) Eosinophils (%) (Auto) 1% (0-3) Basophils (%) (Auto) 1% (0-3) Neutrophils # (Auto) 5.6x10^3uL (1.8-7.7) Lymphocytes # (Auto) 0.9x10^3/uL (1.0-4.8) Monocytes # (Auto) 1.1x10^3/uL (0.0-1.1) Eosinophils # (Auto) 0.0x10^3/uL (0.0-0.7) Basophils # (Auto) 0.1x10^3/uL (0.0-0.2) Sodium Level 137mmol/L (136-145) Potassium Level 4.5mmol/L (3.5-5.1) Chloride Level 103mmol/L (98-107) Carbon Dioxide Level 22mmol/L (21-32) Anion Gap 12 (6-14) Blood Urea Nitrogen 18mg/dL (7-20) Creatinine 0.9mg/dL (0.6-1.0) Estimated GFR (Cockcroft-Gault) 61.5 Glucose Level 214mg/dL (70-99) Calcium Level 9.7mg/dL (8.5-10.1) Glucose (Fingerstick) 160mg/dL (70-99) 119mg/dL (70-99) Prothrombin Time 14.4SEC (11.7-14.0) Prothromb Time International Ratio 1.2 (0.8-1.1) Test 07/01/16 16:46 07/01/16 21:02 07/02/16 03:50 07/02/16 08:19 Glucose (Fingerstick) 169mg/dL (70-99) 164mg/dL (70-99) 156mg/dL (70-99) White Blood Count 7.1x10^3/uL (4.0-11.0) Red Blood Count 3.80x10^6/uL (3.50-5.40) Hemoglobin 11.2g/dL (12.0-15.5) Hematocrit 33.5% (36.0-47.0) Mean Corpuscular Volume 88fL (79-100) Mean Corpuscular Hemoglobin 29pg (25-35) Mean Corpuscular Hemoglobin Concent 33g/dL (31-37) Red Cell Distribution Width 13.4% (11.5-14.5) Platelet Count 218x10^3/uL (140-400) Neutrophils (%) (Auto) 68% (31-73) Lymphocytes (%) (Auto) 16% (24-48) Monocytes (%) (Auto) 14% (0-9) Eosinophils (%) (Auto) 1% (0-3) Basophils (%) (Auto) 1% (0-3) Neutrophils # (Auto) 4.8x10^3uL (1.8-7.7) Lymphocytes # (Auto) 1.1x10^3/uL (1.0-4.8) Monocytes # (Auto) 1.0x10^3/uL (0.0-1.1) Eosinophils # (Auto) 0.1x10^3/uL (0.0-0.7) Basophils # (Auto) 0.1x10^3/uL (0.0-0.2) Sodium Level 139mmol/L (136-145) Potassium Level 4.4mmol/L (3.5-5.1) Chloride Level 103mmol/L (98-107) Carbon Dioxide Level 23mmol/L (21-32) Anion Gap 13 (6-14) Blood Urea Nitrogen 17mg/dL (7-20) Creatinine 0.9mg/dL (0.6-1.0) Estimated GFR (Cockcroft-Gault) 61.5 Glucose Level 146mg/dL (70-99) Calcium Level 9.8mg/dL (8.5-10.1) Laboratory Tests Test 07/01/16 11:25 07/01/16 15:35 07/01/16 16:46 07/01/16 21:02 Glucose (Fingerstick) 119mg/dL (70-99) 169mg/dL (70-99) 164mg/dL (70-99) Prothrombin Time 14.4SEC (11.7-14.0) Prothromb Time International Ratio 1.2 (0.8-1.1) Test 07/02/16 03:50 07/02/16 08:19 White Blood Count 7.1x10^3/uL (4.0-11.0) Red Blood Count 3.80x10^6/uL (3.50-5.40) Hemoglobin 11.2g/dL (12.0-15.5) Hematocrit 33.5% (36.0-47.0) Mean Corpuscular Volume 88fL (79-100) Mean Corpuscular Hemoglobin 29pg (25-35) Mean Corpuscular Hemoglobin Concent 33g/dL (31-37) Red Cell Distribution Width 13.4% (11.5-14.5) Platelet Count 218x10^3/uL (140-400) Neutrophils (%) (Auto) 68% (31-73) Lymphocytes (%) (Auto) 16% (24-48) Monocytes (%) (Auto) 14% (0-9) Eosinophils (%) (Auto) 1% (0-3) Basophils (%) (Auto) 1% (0-3) Neutrophils # (Auto) 4.8x10^3uL (1.8-7.7) Lymphocytes # (Auto) 1.1x10^3/uL (1.0-4.8) Monocytes # (Auto) 1.0x10^3/uL (0.0-1.1) Eosinophils # (Auto) 0.1x10^3/uL (0.0-0.7) Basophils # (Auto) 0.1x10^3/uL (0.0-0.2) Sodium Level 139mmol/L (136-145) Potassium Level 4.4mmol/L (3.5-5.1) Chloride Level 103mmol/L (98-107) Carbon Dioxide Level 23mmol/L (21-32) Anion Gap 13 (6-14) Blood Urea Nitrogen 17mg/dL (7-20) Creatinine 0.9mg/dL (0.6-1.0) Estimated GFR (Cockcroft-Gault) 61.5 Glucose Level 146mg/dL (70-99) Calcium Level 9.8mg/dL (8.5-10.1) Glucose (Fingerstick) 156mg/dL (70-99) Medications Current Medications Acetaminophen (Tylenol) 1,000 mg 1X ONCE PO Last administered on 06/30/16 07: 33; Start 06/30/16 at 07:00; Stop 06/30/16 at 07:04; Status DC Ondansetron HCl 4 mg 4 mg 1X ONCE IV Last administered on 06/30/16 07:32; Start 06/30/16 at 07:15; Stop 06/30/16 at 07:16; Status DC Sodium Chloride (Iv Sodium Chloride 0.9% 500ml Bag) 500 ml @ 500 mls/hr 1X ONCE IV Last administered on 06/30/16 09:57; Start 06/30/16 at 08:45; Stop at 09:44; Status DC Ondansetron HCl (Zofran) 4 mg PRN Q8HRS PRN IV NAUSEA/VOMITING Last administered on 06/30/16 20:58; Start 06/30/16 at 08:45; Stop 07/01/16 at 08:44; Status DC Morphine Sulfate 2 mg PRN Q2HR PRN IV PAIN Last administered on 07/01/16 05:16 ; Start 06/30/16 at 08:45; Stop 07/01/16 at 08:44; Status DC Acetaminophen (Tylenol) 650 mg PRN Q4HRS PRN PO FEVER Last administered on 20:40; Start 06/30/16 at 08:45; Stop 07/01/16 at 08:44; Status DC Insulin Aspart (Novolog) 0-7 UNITS TIDWMEALS SQ Last administered on 07/01/16 08:46; Start 06/30/16 at 12:00 Dextrose 12.5 gm PRN Q15MIN PRN IV SEE COMMENTS; Start 06/30/16 at 08:45 Pneumococcal Polyvalent Vaccine (Do NOT chart on this placeholder) 1 each 1X ONCE MC ; Start 06/30/16 at 11:30; Stop 06/30/16 at 11:31; Status UNV Acetaminophen (Tylenol) 650 mg PRN Q6HRS PRN PO PAIN; Start 06/30/16 at 12:15; Stop 06/30/16 at 12:18; Status DC Amlodipine Besylate (Norvasc) 10 mg DAILY PO Last administered on 07/01/16 08: 36; Start 06/30/16 at 13:00 Atorvastatin Calcium (Lipitor) 40 mg QHS PO Last administered on 07/01/16 20:40 ; Start 06/30/16 at 21:00 Carvedilol (Coreg) 25 mg BIDWMEALS PO Last administered on 07/01/16 17:56; Start 06/30/16 at 17:00 Clopidogrel Bisulfate (Plavix) 75 mg DAILY07 PO Last administered on 07/01/16 05:16; Start 06/30/16 at 13:00 Cyclosporine (Restasis) 1 drop HS OU Last administered on 07/01/16 20:39; Start 06/30/16 at 21:00 Duloxetine HCl (Cymbalta) 30 mg DAILY PO Last administered on 07/01/16 08:36; Start 06/30/16 at 13:00 Mirtazapine (Remeron) 15 mg QHS PO Last administered on 07/01/16 20:40; Start 06/30/16 at 21:00 Nicotine (Nicoderm Cq 21mg) 1 patch DAILY TD Last administered on 07/01/16 08: 35; Start 06/30/16 at 13:00 Oxybutynin Chloride (Ditropan) 5 mg BID PO Last administered on 07/01/16 20:40 ; Start 06/30/16 at 13:00 Pantoprazole Sodium (Protonix) 40 mg DAILY07 PO Last administered on 07/01/16 05:16; Start 06/30/16 at 13:00 Polyethylene Glycol (miraLAX PACKET) 17 gm DAILY PO Last administered on 08:34; Start 06/30/16 at 13:00 Senna/Docusate Sodium (Senna Plus) 2 tab HS PO Last administered on 07/01/16 20 :40; Start 06/30/16 at 21:00 Non-Formulary Medication 10 mg QHS PO ; Start 06/30/16 at 21:00; Status UNV Potassium Chloride (Klor-Con) 10 meq DAILYWBKFT PO Last administered on 08:36; Start 06/30/16 at 13:00 Acetaminophen (Tylenol) 650 mg PRN Q6HRS PRN PO MILD PAIN / TEMP; Start at 12:15; Status UNV Ondansetron HCl (Zofran) 4 mg PRN Q6HRS PRN IV NAUSEA/VOMITING; Start 06/30/16 at 12:15 Heparin Sodium (Porcine) 5,000 unit Q8HRS SQ Last administered on 07/01/16 21: 13; Start 06/30/16 at 14:00 Insulin Aspart (Novolog) 5 units TIDAC SQ Last administered on 07/01/16 08:46; Start 06/30/16 at 16:30; Stop 07/01/16 at 11:45; Status DC Insulin Detemir (Levemir) 20 units QHS SQ Last administered on 06/30/16 20:55; Start 06/30/16 at 21:00; Stop 07/01/16 at 11:45; Status DC Doxycycline Hyclate (Vibra-Tab) 100 mg BID PO Last administered on 07/01/16 20: 40; Start 06/30/16 at 13:00 Guaifenesin 600 mg 600 mg BID PO Last administered on 07/01/16 20:54; Start 06/30/16 at 13:00 Sodium Chloride (Iv Sodium Chloride 0.9% 1000ml Bag) 1,000 ml @ 75 mls/hr 1X ONCE IV Last administered on 06/30/16 13:21; Start 06/30/16 at 12:15; Stop at 01:34; Status DC Acetaminophen (Tylenol) 650 mg PRN Q6HRS PRN PO PAIN Last administered on 21:16; Start 06/30/16 at 12:18 Magnesium Hydroxide (Milk Of Magnesia) 2,400 mg PRN DAILY PRN PO CONSTIPATION; Start 06/30/16 at 17:30 Insulin Aspart (Novolog) 7 units TIDAC SQ ; Start 07/01/16 at 12:00; Stop at 12:57; Status DC Insulin Detemir (Levemir) 22 units QHS SQ Last administered on 07/01/16 21:13; Start 07/01/16 at 21:00 Insulin Aspart (Novolog) 5 units TIDAC SQ Last administered on 07/01/16 17:58; Start 07/01/16 at 16:30 Active Scripts Active Reported Tylenol (Acetaminophen) 325 Mg Tablet 650 Mg PO TID Senna-Docusate Sodium Tablet (Sennosides/Docusate Sodium) 1 Each Tablet 2 Each PO HS Protonix (Pantoprazole Sodium) 40 Mg Tablet.dr 1 Tab PO DAILY NICODERM CQ 21mg (Nicotine) 1 Each Patch.td24 1 Patch TP DAILY Miralax (Polyethylene Glycol 3350) 17 Gm Powd.pack 1 Packet PO DAILY Miralax (Polyethylene Glycol 3350) 17 Gm Powd.pack 1 Packet PO PRN DAILY PRN Melatonin 3 Mg Tablet 10 Mg PO QHS Mirtazapine 15 Mg Tablet 1 Tab PO QHS Cymbalta (Duloxetine Hcl) 30 Mg Capsule.dr 1 Cap PO DAILY Acetaminophen 500 Mg Tablet 1 Tab PO PRN Q6HRS PRN Novolog (Insulin Aspart) 100 Unit/1 Ml Cartridge 5 Unit SQ DAILYWSUP Restasis (Cyclosporine) 1 Each Droperette 1 Drop EACHEYE HS Multiple Vitamins (Multivitamin) 1 Each Tablet 1 Each PO Potassium Chloride 10 Meq Capsule.er 1 Cap PO DAILY05 Levemir (Insulin Detemir) 100 Unit/1 Ml Vial 30 Unit SQ DAILY Atorvastatin Calcium 40 Mg Tablet 1 Tab PO DAILY Lisinopril 20 Mg Tablet 1 Tab PO DAILY Oxybutynin Chloride 5 Mg Tablet 5 Mg PO BID Norvasc (Amlodipine Besylate) 5 Mg Tablet 10 Mg PO DAILY Clopidogrel (Clopidogrel Bisulfate) 75 Mg Tablet 75 Mg PO DAILY Coreg (Carvedilol) 12.5 Mg Tablet 25 Mg PO BID Vitals/I & O Vital Sign - Last 24 Hours 07/01/16 07/01/16 07/01/16 07/01/16 11:00 15:00 17:56 19:00 Temp 98.6 98.7 99.9 98.6 98.7 99.9 Pulse 82 84 84 87 Resp B/P 155/51 135/55 135/55 105/53 Pulse Ox 92 89 97 O2 Delivery Nasal Cannula Nasal Cannula Nasal Cannula O2 Flow Rate 3.0 3.0 3.0 07/01/16 07/01/16 07/02/16 07/02/16 20:00 23:00 03:00 07:00 Temp 99.6 99.3 100.0 99.6 99.3 100.0 Pulse 84 89 93 Resp B/P 150/53 158/61 181/64 Pulse Ox 89 96 95 O2 Delivery Nasal Cannula Nasal Cannula Nasal Cannula Nasal Cannula O2 Flow Rate 3.0 3.0 3.0 3.0 Intake and Output 07/01/16 07/01/16 07/02/16 15:00 23:00 07:00 Intake Total 200 ml 1320 ml 120 ml Output Total 3 ml Balance 200 ml 1317 ml 120 ml FLORY SMITH MD Jul 02, 2016 10:26
[2016-07-02] MEDS ORDERED: hydrALAZINE 20 MG/ML VIAL. IVP ONE (10:30)
[2016-07-02 11:00] VITALS: BP 170/69
[2016-07-02] MEDS: LISINOPRIL 20 MG TABLET PO SCH (11:00)
[2016-07-02] MEDS ORDERED: PROPOFOL 50 ML IV ONE (12:00)
[2016-07-02] MEDS ORDERED: MIDAZOLAM HCL 2 MG/2 ML VIAL. ONE (12:43)
[2016-07-02] MEDS ORDERED: IOHEXOL 300 MG/ML 50 ML VIAL. ONE (12:45)
[2016-07-02] MEDS ORDERED: LIDOCAINE 1% / SOD BICARB 8.4% 20 ML VIAL. IJ ONE ×2 (12:46→13:30)
[2016-07-02] MEDS ORDERED: CEFAZOLIN 1GM IVPB FOR OMNI 50 ML IV ONE (13:05)
--- NOTE | 2016-07-02 13:23 | PDOC ---
PROGRESS NOTES Chief Complaint Chief Complaint Assessment/Plan 1. acute resp failure with COPD likely 2. fall, 2/2 unsteady gait likely 3. recent syncope and left forearm fx, no sx 4. h/o CAD 5. h/o CHF 6. H/O cva WITH MILD left side weakness 7. depression 8. dm2 on insulin 9. gerd 10. htn 11. hld 12. MELONIE, vasomotor 13. h/o PEG 14. cervical DJD, CHRONIC spine fx, subacute L1 fx 15 . >70% stenosis within the proximal and mid left internal carotid artery on US plan: 1. pulm, ortho, dr. López consultED IR consulted, L1 KYphoplasty 07/02. get vascular consult for [address] as per pulm, neg 4. ptot 5. check orthostatic add lisinopril for htn, on coreg, amlodipine labs tmr 6. increase aspart 5u tid, levemir 22u qhs, ssi gi ppx flu neg SW for snf ID consult for cont fever, change to levaquin for now History of Present Illness History of Present Illness new on NC 2 L cough, no sputum fever daily mild lower back pain, + shoulder pain Vitals Vitals Vital Signs Date Time Temp Pulse Resp B/P Pulse Ox O2 Delivery O2 Flow Rate FiO2 07/02/16 11:00 98.7 96 18 170/69 92 Nasal Cannula 3.0 98.7 Physical Exam General: Alert, Cooperative, No acute distress Heart: Regular rate, Normal S1, Normal S2 Lungs: Other (decrease bs) Abdomen: Normal bowel sounds, Soft Extremities: No clubbing, No cyanosis Skin: No rashes Labs LABS Laboratory Tests Test 07/01/16 15:35 07/01/16 16:46 07/01/16 21:02 07/02/16 03:50 Prothrombin Time 14.4SEC (11.7-14.0) Prothromb Time International Ratio 1.2 (0.8-1.1) Glucose (Fingerstick) 169mg/dL (70-99) 164mg/dL (70-99) White Blood Count 7.1x10^3/uL (4.0-11.0) Red Blood Count 3.80x10^6/uL (3.50-5.40) Hemoglobin 11.2g/dL (12.0-15.5) Hematocrit 33.5% (36.0-47.0) Mean Corpuscular Volume 88fL (79-100) Mean Corpuscular Hemoglobin 29pg (25-35) Mean Corpuscular Hemoglobin Concent 33g/dL (31-37) Red Cell Distribution Width 13.4% (11.5-14.5) Platelet Count 218x10^3/uL (140-400) Neutrophils (%) (Auto) 68% (31-73) Lymphocytes (%) (Auto) 16% (24-48) Monocytes (%) (Auto) 14% (0-9) Eosinophils (%) (Auto) 1% (0-3) Basophils (%) (Auto) 1% (0-3) Neutrophils # (Auto) 4.8x10^3uL (1.8-7.7) Lymphocytes # (Auto) 1.1x10^3/uL (1.0-4.8) Monocytes # (Auto) 1.0x10^3/uL (0.0-1.1) Eosinophils # (Auto) 0.1x10^3/uL (0.0-0.7) Basophils # (Auto) 0.1x10^3/uL (0.0-0.2) Sodium Level 139mmol/L (136-145) Potassium Level 4.4mmol/L (3.5-5.1) Chloride Level 103mmol/L (98-107) Carbon Dioxide Level 23mmol/L (21-32) Anion Gap 13 (6-14) Blood Urea Nitrogen 17mg/dL (7-20) Creatinine 0.9mg/dL (0.6-1.0) Estimated GFR (Cockcroft-Gault) 61.5 Glucose Level 146mg/dL (70-99) Calcium Level 9.8mg/dL (8.5-10.1) Test 07/02/16 08:19 07/02/16 10:51 Glucose (Fingerstick) 156mg/dL (70-99) 174mg/dL (70-99) Review of Systems Review of Systems no fever, chills, chest pain Assessment and Plan Assessmemt and Plan Problems Medical Problems: (1) Hypoxia Status: Acute (2) Syncope Status: Acute Problems: Comment Review of Relevant I have reviewed the following items carlota (where applicable) has been applied. Labs Laboratory Tests Test 06/30/16 13:37 06/30/16 16:06 07/01/16 03:15 07/01/16 07:24 Influenza Type A Antigen Negative (NEGATIVE) Influenza Type B Antigen Negative (NEGATIVE) Glucose (Fingerstick) 228mg/dL (70-99) 160mg/dL (70-99) White Blood Count 7.7x10^3/uL (4.0-11.0) Red Blood Count 3.94x10^6/uL (3.50-5.40) Hemoglobin 11.6g/dL (12.0-15.5) Hematocrit 34.8% (36.0-47.0) Mean Corpuscular Volume 89fL (79-100) Mean Corpuscular Hemoglobin 30pg (25-35) Mean Corpuscular Hemoglobin Concent 33g/dL (31-37) Red Cell Distribution Width 13.8% (11.5-14.5) Platelet Count 205x10^3/uL (140-400) Neutrophils (%) (Auto) 73% (31-73) Lymphocytes (%) (Auto) 12% (24-48) Monocytes (%) (Auto) 14% (0-9) Eosinophils (%) (Auto) 1% (0-3) Basophils (%) (Auto) 1% (0-3) Neutrophils # (Auto) 5.6x10^3uL (1.8-7.7) Lymphocytes # (Auto) 0.9x10^3/uL (1.0-4.8) Monocytes # (Auto) 1.1x10^3/uL (0.0-1.1) Eosinophils # (Auto) 0.0x10^3/uL (0.0-0.7) Basophils # (Auto) 0.1x10^3/uL (0.0-0.2) Sodium Level 137mmol/L (136-145) Potassium Level 4.5mmol/L (3.5-5.1) Chloride Level 103mmol/L (98-107) Carbon Dioxide Level 22mmol/L (21-32) Anion Gap 12 (6-14) Blood Urea Nitrogen 18mg/dL (7-20) Creatinine 0.9mg/dL (0.6-1.0) Estimated GFR (Cockcroft-Gault) 61.5 Glucose Level 214mg/dL (70-99) Calcium Level 9.7mg/dL (8.5-10.1) Test 07/01/16 11:25 07/01/16 15:35 07/01/16 16:46 07/01/16 21:02 Glucose (Fingerstick) 119mg/dL (70-99) 169mg/dL (70-99) 164mg/dL (70-99) Prothrombin Time 14.4SEC (11.7-14.0) Prothromb Time International Ratio 1.2 (0.8-1.1) Test 07/02/16 03:50 07/02/16 08:19 07/02/16 10:51 White Blood Count 7.1x10^3/uL (4.0-11.0) Red Blood Count 3.80x10^6/uL (3.50-5.40) Hemoglobin 11.2g/dL (12.0-15.5) Hematocrit 33.5% (36.0-47.0) Mean Corpuscular Volume 88fL (79-100) Mean Corpuscular Hemoglobin 29pg (25-35) Mean Corpuscular Hemoglobin Concent 33g/dL (31-37) Red Cell Distribution Width 13.4% (11.5-14.5) Platelet Count 218x10^3/uL (140-400) Neutrophils (%) (Auto) 68% (31-73) Lymphocytes (%) (Auto) 16% (24-48) Monocytes (%) (Auto) 14% (0-9) Eosinophils (%) (Auto) 1% (0-3) Basophils (%) (Auto) 1% (0-3) Neutrophils # (Auto) 4.8x10^3uL (1.8-7.7) Lymphocytes # (Auto) 1.1x10^3/uL (1.0-4.8) Monocytes # (Auto) 1.0x10^3/uL (0.0-1.1) Eosinophils # (Auto) 0.1x10^3/uL (0.0-0.7) Basophils # (Auto) 0.1x10^3/uL (0.0-0.2) Sodium Level 139mmol/L (136-145) Potassium Level 4.4mmol/L (3.5-5.1) Chloride Level 103mmol/L (98-107) Carbon Dioxide Level 23mmol/L (21-32) Anion Gap 13 (6-14) Blood Urea Nitrogen 17mg/dL (7-20) Creatinine 0.9mg/dL (0.6-1.0) Estimated GFR (Cockcroft-Gault) 61.5 Glucose Level 146mg/dL (70-99) Calcium Level 9.8mg/dL (8.5-10.1) Glucose (Fingerstick) 156mg/dL (70-99) 174mg/dL (70-99) Laboratory Tests Test 07/01/16 15:35 07/01/16 16:46 07/01/16 21:02 07/02/16 03:50 Prothrombin Time 14.4SEC (11.7-14.0) Prothromb Time International Ratio 1.2 (0.8-1.1) Glucose (Fingerstick) 169mg/dL (70-99) 164mg/dL (70-99) White Blood Count 7.1x10^3/uL (4.0-11.0) Red Blood Count 3.80x10^6/uL (3.50-5.40) Hemoglobin 11.2g/dL (12.0-15.5) Hematocrit 33.5% (36.0-47.0) Mean Corpuscular Volume 88fL (79-100) Mean Corpuscular Hemoglobin 29pg (25-35) Mean Corpuscular Hemoglobin Concent 33g/dL (31-37) Red Cell Distribution Width 13.4% (11.5-14.5) Platelet Count 218x10^3/uL (140-400) Neutrophils (%) (Auto) 68% (31-73) Lymphocytes (%) (Auto) 16% (24-48) Monocytes (%) (Auto) 14% (0-9) Eosinophils (%) (Auto) 1% (0-3) Basophils (%) (Auto) 1% (0-3) Neutrophils # (Auto) 4.8x10^3uL (1.8-7.7) Lymphocytes # (Auto) 1.1x10^3/uL (1.0-4.8) Monocytes # (Auto) 1.0x10^3/uL (0.0-1.1) Eosinophils # (Auto) 0.1x10^3/uL (0.0-0.7) Basophils # (Auto) 0.1x10^3/uL (0.0-0.2) Sodium Level 139mmol/L (136-145) Potassium Level 4.4mmol/L (3.5-5.1) Chloride Level 103mmol/L (98-107) Carbon Dioxide Level 23mmol/L (21-32) Anion Gap 13 (6-14) Blood Urea Nitrogen 17mg/dL (7-20) Creatinine 0.9mg/dL (0.6-1.0) Estimated GFR (Cockcroft-Gault) 61.5 Glucose Level 146mg/dL (70-99) Calcium Level 9.8mg/dL (8.5-10.1) Test 07/02/16 08:19 07/02/16 10:51 Glucose (Fingerstick) 156mg/dL (70-99) 174mg/dL (70-99) Medications Current Medications Acetaminophen (Tylenol) 1,000 mg 1X ONCE PO Last administered on 06/30/16 07: 33; Start 06/30/16 at 07:00; Stop 06/30/16 at 07:04; Status DC Ondansetron HCl 4 mg 4 mg 1X ONCE IV Last administered on 06/30/16 07:32; Start 06/30/16 at 07:15; Stop 06/30/16 at 07:16; Status DC Sodium Chloride (Iv Sodium Chloride 0.9% 500ml Bag) 500 ml @ 500 mls/hr 1X ONCE IV Last administered on 06/30/16 09:57; Start 06/30/16 at 08:45; Stop at 09:44; Status DC Ondansetron HCl (Zofran) 4 mg PRN Q8HRS PRN IV NAUSEA/VOMITING Last administered on 06/30/16 20:58; Start 06/30/16 at 08:45; Stop 07/01/16 at 08:44; Status DC Morphine Sulfate 2 mg PRN Q2HR PRN IV PAIN Last administered on 07/01/16 05:16 ; Start 06/30/16 at 08:45; Stop 07/01/16 at 08:44; Status DC Acetaminophen (Tylenol) 650 mg PRN Q4HRS PRN PO FEVER Last administered on 20:40; Start 06/30/16 at 08:45; Stop 07/01/16 at 08:44; Status DC Insulin Aspart (Novolog) 0-7 UNITS TIDWMEALS SQ Last administered on 07/01/16 08:46; Start 06/30/16 at 12:00 Dextrose 12.5 gm PRN Q15MIN PRN IV SEE COMMENTS; Start 06/30/16 at 08:45 Pneumococcal Polyvalent Vaccine (Do NOT chart on this placeholder) 1 each 1X ONCE MC ; Start 06/30/16 at 11:30; Stop 06/30/16 at 11:31; Status UNV Acetaminophen (Tylenol) 650 mg PRN Q6HRS PRN PO PAIN; Start 06/30/16 at 12:15; Stop 06/30/16 at 12:18; Status DC Amlodipine Besylate (Norvasc) 10 mg DAILY PO Last administered on 07/01/16 08: 36; Start 06/30/16 at 13:00 Atorvastatin Calcium (Lipitor) 40 mg QHS PO Last administered on 07/01/16 20:40 ; Start 06/30/16 at 21:00 Carvedilol (Coreg) 25 mg BIDWMEALS PO Last administered on 07/01/16 17:56; Start 06/30/16 at 17:00 Clopidogrel Bisulfate (Plavix) 75 mg DAILY07 PO Last administered on 07/01/16 05:16; Start 06/30/16 at 13:00 Cyclosporine (Restasis) 1 drop HS OU Last administered on 07/01/16 20:39; Start 06/30/16 at 21:00 Duloxetine HCl (Cymbalta) 30 mg DAILY PO Last administered on 07/01/16 08:36; Start 06/30/16 at 13:00 Mirtazapine (Remeron) 15 mg QHS PO Last administered on 07/01/16 20:40; Start 06/30/16 at 21:00 Nicotine (Nicoderm Cq 21mg) 1 patch DAILY TD Last administered on 07/01/16 08: 35; Start 06/30/16 at 13:00 Oxybutynin Chloride (Ditropan) 5 mg BID PO Last administered on 07/01/16 20:40 ; Start 06/30/16 at 13:00 Pantoprazole Sodium (Protonix) 40 mg DAILY07 PO Last administered on 07/01/16 05:16; Start 06/30/16 at 13:00 Polyethylene Glycol (miraLAX PACKET) 17 gm DAILY PO Last administered on 08:34; Start 06/30/16 at 13:00 Senna/Docusate Sodium (Senna Plus) 2 tab HS PO Last administered on 07/01/16 20 :40; Start 06/30/16 at 21:00 Non-Formulary Medication 10 mg QHS PO ; Start 06/30/16 at 21:00; Status UNV Potassium Chloride (Klor-Con) 10 meq DAILYWBKFT PO Last administered on 08:36; Start 06/30/16 at 13:00 Acetaminophen (Tylenol) 650 mg PRN Q6HRS PRN PO MILD PAIN / TEMP; Start at 12:15; Status UNV Ondansetron HCl (Zofran) 4 mg PRN Q6HRS PRN IV NAUSEA/VOMITING; Start 06/30/16 at 12:15 Heparin Sodium (Porcine) 5,000 unit Q8HRS SQ Last administered on 07/01/16 21: 13; Start 06/30/16 at 14:00 Insulin Aspart (Novolog) 5 units TIDAC SQ Last administered on 07/01/16 08:46; Start 06/30/16 at 16:30; Stop 07/01/16 at 11:45; Status DC Insulin Detemir (Levemir) 20 units QHS SQ Last administered on 06/30/16 20:55; Start 06/30/16 at 21:00; Stop 07/01/16 at 11:45; Status DC Doxycycline Hyclate (Vibra-Tab) 100 mg BID PO Last administered on 07/01/16 20: 40; Start 06/30/16 at 13:00; Stop 07/02/16 at 10:36; Status DC Guaifenesin 600 mg 600 mg BID PO Last administered on 07/01/16 20:54; Start 06/30/16 at 13:00 Sodium Chloride (Iv Sodium Chloride 0.9% 1000ml Bag) 1,000 ml @ 75 mls/hr 1X ONCE IV Last administered on 06/30/16 13:21; Start 06/30/16 at 12:15; Stop at 01:34; Status DC Acetaminophen (Tylenol) 650 mg PRN Q6HRS PRN PO PAIN Last administered on 21:16; Start 06/30/16 at 12:18 Magnesium Hydroxide (Milk Of Magnesia) 2,400 mg PRN DAILY PRN PO CONSTIPATION; Start 06/30/16 at 17:30 Insulin Aspart (Novolog) 7 units TIDAC SQ ; Start 07/01/16 at 12:00; Stop at 12:57; Status DC Insulin Detemir (Levemir) 22 units QHS SQ Last administered on 07/01/16 21:13; Start 07/01/16 at 21:00 Insulin Aspart (Novolog) 5 units TIDAC SQ Last administered on 07/01/16 17:58; Start 07/01/16 at 16:30 Hydralazine HCl 10 mg 10 mg 1X ONCE IVP Last administered on 07/02/16 10:46; Start 07/02/16 at 10:30; Stop 07/02/16 at 10:31; Status DC Levofloxacin/ Dextrose (LEVAQUIN 500mg PREMIX) 100 ml @ 100 mls/hr Q24H IV ; Start 07/02/16 at 11:00 Lisinopril 20 mg 20 mg DAILY PO ; Start 07/02/16 at 11:00 Propofol (Diprivan) 100 ml @ As Directed STK-MED ONCE IV ; Start 07/02/16 at 12 :00; Stop 07/02/16 at 12:01; Status DC Midazolam HCl (Versed) 2 mg STK-MED ONCE .ROUTE ; Start 07/02/16 at 12:43; Stop 07/02/16 at 12:44; Status DC Iohexol (Omnipaque 300 Mg/ml) 50 ml STK-MED ONCE .ROUTE ; Start 07/02/16 at 12: 45; Stop 07/02/16 at 12:46; Status DC Lidocaine/Sodium Bicarbonate 20 ml 20 ml STK-MED ONCE IJ ; Start 07/02/16 at 12: 46; Stop 07/02/16 at 12:47; Status DC Cefazolin Sodium (Ancef 1gm Ivpb For Omni) 50 ml @ As Directed STK-MED ONCE IV ; Start 07/02/16 at 13:05; Stop 07/02/16 at 13:06; Status DC Active Scripts Active Reported Tylenol (Acetaminophen) 325 Mg Tablet 650 Mg PO TID Senna-Docusate Sodium Tablet (Sennosides/Docusate Sodium) 1 Each Tablet 2 Each PO HS Protonix (Pantoprazole Sodium) 40 Mg Tablet.dr 1 Tab PO DAILY NICODERM CQ 21mg (Nicotine) 1 Each Patch.td24 1 Patch TP DAILY Miralax (Polyethylene Glycol 3350) 17 Gm Powd.pack 1 Packet PO DAILY Miralax (Polyethylene Glycol 3350) 17 Gm Powd.pack 1 Packet PO PRN DAILY PRN Melatonin 3 Mg Tablet 10 Mg PO QHS Mirtazapine 15 Mg Tablet 1 Tab PO QHS Cymbalta (Duloxetine Hcl) 30 Mg Capsule.dr 1 Cap PO DAILY Acetaminophen 500 Mg Tablet 1 Tab PO PRN Q6HRS PRN Novolog (Insulin Aspart) 100 Unit/1 Ml Cartridge 5 Unit SQ DAILYWSUP Restasis (Cyclosporine) 1 Each Droperette 1 Drop EACHEYE HS Multiple Vitamins (Multivitamin) 1 Each Tablet 1 Each PO Potassium Chloride 10 Meq Capsule.er 1 Cap PO DAILY05 Levemir (Insulin Detemir) 100 Unit/1 Ml Vial 30 Unit SQ DAILY Atorvastatin Calcium 40 Mg Tablet 1 Tab PO DAILY Lisinopril 20 Mg Tablet 1 Tab PO DAILY Oxybutynin Chloride 5 Mg Tablet 5 Mg PO BID Norvasc (Amlodipine Besylate) 5 Mg Tablet 10 Mg PO DAILY Clopidogrel (Clopidogrel Bisulfate) 75 Mg Tablet 75 Mg PO DAILY Coreg (Carvedilol) 12.5 Mg Tablet 25 Mg PO BID Vitals/I & O Vital Sign - Last 24 Hours 07/01/16 07/01/16 07/01/16 07/01/16 15:00 17:56 19:00 20:00 Temp 98.7 99.9 98.7 99.9 Pulse 84 84 87 Resp 17 17 B/P 135/55 135/55 105/53 Pulse Ox 89 97 O2 Delivery Nasal Cannula Nasal Cannula Nasal Cannula O2 Flow Rate 3.0 3.0 3.0 07/01/16 07/02/16 07/02/16 07/02/16 23:00 03:00 07:00 08:00 Temp 99.6 99.3 100.0 99.6 99.3 100.0 Pulse 84 89 93 Resp 19 16 18 B/P 150/53 158/61 181/64 Pulse Ox 89 96 95 O2 Delivery Nasal Cannula Nasal Cannula Nasal Cannula Nasal Cannula O2 Flow Rate 3.0 3.0 3.0 3.0 07/02/16 07/02/16 10:46 11:00 Temp 98.7 98.7 Pulse 92 96 Resp 18 B/P 185/66 170/69 Pulse Ox 92 O2 Delivery Nasal Cannula O2 Flow Rate 3.0 Intake and Output 07/01/16 07/01/16 07/02/16 15:00 23:00 07:00 Intake Total 200 ml 1320 ml 120 ml Output Total 3 ml Balance 200 ml 1317 ml 120 ml ADINA DEVI MD Jul 02, 2016 13:23
[2016-07-02] MEDS ORDERED: IOHEXOL 300 MG/ML 50 ML VIAL. IART ONE (13:30)
--- NOTE | 2016-07-02 13:39 | PDOC ---
Exam Tack Cutter Tack Cutter Armando Clinical Research Tech Clinical Research Tech F Ndumbu Pre-Procedure Diagnosis Pre-Procedure Diagnosis Osteoporotic L1 compression fracture, with severe LBP Post-Procedure Diagnosis Post-Procedure Diagnosis Same Procedure Performed Procedure Performed Fluoro guided L1 kyphoplasty Type of Anesthesia Type of Anesthesia MAC by Anesthesia Estimated Blood Loss EBL: Trace Condition of Patient Condition of Patient No apparent complication. Disposition Disposition From IR to PACU, then return to [phone] post recovery, if no problems. F/U with [facility] and Dr López. Full report to follow. NETTIE PAZ MD Jul 02, 2016 13:39
[2016-07-02] MEDS ORDERED: CONTRAST GIVEN MC PRN (13:45)
[2016-07-02] MEDS ORDERED: hydrALAZINE 20 MG/ML VIAL. IVP PRN (14:15)
[2016-07-02] MEDS ORDERED: IV RINGERS,LACTATED 1000ML 1,000 ML IV SCH (14:20)
--- NOTE | 2016-07-02 14:24 | RAD ---
Fluoro guided L1 kyphoplasty Indication: 70-year-old female with osteoporotic L1 vertebral body compression fracture. Severe low back pain. Fluoro time: 12.1 minutes Kerma-Area Product: 65 Gycm2 Anesthesia: Mac anesthesia was provided by the department of anesthesiology.. Antibiotic: A single dose of Ancef was administered within 1 hour of the procedure start time. Sterility: All elements of maximal sterile barrier technique, including the use of a cap, mask, sterile gown, sterile gloves, large sterile sheet, appropriate hand hygiene, and 2% chlorhexidine for cutaneous antisepsis (or acceptable alternative antiseptic per current guidelines) were utilized. Procedure: Informed was obtained from the patient's , who has power of patent attorney. She was placed prone on the angiography table. Midline low back was prepped and draped in the usual sterile fashion, utilizing all elements of maximal sterile barrier technique, as described above. Mac anesthesia was provided by the department of anesthesiology. 1 gram Ancef was given IV, prophylactically. Using aseptic technique, local anesthesia, and direct fluoroscopic guidance a 10 gauge vertebral augmentation needle was successfully introduced into anterior midline of the L1 vertebral body, via unilateral right transpedicular approach. A 15 mm vertebral augmentation balloon was then coaxially introduced through the needle, and was gently inflated under fluoroscopic control, creating a pocket suitable to accept vertebral augmentation cement. The balloon was then deflated and removed. Contrast opacified polymethylmethacrylate was then very slowly and carefully introduced through the vertebral augmentation needle, using strict fluoroscopic control. There was resulting good filling of the L1 vertebral body, without significant extraosseous extravasation of opacified cement. The needle was then removed and a sterile dressing was applied. Patient tolerated the procedure well, without apparent complication. Impression: Successful, uneventful fluoro guided L1 kyphoplasty , performed via right transpedicular approach, as described.
[2016-07-02] MEDS ORDERED: HYDROMORPHONE 2 MG/ML VIAL. IV PRN (14:30)
[2016-07-02] MEDS ORDERED: FENTANYL PF 100 MCG/2 ML VIAL. IV PRN ×2 (14:30)
[2016-07-02] MEDS ORDERED: MORPHINE SULFATE 2 MG/ML DISP.SYRIN. IV PRN (14:30)
[2016-07-02] MEDS ORDERED: PROCHLORPERAZINE 10 MG/2 ML VIAL. IV PRN (14:30)
[2016-07-02] MEDS ORDERED: LIDOCAINE 1% 1 ML SYRINGE. ID PRN (14:30)
--- NOTE | 2016-07-02 14:52 | PDOC2 ---
CONSULT Date of Consult Date of Consult DATE: 07/02/16 TIME: 14:42 Reason for Consult Reason for Consult: Recurrent left carotid stenosis, asymptomatic Referring Physician Referring Physician: Dr. Rush Identification/Chief Complaint Chief Complaint left carotid stenosis, asymptomatic Source Source: Patient History of Present Illness Reason for Visit: Ms. Martinez is a 70 y/o female known to the vascular surgery service with a history of bilateral carotid disease including CEA on the left x 2 (last in 2014 ), CEA on the right with subsequent carotid stent (2014) that presented to [facility] after a fall and was found on the floor. She states that she has had only a couple of falls over the past year. She denies loss of consciousness. She also denies any visual changes, unilateral arm or leg weakness, or changes in her speech. She also denies any rest pain or ulcers in the legs. Past Medical History Cardiovascular: CAD, CHF, HTN, Hyperlipidemia Pulmonary: COPD CENTRAL NERVOUS SYSTEM: CVA Psych: Depression Musculoskeletal: Osteoarthritis Renal/: UTI Endocrine: Diabetes Past Surgical History Past Surgical History: Other (CEA on left x 2, CEA on right x1 with stent) Family History Family History: Diabetes, Hypertension, Family History Unknown Social History <1 pack per day ALCOHOL: none Drugs: None Lives: with Family Current Problem List Problem List Problems Medical Problems: (1) Hypoxia Status: Acute (2) Syncope Status: Acute Current Medications Current Medications Current Medications Acetaminophen (Tylenol) 1,000 mg 1X ONCE PO Last administered on 06/30/16 07: 33; Start 06/30/16 at 07:00; Stop 06/30/16 at 07:04; Status DC Ondansetron HCl 4 mg 4 mg 1X ONCE IV Last administered on 06/30/16 07:32; Start 06/30/16 at 07:15; Stop 06/30/16 at 07:16; Status DC Sodium Chloride (Iv Sodium Chloride 0.9% 500ml Bag) 500 ml @ 500 mls/hr 1X ONCE IV Last administered on 06/30/16 09:57; Start 06/30/16 at 08:45; Stop at 09:44; Status DC Ondansetron HCl (Zofran) 4 mg PRN Q8HRS PRN IV NAUSEA/VOMITING Last administered on 06/30/16 20:58; Start 06/30/16 at 08:45; Stop 07/01/16 at 08:44; Status DC Morphine Sulfate 2 mg PRN Q2HR PRN IV PAIN Last administered on 07/01/16 05:16 ; Start 06/30/16 at 08:45; Stop 07/01/16 at 08:44; Status DC Acetaminophen (Tylenol) 650 mg PRN Q4HRS PRN PO FEVER Last administered on 20:40; Start 06/30/16 at 08:45; Stop 07/01/16 at 08:44; Status DC Insulin Aspart (Novolog) 0-7 UNITS TIDWMEALS SQ Last administered on 07/01/16 08:46; Start 06/30/16 at 12:00 Dextrose 12.5 gm PRN Q15MIN PRN IV SEE COMMENTS; Start 06/30/16 at 08:45 Pneumococcal Polyvalent Vaccine (Do NOT chart on this placeholder) 1 each 1X ONCE MC ; Start 06/30/16 at 11:30; Stop 06/30/16 at 11:31; Status UNV Acetaminophen (Tylenol) 650 mg PRN Q6HRS PRN PO PAIN; Start 06/30/16 at 12:15; Stop 06/30/16 at 12:18; Status DC Amlodipine Besylate (Norvasc) 10 mg DAILY PO Last administered on 07/01/16 08: 36; Start 06/30/16 at 13:00 Atorvastatin Calcium (Lipitor) 40 mg QHS PO Last administered on 07/01/16 20:40 ; Start 06/30/16 at 21:00 Carvedilol (Coreg) 25 mg BIDWMEALS PO Last administered on 07/01/16 17:56; Start 06/30/16 at 17:00 Clopidogrel Bisulfate (Plavix) 75 mg DAILY07 PO Last administered on 07/01/16 05:16; Start 06/30/16 at 13:00 Cyclosporine (Restasis) 1 drop HS OU Last administered on 07/01/16 20:39; Start 06/30/16 at 21:00 Duloxetine HCl (Cymbalta) 30 mg DAILY PO Last administered on 07/01/16 08:36; Start 06/30/16 at 13:00 Mirtazapine (Remeron) 15 mg QHS PO Last administered on 07/01/16 20:40; Start 06/30/16 at 21:00 Nicotine (Nicoderm Cq 21mg) 1 patch DAILY TD Last administered on 07/01/16 08: 35; Start 06/30/16 at 13:00 Oxybutynin Chloride (Ditropan) 5 mg BID PO Last administered on 07/01/16 20:40 ; Start 06/30/16 at 13:00 Pantoprazole Sodium (Protonix) 40 mg DAILY07 PO Last administered on 07/01/16 05:16; Start 06/30/16 at 13:00 Polyethylene Glycol (miraLAX PACKET) 17 gm DAILY PO Last administered on 08:34; Start 06/30/16 at 13:00 Senna/Docusate Sodium (Senna Plus) 2 tab HS PO Last administered on 07/01/16 20 :40; Start 06/30/16 at 21:00 Non-Formulary Medication 10 mg QHS PO ; Start 06/30/16 at 21:00; Status UNV Potassium Chloride (Klor-Con) 10 meq DAILYWBKFT PO Last administered on 08:36; Start 06/30/16 at 13:00 Acetaminophen (Tylenol) 650 mg PRN Q6HRS PRN PO MILD PAIN / TEMP; Start at 12:15; Status UNV Ondansetron HCl (Zofran) 4 mg PRN Q6HRS PRN IV NAUSEA/VOMITING; Start 06/30/16 at 12:15 Heparin Sodium (Porcine) 5,000 unit Q8HRS SQ Last administered on 07/01/16 21: 13; Start 06/30/16 at 14:00 Insulin Aspart (Novolog) 5 units TIDAC SQ Last administered on 07/01/16 08:46; Start 06/30/16 at 16:30; Stop 07/01/16 at 11:45; Status DC Insulin Detemir (Levemir) 20 units QHS SQ Last administered on 06/30/16 20:55; Start 06/30/16 at 21:00; Stop 07/01/16 at 11:45; Status DC Doxycycline Hyclate (Vibra-Tab) 100 mg BID PO Last administered on 07/01/16 20: 40; Start 06/30/16 at 13:00; Stop 07/02/16 at 10:36; Status DC Guaifenesin 600 mg 600 mg BID PO Last administered on 07/01/16 20:54; Start 06/30/16 at 13:00 Sodium Chloride (Iv Sodium Chloride 0.9% 1000ml Bag) 1,000 ml @ 75 mls/hr 1X ONCE IV Last administered on 06/30/16 13:21; Start 06/30/16 at 12:15; Stop at 01:34; Status DC Acetaminophen (Tylenol) 650 mg PRN Q6HRS PRN PO PAIN Last administered on 21:16; Start 06/30/16 at 12:18 Magnesium Hydroxide (Milk Of Magnesia) 2,400 mg PRN DAILY PRN PO CONSTIPATION; Start 06/30/16 at 17:30 Insulin Aspart (Novolog) 7 units TIDAC SQ ; Start 07/01/16 at 12:00; Stop at 12:57; Status DC Insulin Detemir (Levemir) 22 units QHS SQ Last administered on 07/01/16 21:13; Start 07/01/16 at 21:00 Insulin Aspart (Novolog) 5 units TIDAC SQ Last administered on 07/01/16 17:58; Start 07/01/16 at 16:30 Hydralazine HCl 10 mg 10 mg 1X ONCE IVP Last administered on 07/02/16 10:46; Start 07/02/16 at 10:30; Stop 07/02/16 at 10:31; Status DC Levofloxacin/ Dextrose (LEVAQUIN 500mg PREMIX) 100 ml @ 100 mls/hr Q24H IV ; Start 07/02/16 at 11:00 Lisinopril 20 mg 20 mg DAILY PO ; Start 07/02/16 at 11:00 Propofol (Diprivan) 50 ml @ As Directed STK-MED ONCE IV ; Start 07/02/16 at 12: 00; Stop 07/02/16 at 12:01; Status DC Midazolam HCl (Versed) 2 mg STK-MED ONCE .ROUTE ; Start 07/02/16 at 12:43; Stop 07/02/16 at 12:44; Status DC Iohexol (Omnipaque 300 Mg/ml) 50 ml STK-MED ONCE .ROUTE ; Start 07/02/16 at 12: 45; Stop 07/02/16 at 12:46; Status DC Lidocaine/Sodium Bicarbonate 20 ml 20 ml STK-MED ONCE IJ ; Start 07/02/16 at 12: 46; Stop 07/02/16 at 12:47; Status DC Cefazolin Sodium (Ancef 1gm Ivpb For Omni) 50 ml @ As Directed STK-MED ONCE IV ; Start 07/02/16 at 13:05; Stop 07/02/16 at 13:06; Status DC Lidocaine/Sodium Bicarbonate (Buffered Lidocaine 1%) 20 ml 1X ONCE IJ Last administered on 07/02/16 13:32; Start 07/02/16 at 13:30; Stop 07/02/16 at 13:31 ; Status DC Iohexol (Omnipaque 300 Mg/ml) 50 ml 1X ONCE IART Last administered on 13:31; Start 07/02/16 at 13:30; Stop 07/02/16 at 13:31; Status DC Info (Do NOT chart on this entry -- for MONITORING) 1 each PRN DAILY PRN MC SEE COMMENTS; Start 07/02/16 at 13:45; Stop 07/04/16 at 13:44 Hydralazine HCl (Apresoline) 10 mg 1X PACU PRN IVP HYPERTENSION, SEE COMMENTS; Start 07/02/16 at 14:15 Fentanyl Citrate (Fentanyl 2ml Vial) 25 mcg PRN Q5MIN PRN IV MILD PAIN Last administered on 07/02/16 14:27; Start 07/02/16 at 14:30; Stop 07/02/16 at 20:00 Fentanyl Citrate (Fentanyl 2ml Vial) 50 mcg PRN Q5MIN PRN IV MODERATE PAIN; Start 07/02/16 at 14:30; Stop 07/02/16 at 20:00 Morphine Sulfate 1 mg 1 mg PRN Q10MIN PRN IV SEVERE PAIN; Start 07/02/16 at 14: 30; Stop 07/02/16 at 18:00 Lactated Ringer's (Iv Lactated Ringers) 1,000 ml @ 30 mls/hr Q24H IV ; Start at 14:20; Stop 07/03/16 at 02:19 Lidocaine HCl 2 ml 1X PRN PRN ID IV START; Start 07/02/16 at 14:30; Stop at 20:00 Hydromorphone HCl (Dilaudid) 0.5 mg PRN Q10MIN PRN IV SEV PAIN,Second choice; Start 07/02/16 at 14:30; Stop 07/02/16 at 20:00 Prochlorperazine Edisylate (Compazine) 5 mg PACU PRN PRN IV NAUSEA; Start 07/02 at 14:30; Stop 07/02/16 at 20:00 Active Scripts Active Reported Tylenol (Acetaminophen) 325 Mg Tablet 650 Mg PO TID Senna-Docusate Sodium Tablet (Sennosides/Docusate Sodium) 1 Each Tablet 2 Each PO HS Protonix (Pantoprazole Sodium) 40 Mg Tablet.dr 1 Tab PO DAILY NICODERM CQ 21mg (Nicotine) 1 Each Patch.td24 1 Patch TP DAILY Miralax (Polyethylene Glycol 3350) 17 Gm Powd.pack 1 Packet PO DAILY Miralax (Polyethylene Glycol 3350) 17 Gm Powd.pack 1 Packet PO PRN DAILY PRN Melatonin 3 Mg Tablet 10 Mg PO QHS Mirtazapine 15 Mg Tablet 1 Tab PO QHS Cymbalta (Duloxetine Hcl) 30 Mg Capsule.dr 1 Cap PO DAILY Acetaminophen 500 Mg Tablet 1 Tab PO PRN Q6HRS PRN Novolog (Insulin Aspart) 100 Unit/1 Ml Cartridge 5 Unit SQ DAILYWSUP Restasis (Cyclosporine) 1 Each Droperette 1 Drop EACHEYE HS Multiple Vitamins (Multivitamin) 1 Each Tablet 1 Each PO Potassium Chloride 10 Meq Capsule.er 1 Cap PO DAILY05 Levemir (Insulin Detemir) 100 Unit/1 Ml Vial 30 Unit SQ DAILY Atorvastatin Calcium 40 Mg Tablet 1 Tab PO DAILY Lisinopril 20 Mg Tablet 1 Tab PO DAILY Oxybutynin Chloride 5 Mg Tablet 5 Mg PO BID Norvasc (Amlodipine Besylate) 5 Mg Tablet 10 Mg PO DAILY Clopidogrel (Clopidogrel Bisulfate) 75 Mg Tablet 75 Mg PO DAILY Coreg (Carvedilol) 12.5 Mg Tablet 25 Mg PO BID Allergies Allergies: Coded Allergies: adhesive (Verified Allergy, Intermediate, Rash, 06/15/16) Physical Exam General: Alert, Oriented X3, Cooperative HEENT: Atraumatic, EOMI Lungs: Clear to auscultation Heart: Regular rate, Normal S1, Normal S2 Abdomen: Normal bowel sounds, Soft, No tenderness Extremities: No clubbing, No cyanosis, No edema, Normal pulses Neuro: Normal speech, Strength at 5/5 X4 ext, Sensation intact MUSCULOSKELETAL: No swelling Vitals VITALS Vital Signs Date Time Temp Pulse Resp B/P Pulse Ox O2 Delivery O2 Flow Rate FiO2 07/02/16 14:27 20 96 Nasal Cannula 3.0 07/02/16 13:42 102 193/65 07/02/16 13:27 97.6 97.6 Labs Labs Laboratory Tests Test 06/30/16 16:06 07/01/16 03:15 07/01/16 07:24 07/01/16 11:25 Glucose (Fingerstick) 228mg/dL (70-99) 160mg/dL (70-99) 119mg/dL (70-99) White Blood Count 7.7x10^3/uL (4.0-11.0) Red Blood Count 3.94x10^6/uL (3.50-5.40) Hemoglobin 11.6g/dL (12.0-15.5) Hematocrit 34.8% (36.0-47.0) Mean Corpuscular Volume 89fL (79-100) Mean Corpuscular Hemoglobin 30pg (25-35) Mean Corpuscular Hemoglobin Concent 33g/dL (31-37) Red Cell Distribution Width 13.8% (11.5-14.5) Platelet Count 205x10^3/uL (140-400) Neutrophils (%) (Auto) 73% (31-73) Lymphocytes (%) (Auto) 12% (24-48) Monocytes (%) (Auto) 14% (0-9) Eosinophils (%) (Auto) 1% (0-3) Basophils (%) (Auto) 1% (0-3) Neutrophils # (Auto) 5.6x10^3uL (1.8-7.7) Lymphocytes # (Auto) 0.9x10^3/uL (1.0-4.8) Monocytes # (Auto) 1.1x10^3/uL (0.0-1.1) Eosinophils # (Auto) 0.0x10^3/uL (0.0-0.7) Basophils # (Auto) 0.1x10^3/uL (0.0-0.2) Sodium Level 137mmol/L (136-145) Potassium Level 4.5mmol/L (3.5-5.1) Chloride Level 103mmol/L (98-107) Carbon Dioxide Level 22mmol/L (21-32) Anion Gap 12 (6-14) Blood Urea Nitrogen 18mg/dL (7-20) Creatinine 0.9mg/dL (0.6-1.0) Estimated GFR (Cockcroft-Gault) 61.5 Glucose Level 214mg/dL (70-99) Calcium Level 9.7mg/dL (8.5-10.1) Test 07/01/16 15:35 07/01/16 16:46 07/01/16 21:02 07/02/16 03:50 Prothrombin Time 14.4SEC (11.7-14.0) Prothromb Time International Ratio 1.2 (0.8-1.1) Glucose (Fingerstick) 169mg/dL (70-99) 164mg/dL (70-99) White Blood Count 7.1x10^3/uL (4.0-11.0) Red Blood Count 3.80x10^6/uL (3.50-5.40) Hemoglobin 11.2g/dL (12.0-15.5) Hematocrit 33.5% (36.0-47.0) Mean Corpuscular Volume 88fL (79-100) Mean Corpuscular Hemoglobin 29pg (25-35) Mean Corpuscular Hemoglobin Concent 33g/dL (31-37) Red Cell Distribution Width 13.4% (11.5-14.5) Platelet Count 218x10^3/uL (140-400) Neutrophils (%) (Auto) 68% (31-73) Lymphocytes (%) (Auto) 16% (24-48) Monocytes (%) (Auto) 14% (0-9) Eosinophils (%) (Auto) 1% (0-3) Basophils (%) (Auto) 1% (0-3) Neutrophils # (Auto) 4.8x10^3uL (1.8-7.7) Lymphocytes # (Auto) 1.1x10^3/uL (1.0-4.8) Monocytes # (Auto) 1.0x10^3/uL (0.0-1.1) Eosinophils # (Auto) 0.1x10^3/uL (0.0-0.7) Basophils # (Auto) 0.1x10^3/uL (0.0-0.2) Sodium Level 139mmol/L (136-145) Potassium Level 4.4mmol/L (3.5-5.1) Chloride Level 103mmol/L (98-107) Carbon Dioxide Level 23mmol/L (21-32) Anion Gap 13 (6-14) Blood Urea Nitrogen 17mg/dL (7-20) Creatinine 0.9mg/dL (0.6-1.0) Estimated GFR (Cockcroft-Gault) 61.5 Glucose Level 146mg/dL (70-99) Calcium Level 9.8mg/dL (8.5-10.1) Test 07/02/16 08:19 07/02/16 10:51 07/02/16 14:04 Glucose (Fingerstick) 156mg/dL (70-99) 174mg/dL (70-99) 183mg/dL (70-99) Laboratory Tests Test 07/01/16 15:35 07/01/16 16:46 07/01/16 21:02 07/02/16 03:50 Prothrombin Time 14.4SEC (11.7-14.0) Prothromb Time International Ratio 1.2 (0.8-1.1) Glucose (Fingerstick) 169mg/dL (70-99) 164mg/dL (70-99) White Blood Count 7.1x10^3/uL (4.0-11.0) Red Blood Count 3.80x10^6/uL (3.50-5.40) Hemoglobin 11.2g/dL (12.0-15.5) Hematocrit 33.5% (36.0-47.0) Mean Corpuscular Volume 88fL (79-100) Mean Corpuscular Hemoglobin 29pg (25-35) Mean Corpuscular Hemoglobin Concent 33g/dL (31-37) Red Cell Distribution Width 13.4% (11.5-14.5) Platelet Count 218x10^3/uL (140-400) Neutrophils (%) (Auto) 68% (31-73) Lymphocytes (%) (Auto) 16% (24-48) Monocytes (%) (Auto) 14% (0-9) Eosinophils (%) (Auto) 1% (0-3) Basophils (%) (Auto) 1% (0-3) Neutrophils # (Auto) 4.8x10^3uL (1.8-7.7) Lymphocytes # (Auto) 1.1x10^3/uL (1.0-4.8) Monocytes # (Auto) 1.0x10^3/uL (0.0-1.1) Eosinophils # (Auto) 0.1x10^3/uL (0.0-0.7) Basophils # (Auto) 0.1x10^3/uL (0.0-0.2) Sodium Level 139mmol/L (136-145) Potassium Level 4.4mmol/L (3.5-5.1) Chloride Level 103mmol/L (98-107) Carbon Dioxide Level 23mmol/L (21-32) Anion Gap 13 (6-14) Blood Urea Nitrogen 17mg/dL (7-20) Creatinine 0.9mg/dL (0.6-1.0) Estimated GFR (Cockcroft-Gault) 61.5 Glucose Level 146mg/dL (70-99) Calcium Level 9.8mg/dL (8.5-10.1) Test 07/02/16 08:19 07/02/16 10:51 07/02/16 14:04 Glucose (Fingerstick) 156mg/dL (70-99) 174mg/dL (70-99) 183mg/dL (70-99) Images Images Carotid ultrasound with PSV on the L ICA up to 330 cm/s, with left common carotid velocity 30 cm/s. This indicates > 70% stenosis. The right ICA was 50- 69% stenosis. Assessment/Plan Assessment/Plan Assessment: 1. Fall 2. Syncope 3. Left arm fracture 4. DM II 5. Bilateral Carotid Disease Plan: The ultrasound was reviewed, and demonstrated > 70% stenosis in the L ICA. However, she has had surgery on the left CEA x2 and the last surgery in 2014. Her last scan in the vascular surgery office was Dec 2014 with < 70% stenosis post-operatively. I would recommend a CTA of the neck to further evaluate her carotid anatomy, especially with a decreased velocity in the left common carotid. Given she has already had previous carotid surgery in the left twice, depending on the results of the CTA she may be a candidate for a left carotid stent. Will make further recommendations after the CTA of the neck. GERALDINE FRIEDMAN MD Jul 02, 2016 14:52
[2016-07-02 15:00] VITALS: BP 166/62
--- NOTE | 2016-07-02 15:13 | EKG ---
[facility] [address] [place] [address] Test Date: 2016-07-02 Test Time: 15:07:57 Pat Name: BELLA SANON Department: Room: [facility] Gender: F Pot Builder: JAMES : 1945 Requested By: ADINA DEVI Order Number: [id number] Reading MD: Eric Braden Measurements Intervals Kelley Rate: 108 P: 56 WI: 106 QRS: 29 QRSD: 104 T: 15 QT: 330 QTc: 446 Interpretive Statements SINUS TACHYCARDIA LEFT ATRIAL ABNORMALITY QRS(T) CONTOUR ABNORMALITY CONSISTENT WITH INFERIOR INFARCT PROBABLY OLD ABNORMAL ECG RI6.01 Electronically Signed On 07-02-2016 16:05:13 WEB PRODUCTION ASSISTANT by Eric Braden
[2016-07-02] MEDS: AMLODIPINE BESYLATE 10 MG TABLET PO SCH (15:32)
[2016-07-02] MEDS: CARVEDILOL 12.5 MG TABLET PO SCH ×2 (15:32→17:04)
[2016-07-02] MEDS: POTASSIUM CHLORIDE 10 MEQ TABLET.ER. PO SCH (15:38)
[2016-07-02] MEDS: OXYBUTYNIN CHLORIDE 5 MG TABLET PO SCH ×2 (15:38→22:28)
[2016-07-02] MEDS: DULOXETINE HCL 30 MG CAPSULE.DR. PO SCH (15:38)
[2016-07-02] MEDS: NICOTINE 21MG PATCH. TD SCH (15:40)
[2016-07-02] MEDS: GUAIFENESIN ER 600 MG TABLET.ER PO SCH ×2 (15:46→22:28)
--- NOTE | 2016-07-02 16:07 | PDOC2 ---
CARDIAC CONSULT DATE OF CONSULT Date of Consult DATE: 07/02/16 TIME: 15:47 REASON FOR CONSULT Reason for Consult: Chest pain REFERRING PHYSICIAN Referring Physician: Adri SOURCE Source: Chart review, Patient HISTORY OF PRESENT ILLNESS HISTORY OF PRESENT ILLNESS This is a pleasant 70 yo female admitted primarily from assisted living facility for falls with injury with related likely syncope. It was not clear how long she was on the floor or if she did completely passed out and how long as this was unwitnessed. She has intermittent confusion which make it even more difficult to ascertain details of her symptoms. There was no noted complains of chest pain,palpitations, dizziness, visual or auditory disturbances leading up to her being on the floor but with some SOA. Her hydration could not be ascertain as well. Upon admission she was noted with recurrent UTI, fracture to left wrist and lumbar region. She did have kyphoplasty today and after coming back from it she developed midsternal achiness that was nonradiating and no associated nausea, SOA, palpitations. Her CP lasted about 1 hour intermittent and completely resolved. Per tele monitor there was no notable rhythm ectopies that would correlate to her CP nor possible presyncope/syncope. She is WC bound and basically debilitated. She is significant for CAD remotely with no known interventions as she recalled. Denies any arrhythmias, but positive for CVA with left side hemiparesis in the past. PAST MEDICAL HISTORY Cardiovascular: CAD, CHF, HTN, DC, Hyperlipidemia, Other (carotid artery disease) Pulmonary: COPD CENTRAL NERVOUS SYSTEM: CVA, Dementia GI: GERD, Other (dyphagia) Psych: Anxiety, Depression Musculoskeletal: Osteoarthritis, Other (fall) Renal/: Chronic renal insuff (3), UTI Endocrine: Diabetes (2) PAST SURGICAL HISTORY Past Surgical History: Other (carotid endarterectomy, left hip surgery) FAMILY HISTORY Family History: Coronary Artery Disease SOCIAL HISTORY Smoke: No ALCOHOL: none Drugs: None Lives: Intermediate CURRENT MEDICATIONS CURRENT MEDICATIONS Current Medications Medications (Trade) Dose Ordered Sig/Pawan Route PRN Reason Start Time Stop Time Status Last Admin Dose Admin Insulin Detemir (Levemir) 22 units QHS SQ 07/01/16 21:00 07/01/16 21:13 Insulin Aspart (Novolog) 5 units TIDAC SQ 07/01/16 16:30 07/01/16 17:58 Hydralazine HCl (Apresoline) 10 mg 1X ONCE IVP 07/02/16 10:30 07/02/16 10:31 DC 07/02/16 10:46 Lidocaine/Sodium Bicarbonate (Buffered Lidocaine 1%) 20 ml 1X ONCE IJ 07/02/16 13:30 07/02/16 13:31 DC 07/02/16 13:32 Iohexol (Omnipaque 300 Mg/ml) 50 ml 1X ONCE IART 07/02/16 13:30 07/02/16 13:31 DC 07/02/16 13:31 Fentanyl Citrate (Fentanyl 2ml Vial) 25 mcg PRN Q5MIN PRN IV MILD PAIN 07/02/16 14:30 07/02/16 20:00 07/02/16 14:27 Morphine Sulfate 1 mg PRN Q10MIN PRN IV SEVERE PAIN 07/02/16 14:30 07/02/16 18:00 07/02/16 15:10 ALLERGIES ALLERGIES: Coded Allergies: adhesive (Verified Allergy, Intermediate, Rash, 06/15/16) ROS Review of System poor historian, limited see HPI PHYSICAL EXAM General: Alert, Oriented X3, Cooperative, No acute distress HEENT: Atraumatic, Mucous membr. moist/pink Lungs: Other (diminished bases) Heart: Regular rate, Normal S1, Normal S2, Other (3/6 systolic murmur to LLS border) Abdomen: Soft, No tenderness Extremities: No cyanosis, No edema, Other (left wrist fracture with splint) Skin: No breakdown, No significant lesion Neuro: Normal speech, Sensation intact Psych/Mental Status: Mental status NL, Mood NL, Other (intermittent confusion) MUSCULOSKELETAL: Osteoarthritic changes both hands VITALS VITALS Vital Signs Date Time Temp Pulse Resp B/P Pulse Ox O2 Delivery O2 Flow Rate FiO2 07/02/16 15:32 107 175/62 07/02/16 15:10 Nasal Cannula 3.0 07/02/16 15:00 97.2 20 93 97.2 LABS Lab: Laboratory Tests Test 07/01/16 16:46 07/01/16 21:02 07/02/16 03:50 07/02/16 08:19 Glucose (Fingerstick) 169mg/dL (70-99) 164mg/dL (70-99) 156mg/dL (70-99) White Blood Count 7.1x10^3/uL (4.0-11.0) Red Blood Count 3.80x10^6/uL (3.50-5.40) Hemoglobin 11.2g/dL (12.0-15.5) Hematocrit 33.5% (36.0-47.0) Mean Corpuscular Volume 88fL (79-100) Mean Corpuscular Hemoglobin 29pg (25-35) Mean Corpuscular Hemoglobin Concent 33g/dL (31-37) Red Cell Distribution Width 13.4% (11.5-14.5) Platelet Count 218x10^3/uL (140-400) Neutrophils (%) (Auto) 68% (31-73) Lymphocytes (%) (Auto) 16% (24-48) Monocytes (%) (Auto) 14% (0-9) Eosinophils (%) (Auto) 1% (0-3) Basophils (%) (Auto) 1% (0-3) Neutrophils # (Auto) 4.8x10^3uL (1.8-7.7) Lymphocytes # (Auto) 1.1x10^3/uL (1.0-4.8) Monocytes # (Auto) 1.0x10^3/uL (0.0-1.1) Eosinophils # (Auto) 0.1x10^3/uL (0.0-0.7) Basophils # (Auto) 0.1x10^3/uL (0.0-0.2) Sodium Level 139mmol/L (136-145) Potassium Level 4.4mmol/L (3.5-5.1) Chloride Level 103mmol/L (98-107) Carbon Dioxide Level 23mmol/L (21-32) Anion Gap 13 (6-14) Blood Urea Nitrogen 17mg/dL (7-20) Creatinine 0.9mg/dL (0.6-1.0) Estimated GFR (Cockcroft-Gault) 61.5 Glucose Level 146mg/dL (70-99) Calcium Level 9.8mg/dL (8.5-10.1) Test 07/02/16 10:51 07/02/16 14:04 07/02/16 14:58 Glucose (Fingerstick) 174mg/dL (70-99) 183mg/dL (70-99) 168mg/dL (70-99) ECHOCARDIOGRAM ECHOCARDIOGRAM <Conclusion> The ventricle size is of a normal size. There is mild concentric left ventricular hypertrophy. The systolic function is mildly decreased with an ejection fraction of 45%. There appears to be a wall motion abnormality at the base. The diastolic function is normal. There is no pericardial effusion. The anterior leaflet of the mitral valve is mildly thickened. There is no mitral stenosis and a minimal mitral regurgitation. The left atrium is mildly enlarged. The aortic valve is tricuspid. There is no aortic stenosis or regurgitation. The right ventricle is of a normal size with normal systolic function. There is no significant tricuspid regurgitation to be able to evaluate the right ventricular systolic pressure. The pulmonic valve is normal. There is no outflow and inflow tract obstruction to explain the patient's symptom of syncope. DATE: 04/04/14 0949 STRESS TEST STRESS TEST Conclusion 1. No electrocardiographic changes suggestive of myocardial ischemia with pharmacological stress. 2. Small area of perfusion defect in the inferior wall more prominent with stress than with rest indicating myocardial ischemia and scar in that area. 3. Decreased wall motion and wall thickening over the inferior wall with normal wall motion and wall thickening over the rest of the myocardium with an ejection fraction of 55%. 4. Scan indicates low risk for future cardiac events. DATE: 04/05/14 1013 ASSESSMENT/PLAN ASSESSMENT/PLAN 1. Atypical Chest pain post lumbar kyphoplasty: Doubt ACS. suspect GI/MSK with likely GERD exacerbation with notable hiatal hernia and recent fall 2. Metabolic encephalopathy vs syncope with traumatic fall noted with left wrist fracture and L1 compression fracture: no significant rhythm abnormalities. vasovagal vs UTI related with dehydration 3. Accelerated HTN 4. LICA significant stenosis: past CEA, not known which side. . 5. Recurrent UTI 6. COPD 7. CAD: remote hx, no known interventions 8. DM2/HLP 9. Hypothyroidism 10. GERD/hiatal hernia 11. Dementia/deblity/deconditioning 12. Hx of CVA Recommendations 1. Pulmonary/vascular surgery/ortho/IR on board. 2. EKG SR without acute changes. Troponin series, TTE today 3. GI Cocktail 4. Continue with coreg/lisinopril 5. Maintain hydration adequacy 6. PPI, continue with plavix. x1 ASA 7. Continue with secondary prevention 8. CMP, Mg, TSH, lipid panel. Problems: ALLIE MARADIAGA APRN Jul 02, 2016 16:07
[2016-07-02 16:38] LABS: CHOLESTEROL/HDL RATIO 3.2
[2016-07-02] MEDS ORDERED: MAG HYDROX/ALUMINUM HYD/SIMETH 30 ML ORAL.SUSP PO PRN (16:45)
[2016-07-02] MEDS ORDERED: LIDO:MAALOX:DONNATAL 1:1:1 15 ML SINGLE DOSE SWSW PRN (16:45)
[2016-07-02] MEDS: POLYETHYLENE GLYCOL 3350 17 GM PACKET. PO SCH (16:55)
[2016-07-02] MEDS ORDERED: ASPIRIN ENTERIC COATED 325 MG TABLET.DR. PO ONE (17:00)
[2016-07-02 17:50] LABS: ALBUMIN 2.8 g/dL (3.4-5.0); ALBUMIN/GLOBULIN RATIO 0.7 (1.0-1.7); CALCIUM 9.7 mg/dL (8.5-10.1); GFR 54.5; POTASSIUM 4.4 mmol/L (3.5-5.1); TOTAL BILIRUBIN 0.5 mg/dL (0.2-1.0); TOTAL PROTEIN 6.7 g/dL (6.4-8.2)
[2016-07-02] MEDS: ONDANSETRON PF 4 MG/2 ML VIAL. IV PRN (18:22)
[2016-07-02 19:00] VITALS: BP 114/49
[2016-07-02] MEDS: ACETAMINOPHEN 325 MG TABLET. PO PRN ×2 (21:09→22:33)
[2016-07-02] MEDS: SENNOSIDES/DOCUSATE 8.6/50MG TABLET. PO SCH (22:28)
[2016-07-02] MEDS: MIRTAZAPINE 15 MG TABLET PO SCH (22:28)
[2016-07-02] MEDS: CYCLOSPORINE 0.05% OPTH DROPERETTE. OU SCH (22:28)
[2016-07-02] MEDS: ATORVASTATIN CALCIUM 40 MG TABLET. PO SCH (22:29)
[2016-07-02] MEDS: INSULIN DETEMIR 300 UNITS/3 ML INSULN.PEN. SQ SCH (22:32)
[2016-07-02 23:00] VITALS: BP 114/52
[2016-07-03 05:32] LABS: BASO % 0 % (0-3); EOS % 1 % (0-3); HEMATOCRIT 31.6 % (36.0-47.0); HEMOGLOBIN 10.7 g/dL (12.0-15.5); LYMPH # 1.2 x10^3/uL (1.0-4.8); LYMPH % 16 % (24-48); MEAN CORPUSCULAR HEMOGLOBIN 30 pg (25-35); MEAN CORPUSCULAR HGB CONC 34 g/dL (31-37); MEAN CORPUSCULAR VOLUME 88 fL (79-100); MONO % 16 % (0-9); NEUT % 66 % (31-73); PLATELET COUNT 218 x10^3/uL (140-400); RED BLOOD COUNT 3.61 x10^6/uL (3.50-5.40); RED CELL DISTRIBUTION WIDTH 13.8 % (11.5-14.5); WHITE BLOOD COUNT 7.4 x10^3/uL (4.0-11.0)
[2016-07-03] MEDS: CLOPIDOGREL BISULFATE 75 MG TABLET PO SCH (05:38)
[2016-07-03] MEDS: PANTOPRAZOLE 40 MG TABLET. PO SCH (05:39)
[2016-07-03] MEDS: HEPARIN PF for SUB-Q USE 5,000 UNIT/0.5 ML VIAL. SQ SCH ×3 (05:43→21:00)
[2016-07-03 05:49] LABS: CALCIUM 9.5 mg/dL (8.5-10.1); CREATININE 1.2 mg/dL (0.6-1.0); GFR 44.2; POTASSIUM 4.5 mmol/L (3.5-5.1)
[2016-07-03 07:10] VITALS: BP 140/50
[2016-07-03] MEDS: NICOTINE 21MG PATCH. TD SCH (08:46)
[2016-07-03] MEDS: POLYETHYLENE GLYCOL 3350 17 GM PACKET. PO SCH (08:46)
[2016-07-03] MEDS: GUAIFENESIN ER 600 MG TABLET.ER PO SCH ×2 (08:47→20:48)
[2016-07-03] MEDS: DULOXETINE HCL 30 MG CAPSULE.DR. PO SCH (08:47)
[2016-07-03] MEDS: CARVEDILOL 12.5 MG TABLET PO SCH ×2 (08:47→17:23)
[2016-07-03] MEDS: AMLODIPINE BESYLATE 10 MG TABLET PO SCH (08:47)
[2016-07-03] MEDS: OXYBUTYNIN CHLORIDE 5 MG TABLET PO SCH ×2 (08:47→20:48)
[2016-07-03] MEDS: POTASSIUM CHLORIDE 10 MEQ TABLET.ER. PO SCH (08:48)
[2016-07-03] MEDS: LISINOPRIL 20 MG TABLET PO SCH (08:48)
[2016-07-03] MEDS: INSULIN ASPART 300 UNITS/3 ML INSULN.PEN SQ SCH ×6 (08:54→17:22)
[2016-07-03 10:10] VITALS: BP 136/50
[2016-07-03] MEDS ORDERED: IV NORMAL SALINE 1000ML BAG 1,000 ML IV ONE (10:30)
--- NOTE | 2016-07-03 12:25 | PDOC ---
PROGRESS NOTES Subjective Subjective She admits continued back pain and not much help from kyphoplasty. Objective Objective Vital Signs Date Time Temp Pulse Resp B/P Pulse Ox O2 Delivery O2 Flow Rate FiO2 07/03/16 10:10 97.7 73 18 136/50 98 Nasal Cannula 3.0 97.7 Intake and Output 07/03/16 07:00 Intake Total 590 ml Output Total 2 ml Balance 588 ml Intake Oral 340 ml IV Total 250 ml Estimated Blood Loss 2 ml # Voids 7 Physical Exam Physical Exam She is supine in bed and her at bedside and she continues with painfully decreased lumbar spine ROM and tenderness to palpation over lumbar spine and paraspinal muscles. Assessment Assessment Problems Medical Problems: (1) Hypoxia Status: Acute (2) Syncope Status: Acute Plan Plan of Care To get her up as tolerated with lumbar corset. Comment Review of Relevant I have reviewed the following items carlota (where applicable) has been applied. Labs Laboratory Tests Test 07/01/16 15:35 07/01/16 16:46 07/01/16 21:02 07/02/16 03:50 Prothrombin Time 14.4SEC (11.7-14.0) Prothromb Time International Ratio 1.2 (0.8-1.1) Glucose (Fingerstick) 169mg/dL (70-99) 164mg/dL (70-99) White Blood Count 7.1x10^3/uL (4.0-11.0) Red Blood Count 3.80x10^6/uL (3.50-5.40) Hemoglobin 11.2g/dL (12.0-15.5) Hematocrit 33.5% (36.0-47.0) Mean Corpuscular Volume 88fL (79-100) Mean Corpuscular Hemoglobin 29pg (25-35) Mean Corpuscular Hemoglobin Concent 33g/dL (31-37) Red Cell Distribution Width 13.4% (11.5-14.5) Platelet Count 218x10^3/uL (140-400) Neutrophils (%) (Auto) 68% (31-73) Lymphocytes (%) (Auto) 16% (24-48) Monocytes (%) (Auto) 14% (0-9) Eosinophils (%) (Auto) 1% (0-3) Basophils (%) (Auto) 1% (0-3) Neutrophils # (Auto) 4.8x10^3uL (1.8-7.7) Lymphocytes # (Auto) 1.1x10^3/uL (1.0-4.8) Monocytes # (Auto) 1.0x10^3/uL (0.0-1.1) Eosinophils # (Auto) 0.1x10^3/uL (0.0-0.7) Basophils # (Auto) 0.1x10^3/uL (0.0-0.2) Sodium Level 139mmol/L (136-145) Potassium Level 4.4mmol/L (3.5-5.1) Chloride Level 103mmol/L (98-107) Carbon Dioxide Level 23mmol/L (21-32) Anion Gap 13 (6-14) Blood Urea Nitrogen 17mg/dL (7-20) Creatinine 0.9mg/dL (0.6-1.0) Estimated GFR (Cockcroft-Gault) 61.5 Glucose Level 146mg/dL (70-99) Calcium Level 9.8mg/dL (8.5-10.1) Triglycerides Level 149mg/dL (0-150) Cholesterol Level 144mg/dL (0-200) LDL Cholesterol, Calculated 69mg/dL (0-100) VLDL Cholesterol, Calculated 30mg/dL (0-40) HDL Cholesterol 45mg/dL (40-60) Cholesterol/HDL Ratio 3.2 Thyroid Stimulating Hormone (TSH) 1.646uIU/mL (0.358-3.74) Test 07/02/16 08:19 07/02/16 10:51 07/02/16 14:04 07/02/16 14:58 Glucose (Fingerstick) 156mg/dL (70-99) 174mg/dL (70-99) 183mg/dL (70-99) 168mg/dL (70-99) Test 07/02/16 17:02 07/02/16 17:05 07/02/16 21:10 07/02/16 22:40 Glucose (Fingerstick) 186mg/dL (70-99) 185mg/dL (70-99) Sodium Level 139mmol/L (136-145) Potassium Level 4.4mmol/L (3.5-5.1) Chloride Level 105mmol/L (98-107) Carbon Dioxide Level 22mmol/L (21-32) Anion Gap 12 (6-14) Blood Urea Nitrogen 19mg/dL (7-20) Creatinine 1.0mg/dL (0.6-1.0) Estimated GFR (Cockcroft-Gault) 54.5 BUN/Creatinine Ratio 19 (6-20) Glucose Level 210mg/dL (70-99) Calcium Level 9.7mg/dL (8.5-10.1) Total Bilirubin 0.5mg/dL (0.2-1.0) Aspartate Amino Transf (AST/SGOT) 15U/L (15-37) Alanine Aminotransferase (ALT/SGPT) 12U/L (14-59) Alkaline Phosphatase 95U/L (46-116) Troponin I Quantitative < 0.017ng/mL (0.000-0.055) < 0.017ng/mL (0.000-0.055) Total Protein 6.7g/dL (6.4-8.2) Albumin 2.8g/dL (3.4-5.0) Albumin/Globulin Ratio 0.7 (1.0-1.7) Test 07/03/16 04:05 07/03/16 05:00 07/03/16 07:13 07/03/16 10:56 Sodium Level 138mmol/L (136-145) Potassium Level 4.5mmol/L (3.5-5.1) Chloride Level 103mmol/L (98-107) Carbon Dioxide Level 23mmol/L (21-32) Anion Gap 12 (6-14) Blood Urea Nitrogen 25mg/dL (7-20) Creatinine 1.2mg/dL (0.6-1.0) Estimated GFR (Cockcroft-Gault) 44.2 Glucose Level 149mg/dL (70-99) Calcium Level 9.5mg/dL (8.5-10.1) White Blood Count 7.4x10^3/uL (4.0-11.0) Red Blood Count 3.61x10^6/uL (3.50-5.40) Hemoglobin 10.7g/dL (12.0-15.5) Hematocrit 31.6% (36.0-47.0) Mean Corpuscular Volume 88fL (79-100) Mean Corpuscular Hemoglobin 30pg (25-35) Mean Corpuscular Hemoglobin Concent 34g/dL (31-37) Red Cell Distribution Width 13.8% (11.5-14.5) Platelet Count 218x10^3/uL (140-400) Neutrophils (%) (Auto) 66% (31-73) Lymphocytes (%) (Auto) 16% (24-48) Monocytes (%) (Auto) 16% (0-9) Eosinophils (%) (Auto) 1% (0-3) Basophils (%) (Auto) 0% (0-3) Neutrophils # (Auto) 4.9x10^3uL (1.8-7.7) Lymphocytes # (Auto) 1.2x10^3/uL (1.0-4.8) Monocytes # (Auto) 1.2x10^3/uL (0.0-1.1) Eosinophils # (Auto) 0.1x10^3/uL (0.0-0.7) Basophils # (Auto) 0.0x10^3/uL (0.0-0.2) Glucose (Fingerstick) 164mg/dL (70-99) 147mg/dL (70-99) Laboratory Tests Test 07/02/16 14:04 07/02/16 14:58 07/02/16 17:02 07/02/16 17:05 Glucose (Fingerstick) 183mg/dL (70-99) 168mg/dL (70-99) 186mg/dL (70-99) Sodium Level 139mmol/L (136-145) Potassium Level 4.4mmol/L (3.5-5.1) Chloride Level 105mmol/L (98-107) Carbon Dioxide Level 22mmol/L (21-32) Anion Gap 12 (6-14) Blood Urea Nitrogen 19mg/dL (7-20) Creatinine 1.0mg/dL (0.6-1.0) Estimated GFR (Cockcroft-Gault) 54.5 BUN/Creatinine Ratio 19 (6-20) Glucose Level 210mg/dL (70-99) Calcium Level 9.7mg/dL (8.5-10.1) Total Bilirubin 0.5mg/dL (0.2-1.0) Aspartate Amino Transf (AST/SGOT) 15U/L (15-37) Alanine Aminotransferase (ALT/SGPT) 12U/L (14-59) Alkaline Phosphatase 95U/L (46-116) Troponin I Quantitative < 0.017ng/mL (0.000-0.055) Total Protein 6.7g/dL (6.4-8.2) Albumin 2.8g/dL (3.4-5.0) Albumin/Globulin Ratio 0.7 (1.0-1.7) Test 07/02/16 21:10 07/02/16 22:40 07/03/16 04:05 07/03/16 05:00 Glucose (Fingerstick) 185mg/dL (70-99) Troponin I Quantitative < 0.017ng/mL (0.000-0.055) Sodium Level 138mmol/L (136-145) Potassium Level 4.5mmol/L (3.5-5.1) Chloride Level 103mmol/L (98-107) Carbon Dioxide Level 23mmol/L (21-32) Anion Gap 12 (6-14) Blood Urea Nitrogen 25mg/dL (7-20) Creatinine 1.2mg/dL (0.6-1.0) Estimated GFR (Cockcroft-Gault) 44.2 Glucose Level 149mg/dL (70-99) Calcium Level 9.5mg/dL (8.5-10.1) White Blood Count 7.4x10^3/uL (4.0-11.0) Red Blood Count 3.61x10^6/uL (3.50-5.40) Hemoglobin 10.7g/dL (12.0-15.5) Hematocrit 31.6% (36.0-47.0) Mean Corpuscular Volume 88fL (79-100) Mean Corpuscular Hemoglobin 30pg (25-35) Mean Corpuscular Hemoglobin Concent 34g/dL (31-37) Red Cell Distribution Width 13.8% (11.5-14.5) Platelet Count 218x10^3/uL (140-400) Neutrophils (%) (Auto) 66% (31-73) Lymphocytes (%) (Auto) 16% (24-48) Monocytes (%) (Auto) 16% (0-9) Eosinophils (%) (Auto) 1% (0-3) Basophils (%) (Auto) 0% (0-3) Neutrophils # (Auto) 4.9x10^3uL (1.8-7.7) Lymphocytes # (Auto) 1.2x10^3/uL (1.0-4.8) Monocytes # (Auto) 1.2x10^3/uL (0.0-1.1) Eosinophils # (Auto) 0.1x10^3/uL (0.0-0.7) Basophils # (Auto) 0.0x10^3/uL (0.0-0.2) Test 07/03/16 07:13 07/03/16 10:56 Glucose (Fingerstick) 164mg/dL (70-99) 147mg/dL (70-99) Microbiology 06/30/16 Urine Culture - Preliminary, Resulted 06/30/16 Urine Culture Result 1 (ÁNGEL) - Preliminary, Resulted 06/30/16 Urine Culture Result 2 (ÁNGEL) - Preliminary, Resulted Medications Current Medications Acetaminophen (Tylenol) 1,000 mg 1X ONCE PO Last administered on 06/30/16 07: 33; Start 06/30/16 at 07:00; Stop 06/30/16 at 07:04; Status DC Ondansetron HCl 4 mg 4 mg 1X ONCE IV Last administered on 06/30/16 07:32; Start 06/30/16 at 07:15; Stop 06/30/16 at 07:16; Status DC Sodium Chloride (Iv Sodium Chloride 0.9% 500ml Bag) 500 ml @ 500 mls/hr 1X ONCE IV Last administered on 06/30/16 09:57; Start 06/30/16 at 08:45; Stop at 09:44; Status DC Ondansetron HCl (Zofran) 4 mg PRN Q8HRS PRN IV NAUSEA/VOMITING Last administered on 06/30/16 20:58; Start 06/30/16 at 08:45; Stop 07/01/16 at 08:44; Status DC Morphine Sulfate 2 mg PRN Q2HR PRN IV PAIN Last administered on 07/01/16 05:16 ; Start 06/30/16 at 08:45; Stop 07/01/16 at 08:44; Status DC Acetaminophen (Tylenol) 650 mg PRN Q4HRS PRN PO FEVER Last administered on 20:40; Start 06/30/16 at 08:45; Stop 07/01/16 at 08:44; Status DC Insulin Aspart (Novolog) 0-7 UNITS TIDWMEALS SQ Last administered on 07/03/16 08:54; Start 06/30/16 at 12:00 Dextrose 12.5 gm PRN Q15MIN PRN IV SEE COMMENTS; Start 06/30/16 at 08:45 Pneumococcal Polyvalent Vaccine (Do NOT chart on this placeholder) 1 each 1X ONCE MC ; Start 06/30/16 at 11:30; Stop 06/30/16 at 11:31; Status UNV Acetaminophen (Tylenol) 650 mg PRN Q6HRS PRN PO PAIN; Start 06/30/16 at 12:15; Stop 06/30/16 at 12:18; Status DC Amlodipine Besylate (Norvasc) 10 mg DAILY PO Last administered on 07/03/16 08: 47; Start 06/30/16 at 13:00 Atorvastatin Calcium (Lipitor) 40 mg QHS PO Last administered on 07/02/16 22: 29; Start 06/30/16 at 21:00 Carvedilol (Coreg) 25 mg BIDWMEALS PO Last administered on 07/03/16 08:47; Start 06/30/16 at 17:00 Clopidogrel Bisulfate (Plavix) 75 mg DAILY07 PO Last administered on 07/03/16 05:38; Start 06/30/16 at 13:00 Cyclosporine (Restasis) 1 drop HS OU Last administered on 07/02/16 22:28; Start 06/30/16 at 21:00 Duloxetine HCl (Cymbalta) 30 mg DAILY PO Last administered on 07/03/16 08:47; Start 06/30/16 at 13:00 Mirtazapine (Remeron) 15 mg QHS PO Last administered on 07/02/16 22:28; Start 06/30/16 at 21:00 Nicotine (Nicoderm Cq 21mg) 1 patch DAILY TD Last administered on 07/03/16 08: 46; Start 06/30/16 at 13:00 Oxybutynin Chloride (Ditropan) 5 mg BID PO Last administered on 07/03/16 08:47 ; Start 06/30/16 at 13:00 Pantoprazole Sodium (Protonix) 40 mg DAILY07 PO Last administered on 07/03/16 05:39; Start 06/30/16 at 13:00 Polyethylene Glycol (miraLAX PACKET) 17 gm DAILY PO Last administered on 08:46; Start 06/30/16 at 13:00 Senna/Docusate Sodium (Senna Plus) 2 tab HS PO Last administered on 07/02/16 22:28; Start 06/30/16 at 21:00 Non-Formulary Medication 10 mg QHS PO ; Start 06/30/16 at 21:00; Status UNV Potassium Chloride (Klor-Con) 10 meq DAILYWBKFT PO Last administered on 08:48; Start 06/30/16 at 13:00 Acetaminophen (Tylenol) 650 mg PRN Q6HRS PRN PO MILD PAIN / TEMP; Start at 12:15; Status UNV Ondansetron HCl (Zofran) 4 mg PRN Q6HRS PRN IV NAUSEA/VOMITING Last administered on 07/02/16 18:22; Start 06/30/16 at 12:15 Heparin Sodium (Porcine) 5,000 unit Q8HRS SQ Last administered on 07/03/16 05: 43; Start 06/30/16 at 14:00 Insulin Aspart (Novolog) 5 units TIDAC SQ Last administered on 07/01/16 08:46; Start 06/30/16 at 16:30; Stop 07/01/16 at 11:45; Status DC Insulin Detemir (Levemir) 20 units QHS SQ Last administered on 06/30/16 20:55; Start 06/30/16 at 21:00; Stop 07/01/16 at 11:45; Status DC Doxycycline Hyclate (Vibra-Tab) 100 mg BID PO Last administered on 07/01/16 20: 40; Start 06/30/16 at 13:00; Stop 07/02/16 at 10:36; Status DC Guaifenesin 600 mg 600 mg BID PO Last administered on 07/03/16 08:47; Start at 13:00 Sodium Chloride (Iv Sodium Chloride 0.9% 1000ml Bag) 1,000 ml @ 75 mls/hr 1X ONCE IV Last administered on 06/30/16 13:21; Start 06/30/16 at 12:15; Stop at 01:34; Status DC Acetaminophen (Tylenol) 650 mg PRN Q6HRS PRN PO PAIN Last administered on 22:33; Start 06/30/16 at 12:18 Magnesium Hydroxide (Milk Of Magnesia) 2,400 mg PRN DAILY PRN PO CONSTIPATION; Start 06/30/16 at 17:30 Insulin Aspart (Novolog) 7 units TIDAC SQ ; Start 07/01/16 at 12:00; Stop at 12:57; Status DC Insulin Detemir (Levemir) 22 units QHS SQ Last administered on 07/02/16 22:32 ; Start 07/01/16 at 21:00 Insulin Aspart (Novolog) 5 units TIDAC SQ Last administered on 07/03/16 12:16 ; Start 07/01/16 at 16:30 Hydralazine HCl 10 mg 10 mg 1X ONCE IVP Last administered on 07/02/16 10:46; Start 07/02/16 at 10:30; Stop 07/02/16 at 10:31; Status DC Levofloxacin/ Dextrose (LEVAQUIN 500mg PREMIX) 100 ml @ 100 mls/hr Q24H IV Last administered on 07/03/16 11:01; Start 07/02/16 at 11:00 Lisinopril 20 mg 20 mg DAILY PO Last administered on 07/03/16 08:48; Start 02/08 at 11:00 Propofol (Diprivan) 50 ml @ As Directed STK-MED ONCE IV ; Start 07/02/16 at 12: 00; Stop 07/02/16 at 12:01; Status DC Midazolam HCl (Versed) 2 mg STK-MED ONCE .ROUTE ; Start 07/02/16 at 12:43; Stop 07/02/16 at 12:44; Status DC Iohexol (Omnipaque 300 Mg/ml) 50 ml STK-MED ONCE .ROUTE ; Start 07/02/16 at 12: 45; Stop 07/02/16 at 12:46; Status DC Lidocaine/Sodium Bicarbonate 20 ml 20 ml STK-MED ONCE IJ ; Start 07/02/16 at 12: 46; Stop 07/02/16 at 12:47; Status DC Cefazolin Sodium (Ancef 1gm Ivpb For Omni) 50 ml @ As Directed STK-MED ONCE IV ; Start 07/02/16 at 13:05; Stop 07/02/16 at 13:06; Status DC Lidocaine/Sodium Bicarbonate (Buffered Lidocaine 1%) 20 ml 1X ONCE IJ Last administered on 07/02/16 13:32; Start 07/02/16 at 13:30; Stop 07/02/16 at 13:31 ; Status DC Iohexol (Omnipaque 300 Mg/ml) 50 ml 1X ONCE IART Last administered on 13:31; Start 07/02/16 at 13:30; Stop 07/02/16 at 13:31; Status DC Info (Do NOT chart on this entry -- for MONITORING) 1 each PRN DAILY PRN MC SEE COMMENTS; Start 07/02/16 at 13:45; Stop 07/04/16 at 13:44 Hydralazine HCl (Apresoline) 10 mg 1X PACU PRN IVP HYPERTENSION, SEE COMMENTS; Start 07/02/16 at 14:15 Fentanyl Citrate (Fentanyl 2ml Vial) 25 mcg PRN Q5MIN PRN IV MILD PAIN Last administered on 07/02/16 14:27; Start 07/02/16 at 14:30; Stop 07/02/16 at 20:00 ; Status DC Fentanyl Citrate (Fentanyl 2ml Vial) 50 mcg PRN Q5MIN PRN IV MODERATE PAIN; Start 07/02/16 at 14:30; Stop 07/02/16 at 20:00; Status DC Morphine Sulfate 1 mg 1 mg PRN Q10MIN PRN IV SEVERE PAIN Last administered on 15:10; Start 07/02/16 at 14:30; Stop 07/02/16 at 18:00; Status DC Lactated Ringer's (Iv Lactated Ringers) 1,000 ml @ 30 mls/hr Q24H IV ; Start at 14:20; Stop 07/03/16 at 02:19; Status DC Lidocaine HCl 2 ml 1X PRN PRN ID IV START; Start 07/02/16 at 14:30; Stop at 20:00; Status DC Hydromorphone HCl (Dilaudid) 0.5 mg PRN Q10MIN PRN IV SEV PAIN,Second choice; Start 07/02/16 at 14:30; Stop 07/02/16 at 20:00; Status DC Prochlorperazine Edisylate (Compazine) 5 mg PACU PRN PRN IV NAUSEA; Start 07/02 at 14:30; Stop 07/02/16 at 20:00; Status DC Multi-Ingredient Mouthwash/Gargle (Gi Cocktail Single Dose) 15 ml PRN 1X PRN SWSW CHEST PAIN; Start 07/02/16 at 16:45 Al Hydroxide/Mg Hydroxide (Mylanta Plus Xs) 30 ml PRN Q2HR PRN PO HEARTBURN / GAS; Start 07/02/16 at 16:45 Aspirin 325 mg 325 mg 1X ONCE PO Last administered on 07/02/16t 16:55; Start 07/02/16 at 17:00; Stop 07/02/16 at 17:01; Status DC Sodium Chloride (Iv Sodium Chloride 0.9% 1000ml Bag) 1,000 ml @ 75 mls/hr 1X ONCE IV Last administered on 07/03/16 11:02; Start 07/03/16 at 10:30; Stop 03/11 at 23:49 Active Scripts Active Reported Tylenol (Acetaminophen) 325 Mg Tablet 650 Mg PO TID Senna-Docusate Sodium Tablet (Sennosides/Docusate Sodium) 1 Each Tablet 2 Each PO HS Protonix (Pantoprazole Sodium) 40 Mg Tablet.dr 1 Tab PO DAILY NICODERM CQ 21mg (Nicotine) 1 Each Patch.td24 1 Patch TP DAILY Miralax (Polyethylene Glycol 3350) 17 Gm Powd.pack 1 Packet PO DAILY Miralax (Polyethylene Glycol 3350) 17 Gm Powd.pack 1 Packet PO PRN DAILY PRN Melatonin 3 Mg Tablet 10 Mg PO QHS Mirtazapine 15 Mg Tablet 1 Tab PO QHS Cymbalta (Duloxetine Hcl) 30 Mg Capsule.dr 1 Cap PO DAILY Acetaminophen 500 Mg Tablet 1 Tab PO PRN Q6HRS PRN Novolog (Insulin Aspart) 100 Unit/1 Ml Cartridge 5 Unit SQ DAILYWSUP Restasis (Cyclosporine) 1 Each Droperette 1 Drop EACHEYE HS Multiple Vitamins (Multivitamin) 1 Each Tablet 1 Each PO Potassium Chloride 10 Meq Capsule.er 1 Cap PO DAILY05 Levemir (Insulin Detemir) 100 Unit/1 Ml Vial 30 Unit SQ DAILY Atorvastatin Calcium 40 Mg Tablet 1 Tab PO DAILY Lisinopril 20 Mg Tablet 1 Tab PO DAILY Oxybutynin Chloride 5 Mg Tablet 5 Mg PO BID Norvasc (Amlodipine Besylate) 5 Mg Tablet 10 Mg PO DAILY Clopidogrel (Clopidogrel Bisulfate) 75 Mg Tablet 75 Mg PO DAILY Coreg (Carvedilol) 12.5 Mg Tablet 25 Mg PO BID Vitals/I & O Vital Sign - Last 24 Hours 07/02/16 07/02/16 07/02/16 07/02/16 13:27 13:27 13:42 13:57 Temp 97.6 97.6 Pulse 102 102 102 Resp 18 20 B/P 175/79 193/65 193/65 Pulse Ox 96 96 96 O2 Delivery Nasal Cannula Nasal Cannula Nasal Cannula Nasal Cannula O2 Flow Rate 3 3 3 3 07/02/16 07/02/16 07/02/16 07/02/16 14:10 14:12 14:27 14:27 Temp 98.8 98.8 Pulse 102 102 Resp 18 B/P 189/51 175/45 Pulse Ox 96 96 96 O2 Delivery Nasal Cannula Nasal Cannula Nasal Cannula Nasal Cannula O2 Flow Rate 3 3 3.0 3 07/02/16 07/02/16 07/02/16 07/02/16 15:00 15:10 15:32 15:32 Temp 97.2 97.2 Pulse 107 107 107 Resp 20 B/P 166/62 175/62 175/62 Pulse Ox 93 O2 Delivery Nasal Cannula Nasal Cannula O2 Flow Rate 3.0 3.0 07/02/16 07/02/16 07/02/16 07/02/16 17:04 19:00 20:00 23:00 Temp 98.9 97.9 98.9 97.9 Pulse 96 82 75 Resp 20 20 B/P 149/59 114/49 114/52 Pulse Ox 92 95 O2 Delivery Nasal Cannula Nasal Cannula Nasal Cannula O2 Flow Rate 3.0 3.0 3.0 07/03/16 07/03/16 07/03/16 07/03/16 07:10 08:00 08:47 08:47 Temp 97.5 97.5 Pulse 74 74 74 Resp 18 B/P 140/50 140/50 140/50 Pulse Ox 95 O2 Delivery Nasal Cannula Nasal Cannula O2 Flow Rate 3.0 3.0 07/03/16 07/03/16 08:48 10:10 Temp 97.7 97.7 Pulse 74 73 Resp 18 B/P 140/50 136/50 Pulse Ox 98 O2 Delivery Nasal Cannula O2 Flow Rate 3.0 Intake and Output 07/02/16 07/02/16 07/03/16 15:00 23:00 07:00 Intake Total 250 ml 340 ml 0 ml Output Total 2 ml Balance 248 ml 340 ml 0 ml FLORY SMITH MD Jul 03, 2016 12:25
--- NOTE | 2016-07-03 13:29 | PDOC ---
PROGRESS NOTES Chief Complaint Chief Complaint Assessment/Plan 1. acute resp failure with COPD likely 2. fall, 2/2 unsteady gait likely 3. recent syncope and left forearm fx, no sx 4. h/o CAD 5. h/o CHF 6. H/O cva WITH MILD left side weakness 7. depression 8. dm2 on insulin 9. gerd 10. htn 11. hld 12. MELONIE, vasomotor. CKD2-3 13. h/o PEG 14. cervical DJD, CHRONIC spine fx, subacute L1 fx s/p kyphoplasty on 07/02 15 . >70% stenosis within the proximal and mid left internal carotid artery on US plan: 1. pulm, ortho, dr. López consultED IR consulted, L1 KYphoplasty get vascular consult for 15, recommend CTA given pt had sx before, will order, but Cr slightly high, Radiology called, will do gentLE ivf and CTA tmr 2. duoneb 3. chest CT as per pulm, neg 4. ptot 5. check orthostatic add lisinopril for htn, on coreg, amlodipine labs tmr 6. increase aspart 5u tid, levemir 22u qhs, ssi gi ppx flu neg SW for snf ID consult for cont fever, change to levaquin for now TTE pending for chest pain, neg CE AND EKG fu with ortho History of Present Illness History of Present Illness new on NC 2 L cough, no sputum fever daily mild lower back pain, + shoulder pain still lower back pain 09/01, post kypho Vitals Vitals Vital Signs Date Time Temp Pulse Resp B/P Pulse Ox O2 Delivery O2 Flow Rate FiO2 07/03/16 10:10 97.7 73 18 136/50 98 Nasal Cannula 3.0 97.7 Physical Exam General: Alert, Oriented X3, Cooperative, No acute distress Heart: Regular rate, Normal S1, Normal S2, Other (3/6 systolic murmur to LLS border) Lungs: Other (decrease bs) Abdomen: Soft, No tenderness Extremities: No cyanosis, No edema, Other (left wrist fracture with splint) Skin: No breakdown, No significant lesion Labs LABS Laboratory Tests Test 07/02/16 14:04 07/02/16 14:58 07/02/16 17:02 07/02/16 17:05 Glucose (Fingerstick) 183mg/dL (70-99) 168mg/dL (70-99) 186mg/dL (70-99) Sodium Level 139mmol/L (136-145) Potassium Level 4.4mmol/L (3.5-5.1) Chloride Level 105mmol/L (98-107) Carbon Dioxide Level 22mmol/L (21-32) Anion Gap 12 (6-14) Blood Urea Nitrogen 19mg/dL (7-20) Creatinine 1.0mg/dL (0.6-1.0) Estimated GFR (Cockcroft-Gault) 54.5 BUN/Creatinine Ratio 19 (6-20) Glucose Level 210mg/dL (70-99) Calcium Level 9.7mg/dL (8.5-10.1) Total Bilirubin 0.5mg/dL (0.2-1.0) Aspartate Amino Transf (AST/SGOT) 15U/L (15-37) Alanine Aminotransferase (ALT/SGPT) 12U/L (14-59) Alkaline Phosphatase 95U/L (46-116) Troponin I Quantitative < 0.017ng/mL (0.000-0.055) Total Protein 6.7g/dL (6.4-8.2) Albumin 2.8g/dL (3.4-5.0) Albumin/Globulin Ratio 0.7 (1.0-1.7) Test 07/02/16 21:10 07/02/16 22:40 07/03/16 04:05 07/03/16 05:00 Glucose (Fingerstick) 185mg/dL (70-99) Troponin I Quantitative < 0.017ng/mL (0.000-0.055) Sodium Level 138mmol/L (136-145) Potassium Level 4.5mmol/L (3.5-5.1) Chloride Level 103mmol/L (98-107) Carbon Dioxide Level 23mmol/L (21-32) Anion Gap 12 (6-14) Blood Urea Nitrogen 25mg/dL (7-20) Creatinine 1.2mg/dL (0.6-1.0) Estimated GFR (Cockcroft-Gault) 44.2 Glucose Level 149mg/dL (70-99) Calcium Level 9.5mg/dL (8.5-10.1) White Blood Count 7.4x10^3/uL (4.0-11.0) Red Blood Count 3.61x10^6/uL (3.50-5.40) Hemoglobin 10.7g/dL (12.0-15.5) Hematocrit 31.6% (36.0-47.0) Mean Corpuscular Volume 88fL (79-100) Mean Corpuscular Hemoglobin 30pg (25-35) Mean Corpuscular Hemoglobin Concent 34g/dL (31-37) Red Cell Distribution Width 13.8% (11.5-14.5) Platelet Count 218x10^3/uL (140-400) Neutrophils (%) (Auto) 66% (31-73) Lymphocytes (%) (Auto) 16% (24-48) Monocytes (%) (Auto) 16% (0-9) Eosinophils (%) (Auto) 1% (0-3) Basophils (%) (Auto) 0% (0-3) Neutrophils # (Auto) 4.9x10^3uL (1.8-7.7) Lymphocytes # (Auto) 1.2x10^3/uL (1.0-4.8) Monocytes # (Auto) 1.2x10^3/uL (0.0-1.1) Eosinophils # (Auto) 0.1x10^3/uL (0.0-0.7) Basophils # (Auto) 0.0x10^3/uL (0.0-0.2) Test 07/03/16 07:13 07/03/16 10:56 Glucose (Fingerstick) 164mg/dL (70-99) 147mg/dL (70-99) Review of Systems Review of Systems no fever, chills, sob or chest pain Assessment and Plan Assessmemt and Plan Problems Medical Problems: (1) Hypoxia Status: Acute (2) Syncope Status: Acute Problems: Comment Review of Relevant I have reviewed the following items carlota (where applicable) has been applied. Labs Laboratory Tests Test 07/01/16 15:35 07/01/16 16:46 07/01/16 21:02 07/02/16 03:50 Prothrombin Time 14.4SEC (11.7-14.0) Prothromb Time International Ratio 1.2 (0.8-1.1) Glucose (Fingerstick) 169mg/dL (70-99) 164mg/dL (70-99) White Blood Count 7.1x10^3/uL (4.0-11.0) Red Blood Count 3.80x10^6/uL (3.50-5.40) Hemoglobin 11.2g/dL (12.0-15.5) Hematocrit 33.5% (36.0-47.0) Mean Corpuscular Volume 88fL (79-100) Mean Corpuscular Hemoglobin 29pg (25-35) Mean Corpuscular Hemoglobin Concent 33g/dL (31-37) Red Cell Distribution Width 13.4% (11.5-14.5) Platelet Count 218x10^3/uL (140-400) Neutrophils (%) (Auto) 68% (31-73) Lymphocytes (%) (Auto) 16% (24-48) Monocytes (%) (Auto) 14% (0-9) Eosinophils (%) (Auto) 1% (0-3) Basophils (%) (Auto) 1% (0-3) Neutrophils # (Auto) 4.8x10^3uL (1.8-7.7) Lymphocytes # (Auto) 1.1x10^3/uL (1.0-4.8) Monocytes # (Auto) 1.0x10^3/uL (0.0-1.1) Eosinophils # (Auto) 0.1x10^3/uL (0.0-0.7) Basophils # (Auto) 0.1x10^3/uL (0.0-0.2) Sodium Level 139mmol/L (136-145) Potassium Level 4.4mmol/L (3.5-5.1) Chloride Level 103mmol/L (98-107) Carbon Dioxide Level 23mmol/L (21-32) Anion Gap 13 (6-14) Blood Urea Nitrogen 17mg/dL (7-20) Creatinine 0.9mg/dL (0.6-1.0) Estimated GFR (Cockcroft-Gault) 61.5 Glucose Level 146mg/dL (70-99) Calcium Level 9.8mg/dL (8.5-10.1) Triglycerides Level 149mg/dL (0-150) Cholesterol Level 144mg/dL (0-200) LDL Cholesterol, Calculated 69mg/dL (0-100) VLDL Cholesterol, Calculated 30mg/dL (0-40) HDL Cholesterol 45mg/dL (40-60) Cholesterol/HDL Ratio 3.2 Thyroid Stimulating Hormone (TSH) 1.646uIU/mL (0.358-3.74) Test 07/02/16 08:19 07/02/16 10:51 07/02/16 14:04 07/02/16 14:58 Glucose (Fingerstick) 156mg/dL (70-99) 174mg/dL (70-99) 183mg/dL (70-99) 168mg/dL (70-99) Test 07/02/16 17:02 07/02/16 17:05 07/02/16 21:10 07/02/16 22:40 Glucose (Fingerstick) 186mg/dL (70-99) 185mg/dL (70-99) Sodium Level 139mmol/L (136-145) Potassium Level 4.4mmol/L (3.5-5.1) Chloride Level 105mmol/L (98-107) Carbon Dioxide Level 22mmol/L (21-32) Anion Gap 12 (6-14) Blood Urea Nitrogen 19mg/dL (7-20) Creatinine 1.0mg/dL (0.6-1.0) Estimated GFR (Cockcroft-Gault) 54.5 BUN/Creatinine Ratio 19 (6-20) Glucose Level 210mg/dL (70-99) Calcium Level 9.7mg/dL (8.5-10.1) Total Bilirubin 0.5mg/dL (0.2-1.0) Aspartate Amino Transf (AST/SGOT) 15U/L (15-37) Alanine Aminotransferase (ALT/SGPT) 12U/L (14-59) Alkaline Phosphatase 95U/L (46-116) Troponin I Quantitative < 0.017ng/mL (0.000-0.055) < 0.017ng/mL (0.000-0.055) Total Protein 6.7g/dL (6.4-8.2) Albumin 2.8g/dL (3.4-5.0) Albumin/Globulin Ratio 0.7 (1.0-1.7) Test 07/03/16 04:05 07/03/16 05:00 07/03/16 07:13 07/03/16 10:56 Sodium Level 138mmol/L (136-145) Potassium Level 4.5mmol/L (3.5-5.1) Chloride Level 103mmol/L (98-107) Carbon Dioxide Level 23mmol/L (21-32) Anion Gap 12 (6-14) Blood Urea Nitrogen 25mg/dL (7-20) Creatinine 1.2mg/dL (0.6-1.0) Estimated GFR (Cockcroft-Gault) 44.2 Glucose Level 149mg/dL (70-99) Calcium Level 9.5mg/dL (8.5-10.1) White Blood Count 7.4x10^3/uL (4.0-11.0) Red Blood Count 3.61x10^6/uL (3.50-5.40) Hemoglobin 10.7g/dL (12.0-15.5) Hematocrit 31.6% (36.0-47.0) Mean Corpuscular Volume 88fL (79-100) Mean Corpuscular Hemoglobin 30pg (25-35) Mean Corpuscular Hemoglobin Concent 34g/dL (31-37) Red Cell Distribution Width 13.8% (11.5-14.5) Platelet Count 218x10^3/uL (140-400) Neutrophils (%) (Auto) 66% (31-73) Lymphocytes (%) (Auto) 16% (24-48) Monocytes (%) (Auto) 16% (0-9) Eosinophils (%) (Auto) 1% (0-3) Basophils (%) (Auto) 0% (0-3) Neutrophils # (Auto) 4.9x10^3uL (1.8-7.7) Lymphocytes # (Auto) 1.2x10^3/uL (1.0-4.8) Monocytes # (Auto) 1.2x10^3/uL (0.0-1.1) Eosinophils # (Auto) 0.1x10^3/uL (0.0-0.7) Basophils # (Auto) 0.0x10^3/uL (0.0-0.2) Glucose (Fingerstick) 164mg/dL (70-99) 147mg/dL (70-99) Laboratory Tests Test 07/02/16 14:04 07/02/16 14:58 07/02/16 17:02 07/02/16 17:05 Glucose (Fingerstick) 183mg/dL (70-99) 168mg/dL (70-99) 186mg/dL (70-99) Sodium Level 139mmol/L (136-145) Potassium Level 4.4mmol/L (3.5-5.1) Chloride Level 105mmol/L (98-107) Carbon Dioxide Level 22mmol/L (21-32) Anion Gap 12 (6-14) Blood Urea Nitrogen 19mg/dL (7-20) Creatinine 1.0mg/dL (0.6-1.0) Estimated GFR (Cockcroft-Gault) 54.5 BUN/Creatinine Ratio 19 (6-20) Glucose Level 210mg/dL (70-99) Calcium Level 9.7mg/dL (8.5-10.1) Total Bilirubin 0.5mg/dL (0.2-1.0) Aspartate Amino Transf (AST/SGOT) 15U/L (15-37) Alanine Aminotransferase (ALT/SGPT) 12U/L (14-59) Alkaline Phosphatase 95U/L (46-116) Troponin I Quantitative < 0.017ng/mL (0.000-0.055) Total Protein 6.7g/dL (6.4-8.2) Albumin 2.8g/dL (3.4-5.0) Albumin/Globulin Ratio 0.7 (1.0-1.7) Test 07/02/16 21:10 07/02/16 22:40 07/03/16 04:05 07/03/16 05:00 Glucose (Fingerstick) 185mg/dL (70-99) Troponin I Quantitative < 0.017ng/mL (0.000-0.055) Sodium Level 138mmol/L (136-145) Potassium Level 4.5mmol/L (3.5-5.1) Chloride Level 103mmol/L (98-107) Carbon Dioxide Level 23mmol/L (21-32) Anion Gap 12 (6-14) Blood Urea Nitrogen 25mg/dL (7-20) Creatinine 1.2mg/dL (0.6-1.0) Estimated GFR (Cockcroft-Gault) 44.2 Glucose Level 149mg/dL (70-99) Calcium Level 9.5mg/dL (8.5-10.1) White Blood Count 7.4x10^3/uL (4.0-11.0) Red Blood Count 3.61x10^6/uL (3.50-5.40) Hemoglobin 10.7g/dL (12.0-15.5) Hematocrit 31.6% (36.0-47.0) Mean Corpuscular Volume 88fL (79-100) Mean Corpuscular Hemoglobin 30pg (25-35) Mean Corpuscular Hemoglobin Concent 34g/dL (31-37) Red Cell Distribution Width 13.8% (11.5-14.5) Platelet Count 218x10^3/uL (140-400) Neutrophils (%) (Auto) 66% (31-73) Lymphocytes (%) (Auto) 16% (24-48) Monocytes (%) (Auto) 16% (0-9) Eosinophils (%) (Auto) 1% (0-3) Basophils (%) (Auto) 0% (0-3) Neutrophils # (Auto) 4.9x10^3uL (1.8-7.7) Lymphocytes # (Auto) 1.2x10^3/uL (1.0-4.8) Monocytes # (Auto) 1.2x10^3/uL (0.0-1.1) Eosinophils # (Auto) 0.1x10^3/uL (0.0-0.7) Basophils # (Auto) 0.0x10^3/uL (0.0-0.2) Test 07/03/16 07:13 07/03/16 10:56 Glucose (Fingerstick) 164mg/dL (70-99) 147mg/dL (70-99) Microbiology 06/30/16 Urine Culture - Preliminary, Resulted 06/30/16 Urine Culture Result 1 (ÁNGEL) - Preliminary, Resulted 06/30/16 Urine Culture Result 2 (ÁNGEL) - Preliminary, Resulted Medications Current Medications Acetaminophen (Tylenol) 1,000 mg 1X ONCE PO Last administered on 06/30/16t 07: 33; Start 06/30/16 at 07:00; Stop 06/30/16 at 07:04; Status DC Ondansetron HCl 4 mg 4 mg 1X ONCE IV Last administered on 06/30/16 07:32; Start 06/30/16 at 07:15; Stop 06/30/16 at 07:16; Status DC Sodium Chloride (Iv Sodium Chloride 0.9% 500ml Bag) 500 ml @ 500 mls/hr 1X ONCE IV Last administered on 06/30/16 09:57; Start 06/30/16 at 08:45; Stop at 09:44; Status DC Ondansetron HCl (Zofran) 4 mg PRN Q8HRS PRN IV NAUSEA/VOMITING Last administered on 06/30/16 20:58; Start 06/30/16 at 08:45; Stop 07/01/16 at 08:44; Status DC Morphine Sulfate 2 mg PRN Q2HR PRN IV PAIN Last administered on 07/01/16 05:16 ; Start 06/30/16 at 08:45; Stop 07/01/16 at 08:44; Status DC Acetaminophen (Tylenol) 650 mg PRN Q4HRS PRN PO FEVER Last administered on 20:40; Start 06/30/16 at 08:45; Stop 07/01/16 at 08:44; Status DC Insulin Aspart (Novolog) 0-7 UNITS TIDWMEALS SQ Last administered on 07/03/16 08:54; Start 06/30/16 at 12:00 Dextrose 12.5 gm PRN Q15MIN PRN IV SEE COMMENTS; Start 06/30/16 at 08:45 Pneumococcal Polyvalent Vaccine (Do NOT chart on this placeholder) 1 each 1X ONCE MC ; Start 06/30/16 at 11:30; Stop 06/30/16 at 11:31; Status UNV Acetaminophen (Tylenol) 650 mg PRN Q6HRS PRN PO PAIN; Start 06/30/16 at 12:15; Stop 06/30/16 at 12:18; Status DC Amlodipine Besylate (Norvasc) 10 mg DAILY PO Last administered on 07/03/16 08: 47; Start 06/30/16 at 13:00 Atorvastatin Calcium (Lipitor) 40 mg QHS PO Last administered on 07/02/16 22: 29; Start 06/30/16 at 21:00 Carvedilol (Coreg) 25 mg BIDWMEALS PO Last administered on 07/03/16 08:47; Start 06/30/16 at 17:00 Clopidogrel Bisulfate (Plavix) 75 mg DAILY07 PO Last administered on 07/03/16 05:38; Start 06/30/16 at 13:00 Cyclosporine (Restasis) 1 drop HS OU Last administered on 07/02/16 22:28; Start 06/30/16 at 21:00 Duloxetine HCl (Cymbalta) 30 mg DAILY PO Last administered on 07/03/16 08:47; Start 06/30/16 at 13:00 Mirtazapine (Remeron) 15 mg QHS PO Last administered on 07/02/16 22:28; Start 06/30/16 at 21:00 Nicotine (Nicoderm Cq 21mg) 1 patch DAILY TD Last administered on 07/03/16 08: 46; Start 06/30/16 at 13:00 Oxybutynin Chloride (Ditropan) 5 mg BID PO Last administered on 07/03/16 08:47 ; Start 06/30/16 at 13:00 Pantoprazole Sodium (Protonix) 40 mg DAILY07 PO Last administered on 07/03/16 05:39; Start 06/30/16 at 13:00 Polyethylene Glycol (miraLAX PACKET) 17 gm DAILY PO Last administered on 08:46; Start 06/30/16 at 13:00 Senna/Docusate Sodium (Senna Plus) 2 tab HS PO Last administered on 07/02/16 22:28; Start 06/30/16 at 21:00 Non-Formulary Medication 10 mg QHS PO ; Start 06/30/16 at 21:00; Status UNV Potassium Chloride (Klor-Con) 10 meq DAILYWBKFT PO Last administered on 08:48; Start 06/30/16 at 13:00 Acetaminophen (Tylenol) 650 mg PRN Q6HRS PRN PO MILD PAIN / TEMP; Start at 12:15; Status UNV Ondansetron HCl (Zofran) 4 mg PRN Q6HRS PRN IV NAUSEA/VOMITING Last administered on 07/02/16 18:22; Start 06/30/16 at 12:15 Heparin Sodium (Porcine) 5,000 unit Q8HRS SQ Last administered on 07/03/16 05: 43; Start 06/30/16 at 14:00 Insulin Aspart (Novolog) 5 units TIDAC SQ Last administered on 07/01/16 08:46; Start 06/30/16 at 16:30; Stop 07/01/16 at 11:45; Status DC Insulin Detemir (Levemir) 20 units QHS SQ Last administered on 06/30/16 20:55; Start 06/30/16 at 21:00; Stop 07/01/16 at 11:45; Status DC Doxycycline Hyclate (Vibra-Tab) 100 mg BID PO Last administered on 07/01/16 20: 40; Start 06/30/16 at 13:00; Stop 07/02/16 at 10:36; Status DC Guaifenesin 600 mg 600 mg BID PO Last administered on 07/03/16 08:47; Start at 13:00 Sodium Chloride (Iv Sodium Chloride 0.9% 1000ml Bag) 1,000 ml @ 75 mls/hr 1X ONCE IV Last administered on 06/30/16 13:21; Start 06/30/16 at 12:15; Stop at 01:34; Status DC Acetaminophen (Tylenol) 650 mg PRN Q6HRS PRN PO PAIN Last administered on 22:33; Start 06/30/16 at 12:18 Magnesium Hydroxide (Milk Of Magnesia) 2,400 mg PRN DAILY PRN PO CONSTIPATION; Start 06/30/16 at 17:30 Insulin Aspart (Novolog) 7 units TIDAC SQ ; Start 07/01/16 at 12:00; Stop at 12:57; Status DC Insulin Detemir (Levemir) 22 units QHS SQ Last administered on 07/02/16 22:32 ; Start 07/01/16 at 21:00 Insulin Aspart (Novolog) 5 units TIDAC SQ Last administered on 07/03/16 12:16 ; Start 07/01/16 at 16:30 Hydralazine HCl 10 mg 10 mg 1X ONCE IVP Last administered on 07/02/16 10:46; Start 07/02/16 at 10:30; Stop 07/02/16 at 10:31; Status DC Levofloxacin/ Dextrose (LEVAQUIN 500mg PREMIX) 100 ml @ 100 mls/hr Q24H IV Last administered on 07/03/16 11:01; Start 07/02/16 at 11:00 Lisinopril 20 mg 20 mg DAILY PO Last administered on 07/03/16 08:48; Start 02/08 at 11:00 Propofol (Diprivan) 50 ml @ As Directed STK-MED ONCE IV ; Start 07/02/16 at 12: 00; Stop 07/02/16 at 12:01; Status DC Midazolam HCl (Versed) 2 mg STK-MED ONCE .ROUTE ; Start 07/02/16 at 12:43; Stop 07/02/16 at 12:44; Status DC Iohexol (Omnipaque 300 Mg/ml) 50 ml STK-MED ONCE .ROUTE ; Start 07/02/16 at 12: 45; Stop 07/02/16 at 12:46; Status DC Lidocaine/Sodium Bicarbonate 20 ml 20 ml STK-MED ONCE IJ ; Start 07/02/16 at 12: 46; Stop 07/02/16 at 12:47; Status DC Cefazolin Sodium (Ancef 1gm Ivpb For Omni) 50 ml @ As Directed STK-MED ONCE IV ; Start 07/02/16 at 13:05; Stop 07/02/16 at 13:06; Status DC Lidocaine/Sodium Bicarbonate (Buffered Lidocaine 1%) 20 ml 1X ONCE IJ Last administered on 07/02/16 13:32; Start 07/02/16 at 13:30; Stop 07/02/16 at 13:31 ; Status DC Iohexol (Omnipaque 300 Mg/ml) 50 ml 1X ONCE IART Last administered on 13:31; Start 07/02/16 at 13:30; Stop 07/02/16 at 13:31; Status DC Info (Do NOT chart on this entry -- for MONITORING) 1 each PRN DAILY PRN MC SEE COMMENTS; Start 07/02/16 at 13:45; Stop 07/04/16 at 13:44 Hydralazine HCl (Apresoline) 10 mg 1X PACU PRN IVP HYPERTENSION, SEE COMMENTS; Start 07/02/16 at 14:15 Fentanyl Citrate (Fentanyl 2ml Vial) 25 mcg PRN Q5MIN PRN IV MILD PAIN Last administered on 07/02/16 14:27; Start 07/02/16 at 14:30; Stop 07/02/16 at 20:00 ; Status DC Fentanyl Citrate (Fentanyl 2ml Vial) 50 mcg PRN Q5MIN PRN IV MODERATE PAIN; Start 07/02/16 at 14:30; Stop 07/02/16 at 20:00; Status DC Morphine Sulfate 1 mg 1 mg PRN Q10MIN PRN IV SEVERE PAIN Last administered on 15:10; Start 07/02/16 at 14:30; Stop 07/02/16 at 18:00; Status DC Lactated Ringer's (Iv Lactated Ringers) 1,000 ml @ 30 mls/hr Q24H IV ; Start at 14:20; Stop 07/03/16 at 02:19; Status DC Lidocaine HCl 2 ml 1X PRN PRN ID IV START; Start 07/02/16 at 14:30; Stop at 20:00; Status DC Hydromorphone HCl (Dilaudid) 0.5 mg PRN Q10MIN PRN IV SEV PAIN,Second choice; Start 07/02/16 at 14:30; Stop 07/02/16 at 20:00; Status DC Prochlorperazine Edisylate (Compazine) 5 mg PACU PRN PRN IV NAUSEA; Start 07/02 at 14:30; Stop 07/02/16 at 20:00; Status DC Multi-Ingredient Mouthwash/Gargle (Gi Cocktail Single Dose) 15 ml PRN 1X PRN SWSW CHEST PAIN; Start 07/02/16 at 16:45 Al Hydroxide/Mg Hydroxide (Mylanta Plus Xs) 30 ml PRN Q2HR PRN PO HEARTBURN / GAS; Start 07/02/16 at 16:45 Aspirin 325 mg 325 mg 1X ONCE PO Last administered on 07/02/16 16:55; Start 07/02/16 at 17:00; Stop 07/02/16 at 17:01; Status DC Sodium Chloride (Iv Sodium Chloride 0.9% 1000ml Bag) 1,000 ml @ 75 mls/hr 1X ONCE IV Last administered on 07/03/16t 11:02; Start 07/03/16 at 10:30; Stop 03/11 at 23:49 Active Scripts Active Reported Tylenol (Acetaminophen) 325 Mg Tablet 650 Mg PO TID Senna-Docusate Sodium Tablet (Sennosides/Docusate Sodium) 1 Each Tablet 2 Each PO HS Protonix (Pantoprazole Sodium) 40 Mg Tablet.dr 1 Tab PO DAILY NICODERM CQ 21mg (Nicotine) 1 Each Patch.td24 1 Patch TP DAILY Miralax (Polyethylene Glycol 3350) 17 Gm Powd.pack 1 Packet PO DAILY Miralax (Polyethylene Glycol 3350) 17 Gm Powd.pack 1 Packet PO PRN DAILY PRN Melatonin 3 Mg Tablet 10 Mg PO QHS Mirtazapine 15 Mg Tablet 1 Tab PO QHS Cymbalta (Duloxetine Hcl) 30 Mg Capsule.dr 1 Cap PO DAILY Acetaminophen 500 Mg Tablet 1 Tab PO PRN Q6HRS PRN Novolog (Insulin Aspart) 100 Unit/1 Ml Cartridge 5 Unit SQ DAILYWSUP Restasis (Cyclosporine) 1 Each Droperette 1 Drop EACHEYE HS Multiple Vitamins (Multivitamin) 1 Each Tablet 1 Each PO Potassium Chloride 10 Meq Capsule.er 1 Cap PO DAILY05 Levemir (Insulin Detemir) 100 Unit/1 Ml Vial 30 Unit SQ DAILY Atorvastatin Calcium 40 Mg Tablet 1 Tab PO DAILY Lisinopril 20 Mg Tablet 1 Tab PO DAILY Oxybutynin Chloride 5 Mg Tablet 5 Mg PO BID Norvasc (Amlodipine Besylate) 5 Mg Tablet 10 Mg PO DAILY Clopidogrel (Clopidogrel Bisulfate) 75 Mg Tablet 75 Mg PO DAILY Coreg (Carvedilol) 12.5 Mg Tablet 25 Mg PO BID Vitals/I & O Vital Sign - Last 24 Hours 07/02/16 07/02/16 07/02/16 07/02/16 13:42 13:57 14:10 14:12 Pulse 102 102 102 Resp 20 20 18 B/P 193/65 193/65 189/51 Pulse Ox 96 96 96 O2 Delivery Nasal Cannula Nasal Cannula Nasal Cannula Nasal Cannula O2 Flow Rate 3 3 3 3 07/02/16 07/02/16 07/02/16 07/02/16 14:27 14:27 15:00 15:10 Temp 98.8 97.2 98.8 97.2 Pulse 102 107 Resp 20 18 20 B/P 175/45 166/62 Pulse Ox 96 96 93 O2 Delivery Nasal Cannula Nasal Cannula Nasal Cannula Nasal Cannula O2 Flow Rate 3.0 3 3.0 3.0 07/02/16 07/02/16 07/02/16 07/02/16 15:32 15:32 17:04 19:00 Temp 98.9 98.9 Pulse 107 107 96 82 Resp 20 B/P 175/62 175/62 149/59 114/49 Pulse Ox 92 O2 Delivery Nasal Cannula O2 Flow Rate 3.0 07/02/16 07/02/16 07/03/16 07/03/16 20:00 23:00 07:10 08:00 Temp 97.9 97.5 97.9 97.5 Pulse 75 74 Resp 20 18 B/P 114/52 140/50 Pulse Ox 95 95 O2 Delivery Nasal Cannula Nasal Cannula Nasal Cannula Nasal Cannula O2 Flow Rate 3.0 3.0 3.0 3.0 07/03/16 07/03/16 07/03/16 07/03/16 08:47 08:47 08:48 10:10 Temp 97.7 97.7 Pulse 74 74 74 73 Resp 18 B/P 140/50 140/50 140/50 136/50 Pulse Ox 98 O2 Delivery Nasal Cannula O2 Flow Rate 3.0 Intake and Output 07/02/16 07/02/16 07/03/16 15:00 23:00 07:00 Intake Total 250 ml 340 ml 0 ml Output Total 2 ml Balance 248 ml 340 ml 0 ml ADINA DEVI MD Jul 03, 2016 13:29
--- NOTE | 2016-07-03 13:36 | PDOC2 ---
CARDIAC CONSULT DATE OF CONSULT Date of Consult DATE: 07/03/16 TIME: 13:29 REASON FOR CONSULT Reason for Consult: Syncope HISTORY OF PRESENT ILLNESS HISTORY OF PRESENT ILLNESS Consult placed by TAMMY Lopez is reviewed. CURRENT MEDICATIONS CURRENT MEDICATIONS Current Medications Medications (Trade) Dose Ordered Sig/Pawan Route PRN Reason Start Time Stop Time Status Last Admin Dose Admin Lidocaine/Sodium Bicarbonate (Buffered Lidocaine 1%) 20 ml 1X ONCE IJ 07/02/16 13:30 07/02/16 13:31 DC 07/02/16 13:32 Iohexol (Omnipaque 300 Mg/ml) 50 ml 1X ONCE IART 07/02/16 13:30 07/02/16 13:31 DC 07/02/16 13:31 Fentanyl Citrate (Fentanyl 2ml Vial) 25 mcg PRN Q5MIN PRN IV MILD PAIN 07/02/16 14:30 07/02/16 20:00 DC 07/02/16 14:27 Morphine Sulfate 1 mg PRN Q10MIN PRN IV SEVERE PAIN 07/02/16 14:30 07/02/16 18:00 DC 07/02/16 15:10 Aspirin 325 mg 325 mg 1X ONCE PO 07/02/16 17:00 07/02/16 17:01 DC 07/02/16 16:55 Sodium Chloride (Iv Sodium Chloride 0.9% 1000ml Bag) 1,000 ml @ 75 mls/hr 1X ONCE IV 07/03/16 10:30 07/03/16 23:49 07/03/16 11:02 ALLERGIES ALLERGIES: Coded Allergies: adhesive (Verified Allergy, Intermediate, Rash, 06/15/16) PHYSICAL EXAM General: Alert, Cooperative Lungs: Other (Expiratory wheeze Right anterior mid-field) Heart: Other (Early systolic murmur at LSB, 2/6, mildly diminshed PMI) Extremities: No edema VITALS VITALS Vital Signs Date Time Temp Pulse Resp B/P Pulse Ox O2 Delivery O2 Flow Rate FiO2 07/03/16 10:10 97.7 73 18 136/50 98 Nasal Cannula 3.0 97.7 LABS Lab: Laboratory Tests Test 07/02/16 14:04 07/02/16 14:58 07/02/16 17:02 07/02/16 17:05 Glucose (Fingerstick) 183mg/dL (70-99) 168mg/dL (70-99) 186mg/dL (70-99) Sodium Level 139mmol/L (136-145) Potassium Level 4.4mmol/L (3.5-5.1) Chloride Level 105mmol/L (98-107) Carbon Dioxide Level 22mmol/L (21-32) Anion Gap 12 (6-14) Blood Urea Nitrogen 19mg/dL (7-20) Creatinine 1.0mg/dL (0.6-1.0) Estimated GFR (Cockcroft-Gault) 54.5 BUN/Creatinine Ratio 19 (6-20) Glucose Level 210mg/dL (70-99) Calcium Level 9.7mg/dL (8.5-10.1) Total Bilirubin 0.5mg/dL (0.2-1.0) Aspartate Amino Transf (AST/SGOT) 15U/L (15-37) Alanine Aminotransferase (ALT/SGPT) 12U/L (14-59) Alkaline Phosphatase 95U/L (46-116) Troponin I Quantitative < 0.017ng/mL (0.000-0.055) Total Protein 6.7g/dL (6.4-8.2) Albumin 2.8g/dL (3.4-5.0) Albumin/Globulin Ratio 0.7 (1.0-1.7) Test 07/02/16 21:10 07/02/16 22:40 07/03/16 04:05 07/03/16 05:00 Glucose (Fingerstick) 185mg/dL (70-99) Troponin I Quantitative < 0.017ng/mL (0.000-0.055) Sodium Level 138mmol/L (136-145) Potassium Level 4.5mmol/L (3.5-5.1) Chloride Level 103mmol/L (98-107) Carbon Dioxide Level 23mmol/L (21-32) Anion Gap 12 (6-14) Blood Urea Nitrogen 25mg/dL (7-20) Creatinine 1.2mg/dL (0.6-1.0) Estimated GFR (Cockcroft-Gault) 44.2 Glucose Level 149mg/dL (70-99) Calcium Level 9.5mg/dL (8.5-10.1) White Blood Count 7.4x10^3/uL (4.0-11.0) Red Blood Count 3.61x10^6/uL (3.50-5.40) Hemoglobin 10.7g/dL (12.0-15.5) Hematocrit 31.6% (36.0-47.0) Mean Corpuscular Volume 88fL (79-100) Mean Corpuscular Hemoglobin 30pg (25-35) Mean Corpuscular Hemoglobin Concent 34g/dL (31-37) Red Cell Distribution Width 13.8% (11.5-14.5) Platelet Count 218x10^3/uL (140-400) Neutrophils (%) (Auto) 66% (31-73) Lymphocytes (%) (Auto) 16% (24-48) Monocytes (%) (Auto) 16% (0-9) Eosinophils (%) (Auto) 1% (0-3) Basophils (%) (Auto) 0% (0-3) Neutrophils # (Auto) 4.9x10^3uL (1.8-7.7) Lymphocytes # (Auto) 1.2x10^3/uL (1.0-4.8) Monocytes # (Auto) 1.2x10^3/uL (0.0-1.1) Eosinophils # (Auto) 0.1x10^3/uL (0.0-0.7) Basophils # (Auto) 0.0x10^3/uL (0.0-0.2) Test 07/03/16 07:13 07/03/16 10:56 Glucose (Fingerstick) 164mg/dL (70-99) 147mg/dL (70-99) STRESS TEST STRESS TEST Small area of perfusion defect in the inferior wall more prominent with stress than with rest indicating myocardial ischemia and scar in that area. Decreased wall motion and wall thickening over the inferior wall with normal wall motion and wall thickening over the rest of the myocardium with an ejection fraction of 55%. Scan indicates low risk for future cardiac events. ASSESSMENT/PLAN ASSESSMENT/PLAN Syncope--No arrhythmia on tele so far, stress test low risk and troponin negative. Does not appear to be a cardiac etiology to the event. Agree with TAMMY Lopez's A/P. Will follow as needed. Problems: VALERIO PEREIRA DO Jul 03, 2016 13:36
[2016-07-03 14:45] VITALS: BP 118/43
--- NOTE | 2016-07-03 14:56 | PDOC ---
Provider Note Provider Note AF VSS awake and alert neck suppler with bilateral carotid surgery scar neuro exam intact US shows >70% recurrent left carotid artery stenosis A/P Recurrent left ICA stenosis >70% Recommend a CT angiogram of the head and neck to evaluate the left carotid artery stenosis, she has had left carotid endarterectomy X2 and right carotid endarterectomy and stenting in the past. MURRAY VARGHESE MD Jul 03, 2016 14:56
--- NOTE | 2016-07-03 16:28 | PDOC ---
Infectious Disease Note Vital Sign Vital Signs Vital Signs Date Time Temp Pulse Resp B/P Pulse Ox O2 Delivery O2 Flow Rate FiO2 07/03/16 14:45 99.5 72 18 118/43 95 Nasal Cannula 3.0 99.5 Labs Lab Laboratory Tests Test 07/02/16 17:02 07/02/16 17:05 07/02/16 21:10 07/02/16 22:40 Glucose (Fingerstick) 186mg/dL (70-99) 185mg/dL (70-99) Sodium Level 139mmol/L (136-145) Potassium Level 4.4mmol/L (3.5-5.1) Chloride Level 105mmol/L (98-107) Carbon Dioxide Level 22mmol/L (21-32) Anion Gap 12 (6-14) Blood Urea Nitrogen 19mg/dL (7-20) Creatinine 1.0mg/dL (0.6-1.0) Estimated GFR (Cockcroft-Gault) 54.5 BUN/Creatinine Ratio 19 (6-20) Glucose Level 210mg/dL (70-99) Calcium Level 9.7mg/dL (8.5-10.1) Total Bilirubin 0.5mg/dL (0.2-1.0) Aspartate Amino Transf (AST/SGOT) 15U/L (15-37) Alanine Aminotransferase (ALT/SGPT) 12U/L (14-59) Alkaline Phosphatase 95U/L (46-116) Troponin I Quantitative < 0.017ng/mL (0.000-0.055) < 0.017ng/mL (0.000-0.055) Total Protein 6.7g/dL (6.4-8.2) Albumin 2.8g/dL (3.4-5.0) Albumin/Globulin Ratio 0.7 (1.0-1.7) Test 07/03/16 04:05 07/03/16 05:00 07/03/16 07:13 07/03/16 10:56 Sodium Level 138mmol/L (136-145) Potassium Level 4.5mmol/L (3.5-5.1) Chloride Level 103mmol/L (98-107) Carbon Dioxide Level 23mmol/L (21-32) Anion Gap 12 (6-14) Blood Urea Nitrogen 25mg/dL (7-20) Creatinine 1.2mg/dL (0.6-1.0) Estimated GFR (Cockcroft-Gault) 44.2 Glucose Level 149mg/dL (70-99) Calcium Level 9.5mg/dL (8.5-10.1) White Blood Count 7.4x10^3/uL (4.0-11.0) Red Blood Count 3.61x10^6/uL (3.50-5.40) Hemoglobin 10.7g/dL (12.0-15.5) Hematocrit 31.6% (36.0-47.0) Mean Corpuscular Volume 88fL (79-100) Mean Corpuscular Hemoglobin 30pg (25-35) Mean Corpuscular Hemoglobin Concent 34g/dL (31-37) Red Cell Distribution Width 13.8% (11.5-14.5) Platelet Count 218x10^3/uL (140-400) Neutrophils (%) (Auto) 66% (31-73) Lymphocytes (%) (Auto) 16% (24-48) Monocytes (%) (Auto) 16% (0-9) Eosinophils (%) (Auto) 1% (0-3) Basophils (%) (Auto) 0% (0-3) Neutrophils # (Auto) 4.9x10^3uL (1.8-7.7) Lymphocytes # (Auto) 1.2x10^3/uL (1.0-4.8) Monocytes # (Auto) 1.2x10^3/uL (0.0-1.1) Eosinophils # (Auto) 0.1x10^3/uL (0.0-0.7) Basophils # (Auto) 0.0x10^3/uL (0.0-0.2) Glucose (Fingerstick) 164mg/dL (70-99) 147mg/dL (70-99) Objective Assessment Fever ? fracture vs post procedure reaction L1 lumbar compression fracture s/p Kyphoplasty Carotid stenosis Viridans strep & CoNS in urine. UA unremarkable for infection s/p fall Plan Plan of Care Change Levaquin to Rocephin per Dr. Ying Monitor temp and labs Supportive care Thank you [id number] JERE ALVES APRN Jul 03, 2016 16:28
[2016-07-03] MEDS: CEFTRIAXONE SODIUM 1 GM in IV NORMAL SALINE 50ML 50 ML IV SCH (17:16)
[2016-07-03] MEDS: ACETAMINOPHEN 325 MG TABLET. PO PRN (17:16)
[2016-07-03 19:00] VITALS: BP 128/44
[2016-07-03] MEDS: CYCLOSPORINE 0.05% OPTH DROPERETTE. OU SCH (20:48)
[2016-07-03] MEDS: MIRTAZAPINE 15 MG TABLET PO SCH (20:48)
[2016-07-03] MEDS: SENNOSIDES/DOCUSATE 8.6/50MG TABLET. PO SCH (20:48)
[2016-07-03] MEDS: ATORVASTATIN CALCIUM 40 MG TABLET. PO SCH (20:48)
[2016-07-03] MEDS: INSULIN DETEMIR 300 UNITS/3 ML INSULN.PEN. SQ SCH (21:01)
[2016-07-03 21:08] LABS: % BASOS 1 % (0-3); % EOS 1 % (0-5); PLT ESTIMATE ADEQUATE (ADEQUATE); TOXIC GRANULATION MOD
[2016-07-03 23:00] VITALS: BP 132/42
[2016-07-04 03:29] VITALS: BP 136/49
[2016-07-04] MEDS: PANTOPRAZOLE 40 MG TABLET. PO SCH (06:10)
[2016-07-04] MEDS: CLOPIDOGREL BISULFATE 75 MG TABLET PO SCH (06:10)
[2016-07-04] MEDS: HEPARIN PF for SUB-Q USE 5,000 UNIT/0.5 ML VIAL. SQ SCH ×3 (06:18→21:37)
[2016-07-04 07:05] VITALS: BP 154/57
[2016-07-04 07:08] LABS: CALCIUM 9.3 mg/dL (8.5-10.1); CREATININE 1.1 mg/dL (0.6-1.0); GFR 48.8; POTASSIUM 4.2 mmol/L (3.5-5.1)
[2016-07-04] MEDS: INSULIN ASPART 300 UNITS/3 ML INSULN.PEN SQ SCH ×6 (07:30→17:36)
[2016-07-04] MEDS: OXYBUTYNIN CHLORIDE 5 MG TABLET PO SCH ×2 (07:56→20:24)
[2016-07-04] MEDS: POTASSIUM CHLORIDE 10 MEQ TABLET.ER. PO SCH (07:56)
[2016-07-04] MEDS: NICOTINE 21MG PATCH. TD SCH (07:56)
[2016-07-04] MEDS: POLYETHYLENE GLYCOL 3350 17 GM PACKET. PO SCH (07:56)
[2016-07-04] MEDS: DULOXETINE HCL 30 MG CAPSULE.DR. PO SCH (07:57)
[2016-07-04] MEDS: CARVEDILOL 12.5 MG TABLET PO SCH ×2 (07:57→17:00)
[2016-07-04] MEDS: AMLODIPINE BESYLATE 10 MG TABLET PO SCH (07:57)
[2016-07-04] MEDS: LISINOPRIL 20 MG TABLET PO SCH (07:58)
[2016-07-04] MEDS: GUAIFENESIN ER 600 MG TABLET.ER PO SCH ×2 (07:58→20:24)
--- NOTE | 2016-07-04 08:26 | PDOC ---
Provider Note Provider Note Awaiting CTA to evaluate carotid disease. Scan today with improved renal function following hydration. MURRAY VARGHESE MD Jul 04, 2016 08:26
[2016-07-04] MEDS ORDERED: IOHEXOL 300 MG/ML 75 ML VIAL IV ONE (09:45)
[2016-07-04 10:40] VITALS: BP 148/52
--- NOTE | 2016-07-04 11:59 | RAD ---
EXAM: CTA head and neck with contrast. HISTORY: Carotid occlusive disease. TECHNIQUE: Computed tomographic angiography of the head and neck was performed after the intravenous menstruation of 60 mL Omnipaque 300. Three-dimensional reconstructions were also performed.. COMPARISON: Carotid ultrasound, 07/01/2016. FINDINGS: Angiographic findings: There are limitations from motion artifact. The aortic arch has a typical branching pattern. There is a moderate to severe stenosis at the origin of the left common carotid artery. There are multifocal mild to moderate stenoses within the left proximal subclavian artery. There is a mild stenosis at the brachiocephalic artery origin. There is a moderate stenosis at the origin of the right common carotid artery. There is a >70% stenosis within the distal right common carotid artery. There is a patent stent along the right carotid bulb extending to the origin of the internal carotid artery. There is no stenosis within the right cervical internal carotid artery. There is a subtotal stenosis within the left common carotid artery at the level of the thoracic inlet. There is poststenotic dilatation more distally. The left internal carotid artery is diffusely relatively small. There is at least 50% stenosis proximally. The lumen is 50% smaller than the right internal carotid artery diffusely. There is a mild stenosis at the proximal aspect of the right cavernous internal carotid arteries. There is moderate atherosclerotic irregularity of both cavernous internal carotid arteries. The lumen on the left is smaller than the right, as seen in the more proximal cervical internal carotid artery. The right middle cerebral artery territory is attenuated in the region of a large chronic infarct. The left middle cerebral artery and both anterior cerebral arteries are patent. There is at least moderate stenosis at the origin of the right vertebral artery. It is patent more distally. There is a subtotal stenosis at the origin of the left vertebral artery. There are multifocal moderate stenoses throughout its cervical portion, including at the foramen magnum. The basilar artery is patent. Both posterior cerebral arteries are patent. The posterior communicating and anterior communicating arteries are patent. Nonangiographic findings: Images of the lung apices reveal [id number] centrilobular emphysema and basilar atelectasis. Bone windows reveal no suspicious lesions. There is a small osteoma in the left aspect of the frontal sinus measuring 5 mm. There are changes of bilateral cataract surgery. There is moderate to severe chronic small vessel ischemic white matter change. There are regions of encephalomalacia consistent with chronic infarcts in the right middle cerebral artery territory, left parietal lobe and both davis radiata. Prominence of the lateral ventricles and hemispheric sulci indicate moderate atrophy. There are no enhancing lesions. The right submandibular gland is atrophic. The left is unremarkable. Both parotid glands are unremarkable. The thyroid gland is mildly diffusely enlarged. There are postsurgical changes bilaterally in the neck. There are no pathologically enlarged lymph nodes. There are no clear laryngeal or pharyngeal masses. IMPRESSION: 1. Moderate to severe stenosis at the origin of the left common carotid artery. There is a subtotal stenosis at the thoracic inlet. 2. Moderate stenosis at the right CC a region. >70% stenosis within the distal common carotid artery. 3. The lumen of the left internal carotid artery is diffusely small, with elevated velocities on the previous carotid Doppler. There is at least 50% stenosis just beyond its origin using NASCET criteria. However, this is likely more hemodynamically significant given the diffusely small lumen. 4. Stenoses at the origins of the vertebral arteries are at least moderate on the right and subtotal on the left there are multifocal moderate stenoses throughout the left vertebral artery. 5. Moderate atherosclerotic irregularity with mild to moderate multifocal stenoses within both cavernous internal carotid arteries. 6. 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 Moderate atrophy. 7. Mild to moderate centrilobular emphysema in the apices. One or more of the following individualized dose reduction techniques were utilized for this examination: 1. Automated exposure control. 2. Adjustment of the mA and/or kV according to patient size. 3. Use of iterative reconstruction technique.
--- NOTE | 2016-07-04 12:31 | PDOC ---
PROGRESS NOTES Chief Complaint Chief Complaint Assessment/Plan 1. acute resp failure with COPD likely 2. fall, 2/2 unsteady gait likely 3. recent syncope and left forearm fx, no sx 4. h/o CAD 5. h/o CHF 6. H/O cva WITH MILD left side weakness 7. depression 8. dm2 on insulin 9. gerd 10. htn 11. hld 12. MELONIE, vasomotor. CKD2-3 13. h/o PEG 14. cervical DJD, CHRONIC spine fx, subacute L1 fx s/p kyphoplasty on 07/02 15 . >70% stenosis within the proximal and mid left internal carotid artery on US, had sx before plan: 1. pulm, ortho, dr. López consultED IR consulted, L1 KYphoplasty get vascular consult for 15, recommend CTA given pt had sx before, will order, but Cr slightly high, Radiology called, will do gentLE ivf and CTA today 2. duoneb 3. chest CT as per pulm, neg 4. ptot 5. check orthostatic add lisinopril for htn, on coreg, amlodipine labs tmr 6. increase aspart 5u tid, levemir 22u qhs, ssi gi ppx flu neg SW for snf ID consult for cont fever, levaquin changed to rocephin on 07/01 TTE pending for chest pain, neg CE AND EKG fu with ortho for recent left wrist fx need to fu with vascular if need carotid stent, fu with ortho, then dc to SNF History of Present Illness History of Present Illness new on NC 2 L cough, no sputum fever daily mild lower back pain, + shoulder pain still lower back pain 09/01, post kypho Vitals Vitals Vital Signs Date Time Temp Pulse Resp B/P Pulse Ox O2 Delivery O2 Flow Rate FiO2 07/04/16 10:40 97.9 69 18 148/52 96 Nasal Cannula 3.0 97.9 Physical Exam General: Alert, Cooperative Heart: Other (Early systolic murmur at LSB, 2/6, mildly diminshed PMI) Lungs: Other (decrease bs) Abdomen: Soft, No tenderness Extremities: No edema Skin: No breakdown, No significant lesion Labs LABS Laboratory Tests Test 07/03/16 16:26 07/03/16 20:11 07/04/16 06:37 07/04/16 07:05 Glucose (Fingerstick) 183mg/dL (70-99) 175mg/dL (70-99) 99mg/dL (70-99) Sodium Level 141mmol/L (136-145) Potassium Level 4.2mmol/L (3.5-5.1) Chloride Level 107mmol/L (98-107) Carbon Dioxide Level 24mmol/L (21-32) Anion Gap 10 (6-14) Blood Urea Nitrogen 20mg/dL (7-20) Creatinine 1.1mg/dL (0.6-1.0) Estimated GFR (Cockcroft-Gault) 48.8 Glucose Level 94mg/dL (70-99) Calcium Level 9.3mg/dL (8.5-10.1) Test 07/04/16 11:21 Glucose (Fingerstick) 159mg/dL (70-99) Review of Systems Review of Systems no fever, chills, sob or chest pain Assessment and Plan Assessmemt and Plan Problems Medical Problems: (1) Hypoxia Status: Acute (2) Syncope Status: Acute Problems: Comment Review of Relevant I have reviewed the following items carlota (where applicable) has been applied. Labs Laboratory Tests Test 07/02/16 14:04 07/02/16 14:58 07/02/16 17:02 07/02/16 17:05 Glucose (Fingerstick) 183mg/dL (70-99) 168mg/dL (70-99) 186mg/dL (70-99) Sodium Level 139mmol/L (136-145) Potassium Level 4.4mmol/L (3.5-5.1) Chloride Level 105mmol/L (98-107) Carbon Dioxide Level 22mmol/L (21-32) Anion Gap 12 (6-14) Blood Urea Nitrogen 19mg/dL (7-20) Creatinine 1.0mg/dL (0.6-1.0) Estimated GFR (Cockcroft-Gault) 54.5 BUN/Creatinine Ratio 19 (6-20) Glucose Level 210mg/dL (70-99) Calcium Level 9.7mg/dL (8.5-10.1) Total Bilirubin 0.5mg/dL (0.2-1.0) Aspartate Amino Transf (AST/SGOT) 15U/L (15-37) Alanine Aminotransferase (ALT/SGPT) 12U/L (14-59) Alkaline Phosphatase 95U/L (46-116) Troponin I Quantitative < 0.017ng/mL (0.000-0.055) Total Protein 6.7g/dL (6.4-8.2) Albumin 2.8g/dL (3.4-5.0) Albumin/Globulin Ratio 0.7 (1.0-1.7) Test 07/02/16 21:10 07/02/16 22:40 07/03/16 04:05 07/03/16 05:00 Glucose (Fingerstick) 185mg/dL (70-99) Troponin I Quantitative < 0.017ng/mL (0.000-0.055) Sodium Level 138mmol/L (136-145) Potassium Level 4.5mmol/L (3.5-5.1) Chloride Level 103mmol/L (98-107) Carbon Dioxide Level 23mmol/L (21-32) Anion Gap 12 (6-14) Blood Urea Nitrogen 25mg/dL (7-20) Creatinine 1.2mg/dL (0.6-1.0) Estimated GFR (Cockcroft-Gault) 44.2 Glucose Level 149mg/dL (70-99) Calcium Level 9.5mg/dL (8.5-10.1) White Blood Count 7.4x10^3/uL (4.0-11.0) Red Blood Count 3.61x10^6/uL (3.50-5.40) Hemoglobin 10.7g/dL (12.0-15.5) Hematocrit 31.6% (36.0-47.0) Mean Corpuscular Volume 88fL (79-100) Mean Corpuscular Hemoglobin 30pg (25-35) Mean Corpuscular Hemoglobin Concent 34g/dL (31-37) Red Cell Distribution Width 13.8% (11.5-14.5) Platelet Count 218x10^3/uL (140-400) Neutrophils (%) (Auto) 66% (31-73) Lymphocytes (%) (Auto) 16% (24-48) Monocytes (%) (Auto) 16% (0-9) Eosinophils (%) (Auto) 1% (0-3) Basophils (%) (Auto) 0% (0-3) Neutrophils # (Auto) 4.9x10^3uL (1.8-7.7) Lymphocytes # (Auto) 1.2x10^3/uL (1.0-4.8) Monocytes # (Auto) 1.2x10^3/uL (0.0-1.1) Eosinophils # (Auto) 0.1x10^3/uL (0.0-0.7) Basophils # (Auto) 0.0x10^3/uL (0.0-0.2) Segmented Neutrophils % 61% (35-66) Band Neutrophils % 3% (0-9) Lymphocytes % 18% (24-48) Monocytes % 14% (0-10) Eosinophils % 1% (0-5) Basophils % 1% (0-3) Metamyelocytes % 1% (0-0) Myelocytes % 1% (0-0) Toxic Granulation Mod Platelet Estimate Adequate (ADEQUATE) Test 07/03/16 07:13 07/03/16 10:56 07/03/16 16:26 07/03/16 20:11 Glucose (Fingerstick) 164mg/dL (70-99) 147mg/dL (70-99) 183mg/dL (70-99) 175mg/dL (70-99) Test 07/04/16 06:37 07/04/16 07:05 07/04/16 11:21 Sodium Level 141mmol/L (136-145) Potassium Level 4.2mmol/L (3.5-5.1) Chloride Level 107mmol/L (98-107) Carbon Dioxide Level 24mmol/L (21-32) Anion Gap 10 (6-14) Blood Urea Nitrogen 20mg/dL (7-20) Creatinine 1.1mg/dL (0.6-1.0) Estimated GFR (Cockcroft-Gault) 48.8 Glucose Level 94mg/dL (70-99) Calcium Level 9.3mg/dL (8.5-10.1) Glucose (Fingerstick) 99mg/dL (70-99) 159mg/dL (70-99) Laboratory Tests Test 07/03/16 16:26 07/03/16 20:11 07/04/16 06:37 07/04/16 07:05 Glucose (Fingerstick) 183mg/dL (70-99) 175mg/dL (70-99) 99mg/dL (70-99) Sodium Level 141mmol/L (136-145) Potassium Level 4.2mmol/L (3.5-5.1) Chloride Level 107mmol/L (98-107) Carbon Dioxide Level 24mmol/L (21-32) Anion Gap 10 (6-14) Blood Urea Nitrogen 20mg/dL (7-20) Creatinine 1.1mg/dL (0.6-1.0) Estimated GFR (Cockcroft-Gault) 48.8 Glucose Level 94mg/dL (70-99) Calcium Level 9.3mg/dL (8.5-10.1) Test 07/04/16 11:21 Glucose (Fingerstick) 159mg/dL (70-99) Microbiology 06/30/16 Urine Culture - Final, Complete 06/30/16 Urine Culture Result 1 (ÁNGEL) - Final, Complete 06/30/16 Urine Culture Result 2 (ÁNGEL) - Final, Complete 06/30/16 Antimicrobic Susceptibility - Final, Complete Medications Current Medications Acetaminophen (Tylenol) 1,000 mg 1X ONCE PO Last administered on 06/30/16 07: 33; Start 06/30/16 at 07:00; Stop 06/30/16 at 07:04; Status DC Ondansetron HCl 4 mg 4 mg 1X ONCE IV Last administered on 06/30/16 07:32; Start 06/30/16 at 07:15; Stop 06/30/16 at 07:16; Status DC Sodium Chloride (Iv Sodium Chloride 0.9% 500ml Bag) 500 ml @ 500 mls/hr 1X ONCE IV Last administered on 06/30/16 09:57; Start 06/30/16 at 08:45; Stop at 09:44; Status DC Ondansetron HCl (Zofran) 4 mg PRN Q8HRS PRN IV NAUSEA/VOMITING Last administered on 06/30/16 20:58; Start 06/30/16 at 08:45; Stop 07/01/16 at 08:44; Status DC Morphine Sulfate 2 mg PRN Q2HR PRN IV PAIN Last administered on 07/01/16 05:16 ; Start 06/30/16 at 08:45; Stop 07/01/16 at 08:44; Status DC Acetaminophen (Tylenol) 650 mg PRN Q4HRS PRN PO FEVER Last administered on 20:40; Start 06/30/16 at 08:45; Stop 07/01/16 at 08:44; Status DC Insulin Aspart (Novolog) 0-7 UNITS TIDWMEALS SQ Last administered on 07/04/16 11:42; Start 06/30/16 at 12:00 Dextrose 12.5 gm PRN Q15MIN PRN IV SEE COMMENTS; Start 06/30/16 at 08:45 Pneumococcal Polyvalent Vaccine (Do NOT chart on this placeholder) 1 each 1X ONCE MC ; Start 06/30/16 at 11:30; Stop 06/30/16 at 11:31; Status UNV Acetaminophen (Tylenol) 650 mg PRN Q6HRS PRN PO PAIN; Start 06/30/16 at 12:15; Stop 06/30/16 at 12:18; Status DC Amlodipine Besylate (Norvasc) 10 mg DAILY PO Last administered on 07/04/16 07: 57; Start 06/30/16 at 13:00 Atorvastatin Calcium (Lipitor) 40 mg QHS PO Last administered on 07/03/16 20: 48; Start 06/30/16 at 21:00 Carvedilol (Coreg) 25 mg BIDWMEALS PO Last administered on 07/04/16 07:57; Start 06/30/16 at 17:00 Clopidogrel Bisulfate (Plavix) 75 mg DAILY07 PO Last administered on 07/04/16 06:10; Start 06/30/16 at 13:00 Cyclosporine (Restasis) 1 drop HS OU Last administered on 07/03/16 20:48; Start 06/30/16 at 21:00 Duloxetine HCl (Cymbalta) 30 mg DAILY PO Last administered on 07/04/16 07:57; Start 06/30/16 at 13:00 Mirtazapine (Remeron) 15 mg QHS PO Last administered on 07/03/16 20:48; Start 06/30/16 at 21:00 Nicotine (Nicoderm Cq 21mg) 1 patch DAILY TD Last administered on 07/04/16 07: 56; Start 06/30/16 at 13:00 Oxybutynin Chloride (Ditropan) 5 mg BID PO Last administered on 07/04/16 07:56 ; Start 06/30/16 at 13:00 Pantoprazole Sodium (Protonix) 40 mg DAILY07 PO Last administered on 07/04/16 06:10; Start 06/30/16 at 13:00 Polyethylene Glycol (miraLAX PACKET) 17 gm DAILY PO Last administered on 07:56; Start 06/30/16 at 13:00 Senna/Docusate Sodium (Senna Plus) 2 tab HS PO Last administered on 07/03/16 20:48; Start 06/30/16 at 21:00 Non-Formulary Medication 10 mg QHS PO ; Start 06/30/16 at 21:00; Status UNV Potassium Chloride (Klor-Con) 10 meq DAILYWBKFT PO Last administered on 07:56; Start 06/30/16 at 13:00 Acetaminophen (Tylenol) 650 mg PRN Q6HRS PRN PO MILD PAIN / TEMP; Start at 12:15; Status UNV Ondansetron HCl (Zofran) 4 mg PRN Q6HRS PRN IV NAUSEA/VOMITING Last administered on 07/02/16 18:22; Start 06/30/16 at 12:15 Heparin Sodium (Porcine) 5,000 unit Q8HRS SQ Last administered on 07/04/16 06: 18; Start 06/30/16 at 14:00 Insulin Aspart (Novolog) 5 units TIDAC SQ Last administered on 07/01/16 08:46; Start 06/30/16 at 16:30; Stop 07/01/16 at 11:45; Status DC Insulin Detemir (Levemir) 20 units QHS SQ Last administered on 06/30/16 20:55; Start 06/30/16 at 21:00; Stop 07/01/16 at 11:45; Status DC Doxycycline Hyclate (Vibra-Tab) 100 mg BID PO Last administered on 07/01/16 20: 40; Start 06/30/16 at 13:00; Stop 07/02/16 at 10:36; Status DC Guaifenesin 600 mg 600 mg BID PO Last administered on 07/04/16 07:58; Start at 13:00 Sodium Chloride (Iv Sodium Chloride 0.9% 1000ml Bag) 1,000 ml @ 75 mls/hr 1X ONCE IV Last administered on 06/30/16 13:21; Start 06/30/16 at 12:15; Stop at 01:34; Status DC Acetaminophen (Tylenol) 650 mg PRN Q6HRS PRN PO PAIN Last administered on 17:16; Start 06/30/16 at 12:18 Magnesium Hydroxide (Milk Of Magnesia) 2,400 mg PRN DAILY PRN PO CONSTIPATION; Start 06/30/16 at 17:30 Insulin Aspart (Novolog) 7 units TIDAC SQ ; Start 07/01/16 at 12:00; Stop at 12:57; Status DC Insulin Detemir (Levemir) 22 units QHS SQ Last administered on 07/03/16 21:01 ; Start 07/01/16 at 21:00 Insulin Aspart (Novolog) 5 units TIDAC SQ Last administered on 07/04/16 11:44 ; Start 07/01/16 at 16:30 Hydralazine HCl 10 mg 10 mg 1X ONCE IVP Last administered on 07/02/16 10:46; Start 07/02/16 at 10:30; Stop 07/02/16 at 10:31; Status DC Levofloxacin/ Dextrose (LEVAQUIN 500mg PREMIX) 100 ml @ 100 mls/hr Q24H IV Last administered on 07/03/16 11:01; Start 07/02/16 at 11:00; Stop 07/03/16 at 15:50; Status DC Lisinopril 20 mg 20 mg DAILY PO Last administered on 07/04/16 07:58; Start 02/08 at 11:00 Propofol (Diprivan) 50 ml @ As Directed STK-MED ONCE IV ; Start 07/02/16 at 12: 00; Stop 07/02/16 at 12:01; Status DC Midazolam HCl (Versed) 2 mg STK-MED ONCE .ROUTE ; Start 07/02/16 at 12:43; Stop 07/02/16 at 12:44; Status DC Iohexol (Omnipaque 300 Mg/ml) 50 ml STK-MED ONCE .ROUTE ; Start 07/02/16 at 12: 45; Stop 07/02/16 at 12:46; Status DC Lidocaine/Sodium Bicarbonate 20 ml 20 ml STK-MED ONCE IJ ; Start 07/02/16 at 12: 46; Stop 07/02/16 at 12:47; Status DC Cefazolin Sodium (Ancef 1gm Ivpb For Omni) 50 ml @ As Directed STK-MED ONCE IV ; Start 07/02/16 at 13:05; Stop 07/02/16 at 13:06; Status DC Lidocaine/Sodium Bicarbonate (Buffered Lidocaine 1%) 20 ml 1X ONCE IJ Last administered on 07/02/16 13:32; Start 07/02/16 at 13:30; Stop 07/02/16 at 13:31 ; Status DC Iohexol (Omnipaque 300 Mg/ml) 50 ml 1X ONCE IART Last administered on 13:31; Start 07/02/16 at 13:30; Stop 07/02/16 at 13:31; Status DC Info (Do NOT chart on this entry -- for MONITORING) 1 each PRN DAILY PRN MC SEE COMMENTS; Start 07/02/16 at 13:45; Stop 07/04/16 at 13:44 Hydralazine HCl (Apresoline) 10 mg 1X PACU PRN IVP HYPERTENSION, SEE COMMENTS; Start 07/02/16 at 14:15 Fentanyl Citrate (Fentanyl 2ml Vial) 25 mcg PRN Q5MIN PRN IV MILD PAIN Last administered on 07/02/16 14:27; Start 07/02/16 at 14:30; Stop 07/02/16 at 20:00 ; Status DC Fentanyl Citrate (Fentanyl 2ml Vial) 50 mcg PRN Q5MIN PRN IV MODERATE PAIN; Start 07/02/16 at 14:30; Stop 07/02/16 at 20:00; Status DC Morphine Sulfate 1 mg 1 mg PRN Q10MIN PRN IV SEVERE PAIN Last administered on 15:10; Start 07/02/16 at 14:30; Stop 07/02/16 at 18:00; Status DC Lactated Ringer's (Iv Lactated Ringers) 1,000 ml @ 30 mls/hr Q24H IV ; Start at 14:20; Stop 07/03/16 at 02:19; Status DC Lidocaine HCl 2 ml 1X PRN PRN ID IV START; Start 07/02/16 at 14:30; Stop at 20:00; Status DC Hydromorphone HCl (Dilaudid) 0.5 mg PRN Q10MIN PRN IV SEV PAIN,Second choice; Start 07/02/16 at 14:30; Stop 07/02/16 at 20:00; Status DC Prochlorperazine Edisylate (Compazine) 5 mg PACU PRN PRN IV NAUSEA; Start 07/02 at 14:30; Stop 07/02/16 at 20:00; Status DC Multi-Ingredient Mouthwash/Gargle (Gi Cocktail Single Dose) 15 ml PRN 1X PRN SWSW CHEST PAIN; Start 07/02/16 at 16:45 Al Hydroxide/Mg Hydroxide (Mylanta Plus Xs) 30 ml PRN Q2HR PRN PO HEARTBURN / GAS; Start 07/02/16 at 16:45 Aspirin 325 mg 325 mg 1X ONCE PO Last administered on 07/02/16 16:55; Start 07/02/16 at 17:00; Stop 07/02/16 at 17:01; Status DC Sodium Chloride 1,000 ml @ 75 mls/hr 1X ONCE IV Last administered on 11:02; Start 07/03/16 at 10:30; Stop 07/03/16 at 23:49; Status DC Ceftriaxone Sodium/Sodium Chloride (Rocephin/Iv Sodium Chloride 0.9% 50ml) 50 ml @ 100 mls/hr Q24H IV Last administered on 07/03/16 17:16; Start 07/03/16 at 16:00 Iohexol (Omnipaque 300 Mg/ml) 60 ml 1X ONCE IV Last administered on 07/04/16 09:58; Start 07/04/16 at 09:45; Stop 07/04/16 at 09:46; Status DC Active Scripts Active Reported Tylenol (Acetaminophen) 325 Mg Tablet 650 Mg PO TID Senna-Docusate Sodium Tablet (Sennosides/Docusate Sodium) 1 Each Tablet 2 Each PO HS Protonix (Pantoprazole Sodium) 40 Mg Tablet.dr 1 Tab PO DAILY NICODERM CQ 21mg (Nicotine) 1 Each Patch.td24 1 Patch TP DAILY Miralax (Polyethylene Glycol 3350) 17 Gm Powd.pack 1 Packet PO DAILY Miralax (Polyethylene Glycol 3350) 17 Gm Powd.pack 1 Packet PO PRN DAILY PRN Melatonin 3 Mg Tablet 10 Mg PO QHS Mirtazapine 15 Mg Tablet 1 Tab PO QHS Cymbalta (Duloxetine Hcl) 30 Mg Capsule.dr 1 Cap PO DAILY Acetaminophen 500 Mg Tablet 1 Tab PO PRN Q6HRS PRN Novolog (Insulin Aspart) 100 Unit/1 Ml Cartridge 5 Unit SQ DAILYWSUP Restasis (Cyclosporine) 1 Each Droperette 1 Drop EACHEYE HS Multiple Vitamins (Multivitamin) 1 Each Tablet 1 Each PO Potassium Chloride 10 Meq Capsule.er 1 Cap PO DAILY05 Levemir (Insulin Detemir) 100 Unit/1 Ml Vial 30 Unit SQ DAILY Atorvastatin Calcium 40 Mg Tablet 1 Tab PO DAILY Lisinopril 20 Mg Tablet 1 Tab PO DAILY Oxybutynin Chloride 5 Mg Tablet 5 Mg PO BID Norvasc (Amlodipine Besylate) 5 Mg Tablet 10 Mg PO DAILY Clopidogrel (Clopidogrel Bisulfate) 75 Mg Tablet 75 Mg PO DAILY Coreg (Carvedilol) 12.5 Mg Tablet 25 Mg PO BID Vitals/I & O Vital Sign - Last 24 Hours 07/03/16 07/03/16 07/03/16 07/03/16 14:45 17:23 19:00 20:00 Temp 99.5 100.2 99.5 100.2 Pulse 72 72 67 Resp 18 20 B/P 118/43 118/43 128/44 Pulse Ox 95 95 O2 Delivery Nasal Cannula Nasal Cannula Nasal Cannula O2 Flow Rate 3.0 3.0 07/03/16 07/04/16 07/04/16 07/04/16 23:00 03:29 07:05 07:57 Temp 97.5 97.5 97.7 97.5 97.5 97.7 Pulse 68 69 72 72 Resp 20 20 18 B/P 132/42 136/49 154/57 154/57 Pulse Ox 95 95 96 O2 Delivery Nasal Cannula Nasal Cannula Nasal Cannula O2 Flow Rate 3.0 07/04/16 07/04/16 07/04/16 07/04/16 07:57 07:58 08:00 10:40 Temp 97.9 97.9 Pulse 72 72 69 Resp 18 B/P 154/57 154/57 148/52 Pulse Ox 96 O2 Delivery Nasal Cannula Nasal Cannula O2 Flow Rate 3.0 3.0 Intake and Output 07/03/16 07/03/16 07/04/16 15:00 23:00 07:00 Intake Total 480 ml 120 ml 180 ml Balance 480 ml 120 ml 180 ml ADINA DEVI MD Jul 04, 2016 12:31
--- NOTE | 2016-07-04 12:58 | CONS ---
DATE OF CONSULTATION: 07/02/2016 REQUESTING PHYSICIAN: Dr. Steinberg. REASON FOR CONSULTATION: Persistent fevers. HISTORY OF PRESENT ILLNESS: This patient is a 70-year-old female with history of coronary artery disease and diabetes mellitus who presented with back pain and left wrist pain after found on the floor. She was recently hospitalized for previous fall, where she fractured the left distal radius and displaced ulnar styloid. Workup revealed moderate T12 and mild L1 compression fracture status post kyphoplasty on 09/01/2015 as well as slight interval worsening of the impaction at the site of the distal radial fracture. She was evaluated by ortho and has a splint in place. In addition, patient was found to have a greater than 70% stenosis of the left carotid artery. She has a history of carotid artery stenosis with previous bilateral carotid endarterectomy and stenting on the right. She is scheduled for a CT angiogram. Since admission, patient has ran a fever as high as 101. ID has been asked to consult for further evaluation. The patient denies subjective fevers. However, she has been feeling cold and has a mild cough. Denies headaches, nasal/sinus congestion or sore throat. She is on a dysphagia 1 diet with honey thickened liquids. Denies chest discomfort or shortness of air. She reports persistent back pain with no improvement since the kyphoplasty procedure. Denies dysuria. Denies nausea, vomiting, or diarrhea. PHYSICAL EXAMINATION: GENERAL: female lying in bed in no apparent distress. VITAL SIGNS: Temperature is 99.5, blood pressure 118/43, heart rate 72, respiratory rate 18, pulse oximetry is 95% on 3 liters nasal cannula, weight is 138.06 pounds. HEENT: Pupils equally round, normal conjunctivae. Oral mucosa is pink and dry. Dentures in place. LUNGS: Clear to auscultation, nonlabored. HEART: Normal S1, S2. ABDOMEN: Nondistended. Bowel sounds present, soft, nontender. EXTREMITIES: No gross edema or cyanosis. Left wrist splint in place. SKIN: Without rash. Warm to touch. NEUROLOGIC: Alert and oriented. PAST MEDICAL HISTORY: Coronary artery disease, diabetes mellitus type 2, carotid artery disease, dementia, hemorrhagic cerebrovascular accident, congestive heart failure, hypercholesterolemia, hypertension, osteoarthritis, depression. PAST SURGICAL HISTORY: PEG tube placement and removal, bilateral carotid endarterectomy with right carotid stenting, cataract extraction, and left hip replacement. FAMILY HISTORY: Positive for diabetes mellitus, obesity, hypertension, depression, asthma, cancer. SOCIAL HISTORY: Lives in assisted living facility. She is a smoker. ALLERGIES: ADHESIVES. CURRENT MEDICATIONS: Levofloxacin. Other medications are available and have been reviewed on the JUN. LABORATORY DATA: Today's WBC is 7.4, hemoglobin 10.7, platelet count 218,000. Electrolytes are unremarkable. Creatinine 1.2, BUN 25, glucose 149. Total bilirubin 0.5, AST 15, ALT 12. Troponin 1 less than 0.017, albumin 2.8, TSH 1.646. Urinalysis unremarkable for infection. A urine culture grew viridans Streptococcus group and coagulase-negative staphylococcus species. IMAGING: Reviewed. CT chest showed no pulmonary mass or nodule. Chest x-ray showed mild bibasilar opacities consistent with atelectasis or chronic infiltrate. CT of the head showed no acute intracranial findings. IMPRESSION: 1. Fever, possibly reactive to fracture versus post-procedure. 2. L1 lumbar compression fracture. 3. Status post kyphoplasty. 4. Carotid stenosis. 5. Status post fall. 6. Viridans strep and coagulase-negative staph in urine, urinalysis unremarkable. PLAN: Recommend to change the antibiotic to Rocephin. Monitor temperature and laboratory values. Supportive care. Thank you Dr. Steinberg for asking us to participate in this patient's care. Should you have further questions or concerns, please call. The patient is seen and examined and plan of care implemented by Dr. Dony Encinas. DONY ENCINAS MD DR: SARAH/cl JOB#: [id number] / [id number]
--- NOTE | 2016-07-04 13:49 | PDOC ---
PULMONARY PROGRESS NOTES Subjective feels better Vitals Vital Signs Date Time Temp Pulse Resp B/P Pulse Ox O2 Delivery O2 Flow Rate FiO2 07/04/16 10:40 97.9 69 18 148/52 96 Nasal Cannula 3.0 97.9 General: Alert, No acute distress Lungs: Other (decrease bs) Cardiovascular: S1, S2 Abdomen: Soft Extremities: No Edema Labs Laboratory Tests Test 07/02/16 14:04 07/02/16 14:58 07/02/16 17:02 07/02/16 17:05 Glucose (Fingerstick) 183mg/dL (70-99) 168mg/dL (70-99) 186mg/dL (70-99) Sodium Level 139mmol/L (136-145) Potassium Level 4.4mmol/L (3.5-5.1) Chloride Level 105mmol/L (98-107) Carbon Dioxide Level 22mmol/L (21-32) Anion Gap 12 (6-14) Blood Urea Nitrogen 19mg/dL (7-20) Creatinine 1.0mg/dL (0.6-1.0) Estimated GFR (Cockcroft-Gault) 54.5 BUN/Creatinine Ratio 19 (6-20) Glucose Level 210mg/dL (70-99) Calcium Level 9.7mg/dL (8.5-10.1) Total Bilirubin 0.5mg/dL (0.2-1.0) Aspartate Amino Transf (AST/SGOT) 15U/L (15-37) Alanine Aminotransferase (ALT/SGPT) 12U/L (14-59) Alkaline Phosphatase 95U/L (46-116) Troponin I Quantitative < 0.017ng/mL (0.000-0.055) Total Protein 6.7g/dL (6.4-8.2) Albumin 2.8g/dL (3.4-5.0) Albumin/Globulin Ratio 0.7 (1.0-1.7) Test 07/02/16 21:10 07/02/16 22:40 07/03/16 04:05 07/03/16 05:00 Glucose (Fingerstick) 185mg/dL (70-99) Troponin I Quantitative < 0.017ng/mL (0.000-0.055) Sodium Level 138mmol/L (136-145) Potassium Level 4.5mmol/L (3.5-5.1) Chloride Level 103mmol/L (98-107) Carbon Dioxide Level 23mmol/L (21-32) Anion Gap 12 (6-14) Blood Urea Nitrogen 25mg/dL (7-20) Creatinine 1.2mg/dL (0.6-1.0) Estimated GFR (Cockcroft-Gault) 44.2 Glucose Level 149mg/dL (70-99) Calcium Level 9.5mg/dL (8.5-10.1) White Blood Count 7.4x10^3/uL (4.0-11.0) Red Blood Count 3.61x10^6/uL (3.50-5.40) Hemoglobin 10.7g/dL (12.0-15.5) Hematocrit 31.6% (36.0-47.0) Mean Corpuscular Volume 88fL (79-100) Mean Corpuscular Hemoglobin 30pg (25-35) Mean Corpuscular Hemoglobin Concent 34g/dL (31-37) Red Cell Distribution Width 13.8% (11.5-14.5) Platelet Count 218x10^3/uL (140-400) Neutrophils (%) (Auto) 66% (31-73) Lymphocytes (%) (Auto) 16% (24-48) Monocytes (%) (Auto) 16% (0-9) Eosinophils (%) (Auto) 1% (0-3) Basophils (%) (Auto) 0% (0-3) Neutrophils # (Auto) 4.9x10^3uL (1.8-7.7) Lymphocytes # (Auto) 1.2x10^3/uL (1.0-4.8) Monocytes # (Auto) 1.2x10^3/uL (0.0-1.1) Eosinophils # (Auto) 0.1x10^3/uL (0.0-0.7) Basophils # (Auto) 0.0x10^3/uL (0.0-0.2) Segmented Neutrophils % 61% (35-66) Band Neutrophils % 3% (0-9) Lymphocytes % 18% (24-48) Monocytes % 14% (0-10) Eosinophils % 1% (0-5) Basophils % 1% (0-3) Metamyelocytes % 1% (0-0) Myelocytes % 1% (0-0) Toxic Granulation Mod Platelet Estimate Adequate (ADEQUATE) Test 07/03/16 07:13 07/03/16 10:56 07/03/16 16:26 07/03/16 20:11 Glucose (Fingerstick) 164mg/dL (70-99) 147mg/dL (70-99) 183mg/dL (70-99) 175mg/dL (70-99) Test 07/04/16 06:37 07/04/16 07:05 07/04/16 11:21 Sodium Level 141mmol/L (136-145) Potassium Level 4.2mmol/L (3.5-5.1) Chloride Level 107mmol/L (98-107) Carbon Dioxide Level 24mmol/L (21-32) Anion Gap 10 (6-14) Blood Urea Nitrogen 20mg/dL (7-20) Creatinine 1.1mg/dL (0.6-1.0) Estimated GFR (Cockcroft-Gault) 48.8 Glucose Level 94mg/dL (70-99) Calcium Level 9.3mg/dL (8.5-10.1) Glucose (Fingerstick) 99mg/dL (70-99) 159mg/dL (70-99) Laboratory Tests Test 07/03/16 16:26 07/03/16 20:11 07/04/16 06:37 07/04/16 07:05 Glucose (Fingerstick) 183mg/dL (70-99) 175mg/dL (70-99) 99mg/dL (70-99) Sodium Level 141mmol/L (136-145) Potassium Level 4.2mmol/L (3.5-5.1) Chloride Level 107mmol/L (98-107) Carbon Dioxide Level 24mmol/L (21-32) Anion Gap 10 (6-14) Blood Urea Nitrogen 20mg/dL (7-20) Creatinine 1.1mg/dL (0.6-1.0) Estimated GFR (Cockcroft-Gault) 48.8 Glucose Level 94mg/dL (70-99) Calcium Level 9.3mg/dL (8.5-10.1) Test 07/04/16 11:21 Glucose (Fingerstick) 159mg/dL (70-99) Medications Active Scripts Medications Dose Route/Sig Days Date Category Tylenol (Acetaminophen) 325 Mg Tablet 650 Mg PO TID 06/15/16 Reported Senna-Docusate Sodium Tablet (Sennosides/Docusate Sodium) 1 Each Tablet 2 Each PO HS 06/15/16 Reported Protonix (Pantoprazole Sodium) 40 Mg Tablet.dr 1 Tab PO DAILY 06/15/16 Reported NICODERM CQ 21mg (Nicotine) 1 Each Patch.td24 1 Patch TP DAILY 06/15/16 Reported Miralax (Polyethylene Glycol 3350) 17 Gm Powd.pack 1 Packet PO DAILY 06/15/16 Reported Miralax (Polyethylene Glycol 3350) 17 Gm Powd.pack 1 Packet PO PRN DAILY PRN 06/15/16 Reported Melatonin 3 Mg Tablet 10 Mg PO QHS 06/15/16 Reported Mirtazapine 15 Mg Tablet 1 Tab PO QHS 07/17/15 Reported Cymbalta (Duloxetine Hcl) 30 Mg Capsule.dr 1 Cap PO DAILY 07/17/15 Reported Acetaminophen 500 Mg Tablet 1 Tab PO PRN Q6HRS PRN 07/17/15 Reported Novolog (Insulin Aspart) 100 Unit/1 Ml Cartridge 5 Unit SQ DAILYWSUP 07/17/15 Reported Restasis (Cyclosporine) 1 Each Droperette 1 Drop EACHEYE HS 07/17/15 Reported Multiple Vitamins (Multivitamin) 1 Each Tablet 1 Each PO 07/17/15 Reported Potassium Chloride 10 Meq Capsule.er 1 Cap PO DAILY05 07/17/15 Reported Levemir (Insulin Detemir) 100 Unit/1 Ml Vial 30 Unit SQ DAILY 07/17/15 Reported Atorvastatin Calcium 40 Mg Tablet 1 Tab PO DAILY 08/17/14 Reported Lisinopril 20 Mg Tablet 1 Tab PO DAILY 08/17/14 Reported Oxybutynin Chloride 5 Mg Tablet 5 Mg PO BID 07/08/14 Reported Norvasc (Amlodipine Besylate) 5 Mg Tablet 10 Mg PO DAILY 07/08/14 Reported Clopidogrel (Clopidogrel Bisulfate) 75 Mg Tablet 75 Mg PO DAILY 09/28/13 Reported Coreg (Carvedilol) 12.5 Mg Tablet 25 Mg PO BID 09/28/13 Reported Impression . 1. Syncope of unclear etiology, maybe she tripped and fell. From a pulmonary standpoint, she does have an abnormal chest x-ray and there is a ?left basilar nodule .CT chest 06/30 with no nodule .Mild basal infiltrates vs atelectasis 2. Possible mild chronic obstructive pulmonary disease. 3. Status post fall with no obvious fracture. 4. Aabwp-[id number]-bjnyircl hiatal hernia. 5. Persistent fevers/? doubt pulmonary source. Viridans strep & CoNS in urine. Plan . 1. Continue with present oxygen. 2. Noncontrast CT chest reviewed 3. cardiology evaluation for syncope. 4. Continue with antibiotics per ID 5. Bronchodilators as needed. DAVID OROZCO MD Jul 04, 2016 13:48
--- NOTE | 2016-07-04 14:04 | PDOC ---
Infectious Disease Note Subjective Subjective Doing ok. Denies fever Cough better and so is pain ROS ROS GEN: Denies fevers, chills, sweats HEENT: Denies blurred vision, sore throat CV: Denies chest pain RESP: Denies shortness of air, cough GI: Denies n/v/d NEURO: Denies confusion, dizziness MSK: Denies weakness, joint pain/swelling Vital Sign Vital Signs Vital Signs Date Time Temp Pulse Resp B/P Pulse Ox O2 Delivery O2 Flow Rate FiO2 07/04/16 10:40 97.9 69 18 148/52 96 Nasal Cannula 3.0 97.9 Physical Exam PHYSICAL EXAM GENERAL: NAD, Alert, coop HEENT: PERRL, OC/OP -clear NECK: Supple, no JVD, no LN LUNGS: Clear HEART: S1S2, no gallop, no murmur ABD: Soft, NT, no organomegaly, no rebound EXT: No edema, no cyanosis, splint LEARNING ENGINEER: Alert, oriented x 3, no focal neurologic deficit SKIN: No rash IV: ok Labs Lab Laboratory Tests Test 07/03/16 16:26 07/03/16 20:11 07/04/16 06:37 07/04/16 07:05 Glucose (Fingerstick) 183mg/dL (70-99) 175mg/dL (70-99) 99mg/dL (70-99) Sodium Level 141mmol/L (136-145) Potassium Level 4.2mmol/L (3.5-5.1) Chloride Level 107mmol/L (98-107) Carbon Dioxide Level 24mmol/L (21-32) Anion Gap 10 (6-14) Blood Urea Nitrogen 20mg/dL (7-20) Creatinine 1.1mg/dL (0.6-1.0) Estimated GFR (Cockcroft-Gault) 48.8 Glucose Level 94mg/dL (70-99) Calcium Level 9.3mg/dL (8.5-10.1) Test 07/04/16 11:21 Glucose (Fingerstick) 159mg/dL (70-99) Objective Assessment Fever ? fracture vs post procedure reaction L1 lumbar compression fracture Renal insuff - better s/p Kyphoplasty Carotid stenosis Viridans strep & CoNS in urine. UA unremarkable for infection s/p fall Plan Plan of Care Cont Rocephin Monitor temp and labs Supportive care Await carotid w/u D/w MP ENCINAS MD Jul 04, 2016 14:04
[2016-07-04] MEDS: CEFTRIAXONE SODIUM 1 GM in IV NORMAL SALINE 50ML 50 ML IV SCH (14:18)
[2016-07-04 14:25] VITALS: BP 133/44
[2016-07-04] MEDS ORDERED: MAGNESIUM HYDROXIDE 2,400 MG/30 ML ORAL.SUSP. PO PRN (14:30)
[2016-07-04] MEDS ORDERED: BISACODYL 10 MG SUPP.RECT PR PRN (14:30)
[2016-07-04 19:00] VITALS: BP 121/76
[2016-07-04] MEDS: MIRTAZAPINE 15 MG TABLET PO SCH (20:24)
[2016-07-04] MEDS: ATORVASTATIN CALCIUM 40 MG TABLET. PO SCH (20:24)
[2016-07-04] MEDS: CYCLOSPORINE 0.05% OPTH DROPERETTE. OU SCH (20:25)
[2016-07-04] MEDS: DOCUSATE SODIUM 100 MG CAPSULE PO SCH (20:25)
[2016-07-04] MEDS: SENNOSIDES/DOCUSATE 8.6/50MG TABLET. PO SCH (20:25)
[2016-07-04] MEDS: INSULIN DETEMIR 300 UNITS/3 ML INSULN.PEN. SQ SCH (20:27)
[2016-07-04 22:57] VITALS: BP 141/86
[2016-07-05 02:29] VITALS: BP 141/82
[2016-07-05] MEDS: HEPARIN PF for SUB-Q USE 5,000 UNIT/0.5 ML VIAL. SQ SCH ×3 (06:22→21:06)
[2016-07-05] MEDS: CLOPIDOGREL BISULFATE 75 MG TABLET PO SCH (06:24)
[2016-07-05] MEDS: PANTOPRAZOLE 40 MG TABLET. PO SCH (06:24)
[2016-07-05 07:00] VITALS: BP 154/49
[2016-07-05] MEDS: INSULIN ASPART 300 UNITS/3 ML INSULN.PEN SQ SCH ×6 (07:30→17:45)
[2016-07-05] MEDS: CARVEDILOL 12.5 MG TABLET PO SCH ×2 (08:17→17:34)
[2016-07-05] MEDS: POTASSIUM CHLORIDE 10 MEQ TABLET.ER. PO SCH (08:19)
[2016-07-05] MEDS: DOCUSATE SODIUM 100 MG CAPSULE PO SCH ×2 (08:19→20:59)
[2016-07-05] MEDS: OXYBUTYNIN CHLORIDE 5 MG TABLET PO SCH ×2 (08:20→20:59)
[2016-07-05] MEDS: DULOXETINE HCL 30 MG CAPSULE.DR. PO SCH (08:20)
[2016-07-05] MEDS: POLYETHYLENE GLYCOL 3350 17 GM PACKET. PO SCH (08:21)
[2016-07-05] MEDS: NICOTINE 21MG PATCH. TD SCH (08:22)
[2016-07-05] MEDS: GUAIFENESIN ER 600 MG TABLET.ER PO SCH ×2 (08:22→20:59)
[2016-07-05] MEDS: AMLODIPINE BESYLATE 10 MG TABLET PO SCH (08:23)
[2016-07-05] MEDS: LISINOPRIL 20 MG TABLET PO SCH (08:24)
[2016-07-05] MEDS: SENNOSIDES/DOCUSATE 8.6/50MG TABLET. PO SCH ×2 (08:25→20:59)
--- NOTE | 2016-07-05 10:33 | PDOC ---
PROGRESS NOTES Subjective Subjective No new complaints. Objective Objective Vital Signs Date Time Temp Pulse Resp B/P Pulse Ox O2 Delivery O2 Flow Rate FiO2 07/05/16 08:24 78 154/49 07/05/16 08:00 Nasal Cannula 3.0 07/05/16 07:00 98.7 16 90 98.7 Intake and Output 07/05/16 07:00 Intake Total 1460 ml Balance 1460 ml Intake Oral 1460 ml # Voids 10 # Bowel Movements 3 Physical Exam Physical Exam She is awake and sitting in bed side chair without lumbar corset and getting up with roller walker with physical therapy Assessment Assessment Problems Medical Problems: (1) Hypoxia Status: Acute (2) Syncope Status: Acute Plan Plan of Care To SNF when medically stable. Comment Review of Relevant I have reviewed the following items carlota (where applicable) has been applied. Labs Laboratory Tests Test 07/03/16 10:56 07/03/16 16:26 07/03/16 20:11 07/04/16 06:37 Glucose (Fingerstick) 147mg/dL (70-99) 183mg/dL (70-99) 175mg/dL (70-99) Sodium Level 141mmol/L (136-145) Potassium Level 4.2mmol/L (3.5-5.1) Chloride Level 107mmol/L (98-107) Carbon Dioxide Level 24mmol/L (21-32) Anion Gap 10 (6-14) Blood Urea Nitrogen 20mg/dL (7-20) Creatinine 1.1mg/dL (0.6-1.0) Estimated GFR (Cockcroft-Gault) 48.8 Glucose Level 94mg/dL (70-99) Calcium Level 9.3mg/dL (8.5-10.1) Test 07/04/16 07:05 07/04/16 11:21 07/04/16 16:19 07/04/16 20:24 Glucose (Fingerstick) 99mg/dL (70-99) 159mg/dL (70-99) 214mg/dL (70-99) 142mg/dL (70-99) Test 07/05/16 07:16 Glucose (Fingerstick) 94mg/dL (70-99) Laboratory Tests Test 07/04/16 11:21 07/04/16 16:19 07/04/16 20:24 07/05/16 07:16 Glucose (Fingerstick) 159mg/dL (70-99) 214mg/dL (70-99) 142mg/dL (70-99) 94mg/dL (70-99) Microbiology 06/30/16 Urine Culture - Final, Complete 06/30/16 Urine Culture Result 1 (ÁNGEL) - Final, Complete 06/30/16 Urine Culture Result 2 (ÁNGEL) - Final, Complete 06/30/16 Antimicrobic Susceptibility - Final, Complete Medications Current Medications Acetaminophen (Tylenol) 1,000 mg 1X ONCE PO Last administered on 06/30/16 07: 33; Start 06/30/16 at 07:00; Stop 06/30/16 at 07:04; Status DC Ondansetron HCl 4 mg 4 mg 1X ONCE IV Last administered on 06/30/16 07:32; Start 06/30/16 at 07:15; Stop 06/30/16 at 07:16; Status DC Sodium Chloride (Iv Sodium Chloride 0.9% 500ml Bag) 500 ml @ 500 mls/hr 1X ONCE IV Last administered on 06/30/16 09:57; Start 06/30/16 at 08:45; Stop at 09:44; Status DC Ondansetron HCl (Zofran) 4 mg PRN Q8HRS PRN IV NAUSEA/VOMITING Last administered on 06/30/16 20:58; Start 06/30/16 at 08:45; Stop 07/01/16 at 08:44; Status DC Morphine Sulfate 2 mg PRN Q2HR PRN IV PAIN Last administered on 07/01/16 05:16 ; Start 06/30/16 at 08:45; Stop 07/01/16 at 08:44; Status DC Acetaminophen (Tylenol) 650 mg PRN Q4HRS PRN PO FEVER Last administered on 20:40; Start 06/30/16 at 08:45; Stop 07/01/16 at 08:44; Status DC Insulin Aspart (Novolog) 0-7 UNITS TIDWMEALS SQ Last administered on 07/04/16 17:35; Start 06/30/16 at 12:00 Dextrose 12.5 gm PRN Q15MIN PRN IV SEE COMMENTS; Start 3/8/17 at 08:45 Pneumococcal Polyvalent Vaccine (Do NOT chart on this placeholder) 1 each 1X ONCE MC ; Start 06/30/16 at 11:30; Stop 06/30/16 at 11:31; Status UNV Acetaminophen (Tylenol) 650 mg PRN Q6HRS PRN PO PAIN; Start 06/30/16 at 12:15; Stop 06/30/16 at 12:18; Status DC Amlodipine Besylate (Norvasc) 10 mg DAILY PO Last administered on 07/05/16 08: 23; Start 06/30/16 at 13:00 Atorvastatin Calcium (Lipitor) 40 mg QHS PO Last administered on 07/04/16 20: 24; Start 06/30/16 at 21:00 Carvedilol (Coreg) 25 mg BIDWMEALS PO Last administered on 07/05/16 08:17; Start 06/30/16 at 17:00 Clopidogrel Bisulfate (Plavix) 75 mg DAILY07 PO Last administered on 07/05/16 06:24; Start 06/30/16 at 13:00 Cyclosporine (Restasis) 1 drop HS OU Last administered on 07/04/16 20:25; Start 06/30/16 at 21:00 Duloxetine HCl (Cymbalta) 30 mg DAILY PO Last administered on 07/05/16 08:20; Start 06/30/16 at 13:00 Mirtazapine (Remeron) 15 mg QHS PO Last administered on 07/04/16 20:24; Start 06/30/16 at 21:00 Nicotine (Nicoderm Cq 21mg) 1 patch DAILY TD Last administered on 07/05/16 08: 22; Start 06/30/16 at 13:00 Oxybutynin Chloride (Ditropan) 5 mg BID PO Last administered on 07/05/16 08:20 ; Start 06/30/16 at 13:00 Pantoprazole Sodium (Protonix) 40 mg DAILY07 PO Last administered on 07/05/16 06:24; Start 06/30/16 at 13:00 Polyethylene Glycol (miraLAX PACKET) 17 gm DAILY PO Last administered on 07:56; Start 06/30/16 at 13:00 Senna/Docusate Sodium (Senna Plus) 2 tab HS PO Last administered on 07/03/16 20:48; Start 06/30/16 at 21:00; Stop 07/04/16 at 14:29; Status DC Non-Formulary Medication 10 mg QHS PO ; Start 06/30/16 at 21:00; Status UNV Potassium Chloride (Klor-Con) 10 meq DAILYWBKFT PO Last administered on 08:19; Start 06/30/16 at 13:00 Acetaminophen (Tylenol) 650 mg PRN Q6HRS PRN PO MILD PAIN / TEMP; Start at 12:15; Status UNV Ondansetron HCl (Zofran) 4 mg PRN Q6HRS PRN IV NAUSEA/VOMITING Last administered on 07/02/16 18:22; Start 06/30/16 at 12:15 Heparin Sodium (Porcine) 5,000 unit Q8HRS SQ Last administered on 07/05/16 06: 22; Start 06/30/16 at 14:00 Insulin Aspart (Novolog) 5 units TIDAC SQ Last administered on 07/01/16 08:46; Start 06/30/16 at 16:30; Stop 07/01/16 at 11:45; Status DC Insulin Detemir (Levemir) 20 units QHS SQ Last administered on 06/30/16 20:55; Start 06/30/16 at 21:00; Stop 07/01/16 at 11:45; Status DC Doxycycline Hyclate (Vibra-Tab) 100 mg BID PO Last administered on 07/01/16 20: 40; Start 06/30/16 at 13:00; Stop 07/02/16 at 10:36; Status DC Guaifenesin 600 mg 600 mg BID PO Last administered on 07/05/16 08:22; Start at 13:00 Sodium Chloride (Iv Sodium Chloride 0.9% 1000ml Bag) 1,000 ml @ 75 mls/hr 1X ONCE IV Last administered on 06/30/16 13:21; Start 06/30/16 at 12:15; Stop at 01:34; Status DC Acetaminophen (Tylenol) 650 mg PRN Q6HRS PRN PO PAIN Last administered on 17:16; Start 06/30/16 at 12:18 Magnesium Hydroxide (Milk Of Magnesia) 2,400 mg PRN DAILY PRN PO CONSTIPATION Last administered on 07/04/16 14:18; Start 06/30/16 at 17:30; Stop 07/04/16 at 14:29; Status DC Insulin Aspart (Novolog) 7 units TIDAC SQ ; Start 07/01/16 at 12:00; Stop at 12:57; Status DC Insulin Detemir (Levemir) 22 units QHS SQ Last administered on 07/04/16 20:27 ; Start 07/01/16 at 21:00 Insulin Aspart (Novolog) 5 units TIDAC SQ Last administered on 07/04/16 17:36 ; Start 07/01/16 at 16:30 Hydralazine HCl 10 mg 10 mg 1X ONCE IVP Last administered on 07/02/16 10:46; Start 07/02/16 at 10:30; Stop 07/02/16 at 10:31; Status DC Levofloxacin/ Dextrose (LEVAQUIN 500mg PREMIX) 100 ml @ 100 mls/hr Q24H IV Last administered on 07/03/16 11:01; Start 07/02/16 at 11:00; Stop 07/03/16 at 15:50; Status DC Lisinopril 20 mg 20 mg DAILY PO Last administered on 07/05/16 08:24; Start 02/08 at 11:00 Propofol (Diprivan) 50 ml @ As Directed STK-MED ONCE IV ; Start 07/02/16 at 12: 00; Stop 07/02/16 at 12:01; Status DC Midazolam HCl (Versed) 2 mg STK-MED ONCE .ROUTE ; Start 07/02/16 at 12:43; Stop 07/02/16 at 12:44; Status DC Iohexol (Omnipaque 300 Mg/ml) 50 ml STK-MED ONCE .ROUTE ; Start 07/02/16 at 12: 45; Stop 07/02/16 at 12:46; Status DC Lidocaine/Sodium Bicarbonate 20 ml 20 ml STK-MED ONCE IJ ; Start 07/02/16 at 12: 46; Stop 07/02/16 at 12:47; Status DC Cefazolin Sodium (Ancef 1gm Ivpb For Omni) 50 ml @ As Directed STK-MED ONCE IV ; Start 07/02/16 at 13:05; Stop 07/02/16 at 13:06; Status DC Lidocaine/Sodium Bicarbonate (Buffered Lidocaine 1%) 20 ml 1X ONCE IJ Last administered on 07/02/16 13:32; Start 07/02/16 at 13:30; Stop 07/02/16 at 13:31 ; Status DC Iohexol (Omnipaque 300 Mg/ml) 50 ml 1X ONCE IART Last administered on 13:31; Start 07/02/16 at 13:30; Stop 07/02/16 at 13:31; Status DC Info (Do NOT chart on this entry -- for MONITORING) 1 each PRN DAILY PRN MC SEE COMMENTS; Start 07/02/16 at 13:45; Stop 07/04/16 at 13:44; Status DC Hydralazine HCl (Apresoline) 10 mg 1X PACU PRN IVP HYPERTENSION, SEE COMMENTS; Start 07/02/16 at 14:15 Fentanyl Citrate (Fentanyl 2ml Vial) 25 mcg PRN Q5MIN PRN IV MILD PAIN Last administered on 07/02/16 14:27; Start 07/02/16 at 14:30; Stop 07/02/16 at 20:00 ; Status DC Fentanyl Citrate (Fentanyl 2ml Vial) 50 mcg PRN Q5MIN PRN IV MODERATE PAIN; Start 07/02/16 at 14:30; Stop 07/02/16 at 20:00; Status DC Morphine Sulfate 1 mg 1 mg PRN Q10MIN PRN IV SEVERE PAIN Last administered on 15:10; Start 07/02/16 at 14:30; Stop 07/02/16 at 18:00; Status DC Lactated Ringer's (Iv Lactated Ringers) 1,000 ml @ 30 mls/hr Q24H IV ; Start at 14:20; Stop 07/03/16 at 02:19; Status DC Lidocaine HCl 2 ml 1X PRN PRN ID IV START; Start 07/02/16 at 14:30; Stop at 20:00; Status DC Hydromorphone HCl (Dilaudid) 0.5 mg PRN Q10MIN PRN IV SEV PAIN,Second choice; Start 07/02/16 at 14:30; Stop 07/02/16 at 20:00; Status DC Prochlorperazine Edisylate (Compazine) 5 mg PACU PRN PRN IV NAUSEA; Start 07/02 at 14:30; Stop 07/02/16 at 20:00; Status DC Multi-Ingredient Mouthwash/Gargle (Gi Cocktail Single Dose) 15 ml PRN 1X PRN SWSW CHEST PAIN; Start 07/02/16 at 16:45 Al Hydroxide/Mg Hydroxide (Mylanta Plus Xs) 30 ml PRN Q2HR PRN PO HEARTBURN / GAS Last administered on 07/04/16 19:31; Start 07/02/16 at 16:45 Aspirin 325 mg 325 mg 1X ONCE PO Last administered on 07/02/16 16:55; Start 07/02/16 at 17:00; Stop 07/02/16 at 17:01; Status DC Sodium Chloride 1,000 ml @ 75 mls/hr 1X ONCE IV Last administered on 11:02; Start 07/03/16 at 10:30; Stop 07/03/16 at 23:49; Status DC Ceftriaxone Sodium/Sodium Chloride (Rocephin/Iv Sodium Chloride 0.9% 50ml) 50 ml @ 100 mls/hr Q24H IV Last administered on 07/04/16 14:18; Start 07/03/16 at 16:00 Iohexol (Omnipaque 300 Mg/ml) 60 ml 1X ONCE IV Last administered on 07/04/16 09:58; Start 07/04/16 at 09:45; Stop 07/04/16 at 09:46; Status DC Senna/Docusate Sodium (Senna Plus) 1 tab BID PO Last administered on 07/04/16 20:25; Start 07/04/16 at 21:00 Docusate Sodium (Colace) 100 mg BID PO Last administered on 07/04/16 20:25; Start 07/04/16 at 21:00 Magnesium Hydroxide (Milk Of Magnesia) 2,400 mg PRN Q12HR PRN PO CONSTIPATION; Start 07/04/16 at 14:30 Bisacodyl (Dulcolax Supp) 10 mg PRN DAILY PRN [place] CONSTIPATION; Start 07/04/16 at 14:30 Active Scripts Active Reported Tylenol (Acetaminophen) 325 Mg Tablet 650 Mg PO TID Senna-Docusate Sodium Tablet (Sennosides/Docusate Sodium) 1 Each Tablet 2 Each PO HS Protonix (Pantoprazole Sodium) 40 Mg Tablet.dr 1 Tab PO DAILY NICODERM CQ 21mg (Nicotine) 1 Each Patch.td24 1 Patch TP DAILY Miralax (Polyethylene Glycol 3350) 17 Gm Powd.pack 1 Packet PO DAILY Miralax (Polyethylene Glycol 3350) 17 Gm Powd.pack 1 Packet PO PRN DAILY PRN Melatonin 3 Mg Tablet 10 Mg PO QHS Mirtazapine 15 Mg Tablet 1 Tab PO QHS Cymbalta (Duloxetine Hcl) 30 Mg Capsule.dr 1 Cap PO DAILY Acetaminophen 500 Mg Tablet 1 Tab PO PRN Q6HRS PRN Novolog (Insulin Aspart) 100 Unit/1 Ml Cartridge 5 Unit SQ DAILYWSUP Restasis (Cyclosporine) 1 Each Droperette 1 Drop EACHEYE HS Multiple Vitamins (Multivitamin) 1 Each Tablet 1 Each PO Potassium Chloride 10 Meq Capsule.er 1 Cap PO DAILY05 Levemir (Insulin Detemir) 100 Unit/1 Ml Vial 30 Unit SQ DAILY Atorvastatin Calcium 40 Mg Tablet 1 Tab PO DAILY Lisinopril 20 Mg Tablet 1 Tab PO DAILY Oxybutynin Chloride 5 Mg Tablet 5 Mg PO BID Norvasc (Amlodipine Besylate) 5 Mg Tablet 10 Mg PO DAILY Clopidogrel (Clopidogrel Bisulfate) 75 Mg Tablet 75 Mg PO DAILY Coreg (Carvedilol) 12.5 Mg Tablet 25 Mg PO BID Vitals/I & O Vital Sign - Last 24 Hours 07/04/16 07/04/16 07/04/16 07/04/16 10:40 14:25 17:00 19:00 Temp 97.9 96.4 98.7 97.9 96.4 98.7 Pulse 69 77 77 71 Resp 18 B/P 148/52 133/44 133/44 121/76 Pulse Ox 96 97 92 O2 Delivery Nasal Cannula Nasal Cannula Nasal Cannula O2 Flow Rate 3.0 3.0 3.0 07/04/16 07/04/16 07/05/16 07/05/16 20:30 22:57 02:29 07:00 Temp 97.8 98.5 98.7 97.8 98.5 98.7 Pulse 82 71 78 Resp 19 18 16 B/P 141/86 141/82 154/49 Pulse Ox 94 93 90 O2 Delivery Nasal Cannula Nasal Cannula Nasal Cannula Nasal Cannula O2 Flow Rate 3.0 3.0 3.0 3.0 07/05/16 07/05/16 07/05/16 07/05/16 08:00 08:17 08:23 08:24 Pulse 78 78 78 B/P 154/49 154/49 154/49 O2 Delivery Nasal Cannula O2 Flow Rate 3.0 Intake and Output 07/04/16 07/04/16 07/05/16 15:00 23:00 07:00 Intake Total 480 ml 360 ml 620 ml Balance 480 ml 360 ml 620 ml FLORY SMITH MD Jul 05, 2016 10:33
--- NOTE | 2016-07-05 11:12 | PDOC ---
Infectious Disease Note Subjective Subjective Doing ok. Denies fever Cough better and so is pain ROS ROS GEN: Denies fevers, chills, sweats HEENT: Denies blurred vision, sore throat CV: Denies chest pain RESP: Denies shortness of air, cough GI: Denies n/v/d NEURO: Denies confusion, dizziness MSK: Denies weakness, joint pain/swelling Vital Sign Vital Signs Vital Signs Date Time Temp Pulse Resp B/P Pulse Ox O2 Delivery O2 Flow Rate FiO2 07/05/16 08:24 78 154/49 07/05/16 08:00 Nasal Cannula 3.0 07/05/16 07:00 98.7 16 90 98.7 Physical Exam PHYSICAL EXAM GENERAL: NAD, Alert, in chair HEENT: PERRL, OC/OP -cler NECK: Supple, no JVD, no LN LUNGS: Clear HEART: S1S2, no gallop, no murmur ABD: Soft, NT, no organomegaly, no rebound EXT: No edema, no cyanosis, Hand brace LINING PRESSER: Alert, oriented x 3, no focal neurologic deficit SKIN: No rash IV: ok Labs Lab Laboratory Tests Test 07/04/16 11:21 07/04/16 16:19 07/04/16 20:24 07/05/16 07:16 Glucose (Fingerstick) 159mg/dL (70-99) 214mg/dL (70-99) 142mg/dL (70-99) 94mg/dL (70-99) Objective Assessment Fever ? fracture vs post procedure reaction - better L1 lumbar compression fracture Renal insuff - better s/p Kyphoplasty Carotid stenosis Viridans strep & CoNS in urine. UA unremarkable for infection s/p fall Plan Plan of Care Cont Rocephin likely wean after today Monitor temp and labs Supportive care Await carotid w/u MP ENCINAS MD Jul 05, 2016 11:12
[2016-07-05 11:19] LABS: CALCIUM 9.4 mg/dL (8.5-10.1); CREATININE 1.1 mg/dL (0.6-1.0); GFR 48.8; POTASSIUM 4.8 mmol/L (3.5-5.1)
[2016-07-05 11:26] VITALS: BP 136/54
--- NOTE | 2016-07-05 11:30 | PDOC ---
PROGRESS NOTES Chief Complaint Chief Complaint Assessment/Plan 1. acute resp failure with COPD likely 2. fall, 2/2 unsteady gait likely 3. recent syncope and left forearm fx, no sx 4. h/o CAD 5. h/o CHF 6. H/O cva WITH MILD left side weakness 7. depression 8. dm2 on insulin 9. gerd 10. htn 11. hld 12. MELONIE, vasomotor. CKD2-3 13. h/o PEG 14. cervical DJD, CHRONIC spine fx, subacute L1 fx s/p kyphoplasty on 07/02 15 . >70% stenosis within the proximal and mid left internal carotid artery on US, had sx before History of Present Illness History of Present Illness Patient was walking with assistance in the hallway, she was in no acute distress , plan of care discussed with her and RN. Vitals Vitals Vital Signs Date Time Temp Pulse Resp B/P Pulse Ox O2 Delivery O2 Flow Rate FiO2 07/05/16 08:24 78 154/49 07/05/16 08:00 Nasal Cannula 3.0 07/05/16 07:00 98.7 16 90 98.7 Physical Exam General: Alert, Cooperative Heart: Other (Early systolic murmur at LSB, 2/6, mildly diminshed PMI) Lungs: Other (decrease bs) Abdomen: Soft, No tenderness Extremities: No edema Skin: No breakdown, No significant lesion Labs LABS Laboratory Tests Test 07/04/16 11:21 07/04/16 16:19 07/04/16 20:24 07/05/16 07:16 Glucose (Fingerstick) 159mg/dL (70-99) 214mg/dL (70-99) 142mg/dL (70-99) 94mg/dL (70-99) Review of Systems Review of Systems No cough, No SOB, No CP, walking with assistance, reported back pain, alert and oriented. Assessment and Plan Assessmemt and Plan Assessment: 1. acute resp failure with COPD likely 2. fall, 2/2 unsteady gait likely 3. recent syncope and left forearm fx, no sx 4. h/o CAD 5. h/o CHF 6. H/O cva WITH MILD left side weakness 7. depression 8. dm2 on insulin 9. gerd 10. htn 11. hld 12. MELONIE, vasomotor. CKD2-3 13. h/o PEG 14. cervical DJD, CHRONIC spine fx, subacute L1 fx s/p kyphoplasty on 07/02 15 . >70% stenosis within the proximal and mid left internal carotid artery on US, had sx before Plan: - Waiting for Carotid Stent placement - Continue PT/OT - Continue care per floor protocol - Recheck labs in AM - f/u with ortho for left wrist fracture - continue antibiotics per ID recommendations - continue duoneb - probable discharge to SNF after stent placement - Appreciate subspecialities inputs and recommendations need to fu with vascular if need carotid stent, fu with ortho, then dc to SNF Problems Medical Problems: (1) Hypoxia Status: Acute (2) Syncope Status: Acute Problems: Comment Review of Relevant I have reviewed the following items carlota (where applicable) has been applied. Labs Laboratory Tests Test 07/03/16 16:26 07/03/16 20:11 07/04/16 06:37 07/04/16 07:05 Glucose (Fingerstick) 183mg/dL (70-99) 175mg/dL (70-99) 99mg/dL (70-99) Sodium Level 141mmol/L (136-145) Potassium Level 4.2mmol/L (3.5-5.1) Chloride Level 107mmol/L (98-107) Carbon Dioxide Level 24mmol/L (21-32) Anion Gap 10 (6-14) Blood Urea Nitrogen 20mg/dL (7-20) Creatinine 1.1mg/dL (0.6-1.0) Estimated GFR (Cockcroft-Gault) 48.8 Glucose Level 94mg/dL (70-99) Calcium Level 9.3mg/dL (8.5-10.1) Test 07/04/16 11:21 07/04/16 16:19 07/04/16 20:24 07/05/16 07:16 Glucose (Fingerstick) 159mg/dL (70-99) 214mg/dL (70-99) 142mg/dL (70-99) 94mg/dL (70-99) Laboratory Tests Test 07/04/16 11:21 07/04/16 16:19 07/04/16 20:24 07/05/16 07:16 Glucose (Fingerstick) 159mg/dL (70-99) 214mg/dL (70-99) 142mg/dL (70-99) 94mg/dL (70-99) Microbiology 06/30/16 Urine Culture - Final, Complete 06/30/16 Urine Culture Result 1 (ÁNGEL) - Final, Complete 06/30/16 Urine Culture Result 2 (ÁNGEL) - Final, Complete 06/30/16 Antimicrobic Susceptibility - Final, Complete Medications Current Medications Acetaminophen (Tylenol) 1,000 mg 1X ONCE PO Last administered on 06/30/16 07: 33; Start 06/30/16 at 07:00; Stop 06/30/16 at 07:04; Status DC Ondansetron HCl 4 mg 4 mg 1X ONCE IV Last administered on 06/30/16 07:32; Start 06/30/16 at 07:15; Stop 06/30/16 at 07:16; Status DC Sodium Chloride (Iv Sodium Chloride 0.9% 500ml Bag) 500 ml @ 500 mls/hr 1X ONCE IV Last administered on 06/30/16 09:57; Start 06/30/16 at 08:45; Stop at 09:44; Status DC Ondansetron HCl (Zofran) 4 mg PRN Q8HRS PRN IV NAUSEA/VOMITING Last administered on 06/30/16 20:58; Start 06/30/16 at 08:45; Stop 07/01/16 at 08:44; Status DC Morphine Sulfate 2 mg PRN Q2HR PRN IV PAIN Last administered on 07/01/16 05:16 ; Start 06/30/16 at 08:45; Stop 07/01/16 at 08:44; Status DC Acetaminophen (Tylenol) 650 mg PRN Q4HRS PRN PO FEVER Last administered on 20:40; Start 06/30/16 at 08:45; Stop 07/01/16 at 08:44; Status DC Insulin Aspart (Novolog) 0-7 UNITS TIDWMEALS SQ Last administered on 07/04/16 17:35; Start 06/30/16 at 12:00 Dextrose 12.5 gm PRN Q15MIN PRN IV SEE COMMENTS; Start 06/30/16 at 08:45 Pneumococcal Polyvalent Vaccine (Do NOT chart on this placeholder) 1 each 1X ONCE MC ; Start 06/30/16 at 11:30; Stop 06/30/16 at 11:31; Status UNV Acetaminophen (Tylenol) 650 mg PRN Q6HRS PRN PO PAIN; Start 06/30/16 at 12:15; Stop 06/30/16 at 12:18; Status DC Amlodipine Besylate (Norvasc) 10 mg DAILY PO Last administered on 07/05/16 08: 23; Start 06/30/16 at 13:00 Atorvastatin Calcium (Lipitor) 40 mg QHS PO Last administered on 07/04/16 20: 24; Start 06/30/16 at 21:00 Carvedilol (Coreg) 25 mg BIDWMEALS PO Last administered on 07/05/16 08:17; Start 06/30/16 at 17:00 Clopidogrel Bisulfate (Plavix) 75 mg DAILY07 PO Last administered on 07/05/16 06:24; Start 06/30/16 at 13:00 Cyclosporine (Restasis) 1 drop HS OU Last administered on 07/04/16 20:25; Start 06/30/16 at 21:00 Duloxetine HCl (Cymbalta) 30 mg DAILY PO Last administered on 07/05/16 08:20; Start 06/30/16 at 13:00 Mirtazapine (Remeron) 15 mg QHS PO Last administered on 07/04/16 20:24; Start 06/30/16 at 21:00 Nicotine (Nicoderm Cq 21mg) 1 patch DAILY TD Last administered on 07/05/16 08: 22; Start 06/30/16 at 13:00 Oxybutynin Chloride (Ditropan) 5 mg BID PO Last administered on 07/05/16 08:20 ; Start 06/30/16 at 13:00 Pantoprazole Sodium (Protonix) 40 mg DAILY07 PO Last administered on 07/05/16 06:24; Start 06/30/16 at 13:00 Polyethylene Glycol (miraLAX PACKET) 17 gm DAILY PO Last administered on 07:56; Start 06/30/16 at 13:00 Senna/Docusate Sodium (Senna Plus) 2 tab HS PO Last administered on 07/03/16 20:48; Start 06/30/16 at 21:00; Stop 07/04/16 at 14:29; Status DC Non-Formulary Medication 10 mg QHS PO ; Start 06/30/16 at 21:00; Status UNV Potassium Chloride (Klor-Con) 10 meq DAILYWBKFT PO Last administered on 08:19; Start 06/30/16 at 13:00 Acetaminophen (Tylenol) 650 mg PRN Q6HRS PRN PO MILD PAIN / TEMP; Start at 12:15; Status UNV Ondansetron HCl (Zofran) 4 mg PRN Q6HRS PRN IV NAUSEA/VOMITING Last administered on 07/02/16 18:22; Start 06/30/16 at 12:15 Heparin Sodium (Porcine) 5,000 unit Q8HRS SQ Last administered on 07/05/16 06: 22; Start 06/30/16 at 14:00 Insulin Aspart (Novolog) 5 units TIDAC SQ Last administered on 07/01/16 08:46; Start 06/30/16 at 16:30; Stop 07/01/16 at 11:45; Status DC Insulin Detemir (Levemir) 20 units QHS SQ Last administered on 06/30/16 20:55; Start 06/30/16 at 21:00; Stop 07/01/16 at 11:45; Status DC Doxycycline Hyclate (Vibra-Tab) 100 mg BID PO Last administered on 07/01/16 20: 40; Start 06/30/16 at 13:00; Stop 07/02/16 at 10:36; Status DC Guaifenesin 600 mg 600 mg BID PO Last administered on 07/05/16 08:22; Start at 13:00 Sodium Chloride (Iv Sodium Chloride 0.9% 1000ml Bag) 1,000 ml @ 75 mls/hr 1X ONCE IV Last administered on 06/30/16 13:21; Start 06/30/16 at 12:15; Stop at 01:34; Status DC Acetaminophen (Tylenol) 650 mg PRN Q6HRS PRN PO PAIN Last administered on 17:16; Start 06/30/16 at 12:18 Magnesium Hydroxide (Milk Of Magnesia) 2,400 mg PRN DAILY PRN PO CONSTIPATION Last administered on 07/04/16 14:18; Start 06/30/16 at 17:30; Stop 07/04/16 at 14:29; Status DC Insulin Aspart (Novolog) 7 units TIDAC SQ ; Start 07/01/16 at 12:00; Stop at 12:57; Status DC Insulin Detemir (Levemir) 22 units QHS SQ Last administered on 07/04/16 20:27 ; Start 07/01/16 at 21:00 Insulin Aspart (Novolog) 5 units TIDAC SQ Last administered on 07/04/16 17:36 ; Start 07/01/16 at 16:30 Hydralazine HCl 10 mg 10 mg 1X ONCE IVP Last administered on 07/02/16 10:46; Start 07/02/16 at 10:30; Stop 07/02/16 at 10:31; Status DC Levofloxacin/ Dextrose (LEVAQUIN 500mg PREMIX) 100 ml @ 100 mls/hr Q24H IV Last administered on 07/03/16 11:01; Start 07/02/16 at 11:00; Stop 07/03/16 at 15:50; Status DC Lisinopril 20 mg 20 mg DAILY PO Last administered on 07/05/16 08:24; Start 02/08 at 11:00 Propofol (Diprivan) 50 ml @ As Directed STK-MED ONCE IV ; Start 07/02/16 at 12: 00; Stop 07/02/16 at 12:01; Status DC Midazolam HCl (Versed) 2 mg STK-MED ONCE .ROUTE ; Start 07/02/16 at 12:43; Stop 07/02/16 at 12:44; Status DC Iohexol (Omnipaque 300 Mg/ml) 50 ml STK-MED ONCE .ROUTE ; Start 07/02/16 at 12: 45; Stop 07/02/16 at 12:46; Status DC Lidocaine/Sodium Bicarbonate 20 ml 20 ml STK-MED ONCE IJ ; Start 07/02/16 at 12: 46; Stop 07/02/16 at 12:47; Status DC Cefazolin Sodium (Ancef 1gm Ivpb For Omni) 50 ml @ As Directed STK-MED ONCE IV ; Start 07/02/16 at 13:05; Stop 07/02/16 at 13:06; Status DC Lidocaine/Sodium Bicarbonate (Buffered Lidocaine 1%) 20 ml 1X ONCE IJ Last administered on 07/02/16 13:32; Start 07/02/16 at 13:30; Stop 07/02/16 at 13:31 ; Status DC Iohexol (Omnipaque 300 Mg/ml) 50 ml 1X ONCE IART Last administered on 13:31; Start 07/02/16 at 13:30; Stop 07/02/16 at 13:31; Status DC Info (Do NOT chart on this entry -- for MONITORING) 1 each PRN DAILY PRN MC SEE COMMENTS; Start 07/02/16 at 13:45; Stop 07/04/16 at 13:44; Status DC Hydralazine HCl (Apresoline) 10 mg 1X PACU PRN IVP HYPERTENSION, SEE COMMENTS; Start 07/02/16 at 14:15 Fentanyl Citrate (Fentanyl 2ml Vial) 25 mcg PRN Q5MIN PRN IV MILD PAIN Last administered on 07/02/16 14:27; Start 07/02/16 at 14:30; Stop 07/02/16 at 20:00 ; Status DC Fentanyl Citrate (Fentanyl 2ml Vial) 50 mcg PRN Q5MIN PRN IV MODERATE PAIN; Start 07/02/16 at 14:30; Stop 07/02/16 at 20:00; Status DC Morphine Sulfate 1 mg 1 mg PRN Q10MIN PRN IV SEVERE PAIN Last administered on 15:10; Start 07/02/16 at 14:30; Stop 07/02/16 at 18:00; Status DC Lactated Ringer's (Iv Lactated Ringers) 1,000 ml @ 30 mls/hr Q24H IV ; Start at 14:20; Stop 07/03/16 at 02:19; Status DC Lidocaine HCl 2 ml 1X PRN PRN ID IV START; Start 07/02/16 at 14:30; Stop at 20:00; Status DC Hydromorphone HCl (Dilaudid) 0.5 mg PRN Q10MIN PRN IV SEV PAIN,Second choice; Start 07/02/16 at 14:30; Stop 07/02/16 at 20:00; Status DC Prochlorperazine Edisylate (Compazine) 5 mg PACU PRN PRN IV NAUSEA; Start 07/02 at 14:30; Stop 07/02/16 at 20:00; Status DC Multi-Ingredient Mouthwash/Gargle (Gi Cocktail Single Dose) 15 ml PRN 1X PRN SWSW CHEST PAIN; Start 07/02/16 at 16:45 Al Hydroxide/Mg Hydroxide (Mylanta Plus Xs) 30 ml PRN Q2HR PRN PO HEARTBURN / GAS Last administered on 07/04/16 19:31; Start 07/02/16 at 16:45 Aspirin 325 mg 325 mg 1X ONCE PO Last administered on 07/02/16 16:55; Start 07/02/16 at 17:00; Stop 07/02/16 at 17:01; Status DC Sodium Chloride 1,000 ml @ 75 mls/hr 1X ONCE IV Last administered on 11:02; Start 07/03/16 at 10:30; Stop 07/03/16 at 23:49; Status DC Ceftriaxone Sodium/Sodium Chloride (Rocephin/Iv Sodium Chloride 0.9% 50ml) 50 ml @ 100 mls/hr Q24H IV Last administered on 07/04/16 14:18; Start 07/03/16 at 16:00 Iohexol (Omnipaque 300 Mg/ml) 60 ml 1X ONCE IV Last administered on 07/04/16 09:58; Start 07/04/16 at 09:45; Stop 07/04/16 at 09:46; Status DC Senna/Docusate Sodium (Senna Plus) 1 tab BID PO Last administered on 07/04/16 20:25; Start 07/04/16 at 21:00 Docusate Sodium (Colace) 100 mg BID PO Last administered on 07/04/16 20:25; Start 07/04/16 at 21:00 Magnesium Hydroxide (Milk Of Magnesia) 2,400 mg PRN Q12HR PRN PO CONSTIPATION; Start 07/04/16 at 14:30 Bisacodyl (Dulcolax Supp) 10 mg PRN DAILY PRN [place] CONSTIPATION; Start 07/04/16 at 14:30 Active Scripts Active Reported Tylenol (Acetaminophen) 325 Mg Tablet 650 Mg PO TID Senna-Docusate Sodium Tablet (Sennosides/Docusate Sodium) 1 Each Tablet 2 Each PO HS Protonix (Pantoprazole Sodium) 40 Mg Tablet.dr 1 Tab PO DAILY NICODERM CQ 21mg (Nicotine) 1 Each Patch.td24 1 Patch TP DAILY Miralax (Polyethylene Glycol 3350) 17 Gm Powd.pack 1 Packet PO DAILY Miralax (Polyethylene Glycol 3350) 17 Gm Powd.pack 1 Packet PO PRN DAILY PRN Melatonin 3 Mg Tablet 10 Mg PO QHS Mirtazapine 15 Mg Tablet 1 Tab PO QHS Cymbalta (Duloxetine Hcl) 30 Mg Capsule.dr 1 Cap PO DAILY Acetaminophen 500 Mg Tablet 1 Tab PO PRN Q6HRS PRN Novolog (Insulin Aspart) 100 Unit/1 Ml Cartridge 5 Unit SQ DAILYWSUP Restasis (Cyclosporine) 1 Each Droperette 1 Drop EACHEYE HS Multiple Vitamins (Multivitamin) 1 Each Tablet 1 Each PO Potassium Chloride 10 Meq Capsule.er 1 Cap PO DAILY05 Levemir (Insulin Detemir) 100 Unit/1 Ml Vial 30 Unit SQ DAILY Atorvastatin Calcium 40 Mg Tablet 1 Tab PO DAILY Lisinopril 20 Mg Tablet 1 Tab PO DAILY Oxybutynin Chloride 5 Mg Tablet 5 Mg PO BID Norvasc (Amlodipine Besylate) 5 Mg Tablet 10 Mg PO DAILY Clopidogrel (Clopidogrel Bisulfate) 75 Mg Tablet 75 Mg PO DAILY Coreg (Carvedilol) 12.5 Mg Tablet 25 Mg PO BID Vitals/I & O Vital Sign - Last 24 Hours 07/04/16 07/04/16 07/04/16 07/04/16 14:25 17:00 19:00 20:30 Temp 96.4 98.7 96.4 98.7 Pulse 77 77 71 Resp 18 B/P 133/44 133/44 121/76 Pulse Ox 97 92 O2 Delivery Nasal Cannula Nasal Cannula Nasal Cannula O2 Flow Rate 3.0 3.0 3.0 07/04/16 07/05/16 07/05/16 07/05/16 22:57 02:29 07:00 08:00 Temp 97.8 98.5 98.7 97.8 98.5 98.7 Pulse 82 71 78 Resp 19 18 16 B/P 141/86 141/82 154/49 Pulse Ox 94 93 90 O2 Delivery Nasal Cannula Nasal Cannula Nasal Cannula Nasal Cannula O2 Flow Rate 3.0 3.0 3.0 3.0 07/05/16 07/05/16 07/05/16 08:17 08:23 08:24 Pulse 78 78 78 B/P 154/49 154/49 154/49 Intake and Output 07/04/16 07/04/16 07/05/16 15:00 23:00 07:00 Intake Total 480 ml 360 ml 620 ml Balance 480 ml 360 ml 620 ml CRESENCIO CUMMINGS III DO Jul 05, 2016 11:30
--- NOTE | 2016-07-05 12:06 | PDOC ---
PROGRESS NOTES Subjective Subjective "Do you mean no cutting on my neck?" Objective Objective Vascular Surgery follow up: O: Patient sitting in chair. Seems to be oriented but responses to questions a bit confused. (UTI on admit) CTA of neck: 1. Moderate to severe recurrent left common carotid artery stenosis. There is a subtotal stenosis at the left thoracic inlet. 2. Moderate stenosis at the right CC a region. >70% stenosis within the distal common carotid artery. These results shared with Dr. Nathalia Dave. She has since spoke with Dr. Roberts regarding possible left carotid stent placement. Assessment/Plan: 1. Recurrent bilateral carotid artery stenosis with severe restenosis of the left common carotid artery via CTA. This correlates with the results of the carotid duplex performed earlier. - Dr. Dave has spoke with Dr. Roberts. IR consultation has been placed for review and consideration for angiogram with left common carotid stent placement. Dr. Roberts to review and evaluate patient for this plan. - Patient has been made NPO for possible IR intervention either today or tomorrow - per Dr. Roberts. - Continue antiplatelet therapy. Pt remains on Plavix. - plan discussed with Dr. Gonzalez. Vital Signs Date Time Temp Pulse Resp B/P Pulse Ox O2 Delivery O2 Flow Rate FiO2 07/05/16 11:26 98.1 69 16 136/54 95 Nasal Cannula 3.0 98.1 Intake and Output 07/05/16 07:00 Intake Total 1460 ml Balance 1460 ml Intake Oral 1460 ml # Voids 10 # Bowel Movements 3 Assessment Assessment Problems Medical Problems: (1) Hypoxia Status: Acute (2) Syncope Status: Acute Comment Review of Relevant I have reviewed the following items carlota (where applicable) has been applied. Labs Laboratory Tests Test 07/03/16 16:26 07/03/16 20:11 07/04/16 06:37 07/04/16 07:05 Glucose (Fingerstick) 183mg/dL (70-99) 175mg/dL (70-99) 99mg/dL (70-99) Sodium Level 141mmol/L (136-145) Potassium Level 4.2mmol/L (3.5-5.1) Chloride Level 107mmol/L (98-107) Carbon Dioxide Level 24mmol/L (21-32) Anion Gap 10 (6-14) Blood Urea Nitrogen 20mg/dL (7-20) Creatinine 1.1mg/dL (0.6-1.0) Estimated GFR (Cockcroft-Gault) 48.8 Glucose Level 94mg/dL (70-99) Calcium Level 9.3mg/dL (8.5-10.1) Test 07/04/16 11:21 07/04/16 16:19 07/04/16 20:24 07/05/16 07:16 Glucose (Fingerstick) 159mg/dL (70-99) 214mg/dL (70-99) 142mg/dL (70-99) 94mg/dL (70-99) Test 07/05/16 10:55 07/05/16 11:17 Sodium Level 138mmol/L (136-145) Potassium Level 4.8mmol/L (3.5-5.1) Chloride Level 106mmol/L (98-107) Carbon Dioxide Level 23mmol/L (21-32) Anion Gap 9 (6-14) Blood Urea Nitrogen 17mg/dL (7-20) Creatinine 1.1mg/dL (0.6-1.0) Estimated GFR (Cockcroft-Gault) 48.8 Glucose Level 176mg/dL (70-99) Calcium Level 9.4mg/dL (8.5-10.1) Glucose (Fingerstick) 155mg/dL (70-99) Laboratory Tests Test 07/04/16 16:19 07/04/16 20:24 07/05/16 07:16 07/05/16 10:55 Glucose (Fingerstick) 214mg/dL (70-99) 142mg/dL (70-99) 94mg/dL (70-99) Sodium Level 138mmol/L (136-145) Potassium Level 4.8mmol/L (3.5-5.1) Chloride Level 106mmol/L (98-107) Carbon Dioxide Level 23mmol/L (21-32) Anion Gap 9 (6-14) Blood Urea Nitrogen 17mg/dL (7-20) Creatinine 1.1mg/dL (0.6-1.0) Estimated GFR (Cockcroft-Gault) 48.8 Glucose Level 176mg/dL (70-99) Calcium Level 9.4mg/dL (8.5-10.1) Test 07/05/16 11:17 Glucose (Fingerstick) 155mg/dL (70-99) Microbiology 06/30/16 Urine Culture - Final, Complete 06/30/16 Urine Culture Result 1 (ÁNGEL) - Final, Complete 06/30/16 Urine Culture Result 2 (ÁNGEL) - Final, Complete 06/30/16 Antimicrobic Susceptibility - Final, Complete Medications Current Medications Acetaminophen (Tylenol) 1,000 mg 1X ONCE PO Last administered on 06/30/16 07: 33; Start 06/30/16 at 07:00; Stop 06/30/16 at 07:04; Status DC Ondansetron HCl 4 mg 4 mg 1X ONCE IV Last administered on 06/30/16 07:32; Start 06/30/16 at 07:15; Stop 06/30/16 at 07:16; Status DC Sodium Chloride (Iv Sodium Chloride 0.9% 500ml Bag) 500 ml @ 500 mls/hr 1X ONCE IV Last administered on 06/30/16 09:57; Start 06/30/16 at 08:45; Stop at 09:44; Status DC Ondansetron HCl (Zofran) 4 mg PRN Q8HRS PRN IV NAUSEA/VOMITING Last administered on 06/30/16 20:58; Start 06/30/16 at 08:45; Stop 07/01/16 at 08:44; Status DC Morphine Sulfate 2 mg PRN Q2HR PRN IV PAIN Last administered on 07/01/16 05:16 ; Start 06/30/16 at 08:45; Stop 07/01/16 at 08:44; Status DC Acetaminophen (Tylenol) 650 mg PRN Q4HRS PRN PO FEVER Last administered on 20:40; Start 06/30/16 at 08:45; Stop 07/01/16 at 08:44; Status DC Insulin Aspart (Novolog) 0-7 UNITS TIDWMEALS SQ Last administered on 07/04/16 17:35; Start 06/30/16 at 12:00 Dextrose 12.5 gm PRN Q15MIN PRN IV SEE COMMENTS; Start 06/30/16 at 08:45 Pneumococcal Polyvalent Vaccine (Do NOT chart on this placeholder) 1 each 1X ONCE MC ; Start 06/30/16 at 11:30; Stop 06/30/16 at 11:31; Status UNV Acetaminophen (Tylenol) 650 mg PRN Q6HRS PRN PO PAIN; Start 06/30/16 at 12:15; Stop 06/30/16 at 12:18; Status DC Amlodipine Besylate (Norvasc) 10 mg DAILY PO Last administered on 07/05/16 08: 23; Start 06/30/16 at 13:00 Atorvastatin Calcium (Lipitor) 40 mg QHS PO Last administered on 07/04/16 20: 24; Start 06/30/16 at 21:00 Carvedilol (Coreg) 25 mg BIDWMEALS PO Last administered on 07/05/16 08:17; Start 06/30/16 at 17:00 Clopidogrel Bisulfate (Plavix) 75 mg DAILY07 PO Last administered on 07/05/16 06:24; Start 06/30/16 at 13:00 Cyclosporine (Restasis) 1 drop HS OU Last administered on 07/04/16 20:25; Start 06/30/16 at 21:00 Duloxetine HCl (Cymbalta) 30 mg DAILY PO Last administered on 07/05/16 08:20; Start 06/30/16 at 13:00 Mirtazapine (Remeron) 15 mg QHS PO Last administered on 07/04/16 20:24; Start 06/30/16 at 21:00 Nicotine (Nicoderm Cq 21mg) 1 patch DAILY TD Last administered on 07/05/16 08: 22; Start 06/30/16 at 13:00 Oxybutynin Chloride (Ditropan) 5 mg BID PO Last administered on 07/05/16 08:20 ; Start 06/30/16 at 13:00 Pantoprazole Sodium (Protonix) 40 mg DAILY07 PO Last administered on 07/05/16 06:24; Start 06/30/16 at 13:00 Polyethylene Glycol (miraLAX PACKET) 17 gm DAILY PO Last administered on 07:56; Start 06/30/16 at 13:00 Senna/Docusate Sodium (Senna Plus) 2 tab HS PO Last administered on 07/03/16 20:48; Start 06/30/16 at 21:00; Stop 07/04/16 at 14:29; Status DC Non-Formulary Medication 10 mg QHS PO ; Start 06/30/16 at 21:00; Status UNV Potassium Chloride (Klor-Con) 10 meq DAILYWBKFT PO Last administered on 08:19; Start 06/30/16 at 13:00 Acetaminophen (Tylenol) 650 mg PRN Q6HRS PRN PO MILD PAIN / TEMP; Start at 12:15; Status UNV Ondansetron HCl (Zofran) 4 mg PRN Q6HRS PRN IV NAUSEA/VOMITING Last administered on 07/02/16 18:22; Start 06/30/16 at 12:15 Heparin Sodium (Porcine) 5,000 unit Q8HRS SQ Last administered on 07/05/16 06: 22; Start 06/30/16 at 14:00 Insulin Aspart (Novolog) 5 units TIDAC SQ Last administered on 07/01/16 08:46; Start 06/30/16 at 16:30; Stop 07/01/16 at 11:45; Status DC Insulin Detemir (Levemir) 20 units QHS SQ Last administered on 06/30/16 20:55; Start 06/30/16 at 21:00; Stop 07/01/16 at 11:45; Status DC Doxycycline Hyclate (Vibra-Tab) 100 mg BID PO Last administered on 07/01/16 20: 40; Start 06/30/16 at 13:00; Stop 07/02/16 at 10:36; Status DC Guaifenesin 600 mg 600 mg BID PO Last administered on 07/05/16 08:22; Start at 13:00 Sodium Chloride (Iv Sodium Chloride 0.9% 1000ml Bag) 1,000 ml @ 75 mls/hr 1X ONCE IV Last administered on 06/30/16 13:21; Start 06/30/16 at 12:15; Stop at 01:34; Status DC Acetaminophen (Tylenol) 650 mg PRN Q6HRS PRN PO PAIN Last administered on 17:16; Start 06/30/16 at 12:18 Magnesium Hydroxide (Milk Of Magnesia) 2,400 mg PRN DAILY PRN PO CONSTIPATION Last administered on 07/04/16 14:18; Start 06/30/16 at 17:30; Stop 07/04/16 at 14:29; Status DC Insulin Aspart (Novolog) 7 units TIDAC SQ ; Start 07/01/16 at 12:00; Stop at 12:57; Status DC Insulin Detemir (Levemir) 22 units QHS SQ Last administered on 07/04/16 20:27 ; Start 07/01/16 at 21:00 Insulin Aspart (Novolog) 5 units TIDAC SQ Last administered on 07/04/16 17:36 ; Start 07/01/16 at 16:30 Hydralazine HCl 10 mg 10 mg 1X ONCE IVP Last administered on 07/02/16 10:46; Start 07/02/16 at 10:30; Stop 07/02/16 at 10:31; Status DC Levofloxacin/ Dextrose (LEVAQUIN 500mg PREMIX) 100 ml @ 100 mls/hr Q24H IV Last administered on 07/03/16 11:01; Start 07/02/16 at 11:00; Stop 07/03/16 at 15:50; Status DC Lisinopril 20 mg 20 mg DAILY PO Last administered on 07/05/16 08:24; Start 02/08 at 11:00 Propofol (Diprivan) 50 ml @ As Directed STK-MED ONCE IV ; Start 07/02/16 at 12: 00; Stop 07/02/16 at 12:01; Status DC Midazolam HCl (Versed) 2 mg STK-MED ONCE .ROUTE ; Start 07/02/16 at 12:43; Stop 07/02/16 at 12:44; Status DC Iohexol (Omnipaque 300 Mg/ml) 50 ml STK-MED ONCE .ROUTE ; Start 07/02/16 at 12: 45; Stop 07/02/16 at 12:46; Status DC Lidocaine/Sodium Bicarbonate 20 ml 20 ml STK-MED ONCE IJ ; Start 07/02/16 at 12: 46; Stop 07/02/16 at 12:47; Status DC Cefazolin Sodium (Ancef 1gm Ivpb For Omni) 50 ml @ As Directed STK-MED ONCE IV ; Start 07/02/16 at 13:05; Stop 07/02/16 at 13:06; Status DC Lidocaine/Sodium Bicarbonate (Buffered Lidocaine 1%) 20 ml 1X ONCE IJ Last administered on 07/02/16 13:32; Start 07/02/16 at 13:30; Stop 07/02/16 at 13:31 ; Status DC Iohexol (Omnipaque 300 Mg/ml) 50 ml 1X ONCE IART Last administered on 13:31; Start 07/02/16 at 13:30; Stop 07/02/16 at 13:31; Status DC Info (Do NOT chart on this entry -- for MONITORING) 1 each PRN DAILY PRN MC SEE COMMENTS; Start 07/02/16 at 13:45; Stop 07/04/16 at 13:44; Status DC Hydralazine HCl (Apresoline) 10 mg 1X PACU PRN IVP HYPERTENSION, SEE COMMENTS; Start 07/02/16 at 14:15 Fentanyl Citrate (Fentanyl 2ml Vial) 25 mcg PRN Q5MIN PRN IV MILD PAIN Last administered on 07/02/16 14:27; Start 07/02/16 at 14:30; Stop 07/02/16 at 20:00 ; Status DC Fentanyl Citrate (Fentanyl 2ml Vial) 50 mcg PRN Q5MIN PRN IV MODERATE PAIN; Start 07/02/16 at 14:30; Stop 07/02/16 at 20:00; Status DC Morphine Sulfate 1 mg 1 mg PRN Q10MIN PRN IV SEVERE PAIN Last administered on 15:10; Start 07/02/16 at 14:30; Stop 07/02/16 at 18:00; Status DC Lactated Ringer's (Iv Lactated Ringers) 1,000 ml @ 30 mls/hr Q24H IV ; Start at 14:20; Stop 07/03/16 at 02:19; Status DC Lidocaine HCl 2 ml 1X PRN PRN ID IV START; Start 07/02/16 at 14:30; Stop at 20:00; Status DC Hydromorphone HCl (Dilaudid) 0.5 mg PRN Q10MIN PRN IV SEV PAIN,Second choice; Start 07/02/16 at 14:30; Stop 07/02/16 at 20:00; Status DC Prochlorperazine Edisylate (Compazine) 5 mg PACU PRN PRN IV NAUSEA; Start 07/02 at 14:30; Stop 07/02/16 at 20:00; Status DC Multi-Ingredient Mouthwash/Gargle (Gi Cocktail Single Dose) 15 ml PRN 1X PRN SWSW CHEST PAIN; Start 07/02/16 at 16:45 Al Hydroxide/Mg Hydroxide (Mylanta Plus Xs) 30 ml PRN Q2HR PRN PO HEARTBURN / GAS Last administered on 07/04/16 19:31; Start 07/02/16 at 16:45 Aspirin 325 mg 325 mg 1X ONCE PO Last administered on 07/02/16 16:55; Start 07/02/16 at 17:00; Stop 07/02/16 at 17:01; Status DC Sodium Chloride 1,000 ml @ 75 mls/hr 1X ONCE IV Last administered on 11:02; Start 07/03/16 at 10:30; Stop 07/03/16 at 23:49; Status DC Ceftriaxone Sodium/Sodium Chloride (Rocephin/Iv Sodium Chloride 0.9% 50ml) 50 ml @ 100 mls/hr Q24H IV Last administered on 07/04/16 14:18; Start 07/03/16 at 16:00 Iohexol (Omnipaque 300 Mg/ml) 60 ml 1X ONCE IV Last administered on 07/04/16 09:58; Start 07/04/16 at 09:45; Stop 07/04/16 at 09:46; Status DC Senna/Docusate Sodium (Senna Plus) 1 tab BID PO Last administered on 07/04/16 20:25; Start 07/04/16 at 21:00 Docusate Sodium (Colace) 100 mg BID PO Last administered on 07/04/16 20:25; Start 07/04/16 at 21:00 Magnesium Hydroxide (Milk Of Magnesia) 2,400 mg PRN Q12HR PRN PO CONSTIPATION; Start 07/04/16 at 14:30 Bisacodyl (Dulcolax Supp) 10 mg PRN DAILY PRN [place] CONSTIPATION; Start 07/04/16 at 14:30 Active Scripts Active Reported Tylenol (Acetaminophen) 325 Mg Tablet 650 Mg PO TID Senna-Docusate Sodium Tablet (Sennosides/Docusate Sodium) 1 Each Tablet 2 Each PO HS Protonix (Pantoprazole Sodium) 40 Mg Tablet.dr 1 Tab PO DAILY NICODERM CQ 21mg (Nicotine) 1 Each Patch.td24 1 Patch TP DAILY Miralax (Polyethylene Glycol 3350) 17 Gm Powd.pack 1 Packet PO DAILY Miralax (Polyethylene Glycol 3350) 17 Gm Powd.pack 1 Packet PO PRN DAILY PRN Melatonin 3 Mg Tablet 10 Mg PO QHS Mirtazapine 15 Mg Tablet 1 Tab PO QHS Cymbalta (Duloxetine Hcl) 30 Mg Capsule.dr 1 Cap PO DAILY Acetaminophen 500 Mg Tablet 1 Tab PO PRN Q6HRS PRN Novolog (Insulin Aspart) 100 Unit/1 Ml Cartridge 5 Unit SQ DAILYWSUP Restasis (Cyclosporine) 1 Each Droperette 1 Drop EACHEYE HS Multiple Vitamins (Multivitamin) 1 Each Tablet 1 Each PO Potassium Chloride 10 Meq Capsule.er 1 Cap PO DAILY05 Levemir (Insulin Detemir) 100 Unit/1 Ml Vial 30 Unit SQ DAILY Atorvastatin Calcium 40 Mg Tablet 1 Tab PO DAILY Lisinopril 20 Mg Tablet 1 Tab PO DAILY Oxybutynin Chloride 5 Mg Tablet 5 Mg PO BID Norvasc (Amlodipine Besylate) 5 Mg Tablet 10 Mg PO DAILY Clopidogrel (Clopidogrel Bisulfate) 75 Mg Tablet 75 Mg PO DAILY Coreg (Carvedilol) 12.5 Mg Tablet 25 Mg PO BID Vitals/I & O Vital Sign - Last 24 Hours 07/04/16 07/04/16 07/04/16 07/04/16 14:25 17:00 19:00 20:30 Temp 96.4 98.7 96.4 98.7 Pulse 77 77 71 Resp 18 B/P 133/44 133/44 121/76 Pulse Ox 97 92 O2 Delivery Nasal Cannula Nasal Cannula Nasal Cannula O2 Flow Rate 3.0 3.0 3.0 07/04/16 07/05/16 07/05/16 07/05/16 22:57 02:29 07:00 08:00 Temp 97.8 98.5 98.7 97.8 98.5 98.7 Pulse 82 71 78 Resp 19 18 16 B/P 141/86 141/82 154/49 Pulse Ox 94 93 90 O2 Delivery Nasal Cannula Nasal Cannula Nasal Cannula Nasal Cannula O2 Flow Rate 3.0 3.0 3.0 3.0 07/05/16 07/05/16 07/05/16 07/05/16 08:17 08:23 08:24 11:26 Temp 98.1 98.1 Pulse 78 78 78 69 Resp 16 B/P 154/49 154/49 154/49 136/54 Pulse Ox 95 O2 Delivery Nasal Cannula O2 Flow Rate 3.0 Intake and Output 07/04/16 07/04/16 07/05/16 15:00 23:00 07:00 Intake Total 480 ml 360 ml 620 ml Balance 480 ml 360 ml 620 ml IRINA MCDANIEL APRN Jul 05, 2016 12:06
[2016-07-05 14:36] VITALS: BP 131/41
--- NOTE | 2016-07-05 16:00 | PDOC ---
PULMONARY PROGRESS NOTES Subjective feels better Vitals Vital Signs Date Time Temp Pulse Resp B/P Pulse Ox O2 Delivery O2 Flow Rate FiO2 07/05/16 14:36 98.1 71 16 131/41 97 Nasal Cannula 3.0 98.1 General: Alert, No acute distress Lungs: Other (decrease bs) Cardiovascular: S1, S2 Abdomen: Soft Extremities: No Edema Labs Laboratory Tests Test 07/03/16 16:26 07/03/16 20:11 07/04/16 06:37 07/04/16 07:05 Glucose (Fingerstick) 183mg/dL (70-99) 175mg/dL (70-99) 99mg/dL (70-99) Sodium Level 141mmol/L (136-145) Potassium Level 4.2mmol/L (3.5-5.1) Chloride Level 107mmol/L (98-107) Carbon Dioxide Level 24mmol/L (21-32) Anion Gap 10 (6-14) Blood Urea Nitrogen 20mg/dL (7-20) Creatinine 1.1mg/dL (0.6-1.0) Estimated GFR (Cockcroft-Gault) 48.8 Glucose Level 94mg/dL (70-99) Calcium Level 9.3mg/dL (8.5-10.1) Test 07/04/16 11:21 07/04/16 16:19 07/04/16 20:24 07/05/16 07:16 Glucose (Fingerstick) 159mg/dL (70-99) 214mg/dL (70-99) 142mg/dL (70-99) 94mg/dL (70-99) Test 07/05/16 10:55 07/05/16 11:17 Sodium Level 138mmol/L (136-145) Potassium Level 4.8mmol/L (3.5-5.1) Chloride Level 106mmol/L (98-107) Carbon Dioxide Level 23mmol/L (21-32) Anion Gap 9 (6-14) Blood Urea Nitrogen 17mg/dL (7-20) Creatinine 1.1mg/dL (0.6-1.0) Estimated GFR (Cockcroft-Gault) 48.8 Glucose Level 176mg/dL (70-99) Calcium Level 9.4mg/dL (8.5-10.1) Glucose (Fingerstick) 155mg/dL (70-99) Laboratory Tests Test 07/04/16 16:19 07/04/16 20:24 07/05/16 07:16 07/05/16 10:55 Glucose (Fingerstick) 214mg/dL (70-99) 142mg/dL (70-99) 94mg/dL (70-99) Sodium Level 138mmol/L (136-145) Potassium Level 4.8mmol/L (3.5-5.1) Chloride Level 106mmol/L (98-107) Carbon Dioxide Level 23mmol/L (21-32) Anion Gap 9 (6-14) Blood Urea Nitrogen 17mg/dL (7-20) Creatinine 1.1mg/dL (0.6-1.0) Estimated GFR (Cockcroft-Gault) 48.8 Glucose Level 176mg/dL (70-99) Calcium Level 9.4mg/dL (8.5-10.1) Test 07/05/16 11:17 Glucose (Fingerstick) 155mg/dL (70-99) Medications Active Scripts Medications Dose Route/Sig Days Date Category Tylenol (Acetaminophen) 325 Mg Tablet 650 Mg PO TID 06/15/16 Reported Senna-Docusate Sodium Tablet (Sennosides/Docusate Sodium) 1 Each Tablet 2 Each PO HS 06/15/16 Reported Protonix (Pantoprazole Sodium) 40 Mg Tablet.dr 1 Tab PO DAILY 06/15/16 Reported NICODERM CQ 21mg (Nicotine) 1 Each Patch.td24 1 Patch TP DAILY 06/15/16 Reported Miralax (Polyethylene Glycol 3350) 17 Gm Powd.pack 1 Packet PO DAILY 06/15/16 Reported Miralax (Polyethylene Glycol 3350) 17 Gm Powd.pack 1 Packet PO PRN DAILY PRN 06/15/16 Reported Melatonin 3 Mg Tablet 10 Mg PO QHS 06/15/16 Reported Mirtazapine 15 Mg Tablet 1 Tab PO QHS 07/17/15 Reported Cymbalta (Duloxetine Hcl) 30 Mg Capsule.dr 1 Cap PO DAILY 07/17/15 Reported Acetaminophen 500 Mg Tablet 1 Tab PO PRN Q6HRS PRN 07/17/15 Reported Novolog (Insulin Aspart) 100 Unit/1 Ml Cartridge 5 Unit SQ DAILYWSUP 07/17/15 Reported Restasis (Cyclosporine) 1 Each Droperette 1 Drop EACHEYE HS 07/17/15 Reported Multiple Vitamins (Multivitamin) 1 Each Tablet 1 Each PO 07/17/15 Reported Potassium Chloride 10 Meq Capsule.er 1 Cap PO DAILY05 07/17/15 Reported Levemir (Insulin Detemir) 100 Unit/1 Ml Vial 30 Unit SQ DAILY 07/17/15 Reported Atorvastatin Calcium 40 Mg Tablet 1 Tab PO DAILY 08/17/14 Reported Lisinopril 20 Mg Tablet 1 Tab PO DAILY 08/17/14 Reported Oxybutynin Chloride 5 Mg Tablet 5 Mg PO BID 07/08/14 Reported Norvasc (Amlodipine Besylate) 5 Mg Tablet 10 Mg PO DAILY 07/08/14 Reported Clopidogrel (Clopidogrel Bisulfate) 75 Mg Tablet 75 Mg PO DAILY 09/28/13 Reported Coreg (Carvedilol) 12.5 Mg Tablet 25 Mg PO BID 09/28/13 Reported Impression . 1. Syncope work up n progress 2. Possible mild chronic obstructive pulmonary disease. 3. Status post fall with no obvious fracture. 4. Oofcg-[id number] hiatal hernia. 5. fever Plan . 1. Continue with present oxygen. 2. Noncontrast CT chest reviewed 3. cardiology evaluation for syncope. 4. Continue with antibiotics per ID 5. Bronchodilators as needed. NADIRA MARINO MD Jul 05, 2016 16:00
[2016-07-05] MEDS: CEFTRIAXONE SODIUM 1 GM in IV NORMAL SALINE 50ML 50 ML IV SCH (16:42)
--- NOTE | 2016-07-05 16:48 | CARD ---
APPROVED REPORT EXAM: Two-dimensional and M-mode echocardiogram with Doppler and color Doppler. Other Information Quality : GoodHR: 73bpm Rhythm : NSR INDICATION Syncope hypoxia RISK FACTORS Hypertension 2D DIMENSIONS RVDd2.3 (2.9-3.5cm)Left Atrium(2D)3.9 (1.6-4.0cm) IVSd1.3 (0.7-1.1cm)Aortic Root(2D)2.9 (2.0-3.7cm) LVDd3.9 (3.9-5.9cm)LVOT Diameter2.2 (1.8-2.4cm) PWd1.3 (0.7-1.1cm)LVDs2.8 (2.5-4.0cm) FS (%) 28.3 %SV36.2 ml LVEF(%)55.4 (>50%) Aortic Valve AoV Peak Moises.127.0cm/sAoV VTI29.4cm AO Peak GR.6.4mmHgLVOT Peak Moises.90.2cm/s AO Mean GR.4mmHgAVA (VMAX)2.72cm2 Mitral Valve MV E Bhkmpozs88.1cm/sMV E Peak Gr.3mmHg MV DECEL [id number] A Zdkcnekd87.4cm/s MV E Mean Gr.1mmHgE/A Ratio1.1 MV A [id number] Pulmonary Valve PV Peak Vgynedgb61.3cm/s Tricuspid Valve TR P. [id number]/sTR Peak Gr.35mmHg Pulmonary Vein S1 Inrafwst11.4cm/sD2 Npxlqaib32.9cm/s PVa [id number] LEFT VENTRICLE The left ventricle is normal size. There is mild concentric left ventricular hypertrophy. The left ve ntricular systolic function is normal and the ejection fraction is within normal range. The Ejection Fraction is 55-60%. There is normal LV segmental wall motion. The left ventricular diastolic function and filling is normal for age. RIGHT VENTRICLE The right ventricle is normal size. There is normal right ventricular wall thickness. The right ventr icular systolic function is normal. ATRIA The left atrium size is normal. The right atrium size is normal. The interatrial septum is intact wit h no evidence for an atrial septal defect or patent foramen ovale as noted on 2-D or Doppler imaging. AORTIC VALVE The aortic valve is mildly thickened. The aortic valve is trileaflet. Doppler and Color Flow revealed no significant aortic regurgitation. There is no significant aortic valvular stenosis. MITRAL VALVE The mitral valve leaflets are thickened. There is no evidence of mitral valve prolapse. There is no m itral valve stenosis. Doppler and Color Flow revealed trace mitral regurgitation. TRICUSPID VALVE Doppler and Color Flow revealed trace tricuspid regurgitation. The pulmonary artery systolic pressure is estimated at 40 mmHg. There is mild pulmonary hypertension. PULMONIC VALVE The pulmonic valve is not well visualized. Doppler and Color Flow revealed no pulmonic valvular regur gitation. There is no pulmonic valvular stenosis. GREAT VESSELS The aortic root is normal in size. The ascending aorta is normal in size. The IVC is normal in size a nd collapses >50% with inspiration. PERICARDIAL EFFUSION There is no evidence of significant pericardial effusion. Critical Notification Critical Value: No <Conclusion> There is mild concentric left ventricular hypertrophy. The left ventricular systolic function is normal and the ejection fraction is within normal range. Th e Ejection Fraction is 55-60%. There is normal LV segmental wall motion. Doppler and Color Flow revealed trace tricuspid regurgitation. The pulmonary artery systolic pressure is estimated at 40 mmHg. There is mild pulmonary hypertension.
[2016-07-05 19:00] VITALS: BP 130/56
[2016-07-05] MEDS: MIRTAZAPINE 15 MG TABLET PO SCH (20:58)
[2016-07-05] MEDS: ATORVASTATIN CALCIUM 40 MG TABLET. PO SCH (20:59)
[2016-07-05] MEDS: CYCLOSPORINE 0.05% OPTH DROPERETTE. OU SCH (20:59)
[2016-07-05] MEDS: INSULIN DETEMIR 300 UNITS/3 ML INSULN.PEN. SQ SCH (21:07)
[2016-07-05 23:00] VITALS: BP 152/76
[2016-07-06] VITALS (13 sets, daily range): BP systolic 97–149; BP diastolic 33–83
[2016-07-06 04:44] LABS: BASO % 0 % (0-3); EOS % 2 % (0-3); HEMATOCRIT 30.9 % (36.0-47.0); LYMPH # 1.2 x10^3/uL (1.0-4.8); LYMPH % 15 % (24-48); MEAN CORPUSCULAR HEMOGLOBIN 30 pg (25-35); MEAN CORPUSCULAR HGB CONC 32 g/dL (31-37); MEAN CORPUSCULAR VOLUME 91 fL (79-100); MONO % 13 % (0-9); NEUT % 70 % (31-73); PLATELET COUNT 180 x10^3/uL (140-400); RED BLOOD COUNT 3.38 x10^6/uL (3.50-5.40); RED CELL DISTRIBUTION WIDTH 13.9 % (11.5-14.5)
[2016-07-06 04:58] LABS: CALCIUM 9.1 mg/dL (8.5-10.1); GFR 54.5; POTASSIUM 4.8 mmol/L (3.5-5.1)
[2016-07-06] MEDS: CLOPIDOGREL BISULFATE 75 MG TABLET PO SCH (05:29)
[2016-07-06] MEDS: PANTOPRAZOLE 40 MG TABLET. PO SCH (05:30)
[2016-07-06] MEDS: HEPARIN PF for SUB-Q USE 5,000 UNIT/0.5 ML VIAL. SQ SCH ×3 (05:36→21:01)
[2016-07-06] MEDS ORDERED: MORPHINE SULFATE 2 MG/ML DISP.SYRIN. IV PRN (07:00)
[2016-07-06] MEDS ORDERED: FENTANYL PF 100 MCG/2 ML VIAL. IV PRN ×2 (07:00)
[2016-07-06] MEDS ORDERED: PROCHLORPERAZINE 10 MG/2 ML VIAL. IV PRN (07:00)
[2016-07-06] MEDS ORDERED: ONDANSETRON PF 4 MG/2 ML VIAL. IV PRN (07:00)
[2016-07-06] MEDS ORDERED: HYDROMORPHONE 2 MG/ML VIAL. IV PRN (07:00)
[2016-07-06] MEDS ORDERED: IV RINGERS,LACTATED 1000ML 1,000 ML IV SCH (07:00)
[2016-07-06] MEDS ORDERED: LIDOCAINE 1% 1 ML SYRINGE. ID PRN (07:00)
[2016-07-06] MEDS: INSULIN ASPART 300 UNITS/3 ML INSULN.PEN SQ SCH ×6 (07:30→17:53)
--- NOTE | 2016-07-06 08:32 | PDOC ---
PROGRESS NOTES Chief Complaint Chief Complaint Assessment/Plan 1. acute resp failure with COPD likely 2. fall, 2/2 unsteady gait likely 3. recent syncope and left forearm fx, no sx 4. h/o CAD 5. h/o CHF 6. H/O cva WITH MILD left side weakness 7. depression 8. dm2 on insulin 9. gerd 10. htn 11. hld 12. MELONIE, vasomotor. CKD2-3 13. h/o PEG 14. cervical DJD, CHRONIC spine fx, subacute L1 fx s/p kyphoplasty on 07/02 15 . >70% stenosis within the proximal and mid left internal carotid artery on US, had sx before History of Present Illness History of Present Illness Patient was sitting in the chair, was in no acute distress, no SOB, no CP reported, waiting for carotid stent placement, plan of care discussed with pt. Vitals Vitals Vital Signs Date Time Temp Pulse Resp B/P Pulse Ox O2 Delivery O2 Flow Rate FiO2 07/06/16 07:00 98.8 78 19 144/83 99 Nasal Cannula 3.0 98.8 Physical Exam General: Alert, Cooperative Heart: Regular rate, Other (Early systolic murmur at LSB, 2/6, mildly diminshed PMI) Lungs: Other (decrease bs) Abdomen: Soft, No tenderness Extremities: No edema Skin: No breakdown, No significant lesion Labs LABS Laboratory Tests Test 07/05/16 10:55 07/05/16 11:17 07/05/16 16:06 07/05/16 20:15 Sodium Level 138mmol/L (136-145) Potassium Level 4.8mmol/L (3.5-5.1) Chloride Level 106mmol/L (98-107) Carbon Dioxide Level 23mmol/L (21-32) Anion Gap 9 (6-14) Blood Urea Nitrogen 17mg/dL (7-20) Creatinine 1.1mg/dL (0.6-1.0) Estimated GFR (Cockcroft-Gault) 48.8 Glucose Level 176mg/dL (70-99) Calcium Level 9.4mg/dL (8.5-10.1) Glucose (Fingerstick) 155mg/dL (70-99) 228mg/dL (70-99) 216mg/dL (70-99) Test 07/06/16 04:00 07/06/16 07:48 White Blood Count 8.0x10^3/uL (4.0-11.0) Red Blood Count 3.38x10^6/uL (3.50-5.40) Hemoglobin 10.0g/dL (12.0-15.5) Hematocrit 30.9% (36.0-47.0) Mean Corpuscular Volume 91fL (79-100) Mean Corpuscular Hemoglobin 30pg (25-35) Mean Corpuscular Hemoglobin Concent 32g/dL (31-37) Red Cell Distribution Width 13.9% (11.5-14.5) Platelet Count 180x10^3/uL (140-400) Neutrophils (%) (Auto) 70% (31-73) Lymphocytes (%) (Auto) 15% (24-48) Monocytes (%) (Auto) 13% (0-9) Eosinophils (%) (Auto) 2% (0-3) Basophils (%) (Auto) 0% (0-3) Neutrophils # (Auto) 5.6x10^3uL (1.8-7.7) Lymphocytes # (Auto) 1.2x10^3/uL (1.0-4.8) Monocytes # (Auto) 1.0x10^3/uL (0.0-1.1) Eosinophils # (Auto) 0.1x10^3/uL (0.0-0.7) Basophils # (Auto) 0.0x10^3/uL (0.0-0.2) Sodium Level 140mmol/L (136-145) Potassium Level 4.8mmol/L (3.5-5.1) Chloride Level 105mmol/L (98-107) Carbon Dioxide Level 23mmol/L (21-32) Anion Gap 12 (6-14) Blood Urea Nitrogen 18mg/dL (7-20) Creatinine 1.0mg/dL (0.6-1.0) Estimated GFR (Cockcroft-Gault) 54.5 Glucose Level 172mg/dL (70-99) Calcium Level 9.1mg/dL (8.5-10.1) Glucose (Fingerstick) 188mg/dL (70-99) Review of Systems Review of Systems Awake, alert, oriented, no SOB, no CP, back pain improved with prn pain med, carotid bruit, afebrile Assessment and Plan Assessmemt and Plan Assessment: 1. acute resp failure with COPD likely 2. fall, 2/2 unsteady gait likely 3. recent syncope and left forearm fx, no sx 4. h/o CAD 5. h/o CHF 6. H/O cva WITH MILD left side weakness 7. depression 8. dm2 on insulin 9. gerd 10. htn 11. hld 12. MELONIE, vasomotor. CKD2-3 13. h/o PEG 14. cervical DJD, CHRONIC spine fx, subacute L1 fx s/p kyphoplasty on 07/02 15 . >70% stenosis within the proximal and mid left internal carotid artery on US, had sx before Plan: - Waiting for Carotid Stent placement - Continue PT/OT - Recheck labs in AM - continue antibiotics - continue duoneb treatment - probable discharge to SNF after stent placement - Appreciate subspecialities inputs and recommendations Problems Medical Problems: (1) Hypoxia Status: Acute (2) Syncope Status: Acute Problems: Comment Review of Relevant I have reviewed the following items carlota (where applicable) has been applied. Labs Laboratory Tests Test 07/04/16 11:21 07/04/16 16:19 07/04/16 20:24 07/05/16 07:16 Glucose (Fingerstick) 159mg/dL (70-99) 214mg/dL (70-99) 142mg/dL (70-99) 94mg/dL (70-99) Test 07/05/16 10:55 07/05/16 11:17 07/05/16 16:06 07/05/16 20:15 Sodium Level 138mmol/L (136-145) Potassium Level 4.8mmol/L (3.5-5.1) Chloride Level 106mmol/L (98-107) Carbon Dioxide Level 23mmol/L (21-32) Anion Gap 9 (6-14) Blood Urea Nitrogen 17mg/dL (7-20) Creatinine 1.1mg/dL (0.6-1.0) Estimated GFR (Cockcroft-Gault) 48.8 Glucose Level 176mg/dL (70-99) Calcium Level 9.4mg/dL (8.5-10.1) Glucose (Fingerstick) 155mg/dL (70-99) 228mg/dL (70-99) 216mg/dL (70-99) Test 07/06/16 04:00 07/06/16 07:48 White Blood Count 8.0x10^3/uL (4.0-11.0) Red Blood Count 3.38x10^6/uL (3.50-5.40) Hemoglobin 10.0g/dL (12.0-15.5) Hematocrit 30.9% (36.0-47.0) Mean Corpuscular Volume 91fL (79-100) Mean Corpuscular Hemoglobin 30pg (25-35) Mean Corpuscular Hemoglobin Concent 32g/dL (31-37) Red Cell Distribution Width 13.9% (11.5-14.5) Platelet Count 180x10^3/uL (140-400) Neutrophils (%) (Auto) 70% (31-73) Lymphocytes (%) (Auto) 15% (24-48) Monocytes (%) (Auto) 13% (0-9) Eosinophils (%) (Auto) 2% (0-3) Basophils (%) (Auto) 0% (0-3) Neutrophils # (Auto) 5.6x10^3uL (1.8-7.7) Lymphocytes # (Auto) 1.2x10^3/uL (1.0-4.8) Monocytes # (Auto) 1.0x10^3/uL (0.0-1.1) Eosinophils # (Auto) 0.1x10^3/uL (0.0-0.7) Basophils # (Auto) 0.0x10^3/uL (0.0-0.2) Sodium Level 140mmol/L (136-145) Potassium Level 4.8mmol/L (3.5-5.1) Chloride Level 105mmol/L (98-107) Carbon Dioxide Level 23mmol/L (21-32) Anion Gap 12 (6-14) Blood Urea Nitrogen 18mg/dL (7-20) Creatinine 1.0mg/dL (0.6-1.0) Estimated GFR (Cockcroft-Gault) 54.5 Glucose Level 172mg/dL (70-99) Calcium Level 9.1mg/dL (8.5-10.1) Glucose (Fingerstick) 188mg/dL (70-99) Laboratory Tests Test 07/05/16 10:55 07/05/16 11:17 07/05/16 16:06 07/05/16 20:15 Sodium Level 138mmol/L (136-145) Potassium Level 4.8mmol/L (3.5-5.1) Chloride Level 106mmol/L (98-107) Carbon Dioxide Level 23mmol/L (21-32) Anion Gap 9 (6-14) Blood Urea Nitrogen 17mg/dL (7-20) Creatinine 1.1mg/dL (0.6-1.0) Estimated GFR (Cockcroft-Gault) 48.8 Glucose Level 176mg/dL (70-99) Calcium Level 9.4mg/dL (8.5-10.1) Glucose (Fingerstick) 155mg/dL (70-99) 228mg/dL (70-99) 216mg/dL (70-99) Test 07/06/16 04:00 07/06/16 07:48 White Blood Count 8.0x10^3/uL (4.0-11.0) Red Blood Count 3.38x10^6/uL (3.50-5.40) Hemoglobin 10.0g/dL (12.0-15.5) Hematocrit 30.9% (36.0-47.0) Mean Corpuscular Volume 91fL (79-100) Mean Corpuscular Hemoglobin 30pg (25-35) Mean Corpuscular Hemoglobin Concent 32g/dL (31-37) Red Cell Distribution Width 13.9% (11.5-14.5) Platelet Count 180x10^3/uL (140-400) Neutrophils (%) (Auto) 70% (31-73) Lymphocytes (%) (Auto) 15% (24-48) Monocytes (%) (Auto) 13% (0-9) Eosinophils (%) (Auto) 2% (0-3) Basophils (%) (Auto) 0% (0-3) Neutrophils # (Auto) 5.6x10^3uL (1.8-7.7) Lymphocytes # (Auto) 1.2x10^3/uL (1.0-4.8) Monocytes # (Auto) 1.0x10^3/uL (0.0-1.1) Eosinophils # (Auto) 0.1x10^3/uL (0.0-0.7) Basophils # (Auto) 0.0x10^3/uL (0.0-0.2) Sodium Level 140mmol/L (136-145) Potassium Level 4.8mmol/L (3.5-5.1) Chloride Level 105mmol/L (98-107) Carbon Dioxide Level 23mmol/L (21-32) Anion Gap 12 (6-14) Blood Urea Nitrogen 18mg/dL (7-20) Creatinine 1.0mg/dL (0.6-1.0) Estimated GFR (Cockcroft-Gault) 54.5 Glucose Level 172mg/dL (70-99) Calcium Level 9.1mg/dL (8.5-10.1) Glucose (Fingerstick) 188mg/dL (70-99) Microbiology 06/30/16 Urine Culture - Final, Complete 06/30/16 Urine Culture Result 1 (ÁNGEL) - Final, Complete 06/30/16 Urine Culture Result 2 (ÁNGEL) - Final, Complete 06/30/16 Antimicrobic Susceptibility - Final, Complete Medications Current Medications Acetaminophen (Tylenol) 1,000 mg 1X ONCE PO Last administered on 06/30/16 07: 33; Start 06/30/16 at 07:00; Stop 06/30/16 at 07:04; Status DC Ondansetron HCl 4 mg 4 mg 1X ONCE IV Last administered on 06/30/16 07:32; Start 06/30/16 at 07:15; Stop 06/30/16 at 07:16; Status DC Sodium Chloride (Iv Sodium Chloride 0.9% 500ml Bag) 500 ml @ 500 mls/hr 1X ONCE IV Last administered on 06/30/16 09:57; Start 06/30/16 at 08:45; Stop at 09:44; Status DC Ondansetron HCl (Zofran) 4 mg PRN Q8HRS PRN IV NAUSEA/VOMITING Last administered on 06/30/16 20:58; Start 06/30/16 at 08:45; Stop 07/01/16 at 08:44; Status DC Morphine Sulfate 2 mg PRN Q2HR PRN IV PAIN Last administered on 07/01/16 05:16 ; Start 06/30/16 at 08:45; Stop 07/01/16 at 08:44; Status DC Acetaminophen (Tylenol) 650 mg PRN Q4HRS PRN PO FEVER Last administered on 20:40; Start 06/30/16 at 08:45; Stop 07/01/16 at 08:44; Status DC Insulin Aspart (Novolog) 0-7 UNITS TIDWMEALS SQ Last administered on 07/05/16 17:44; Start 06/30/16 at 12:00 Dextrose 12.5 gm PRN Q15MIN PRN IV SEE COMMENTS; Start 06/30/16 at 08:45 Pneumococcal Polyvalent Vaccine (Do NOT chart on this placeholder) 1 each 1X ONCE MC ; Start 06/30/16 at 11:30; Stop 06/30/16 at 11:31; Status UNV Acetaminophen (Tylenol) 650 mg PRN Q6HRS PRN PO PAIN; Start 06/30/16 at 12:15; Stop 06/30/16 at 12:18; Status DC Amlodipine Besylate (Norvasc) 10 mg DAILY PO Last administered on 07/05/16 08: 23; Start 06/30/16 at 13:00 Atorvastatin Calcium (Lipitor) 40 mg QHS PO Last administered on 07/05/16 20: 59; Start 06/30/16 at 21:00 Carvedilol (Coreg) 25 mg BIDWMEALS PO Last administered on 07/05/16 17:34; Start 06/30/16 at 17:00 Clopidogrel Bisulfate (Plavix) 75 mg DAILY07 PO Last administered on 07/06/16 05:29; Start 06/30/16 at 13:00 Cyclosporine (Restasis) 1 drop HS OU Last administered on 07/04/16 20:25; Start 06/30/16 at 21:00 Duloxetine HCl (Cymbalta) 30 mg DAILY PO Last administered on 07/05/16 08:20; Start 06/30/16 at 13:00 Mirtazapine (Remeron) 15 mg QHS PO Last administered on 07/05/16 20:58; Start 06/30/16 at 21:00 Nicotine (Nicoderm Cq 21mg) 1 patch DAILY TD Last administered on 07/05/16 08: 22; Start 06/30/16 at 13:00 Oxybutynin Chloride (Ditropan) 5 mg BID PO Last administered on 07/05/16 20:59 ; Start 06/30/16 at 13:00 Pantoprazole Sodium (Protonix) 40 mg DAILY07 PO Last administered on 07/06/16 05:30; Start 06/30/16 at 13:00 Polyethylene Glycol (miraLAX PACKET) 17 gm DAILY PO Last administered on 07:56; Start 06/30/16 at 13:00 Senna/Docusate Sodium (Senna Plus) 2 tab HS PO Last administered on 07/03/16 20:48; Start 06/30/16 at 21:00; Stop 07/04/16 at 14:29; Status DC Non-Formulary Medication 10 mg QHS PO ; Start 06/30/16 at 21:00; Status UNV Potassium Chloride (Klor-Con) 10 meq DAILYWBKFT PO Last administered on 08:19; Start 06/30/16 at 13:00 Acetaminophen (Tylenol) 650 mg PRN Q6HRS PRN PO MILD PAIN / TEMP; Start at 12:15; Status UNV Ondansetron HCl (Zofran) 4 mg PRN Q6HRS PRN IV NAUSEA/VOMITING Last administered on 07/02/16 18:22; Start 06/30/16 at 12:15 Heparin Sodium (Porcine) 5,000 unit Q8HRS SQ Last administered on 07/06/16 05: 36; Start 06/30/16 at 14:00 Insulin Aspart (Novolog) 5 units TIDAC SQ Last administered on 07/01/16 08:46; Start 06/30/16 at 16:30; Stop 07/01/16 at 11:45; Status DC Insulin Detemir (Levemir) 20 units QHS SQ Last administered on 06/30/16 20:55; Start 06/30/16 at 21:00; Stop 07/01/16 at 11:45; Status DC Doxycycline Hyclate (Vibra-Tab) 100 mg BID PO Last administered on 07/01/16 20: 40; Start 06/30/16 at 13:00; Stop 07/02/16 at 10:36; Status DC Guaifenesin 600 mg 600 mg BID PO Last administered on 07/05/16 20:59; Start at 13:00 Sodium Chloride (Iv Sodium Chloride 0.9% 1000ml Bag) 1,000 ml @ 75 mls/hr 1X ONCE IV Last administered on 06/30/16 13:21; Start 06/30/16 at 12:15; Stop at 01:34; Status DC Acetaminophen (Tylenol) 650 mg PRN Q6HRS PRN PO PAIN Last administered on 17:16; Start 06/30/16 at 12:18 Magnesium Hydroxide (Milk Of Magnesia) 2,400 mg PRN DAILY PRN PO CONSTIPATION Last administered on 07/04/16 14:18; Start 06/30/16 at 17:30; Stop 07/04/16 at 14:29; Status DC Insulin Aspart (Novolog) 7 units TIDAC SQ ; Start 07/01/16 at 12:00; Stop at 12:57; Status DC Insulin Detemir (Levemir) 22 units QHS SQ Last administered on 07/05/16 21:07 ; Start 07/01/16 at 21:00 Insulin Aspart (Novolog) 5 units TIDAC SQ Last administered on 07/05/16 17:45 ; Start 07/01/16 at 16:30 Hydralazine HCl 10 mg 10 mg 1X ONCE IVP Last administered on 07/02/16 10:46; Start 07/02/16 at 10:30; Stop 07/02/16 at 10:31; Status DC Levofloxacin/ Dextrose (LEVAQUIN 500mg PREMIX) 100 ml @ 100 mls/hr Q24H IV Last administered on 07/03/16 11:01; Start 07/02/16 at 11:00; Stop 07/03/16 at 15:50; Status DC Lisinopril 20 mg 20 mg DAILY PO Last administered on 07/05/16 08:24; Start 02/08 at 11:00 Propofol (Diprivan) 50 ml @ As Directed STK-MED ONCE IV ; Start 07/02/16 at 12: 00; Stop 07/02/16 at 12:01; Status DC Midazolam HCl (Versed) 2 mg STK-MED ONCE .ROUTE ; Start 07/02/16 at 12:43; Stop 07/02/16 at 12:44; Status DC Iohexol (Omnipaque 300 Mg/ml) 50 ml STK-MED ONCE .ROUTE ; Start 07/02/16 at 12: 45; Stop 07/02/16 at 12:46; Status DC Lidocaine/Sodium Bicarbonate 20 ml 20 ml STK-MED ONCE IJ ; Start 07/02/16 at 12: 46; Stop 07/02/16 at 12:47; Status DC Cefazolin Sodium (Ancef 1gm Ivpb For Omni) 50 ml @ As Directed STK-MED ONCE IV ; Start 07/02/16 at 13:05; Stop 07/02/16 at 13:06; Status DC Lidocaine/Sodium Bicarbonate (Buffered Lidocaine 1%) 20 ml 1X ONCE IJ Last administered on 07/02/16 13:32; Start 07/02/16 at 13:30; Stop 07/02/16 at 13:31 ; Status DC Iohexol (Omnipaque 300 Mg/ml) 50 ml 1X ONCE IART Last administered on 13:31; Start 07/02/16 at 13:30; Stop 07/02/16 at 13:31; Status DC Info (Do NOT chart on this entry -- for MONITORING) 1 each PRN DAILY PRN MC SEE COMMENTS; Start 07/02/16 at 13:45; Stop 07/04/16 at 13:44; Status DC Hydralazine HCl (Apresoline) 10 mg 1X PACU PRN IVP HYPERTENSION, SEE COMMENTS; Start 07/02/16 at 14:15 Fentanyl Citrate (Fentanyl 2ml Vial) 25 mcg PRN Q5MIN PRN IV MILD PAIN Last administered on 07/02/16 14:27; Start 07/02/16 at 14:30; Stop 07/02/16 at 20:00 ; Status DC Fentanyl Citrate (Fentanyl 2ml Vial) 50 mcg PRN Q5MIN PRN IV MODERATE PAIN; Start 07/02/16 at 14:30; Stop 07/02/16 at 20:00; Status DC Morphine Sulfate 1 mg 1 mg PRN Q10MIN PRN IV SEVERE PAIN Last administered on 15:10; Start 07/02/16 at 14:30; Stop 07/02/16 at 18:00; Status DC Lactated Ringer's (Iv Lactated Ringers) 1,000 ml @ 30 mls/hr Q24H IV ; Start at 14:20; Stop 07/03/16 at 02:19; Status DC Lidocaine HCl 2 ml 1X PRN PRN ID IV START; Start 07/02/16 at 14:30; Stop at 20:00; Status DC Hydromorphone HCl (Dilaudid) 0.5 mg PRN Q10MIN PRN IV SEV PAIN,Second choice; Start 07/02/16 at 14:30; Stop 07/02/16 at 20:00; Status DC Prochlorperazine Edisylate (Compazine) 5 mg PACU PRN PRN IV NAUSEA; Start 07/02 at 14:30; Stop 07/02/16 at 20:00; Status DC Multi-Ingredient Mouthwash/Gargle (Gi Cocktail Single Dose) 15 ml PRN 1X PRN SWSW CHEST PAIN; Start 07/02/16 at 16:45 Al Hydroxide/Mg Hydroxide (Mylanta Plus Xs) 30 ml PRN Q2HR PRN PO HEARTBURN / GAS Last administered on 07/04/16 19:31; Start 07/02/16 at 16:45 Aspirin 325 mg 325 mg 1X ONCE PO Last administered on 07/02/16 16:55; Start 07/02/16 at 17:00; Stop 07/02/16 at 17:01; Status DC Sodium Chloride 1,000 ml @ 75 mls/hr 1X ONCE IV Last administered on 11:02; Start 07/03/16 at 10:30; Stop 07/03/16 at 23:49; Status DC Ceftriaxone Sodium/Sodium Chloride (Rocephin/Iv Sodium Chloride 0.9% 50ml) 50 ml @ 100 mls/hr Q24H IV Last administered on 07/05/16 16:42; Start 07/03/16 at 16:00 Iohexol (Omnipaque 300 Mg/ml) 60 ml 1X ONCE IV Last administered on 07/04/16 09:58; Start 07/04/16 at 09:45; Stop 07/04/16 at 09:46; Status DC Senna/Docusate Sodium (Senna Plus) 1 tab BID PO Last administered on 07/05/16 20:59; Start 07/04/16 at 21:00 Docusate Sodium (Colace) 100 mg BID PO Last administered on 07/05/16 20:59; Start 07/04/16 at 21:00 Magnesium Hydroxide (Milk Of Magnesia) 2,400 mg PRN Q12HR PRN PO CONSTIPATION; Start 07/04/16 at 14:30 Bisacodyl (Dulcolax Supp) 10 mg PRN DAILY PRN MD CONSTIPATION; Start 07/04/16 at 14:30 Ondansetron HCl (Zofran) 4 mg PRN Q6HRS PRN IV Nausea; Start 07/06/16 at 07:00 ; Stop 07/07/16 at 06:59 Fentanyl Citrate (Fentanyl 2ml Vial) 25 mcg PRN Q5MIN PRN IV MILD PAIN; Start 07/06/16 at 07:00; Stop 07/07/16 at 06:59 Fentanyl Citrate (Fentanyl 2ml Vial) 50 mcg PRN Q5MIN PRN IV MODERATE PAIN; Start 07/06/16 at 07:00; Stop 07/07/16 at 06:59 Morphine Sulfate 1 mg 1 mg PRN Q10MIN PRN IV SEVERE PAIN; Start 07/06/16 at 07: 00; Stop 07/07/16 at 06:59 Lactated Ringer's (Iv Lactated Ringers) 1,000 ml @ 0 mls/hr Q0M IV ; Start at 07:00; Stop 07/06/16 at 18:59 Lidocaine HCl 2 ml 1X PRN PRN ID IV START; Start 07/06/16 at 07:00; Stop at 06:59 Hydromorphone HCl (Dilaudid) 0.5 mg PRN Q10MIN PRN IV SEVERE PAIN, Second choice; Start 07/06/16 at 07:00; Stop 07/07/16 at 06:59 Prochlorperazine Edisylate (Compazine) 5 mg PACU PRN PRN IV NAUSEA; Start 07/06 at 07:00; Stop 07/07/16 at 06:59 Active Scripts Active Reported Tylenol (Acetaminophen) 325 Mg Tablet 650 Mg PO TID Senna-Docusate Sodium Tablet (Sennosides/Docusate Sodium) 1 Each Tablet 2 Each PO HS Protonix (Pantoprazole Sodium) 40 Mg Tablet.dr 1 Tab PO DAILY NICODERM CQ 21mg (Nicotine) 1 Each Patch.td24 1 Patch TP DAILY Miralax (Polyethylene Glycol 3350) 17 Gm Powd.pack 1 Packet PO DAILY Miralax (Polyethylene Glycol 3350) 17 Gm Powd.pack 1 Packet PO PRN DAILY PRN Melatonin 3 Mg Tablet 10 Mg PO QHS Mirtazapine 15 Mg Tablet 1 Tab PO QHS Cymbalta (Duloxetine Hcl) 30 Mg Capsule.dr 1 Cap PO DAILY Acetaminophen 500 Mg Tablet 1 Tab PO PRN Q6HRS PRN Novolog (Insulin Aspart) 100 Unit/1 Ml Cartridge 5 Unit SQ DAILYWSUP Restasis (Cyclosporine) 1 Each Droperette 1 Drop EACHEYE HS Multiple Vitamins (Multivitamin) 1 Each Tablet 1 Each PO Potassium Chloride 10 Meq Capsule.er 1 Cap PO DAILY05 Levemir (Insulin Detemir) 100 Unit/1 Ml Vial 30 Unit SQ DAILY Atorvastatin Calcium 40 Mg Tablet 1 Tab PO DAILY Lisinopril 20 Mg Tablet 1 Tab PO DAILY Oxybutynin Chloride 5 Mg Tablet 5 Mg PO BID Norvasc (Amlodipine Besylate) 5 Mg Tablet 10 Mg PO DAILY Clopidogrel (Clopidogrel Bisulfate) 75 Mg Tablet 75 Mg PO DAILY Coreg (Carvedilol) 12.5 Mg Tablet 25 Mg PO BID Vitals/I & O Vital Sign - Last 24 Hours 07/05/16 07/05/16 07/05/16 07/05/16 11:26 14:36 17:34 19:00 Temp 98.1 98.1 98.7 98.1 98.1 98.7 Pulse 69 71 71 76 Resp 16 16 18 B/P 136/54 131/41 131/41 130/56 Pulse Ox 95 97 96 O2 Delivery Nasal Cannula Nasal Cannula Nasal Cannula O2 Flow Rate 3.0 3.0 3.0 07/05/16 07/05/16 07/06/16 07/06/16 19:48 23:00 03:20 07:00 Temp 97.6 99.0 98.8 97.6 99.0 98.8 Pulse 74 74 78 Resp 20 20 19 B/P 152/76 149/58 144/83 Pulse Ox 91 95 99 O2 Delivery Nasal Cannula Nasal Cannula Nasal Cannula Nasal Cannula O2 Flow Rate 3.0 3.0 Intake and Output 07/05/16 07/05/16 07/06/16 15:00 23:00 07:00 Intake Total 720 ml 120 ml Output Total 3 ml Balance -3 ml 720 ml 120 ml CRESENCIO CUMMINGS III DO Jul 06, 2016 08:32
[2016-07-06] MEDS: NICOTINE 21MG PATCH. TD SCH (08:59)
[2016-07-06] MEDS: DOCUSATE SODIUM 100 MG CAPSULE PO SCH ×2 (09:00→20:56)
[2016-07-06] MEDS: LISINOPRIL 20 MG TABLET PO SCH (09:00)
[2016-07-06] MEDS: DULOXETINE HCL 30 MG CAPSULE.DR. PO SCH (09:00)
[2016-07-06] MEDS: POLYETHYLENE GLYCOL 3350 17 GM PACKET. PO SCH (09:00)
[2016-07-06] MEDS: AMLODIPINE BESYLATE 10 MG TABLET PO SCH (09:00)
[2016-07-06] MEDS: SENNOSIDES/DOCUSATE 8.6/50MG TABLET. PO SCH ×2 (09:00→20:56)
[2016-07-06] MEDS: POTASSIUM CHLORIDE 10 MEQ TABLET.ER. PO SCH (09:00)
[2016-07-06] MEDS: GUAIFENESIN ER 600 MG TABLET.ER PO SCH ×2 (09:00→21:00)
[2016-07-06] MEDS: CARVEDILOL 12.5 MG TABLET PO SCH ×2 (09:01→17:48)
[2016-07-06] MEDS: OXYBUTYNIN CHLORIDE 5 MG TABLET PO SCH ×2 (09:01→20:56)
--- NOTE | 2016-07-06 09:46 | PDOC ---
PULMONARY PROGRESS NOTES Subjective feels better Vitals Vital Signs Date Time Temp Pulse Resp B/P Pulse Ox O2 Delivery O2 Flow Rate FiO2 07/06/16 09:01 78 144/83 07/06/16 07:00 98.8 19 99 Nasal Cannula 3.0 98.8 General: Alert, No acute distress Lungs: Other (decrease bs) Cardiovascular: S1, S2 Abdomen: Soft Extremities: No Edema Labs Laboratory Tests Test 07/04/16 11:21 07/04/16 16:19 07/04/16 20:24 07/05/16 07:16 Glucose (Fingerstick) 159mg/dL (70-99) 214mg/dL (70-99) 142mg/dL (70-99) 94mg/dL (70-99) Test 07/05/16 10:55 07/05/16 11:17 07/05/16 16:06 07/05/16 20:15 Sodium Level 138mmol/L (136-145) Potassium Level 4.8mmol/L (3.5-5.1) Chloride Level 106mmol/L (98-107) Carbon Dioxide Level 23mmol/L (21-32) Anion Gap 9 (6-14) Blood Urea Nitrogen 17mg/dL (7-20) Creatinine 1.1mg/dL (0.6-1.0) Estimated GFR (Cockcroft-Gault) 48.8 Glucose Level 176mg/dL (70-99) Calcium Level 9.4mg/dL (8.5-10.1) Glucose (Fingerstick) 155mg/dL (70-99) 228mg/dL (70-99) 216mg/dL (70-99) Test 07/06/16 04:00 07/06/16 07:48 White Blood Count 8.0x10^3/uL (4.0-11.0) Red Blood Count 3.38x10^6/uL (3.50-5.40) Hemoglobin 10.0g/dL (12.0-15.5) Hematocrit 30.9% (36.0-47.0) Mean Corpuscular Volume 91fL (79-100) Mean Corpuscular Hemoglobin 30pg (25-35) Mean Corpuscular Hemoglobin Concent 32g/dL (31-37) Red Cell Distribution Width 13.9% (11.5-14.5) Platelet Count 180x10^3/uL (140-400) Neutrophils (%) (Auto) 70% (31-73) Lymphocytes (%) (Auto) 15% (24-48) Monocytes (%) (Auto) 13% (0-9) Eosinophils (%) (Auto) 2% (0-3) Basophils (%) (Auto) 0% (0-3) Neutrophils # (Auto) 5.6x10^3uL (1.8-7.7) Lymphocytes # (Auto) 1.2x10^3/uL (1.0-4.8) Monocytes # (Auto) 1.0x10^3/uL (0.0-1.1) Eosinophils # (Auto) 0.1x10^3/uL (0.0-0.7) Basophils # (Auto) 0.0x10^3/uL (0.0-0.2) Sodium Level 140mmol/L (136-145) Potassium Level 4.8mmol/L (3.5-5.1) Chloride Level 105mmol/L (98-107) Carbon Dioxide Level 23mmol/L (21-32) Anion Gap 12 (6-14) Blood Urea Nitrogen 18mg/dL (7-20) Creatinine 1.0mg/dL (0.6-1.0) Estimated GFR (Cockcroft-Gault) 54.5 Glucose Level 172mg/dL (70-99) Calcium Level 9.1mg/dL (8.5-10.1) Glucose (Fingerstick) 188mg/dL (70-99) Laboratory Tests Test 07/05/16 10:55 07/05/16 11:17 07/05/16 16:06 07/05/16 20:15 Sodium Level 138mmol/L (136-145) Potassium Level 4.8mmol/L (3.5-5.1) Chloride Level 106mmol/L (98-107) Carbon Dioxide Level 23mmol/L (21-32) Anion Gap 9 (6-14) Blood Urea Nitrogen 17mg/dL (7-20) Creatinine 1.1mg/dL (0.6-1.0) Estimated GFR (Cockcroft-Gault) 48.8 Glucose Level 176mg/dL (70-99) Calcium Level 9.4mg/dL (8.5-10.1) Glucose (Fingerstick) 155mg/dL (70-99) 228mg/dL (70-99) 216mg/dL (70-99) Test 07/06/16 04:00 07/06/16 07:48 White Blood Count 8.0x10^3/uL (4.0-11.0) Red Blood Count 3.38x10^6/uL (3.50-5.40) Hemoglobin 10.0g/dL (12.0-15.5) Hematocrit 30.9% (36.0-47.0) Mean Corpuscular Volume 91fL (79-100) Mean Corpuscular Hemoglobin 30pg (25-35) Mean Corpuscular Hemoglobin Concent 32g/dL (31-37) Red Cell Distribution Width 13.9% (11.5-14.5) Platelet Count 180x10^3/uL (140-400) Neutrophils (%) (Auto) 70% (31-73) Lymphocytes (%) (Auto) 15% (24-48) Monocytes (%) (Auto) 13% (0-9) Eosinophils (%) (Auto) 2% (0-3) Basophils (%) (Auto) 0% (0-3) Neutrophils # (Auto) 5.6x10^3uL (1.8-7.7) Lymphocytes # (Auto) 1.2x10^3/uL (1.0-4.8) Monocytes # (Auto) 1.0x10^3/uL (0.0-1.1) Eosinophils # (Auto) 0.1x10^3/uL (0.0-0.7) Basophils # (Auto) 0.0x10^3/uL (0.0-0.2) Sodium Level 140mmol/L (136-145) Potassium Level 4.8mmol/L (3.5-5.1) Chloride Level 105mmol/L (98-107) Carbon Dioxide Level 23mmol/L (21-32) Anion Gap 12 (6-14) Blood Urea Nitrogen 18mg/dL (7-20) Creatinine 1.0mg/dL (0.6-1.0) Estimated GFR (Cockcroft-Gault) 54.5 Glucose Level 172mg/dL (70-99) Calcium Level 9.1mg/dL (8.5-10.1) Glucose (Fingerstick) 188mg/dL (70-99) Medications Active Scripts Medications Dose Route/Sig Days Date Category Tylenol (Acetaminophen) 325 Mg Tablet 650 Mg PO TID 06/15/16 Reported Senna-Docusate Sodium Tablet (Sennosides/Docusate Sodium) 1 Each Tablet 2 Each PO HS 06/15/16 Reported Protonix (Pantoprazole Sodium) 40 Mg Tablet.dr 1 Tab PO DAILY 06/15/16 Reported NICODERM CQ 21mg (Nicotine) 1 Each Patch.td24 1 Patch TP DAILY 06/15/16 Reported Miralax (Polyethylene Glycol 3350) 17 Gm Powd.pack 1 Packet PO DAILY 06/15/16 Reported Miralax (Polyethylene Glycol 3350) 17 Gm Powd.pack 1 Packet PO PRN DAILY PRN 06/15/16 Reported Melatonin 3 Mg Tablet 10 Mg PO QHS 06/15/16 Reported Mirtazapine 15 Mg Tablet 1 Tab PO QHS 07/17/15 Reported Cymbalta (Duloxetine Hcl) 30 Mg Capsule.dr 1 Cap PO DAILY 07/17/15 Reported Acetaminophen 500 Mg Tablet 1 Tab PO PRN Q6HRS PRN 07/17/15 Reported Novolog (Insulin Aspart) 100 Unit/1 Ml Cartridge 5 Unit SQ DAILYWSUP 07/17/15 Reported Restasis (Cyclosporine) 1 Each Droperette 1 Drop EACHEYE HS 07/17/15 Reported Multiple Vitamins (Multivitamin) 1 Each Tablet 1 Each PO 07/17/15 Reported Potassium Chloride 10 Meq Capsule.er 1 Cap PO DAILY05 07/17/15 Reported Levemir (Insulin Detemir) 100 Unit/1 Ml Vial 30 Unit SQ DAILY 07/17/15 Reported Atorvastatin Calcium 40 Mg Tablet 1 Tab PO DAILY 08/17/14 Reported Lisinopril 20 Mg Tablet 1 Tab PO DAILY 08/17/14 Reported Oxybutynin Chloride 5 Mg Tablet 5 Mg PO BID 07/08/14 Reported Norvasc (Amlodipine Besylate) 5 Mg Tablet 10 Mg PO DAILY 07/08/14 Reported Clopidogrel (Clopidogrel Bisulfate) 75 Mg Tablet 75 Mg PO DAILY 09/28/13 Reported Coreg (Carvedilol) 12.5 Mg Tablet 25 Mg PO BID 09/28/13 Reported Impression . 1. Syncope work up n progress 2. Possible mild chronic obstructive pulmonary disease. 3. Status post fall with no obvious fracture. 4. Klvup-et-koiuposo hiatal hernia. 5. fever Plan . 1. Continue with present oxygen. 2. Noncontrast CT chest reviewed 3. cardiology evaluation for syncope. 4. Continue with antibiotics per ID 5. Bronchodilators as needed. NADIRA MARINO MD Jul 06, 2016 09:46
--- NOTE | 2016-07-06 10:30 | PDOC ---
PROGRESS NOTES Subjective Subjective No new complaints. Objective Objective Vital Signs Date Time Temp Pulse Resp B/P Pulse Ox O2 Delivery O2 Flow Rate FiO2 07/06/16 09:01 78 144/83 07/06/16 08:00 Nasal Cannula 3.0 07/06/16 07:00 98.8 19 99 98.8 Intake and Output 07/06/16 07:00 Intake Total 840 ml Output Total 3 ml Balance 837 ml Intake Oral 840 ml Stool Total 2 ml Urine/Stool Mix 1 ml # Voids 6 Physical Exam Physical Exam She is sitting up in bedside chair and working with occupational therapy on dressing and she continues with some low back pain and requires help with transfers. Assessment Assessment Problems Medical Problems: (1) Hypoxia Status: Acute (2) Syncope Status: Acute Plan Plan of Care To SNF when medically stable. Comment Review of Relevant I have reviewed the following items carlota (where applicable) has been applied. Labs Laboratory Tests Test 07/04/16 11:21 07/04/16 16:19 07/04/16 20:24 07/05/16 07:16 Glucose (Fingerstick) 159mg/dL (70-99) 214mg/dL (70-99) 142mg/dL (70-99) 94mg/dL (70-99) Test 07/05/16 10:55 07/05/16 11:17 07/05/16 16:06 07/05/16 20:15 Sodium Level 138mmol/L (136-145) Potassium Level 4.8mmol/L (3.5-5.1) Chloride Level 106mmol/L (98-107) Carbon Dioxide Level 23mmol/L (21-32) Anion Gap 9 (6-14) Blood Urea Nitrogen 17mg/dL (7-20) Creatinine 1.1mg/dL (0.6-1.0) Estimated GFR (Cockcroft-Gault) 48.8 Glucose Level 176mg/dL (70-99) Calcium Level 9.4mg/dL (8.5-10.1) Glucose (Fingerstick) 155mg/dL (70-99) 228mg/dL (70-99) 216mg/dL (70-99) Test 07/06/16 04:00 07/06/16 07:48 White Blood Count 8.0x10^3/uL (4.0-11.0) Red Blood Count 3.38x10^6/uL (3.50-5.40) Hemoglobin 10.0g/dL (12.0-15.5) Hematocrit 30.9% (36.0-47.0) Mean Corpuscular Volume 91fL (79-100) Mean Corpuscular Hemoglobin 30pg (25-35) Mean Corpuscular Hemoglobin Concent 32g/dL (31-37) Red Cell Distribution Width 13.9% (11.5-14.5) Platelet Count 180x10^3/uL (140-400) Neutrophils (%) (Auto) 70% (31-73) Lymphocytes (%) (Auto) 15% (24-48) Monocytes (%) (Auto) 13% (0-9) Eosinophils (%) (Auto) 2% (0-3) Basophils (%) (Auto) 0% (0-3) Neutrophils # (Auto) 5.6x10^3uL (1.8-7.7) Lymphocytes # (Auto) 1.2x10^3/uL (1.0-4.8) Monocytes # (Auto) 1.0x10^3/uL (0.0-1.1) Eosinophils # (Auto) 0.1x10^3/uL (0.0-0.7) Basophils # (Auto) 0.0x10^3/uL (0.0-0.2) Sodium Level 140mmol/L (136-145) Potassium Level 4.8mmol/L (3.5-5.1) Chloride Level 105mmol/L (98-107) Carbon Dioxide Level 23mmol/L (21-32) Anion Gap 12 (6-14) Blood Urea Nitrogen 18mg/dL (7-20) Creatinine 1.0mg/dL (0.6-1.0) Estimated GFR (Cockcroft-Gault) 54.5 Glucose Level 172mg/dL (70-99) Calcium Level 9.1mg/dL (8.5-10.1) Glucose (Fingerstick) 188mg/dL (70-99) Laboratory Tests Test 07/05/16 10:55 07/05/16 11:17 07/05/16 16:06 07/05/16 20:15 Sodium Level 138mmol/L (136-145) Potassium Level 4.8mmol/L (3.5-5.1) Chloride Level 106mmol/L (98-107) Carbon Dioxide Level 23mmol/L (21-32) Anion Gap 9 (6-14) Blood Urea Nitrogen 17mg/dL (7-20) Creatinine 1.1mg/dL (0.6-1.0) Estimated GFR (Cockcroft-Gault) 48.8 Glucose Level 176mg/dL (70-99) Calcium Level 9.4mg/dL (8.5-10.1) Glucose (Fingerstick) 155mg/dL (70-99) 228mg/dL (70-99) 216mg/dL (70-99) Test 07/06/16 04:00 07/06/16 07:48 White Blood Count 8.0x10^3/uL (4.0-11.0) Red Blood Count 3.38x10^6/uL (3.50-5.40) Hemoglobin 10.0g/dL (12.0-15.5) Hematocrit 30.9% (36.0-47.0) Mean Corpuscular Volume 91fL (79-100) Mean Corpuscular Hemoglobin 30pg (25-35) Mean Corpuscular Hemoglobin Concent 32g/dL (31-37) Red Cell Distribution Width 13.9% (11.5-14.5) Platelet Count 180x10^3/uL (140-400) Neutrophils (%) (Auto) 70% (31-73) Lymphocytes (%) (Auto) 15% (24-48) Monocytes (%) (Auto) 13% (0-9) Eosinophils (%) (Auto) 2% (0-3) Basophils (%) (Auto) 0% (0-3) Neutrophils # (Auto) 5.6x10^3uL (1.8-7.7) Lymphocytes # (Auto) 1.2x10^3/uL (1.0-4.8) Monocytes # (Auto) 1.0x10^3/uL (0.0-1.1) Eosinophils # (Auto) 0.1x10^3/uL (0.0-0.7) Basophils # (Auto) 0.0x10^3/uL (0.0-0.2) Sodium Level 140mmol/L (136-145) Potassium Level 4.8mmol/L (3.5-5.1) Chloride Level 105mmol/L (98-107) Carbon Dioxide Level 23mmol/L (21-32) Anion Gap 12 (6-14) Blood Urea Nitrogen 18mg/dL (7-20) Creatinine 1.0mg/dL (0.6-1.0) Estimated GFR (Cockcroft-Gault) 54.5 Glucose Level 172mg/dL (70-99) Calcium Level 9.1mg/dL (8.5-10.1) Glucose (Fingerstick) 188mg/dL (70-99) Microbiology 06/30/16 Urine Culture - Final, Complete 06/30/16 Urine Culture Result 1 (ÁNGEL) - Final, Complete 06/30/16 Urine Culture Result 2 (ÁNGEL) - Final, Complete 06/30/16 Antimicrobic Susceptibility - Final, Complete Medications Current Medications Acetaminophen (Tylenol) 1,000 mg 1X ONCE PO Last administered on 06/30/16 07: 33; Start 06/30/16 at 07:00; Stop 06/30/16 at 07:04; Status DC Ondansetron HCl 4 mg 4 mg 1X ONCE IV Last administered on 06/30/16 07:32; Start 06/30/16 at 07:15; Stop 06/30/16 at 07:16; Status DC Sodium Chloride (Iv Sodium Chloride 0.9% 500ml Bag) 500 ml @ 500 mls/hr 1X ONCE IV Last administered on 06/30/16 09:57; Start 06/30/16 at 08:45; Stop at 09:44; Status DC Ondansetron HCl (Zofran) 4 mg PRN Q8HRS PRN IV NAUSEA/VOMITING Last administered on 06/30/16 20:58; Start 06/30/16 at 08:45; Stop 07/01/16 at 08:44; Status DC Morphine Sulfate 2 mg PRN Q2HR PRN IV PAIN Last administered on 07/01/16 05:16 ; Start 06/30/16 at 08:45; Stop 07/01/16 at 08:44; Status DC Acetaminophen (Tylenol) 650 mg PRN Q4HRS PRN PO FEVER Last administered on 20:40; Start 06/30/16 at 08:45; Stop 07/01/16 at 08:44; Status DC Insulin Aspart (Novolog) 0-7 UNITS TIDWMEALS SQ Last administered on 07/05/16 17:44; Start 06/30/16 at 12:00 Dextrose 12.5 gm PRN Q15MIN PRN IV SEE COMMENTS; Start 06/30/16 at 08:45 Pneumococcal Polyvalent Vaccine (Do NOT chart on this placeholder) 1 each 1X ONCE MC ; Start 06/30/16 at 11:30; Stop 06/30/16 at 11:31; Status UNV Acetaminophen (Tylenol) 650 mg PRN Q6HRS PRN PO PAIN; Start 06/30/16 at 12:15; Stop 06/30/16 at 12:18; Status DC Amlodipine Besylate (Norvasc) 10 mg DAILY PO Last administered on 07/06/16 09: 00; Start 06/30/16 at 13:00 Atorvastatin Calcium (Lipitor) 40 mg QHS PO Last administered on 07/05/16 20: 59; Start 06/30/16 at 21:00 Carvedilol (Coreg) 25 mg BIDWMEALS PO Last administered on 07/06/16 09:01; Start 06/30/16 at 17:00 Clopidogrel Bisulfate (Plavix) 75 mg DAILY07 PO Last administered on 07/06/16 05:29; Start 06/30/16 at 13:00 Cyclosporine (Restasis) 1 drop HS OU Last administered on 07/04/16 20:25; Start 06/30/16 at 21:00 Duloxetine HCl (Cymbalta) 30 mg DAILY PO Last administered on 07/06/16 09:00; Start 06/30/16 at 13:00 Mirtazapine (Remeron) 15 mg QHS PO Last administered on 07/05/16 20:58; Start 06/30/16 at 21:00 Nicotine (Nicoderm Cq 21mg) 1 patch DAILY TD Last administered on 07/06/16 08: 59; Start 06/30/16 at 13:00 Oxybutynin Chloride (Ditropan) 5 mg BID PO Last administered on 07/06/16 09:01 ; Start 06/30/16 at 13:00 Pantoprazole Sodium (Protonix) 40 mg DAILY07 PO Last administered on 07/06/16 05:30; Start 06/30/16 at 13:00 Polyethylene Glycol (miraLAX PACKET) 17 gm DAILY PO Last administered on 07:56; Start 06/30/16 at 13:00 Senna/Docusate Sodium (Senna Plus) 2 tab HS PO Last administered on 07/03/16 20:48; Start 06/30/16 at 21:00; Stop 07/04/16 at 14:29; Status DC Non-Formulary Medication 10 mg QHS PO ; Start 06/30/16 at 21:00; Status UNV Potassium Chloride (Klor-Con) 10 meq DAILYWBKFT PO Last administered on 09:00; Start 06/30/16 at 13:00 Acetaminophen (Tylenol) 650 mg PRN Q6HRS PRN PO MILD PAIN / TEMP; Start at 12:15; Status UNV Ondansetron HCl (Zofran) 4 mg PRN Q6HRS PRN IV NAUSEA/VOMITING Last administered on 07/02/16 18:22; Start 06/30/16 at 12:15 Heparin Sodium (Porcine) 5,000 unit Q8HRS SQ Last administered on 07/06/16 05: 36; Start 06/30/16 at 14:00 Insulin Aspart (Novolog) 5 units TIDAC SQ Last administered on 07/01/16 08:46; Start 06/30/16 at 16:30; Stop 07/01/16 at 11:45; Status DC Insulin Detemir (Levemir) 20 units QHS SQ Last administered on 06/30/16 20:55; Start 06/30/16 at 21:00; Stop 07/01/16 at 11:45; Status DC Doxycycline Hyclate (Vibra-Tab) 100 mg BID PO Last administered on 07/01/16 20: 40; Start 06/30/16 at 13:00; Stop 07/02/16 at 10:36; Status DC Guaifenesin 600 mg 600 mg BID PO Last administered on 07/06/16 09:00; Start at 13:00 Sodium Chloride (Iv Sodium Chloride 0.9% 1000ml Bag) 1,000 ml @ 75 mls/hr 1X ONCE IV Last administered on 06/30/16 13:21; Start 06/30/16 at 12:15; Stop at 01:34; Status DC Acetaminophen (Tylenol) 650 mg PRN Q6HRS PRN PO PAIN Last administered on 17:16; Start 06/30/16 at 12:18 Magnesium Hydroxide (Milk Of Magnesia) 2,400 mg PRN DAILY PRN PO CONSTIPATION Last administered on 07/04/16 14:18; Start 06/30/16 at 17:30; Stop 07/04/16 at 14:29; Status DC Insulin Aspart (Novolog) 7 units TIDAC SQ ; Start 07/01/16 at 12:00; Stop at 12:57; Status DC Insulin Detemir (Levemir) 22 units QHS SQ Last administered on 07/05/16 21:07 ; Start 07/01/16 at 21:00 Insulin Aspart (Novolog) 5 units TIDAC SQ Last administered on 07/05/16 17:45 ; Start 07/01/16 at 16:30 Hydralazine HCl 10 mg 10 mg 1X ONCE IVP Last administered on 07/02/16 10:46; Start 07/02/16 at 10:30; Stop 07/02/16 at 10:31; Status DC Levofloxacin/ Dextrose (LEVAQUIN 500mg PREMIX) 100 ml @ 100 mls/hr Q24H IV Last administered on 07/03/16 11:01; Start 07/02/16 at 11:00; Stop 07/03/16 at 15:50; Status DC Lisinopril 20 mg 20 mg DAILY PO Last administered on 07/06/16 09:00; Start 02/08 at 11:00 Propofol (Diprivan) 50 ml @ As Directed STK-MED ONCE IV ; Start 07/02/16 at 12: 00; Stop 07/02/16 at 12:01; Status DC Midazolam HCl (Versed) 2 mg STK-MED ONCE .ROUTE ; Start 07/02/16 at 12:43; Stop 07/02/16 at 12:44; Status DC Iohexol (Omnipaque 300 Mg/ml) 50 ml STK-MED ONCE .ROUTE ; Start 07/02/16 at 12: 45; Stop 07/02/16 at 12:46; Status DC Lidocaine/Sodium Bicarbonate 20 ml 20 ml STK-MED ONCE IJ ; Start 07/02/16 at 12: 46; Stop 07/02/16 at 12:47; Status DC Cefazolin Sodium (Ancef 1gm Ivpb For Omni) 50 ml @ As Directed STK-MED ONCE IV ; Start 07/02/16 at 13:05; Stop 07/02/16 at 13:06; Status DC Lidocaine/Sodium Bicarbonate (Buffered Lidocaine 1%) 20 ml 1X ONCE IJ Last administered on 07/02/16 13:32; Start 07/02/16 at 13:30; Stop 07/02/16 at 13:31 ; Status DC Iohexol (Omnipaque 300 Mg/ml) 50 ml 1X ONCE IART Last administered on 13:31; Start 07/02/16 at 13:30; Stop 07/02/16 at 13:31; Status DC Info (Do NOT chart on this entry -- for MONITORING) 1 each PRN DAILY PRN MC SEE COMMENTS; Start 07/02/16 at 13:45; Stop 07/04/16 at 13:44; Status DC Hydralazine HCl (Apresoline) 10 mg 1X PACU PRN IVP HYPERTENSION, SEE COMMENTS; Start 07/02/16 at 14:15 Fentanyl Citrate (Fentanyl 2ml Vial) 25 mcg PRN Q5MIN PRN IV MILD PAIN Last administered on 07/02/16 14:27; Start 07/02/16 at 14:30; Stop 07/02/16 at 20:00 ; Status DC Fentanyl Citrate (Fentanyl 2ml Vial) 50 mcg PRN Q5MIN PRN IV MODERATE PAIN; Start 07/02/16 at 14:30; Stop 07/02/16 at 20:00; Status DC Morphine Sulfate 1 mg 1 mg PRN Q10MIN PRN IV SEVERE PAIN Last administered on 15:10; Start 07/02/16 at 14:30; Stop 07/02/16 at 18:00; Status DC Lactated Ringer's (Iv Lactated Ringers) 1,000 ml @ 30 mls/hr Q24H IV ; Start at 14:20; Stop 07/03/16 at 02:19; Status DC Lidocaine HCl 2 ml 1X PRN PRN ID IV START; Start 07/02/16 at 14:30; Stop at 20:00; Status DC Hydromorphone HCl (Dilaudid) 0.5 mg PRN Q10MIN PRN IV SEV PAIN,Second choice; Start 07/02/16 at 14:30; Stop 07/02/16 at 20:00; Status DC Prochlorperazine Edisylate (Compazine) 5 mg PACU PRN PRN IV NAUSEA; Start 07/02 at 14:30; Stop 07/02/16 at 20:00; Status DC Multi-Ingredient Mouthwash/Gargle (Gi Cocktail Single Dose) 15 ml PRN 1X PRN SWSW CHEST PAIN; Start 07/02/16 at 16:45 Al Hydroxide/Mg Hydroxide (Mylanta Plus Xs) 30 ml PRN Q2HR PRN PO HEARTBURN / GAS Last administered on 07/04/16 19:31; Start 07/02/16 at 16:45 Aspirin 325 mg 325 mg 1X ONCE PO Last administered on 07/02/16 16:55; Start 07/02/16 at 17:00; Stop 07/02/16 at 17:01; Status DC Sodium Chloride 1,000 ml @ 75 mls/hr 1X ONCE IV Last administered on 11:02; Start 07/03/16 at 10:30; Stop 07/03/16 at 23:49; Status DC Ceftriaxone Sodium/Sodium Chloride (Rocephin/Iv Sodium Chloride 0.9% 50ml) 50 ml @ 100 mls/hr Q24H IV Last administered on 07/05/16 16:42; Start 07/03/16 at 16:00 Iohexol (Omnipaque 300 Mg/ml) 60 ml 1X ONCE IV Last administered on 07/04/16 09:58; Start 07/04/16 at 09:45; Stop 07/04/16 at 09:46; Status DC Senna/Docusate Sodium (Senna Plus) 1 tab BID PO Last administered on 07/06/16 09:00; Start 07/04/16 at 21:00 Docusate Sodium (Colace) 100 mg BID PO Last administered on 07/06/16t 09:00; Start 07/04/16 at 21:00 Magnesium Hydroxide (Milk Of Magnesia) 2,400 mg PRN Q12HR PRN PO CONSTIPATION; Start 07/04/16 at 14:30 Bisacodyl (Dulcolax Supp) 10 mg PRN DAILY PRN OR CONSTIPATION; Start 07/04/16 at 14:30 Ondansetron HCl (Zofran) 4 mg PRN Q6HRS PRN IV Nausea; Start 07/06/16 at 07:00 ; Stop 07/07/16 at 06:59 Fentanyl Citrate (Fentanyl 2ml Vial) 25 mcg PRN Q5MIN PRN IV MILD PAIN; Start 07/06/16 at 07:00; Stop 07/07/16 at 06:59 Fentanyl Citrate (Fentanyl 2ml Vial) 50 mcg PRN Q5MIN PRN IV MODERATE PAIN; Start 07/06/16 at 07:00; Stop 07/07/16 at 06:59 Morphine Sulfate 1 mg 1 mg PRN Q10MIN PRN IV SEVERE PAIN; Start 07/06/16 at 07: 00; Stop 07/07/16 at 06:59 Lactated Ringer's (Iv Lactated Ringers) 1,000 ml @ 0 mls/hr Q0M IV ; Start at 07:00; Stop 07/06/16 at 18:59 Lidocaine HCl 2 ml 1X PRN PRN ID IV START; Start 07/06/16 at 07:00; Stop at 06:59 Hydromorphone HCl (Dilaudid) 0.5 mg PRN Q10MIN PRN IV SEVERE PAIN, Second choice; Start 07/06/16 at 07:00; Stop 07/07/16 at 06:59 Prochlorperazine Edisylate (Compazine) 5 mg PACU PRN PRN IV NAUSEA; Start 07/06 at 07:00; Stop 07/07/16 at 06:59 Active Scripts Active Reported Tylenol (Acetaminophen) 325 Mg Tablet 650 Mg PO TID Senna-Docusate Sodium Tablet (Sennosides/Docusate Sodium) 1 Each Tablet 2 Each PO HS Protonix (Pantoprazole Sodium) 40 Mg Tablet.dr 1 Tab PO DAILY NICODERM CQ 21mg (Nicotine) 1 Each Patch.td24 1 Patch TP DAILY Miralax (Polyethylene Glycol 3350) 17 Gm Powd.pack 1 Packet PO DAILY Miralax (Polyethylene Glycol 3350) 17 Gm Powd.pack 1 Packet PO PRN DAILY PRN Melatonin 3 Mg Tablet 10 Mg PO QHS Mirtazapine 15 Mg Tablet 1 Tab PO QHS Cymbalta (Duloxetine Hcl) 30 Mg Capsule.dr 1 Cap PO DAILY Acetaminophen 500 Mg Tablet 1 Tab PO PRN Q6HRS PRN Novolog (Insulin Aspart) 100 Unit/1 Ml Cartridge 5 Unit SQ DAILYWSUP Restasis (Cyclosporine) 1 Each Droperette 1 Drop EACHEYE HS Multiple Vitamins (Multivitamin) 1 Each Tablet 1 Each PO Potassium Chloride 10 Meq Capsule.er 1 Cap PO DAILY05 Levemir (Insulin Detemir) 100 Unit/1 Ml Vial 30 Unit SQ DAILY Atorvastatin Calcium 40 Mg Tablet 1 Tab PO DAILY Lisinopril 20 Mg Tablet 1 Tab PO DAILY Oxybutynin Chloride 5 Mg Tablet 5 Mg PO BID Norvasc (Amlodipine Besylate) 5 Mg Tablet 10 Mg PO DAILY Clopidogrel (Clopidogrel Bisulfate) 75 Mg Tablet 75 Mg PO DAILY Coreg (Carvedilol) 12.5 Mg Tablet 25 Mg PO BID Vitals/I & O Vital Sign - Last 24 Hours 07/05/16 07/05/16 07/05/16 07/05/16 11:26 14:36 17:34 19:00 Temp 98.1 98.1 98.7 98.1 98.1 98.7 Pulse 69 71 71 76 Resp 18 B/P 136/54 131/41 131/41 130/56 Pulse Ox 95 97 96 O2 Delivery Nasal Cannula Nasal Cannula Nasal Cannula O2 Flow Rate 3.0 3.0 3.0 07/05/16 07/05/16 07/06/16 07/06/16 19:48 23:00 03:20 07:00 Temp 97.6 99.0 98.8 97.6 99.0 98.8 Pulse 74 74 78 Resp 19 B/P 152/76 149/58 144/83 Pulse Ox 91 95 99 O2 Delivery Nasal Cannula Nasal Cannula Nasal Cannula Nasal Cannula O2 Flow Rate 3.0 3.0 07/06/16 07/06/16 07/06/16 07/06/16 08:00 09:00 09:00 09:01 Pulse 78 78 78 B/P 144/83 144/83 144/83 O2 Delivery Nasal Cannula O2 Flow Rate 3.0 Intake and Output 07/05/16 07/05/16 07/06/16 15:00 23:00 07:00 Intake Total 720 ml 120 ml Output Total 3 ml Balance -3 ml 720 ml 120 ml FLORY SMITH MD Jul 06, 2016 10:30
[2016-07-06] MEDS ORDERED: FENTANYL PF 100 MCG/2 ML VIAL. ONE (11:37)
[2016-07-06] MEDS ORDERED: MIDAZOLAM HCL 2 MG/2 ML VIAL. ONE (11:37)
[2016-07-06] MEDS ORDERED: KETAMINE HCL 500 MG/10 ML VIAL. ONE (11:37)
[2016-07-06] MEDS ORDERED: PROPOFOL 0 ML IV ONE ×2 (11:39→14:04)
--- NOTE | 2016-07-06 11:39 | PDOC ---
Infectious Disease Note Subjective Subjective Doing ok. Denies fever Cough better and so is pain ROS ROS GEN: Denies fevers, chills, sweats HEENT: Denies blurred vision, sore throat CV: Denies chest pain RESP: Denies shortness of air, cough GI: Denies n/v/d NEURO: Denies confusion, dizziness MSK: Denies weakness, joint pain/swelling Vital Sign Vital Signs Vital Signs Date Time Temp Pulse Resp B/P Pulse Ox O2 Delivery O2 Flow Rate FiO2 07/06/16 11:00 98.6 81 19 147/81 98 Nasal Cannula 3.0 98.6 Physical Exam PHYSICAL EXAM GENERAL: NAD, Alert, in chair HEENT: PERRL, OC/OP -cler NECK: Supple, no JVD, no LN LUNGS: Clear HEART: S1S2, no gallop, no murmur ABD: Soft, NT, no organomegaly, no rebound. back brace in place EXT: No edema, no cyanosis, Hand brace QUALITY CONTROL CHECKER: Alert, oriented x 3, no focal neurologic deficit SKIN: No rash IV: ok Labs Lab Laboratory Tests Test 07/05/16 16:06 07/05/16 20:15 07/06/16 04:00 07/06/16 07:48 Glucose (Fingerstick) 228mg/dL (70-99) 216mg/dL (70-99) 188mg/dL (70-99) White Blood Count 8.0x10^3/uL (4.0-11.0) Red Blood Count 3.38x10^6/uL (3.50-5.40) Hemoglobin 10.0g/dL (12.0-15.5) Hematocrit 30.9% (36.0-47.0) Mean Corpuscular Volume 91fL (79-100) Mean Corpuscular Hemoglobin 30pg (25-35) Mean Corpuscular Hemoglobin Concent 32g/dL (31-37) Red Cell Distribution Width 13.9% (11.5-14.5) Platelet Count 180x10^3/uL (140-400) Neutrophils (%) (Auto) 70% (31-73) Lymphocytes (%) (Auto) 15% (24-48) Monocytes (%) (Auto) 13% (0-9) Eosinophils (%) (Auto) 2% (0-3) Basophils (%) (Auto) 0% (0-3) Neutrophils # (Auto) 5.6x10^3uL (1.8-7.7) Lymphocytes # (Auto) 1.2x10^3/uL (1.0-4.8) Monocytes # (Auto) 1.0x10^3/uL (0.0-1.1) Eosinophils # (Auto) 0.1x10^3/uL (0.0-0.7) Basophils # (Auto) 0.0x10^3/uL (0.0-0.2) Sodium Level 140mmol/L (136-145) Potassium Level 4.8mmol/L (3.5-5.1) Chloride Level 105mmol/L (98-107) Carbon Dioxide Level 23mmol/L (21-32) Anion Gap 12 (6-14) Blood Urea Nitrogen 18mg/dL (7-20) Creatinine 1.0mg/dL (0.6-1.0) Estimated GFR (Cockcroft-Gault) 54.5 Glucose Level 172mg/dL (70-99) Calcium Level 9.1mg/dL (8.5-10.1) Objective Assessment Fever ? fracture vs post procedure reaction - better STCN urine contamination L1 lumbar compression fracture Renal insuff - better s/p Kyphoplasty Carotid stenosis Viridans strep & CoNS in urine. UA unremarkable for infection s/p fall Plan Plan of Care D/cont Rocephin Await carotid w/u MP ENCINAS MD Jul 06, 2016 11:39
[2016-07-06] MEDS ORDERED: LIDOCAINE 1% / SOD BICARB 8.4% 20 ML VIAL. IJ ONE ×2 (12:54→14:00)
[2016-07-06] MEDS ORDERED: HEPARIN for ARTERIAL LINE 2,000 ML ONE (12:54)
[2016-07-06] MEDS ORDERED: IOHEXOL 300 MG/ML 100ML VIAL. ONE ×2 (12:54→12:58)
[2016-07-06] MEDS ORDERED: PROPOFOL 20 ML IV ONE (13:09)
[2016-07-06] MEDS ORDERED: HEPARIN for IV BOLUS 10,000 UNIT/10 ML VIAL. ONE (13:59)
[2016-07-06] MEDS ORDERED: CONTRAST GIVEN MC PRN (14:00)
[2016-07-06] MEDS ORDERED: IOHEXOL 300 MG/ML 100ML VIAL. IART ONE (14:00)
[2016-07-06] MEDS ORDERED: PROPOFOL 50 ML IV ONE (14:04)
--- NOTE | 2016-07-06 15:15 | PDOC ---
Exam Nougat Cutter Machine Nougat Cutter Machine Armando Retail Financial Analyst Retail Financial Analyst Shraddha Dunlap Pre-Procedure Diagnosis Pre-Procedure Diagnosis 70 YO female with known severe cerebrovascular disease, s/p left CEA x 2 and right CEA x 2, and JUAN. 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 Post-Procedure Diagnosis Post-Procedure Diagnosis Same Procedure Performed Procedure Performed Bilateral cervical and intracranial carotid angio. Left proximal CCA stent placement. Type of Anesthesia Type of Anesthesia Local + MAC by anesthesia Estimated Blood Loss EBL: 50 cc Condition of Patient Condition of Patient Stable. No apparent complication. No new focal neuro deficit. Disposition Disposition From IR to PACU, then to 264 post recovery, if no problems, for frequent neuro checks and BP control. F/u with HIMS and vascular surgery. Full report to follow. NETTIE PAZ MD Jul 06, 2016 15:15
[2016-07-06] MEDS ORDERED: quiNINE 324 MG CAPSULE. PO SCH (18:30)
[2016-07-06] MEDS: ONDANSETRON PF 4 MG/2 ML VIAL. IV PRN (19:58)
[2016-07-06] MEDS: MIRTAZAPINE 15 MG TABLET PO SCH (20:56)
[2016-07-06] MEDS: ATORVASTATIN CALCIUM 40 MG TABLET. PO SCH (20:56)
[2016-07-06] MEDS: CYCLOSPORINE 0.05% OPTH DROPERETTE. OU SCH (20:56)
[2016-07-06] MEDS: INSULIN DETEMIR 300 UNITS/3 ML INSULN.PEN. SQ SCH (21:00)
[2016-07-07 03:00] VITALS: BP 114/31
[2016-07-07] MEDS: CLOPIDOGREL BISULFATE 75 MG TABLET PO SCH (06:19)
[2016-07-07] MEDS: PANTOPRAZOLE 40 MG TABLET. PO SCH (06:20)
[2016-07-07] MEDS: HEPARIN PF for SUB-Q USE 5,000 UNIT/0.5 ML VIAL. SQ SCH ×3 (06:20→23:50)
[2016-07-07 07:00] VITALS: BP 146/39
--- NOTE | 2016-07-07 07:29 | PDOC ---
Infectious Disease Note Subjective Subjective Doing ok. Denies fever Still some cough better Back still with some pain Neck ok Wants a blanket ROS ROS GEN: Denies fevers, chills, sweats HEENT: Denies blurred vision, sore throat CV: Denies chest pain RESP: Denies shortness of air, cough GI: Denies n/v/d NEURO: Denies confusion, dizziness MSK: Denies weakness, joint pain/swelling Vital Sign Vital Signs Vital Signs Date Time Temp Pulse Resp B/P Pulse Ox O2 Delivery O2 Flow Rate FiO2 07/07/16 03:00 97.4 61 20 114/31 94 Nasal Cannula 2.0 97.4 Physical Exam PHYSICAL EXAM GENERAL: NAD, Alert, coop. Looks comfortable HEENT: PERRL, OC/OP - dry NECK: Supple, no JVD, no LN LUNGS: Clear HEART: S1S2, no gallop, no murmur ABD: Soft, NT, no organomegaly, no rebound, back brace EXT: No edema, no cyanosis, splint FIREBREAK CUTTER: Alert, oriented x 3, no focal neurologic deficit SKIN: No rash IV: ok Labs Lab Laboratory Tests Test 07/06/16 07:48 07/06/16 12:00 07/06/16 14:56 07/06/16 16:39 Glucose (Fingerstick) 188mg/dL (70-99) 160mg/dL (70-99) 131mg/dL (70-99) 151mg/dL (70-99) Test 07/06/16 20:58 Glucose (Fingerstick) 152mg/dL (70-99) Objective Assessment Fever ? fracture vs post procedure reaction - better S/p Bilateral cervical and intracranial carotid angio.Left proximal CCA stent placement 07/06 [facility] urine contamination L1 lumbar compression fracture Renal insuff - better s/p Kyphoplasty Carotid stenosis Viridans strep & CoNS in urine. UA unremarkable for infection s/p fall Plan Plan of Care Doing well off abx ID to sign off MP ENCINAS MD Jul 07, 2016 07:29
[2016-07-07] MEDS: POTASSIUM CHLORIDE 10 MEQ TABLET.ER. PO SCH (07:55)
[2016-07-07] MEDS: LISINOPRIL 20 MG TABLET PO SCH (07:57)
[2016-07-07] MEDS: AMLODIPINE BESYLATE 10 MG TABLET PO SCH (07:58)
[2016-07-07] MEDS: CARVEDILOL 12.5 MG TABLET PO SCH ×2 (07:58→17:35)
[2016-07-07] MEDS: DULOXETINE HCL 30 MG CAPSULE.DR. PO SCH (07:58)
[2016-07-07] MEDS: DOCUSATE SODIUM 100 MG CAPSULE PO SCH ×2 (07:58→21:12)
[2016-07-07] MEDS: SENNOSIDES/DOCUSATE 8.6/50MG TABLET. PO SCH ×2 (07:59→21:13)
[2016-07-07] MEDS: OXYBUTYNIN CHLORIDE 5 MG TABLET PO SCH ×2 (07:59→21:13)
[2016-07-07] MEDS: GUAIFENESIN ER 600 MG TABLET.ER PO SCH ×2 (07:59→21:13)
[2016-07-07] MEDS: POLYETHYLENE GLYCOL 3350 17 GM PACKET. PO SCH (08:00)
[2016-07-07] MEDS: INSULIN ASPART 300 UNITS/3 ML INSULN.PEN SQ SCH ×6 (08:00→17:37)
[2016-07-07] MEDS: NICOTINE 21MG PATCH. TD SCH (08:00)
[2016-07-07 08:01] LABS: CALCIUM 9.4 mg/dL (8.5-10.1); CREATININE 1.4 mg/dL (0.6-1.0)
[2016-07-07 08:05] LABS: BASO % 1 % (0-3); EOS % 2 % (0-3); HEMATOCRIT 29.3 % (36.0-47.0); HEMOGLOBIN 9.6 g/dL (12.0-15.5); LYMPH # 0.9 x10^3/uL (1.0-4.8); LYMPH % 12 % (24-48); MEAN CORPUSCULAR HEMOGLOBIN 29 pg (25-35); MEAN CORPUSCULAR HGB CONC 33 g/dL (31-37); MEAN CORPUSCULAR VOLUME 90 fL (79-100); MONO % 13 % (0-9); NEUT % 73 % (31-73); PLATELET COUNT 179 x10^3/uL (140-400); RED BLOOD COUNT 3.26 x10^6/uL (3.50-5.40); RED CELL DISTRIBUTION WIDTH 13.9 % (11.5-14.5); WHITE BLOOD COUNT 7.6 x10^3/uL (4.0-11.0)
--- NOTE | 2016-07-07 10:21 | PDOC ---
PROGRESS NOTES Subjective Subjective She c/o low back pain. Objective Objective Vital Signs Date Time Temp Pulse Resp B/P Pulse Ox O2 Delivery O2 Flow Rate FiO2 07/07/16 08:31 Nasal Cannula 2.0 07/07/16 07:58 74 120/98 07/07/16 07:00 98.5 17 93 98.5 Intake and Output 07/07/16 07:00 Intake Total 1180 ml Balance 1180 ml Intake Oral 780 ml IV Total 400 ml # Bowel Movements 1 Physical Exam Physical Exam She is supine in bed after left carotid artery stent placement yesterday and she does not seem to be in any acute distress supine in bed. Assessment Assessment Problems Medical Problems: (1) Hypoxia Status: Acute (2) Syncope Status: Acute Plan Plan of Care To get her up as tolerated and transfer to SNF when medically stable. Comment Review of Relevant I have reviewed the following items carlota (where applicable) has been applied. Labs Laboratory Tests Test 07/05/16 10:55 07/05/16 11:17 07/05/16 16:06 07/05/16 20:15 Sodium Level 138mmol/L (136-145) Potassium Level 4.8mmol/L (3.5-5.1) Chloride Level 106mmol/L (98-107) Carbon Dioxide Level 23mmol/L (21-32) Anion Gap 9 (6-14) Blood Urea Nitrogen 17mg/dL (7-20) Creatinine 1.1mg/dL (0.6-1.0) Estimated GFR (Cockcroft-Gault) 48.8 Glucose Level 176mg/dL (70-99) Calcium Level 9.4mg/dL (8.5-10.1) Glucose (Fingerstick) 155mg/dL (70-99) 228mg/dL (70-99) 216mg/dL (70-99) Test 07/06/16 04:00 07/06/16 07:48 07/06/16 12:00 07/06/16 14:56 White Blood Count 8.0x10^3/uL (4.0-11.0) Red Blood Count 3.38x10^6/uL (3.50-5.40) Hemoglobin 10.0g/dL (12.0-15.5) Hematocrit 30.9% (36.0-47.0) Mean Corpuscular Volume 91fL (79-100) Mean Corpuscular Hemoglobin 30pg (25-35) Mean Corpuscular Hemoglobin Concent 32g/dL (31-37) Red Cell Distribution Width 13.9% (11.5-14.5) Platelet Count 180x10^3/uL (140-400) Neutrophils (%) (Auto) 70% (31-73) Lymphocytes (%) (Auto) 15% (24-48) Monocytes (%) (Auto) 13% (0-9) Eosinophils (%) (Auto) 2% (0-3) Basophils (%) (Auto) 0% (0-3) Neutrophils # (Auto) 5.6x10^3uL (1.8-7.7) Lymphocytes # (Auto) 1.2x10^3/uL (1.0-4.8) Monocytes # (Auto) 1.0x10^3/uL (0.0-1.1) Eosinophils # (Auto) 0.1x10^3/uL (0.0-0.7) Basophils # (Auto) 0.0x10^3/uL (0.0-0.2) Sodium Level 140mmol/L (136-145) Potassium Level 4.8mmol/L (3.5-5.1) Chloride Level 105mmol/L (98-107) Carbon Dioxide Level 23mmol/L (21-32) Anion Gap 12 (6-14) Blood Urea Nitrogen 18mg/dL (7-20) Creatinine 1.0mg/dL (0.6-1.0) Estimated GFR (Cockcroft-Gault) 54.5 Glucose Level 172mg/dL (70-99) Calcium Level 9.1mg/dL (8.5-10.1) Glucose (Fingerstick) 188mg/dL (70-99) 160mg/dL (70-99) 131mg/dL (70-99) Test 07/06/16 16:39 07/06/16 20:58 07/07/16 07:12 07/07/16 07:30 Glucose (Fingerstick) 151mg/dL (70-99) 152mg/dL (70-99) 113mg/dL (70-99) White Blood Count 7.6x10^3/uL (4.0-11.0) Red Blood Count 3.26x10^6/uL (3.50-5.40) Hemoglobin 9.6g/dL (12.0-15.5) Hematocrit 29.3% (36.0-47.0) Mean Corpuscular Volume 90fL (79-100) Mean Corpuscular Hemoglobin 29pg (25-35) Mean Corpuscular Hemoglobin Concent 33g/dL (31-37) Red Cell Distribution Width 13.9% (11.5-14.5) Platelet Count 179x10^3/uL (140-400) Neutrophils (%) (Auto) 73% (31-73) Lymphocytes (%) (Auto) 12% (24-48) Monocytes (%) (Auto) 13% (0-9) Eosinophils (%) (Auto) 2% (0-3) Basophils (%) (Auto) 1% (0-3) Neutrophils # (Auto) 5.5x10^3uL (1.8-7.7) Lymphocytes # (Auto) 0.9x10^3/uL (1.0-4.8) Monocytes # (Auto) 1.0x10^3/uL (0.0-1.1) Eosinophils # (Auto) 0.1x10^3/uL (0.0-0.7) Basophils # (Auto) 0.0x10^3/uL (0.0-0.2) Sodium Level 137mmol/L (136-145) Potassium Level 5.0mmol/L (3.5-5.1) Chloride Level 105mmol/L (98-107) Carbon Dioxide Level 25mmol/L (21-32) Anion Gap 7 (6-14) Blood Urea Nitrogen 19mg/dL (7-20) Creatinine 1.4mg/dL (0.6-1.0) Estimated GFR (Cockcroft-Gault) 37.0 Glucose Level 114mg/dL (70-99) Calcium Level 9.4mg/dL (8.5-10.1) Laboratory Tests Test 07/06/16 12:00 07/06/16 14:56 07/06/16 16:39 07/06/16 20:58 Glucose (Fingerstick) 160mg/dL (70-99) 131mg/dL (70-99) 151mg/dL (70-99) 152mg/dL (70-99) Test 07/07/16 07:12 07/07/16 07:30 Glucose (Fingerstick) 113mg/dL (70-99) White Blood Count 7.6x10^3/uL (4.0-11.0) Red Blood Count 3.26x10^6/uL (3.50-5.40) Hemoglobin 9.6g/dL (12.0-15.5) Hematocrit 29.3% (36.0-47.0) Mean Corpuscular Volume 90fL (79-100) Mean Corpuscular Hemoglobin 29pg (25-35) Mean Corpuscular Hemoglobin Concent 33g/dL (31-37) Red Cell Distribution Width 13.9% (11.5-14.5) Platelet Count 179x10^3/uL (140-400) Neutrophils (%) (Auto) 73% (31-73) Lymphocytes (%) (Auto) 12% (24-48) Monocytes (%) (Auto) 13% (0-9) Eosinophils (%) (Auto) 2% (0-3) Basophils (%) (Auto) 1% (0-3) Neutrophils # (Auto) 5.5x10^3uL (1.8-7.7) Lymphocytes # (Auto) 0.9x10^3/uL (1.0-4.8) Monocytes # (Auto) 1.0x10^3/uL (0.0-1.1) Eosinophils # (Auto) 0.1x10^3/uL (0.0-0.7) Basophils # (Auto) 0.0x10^3/uL (0.0-0.2) Sodium Level 137mmol/L (136-145) Potassium Level 5.0mmol/L (3.5-5.1) Chloride Level 105mmol/L (98-107) Carbon Dioxide Level 25mmol/L (21-32) Anion Gap 7 (6-14) Blood Urea Nitrogen 19mg/dL (7-20) Creatinine 1.4mg/dL (0.6-1.0) Estimated GFR (Cockcroft-Gault) 37.0 Glucose Level 114mg/dL (70-99) Calcium Level 9.4mg/dL (8.5-10.1) Microbiology 06/30/16 Urine Culture - Final, Complete 06/30/16 Urine Culture Result 1 (ÁNGEL) - Final, Complete 06/30/16 Urine Culture Result 2 (ÁNGEL) - Final, Complete 06/30/16 Antimicrobic Susceptibility - Final, Complete Medications Current Medications Acetaminophen (Tylenol) 1,000 mg 1X ONCE PO Last administered on 06/30/16 07: 33; Start 06/30/16 at 07:00; Stop 06/30/16 at 07:04; Status DC Ondansetron HCl 4 mg 4 mg 1X ONCE IV Last administered on 06/30/16 07:32; Start 06/30/16 at 07:15; Stop 06/30/16 at 07:16; Status DC Sodium Chloride (Iv Sodium Chloride 0.9% 500ml Bag) 500 ml @ 500 mls/hr 1X ONCE IV Last administered on 06/30/16 09:57; Start 06/30/16 at 08:45; Stop at 09:44; Status DC Ondansetron HCl (Zofran) 4 mg PRN Q8HRS PRN IV NAUSEA/VOMITING Last administered on 06/30/16 20:58; Start 06/30/16 at 08:45; Stop 07/01/16 at 08:44; Status DC Morphine Sulfate 2 mg PRN Q2HR PRN IV PAIN Last administered on 07/01/16 05:16 ; Start 06/30/16 at 08:45; Stop 07/01/16 at 08:44; Status DC Acetaminophen (Tylenol) 650 mg PRN Q4HRS PRN PO FEVER Last administered on 20:40; Start 06/30/16 at 08:45; Stop 07/01/16 at 08:44; Status DC Insulin Aspart (Novolog) 0-7 UNITS TIDWMEALS SQ Last administered on 07/06/16 17:52; Start 06/30/16 at 12:00 Dextrose 12.5 gm PRN Q15MIN PRN IV SEE COMMENTS; Start 06/30/16 at 08:45 Pneumococcal Polyvalent Vaccine (Do NOT chart on this placeholder) 1 each 1X ONCE MC ; Start 06/30/16 at 11:30; Stop 06/30/16 at 11:31; Status UNV Acetaminophen (Tylenol) 650 mg PRN Q6HRS PRN PO PAIN; Start 06/30/16 at 12:15; Stop 06/30/16 at 12:18; Status DC Amlodipine Besylate (Norvasc) 10 mg DAILY PO Last administered on 07/07/16 07: 58; Start 06/30/16 at 13:00 Atorvastatin Calcium (Lipitor) 40 mg QHS PO Last administered on 07/06/16 20: 56; Start 06/30/16 at 21:00 Carvedilol (Coreg) 25 mg BIDWMEALS PO Last administered on 07/07/16 07:58; Start 06/30/16 at 17:00 Clopidogrel Bisulfate (Plavix) 75 mg DAILY07 PO Last administered on 07/07/16 06:19; Start 06/30/16 at 13:00 Cyclosporine (Restasis) 1 drop HS OU Last administered on 07/06/16 20:56; Start 06/30/16 at 21:00 Duloxetine HCl (Cymbalta) 30 mg DAILY PO Last administered on 07/07/16 07:58; Start 06/30/16 at 13:00 Mirtazapine (Remeron) 15 mg QHS PO Last administered on 07/06/16 20:56; Start 06/30/16 at 21:00 Nicotine (Nicoderm Cq 21mg) 1 patch DAILY TD Last administered on 07/07/16 08: 00; Start 06/30/16 at 13:00 Oxybutynin Chloride (Ditropan) 5 mg BID PO Last administered on 07/07/16 07:59 ; Start 06/30/16 at 13:00 Pantoprazole Sodium (Protonix) 40 mg DAILY07 PO Last administered on 07/07/16 06:20; Start 06/30/16 at 13:00 Polyethylene Glycol (miraLAX PACKET) 17 gm DAILY PO Last administered on 08:00; Start 06/30/16 at 13:00 Senna/Docusate Sodium (Senna Plus) 2 tab HS PO Last administered on 07/03/16 20:48; Start 06/30/16 at 21:00; Stop 07/04/16 at 14:29; Status DC Non-Formulary Medication 10 mg QHS PO ; Start 06/30/16 at 21:00; Status UNV Potassium Chloride (Klor-Con) 10 meq DAILYWBKFT PO Last administered on 07:55; Start 06/30/16 at 13:00 Acetaminophen (Tylenol) 650 mg PRN Q6HRS PRN PO MILD PAIN / TEMP; Start at 12:15; Status UNV Ondansetron HCl (Zofran) 4 mg PRN Q6HRS PRN IV NAUSEA/VOMITING Last administered on 07/06/16 19:58; Start 06/30/16 at 12:15 Heparin Sodium (Porcine) 5,000 unit Q8HRS SQ Last administered on 07/07/16 06: 20; Start 06/30/16 at 14:00 Insulin Aspart (Novolog) 5 units TIDAC SQ Last administered on 07/01/16 08:46; Start 06/30/16 at 16:30; Stop 07/01/16 at 11:45; Status DC Insulin Detemir (Levemir) 20 units QHS SQ Last administered on 06/30/16 20:55; Start 06/30/16 at 21:00; Stop 07/01/16 at 11:45; Status DC Doxycycline Hyclate (Vibra-Tab) 100 mg BID PO Last administered on 07/01/16 20: 40; Start 06/30/16 at 13:00; Stop 07/02/16 at 10:36; Status DC Guaifenesin 600 mg 600 mg BID PO Last administered on 07/07/16 07:59; Start at 13:00 Sodium Chloride (Iv Sodium Chloride 0.9% 1000ml Bag) 1,000 ml @ 75 mls/hr 1X ONCE IV Last administered on 06/30/16 13:21; Start 06/30/16 at 12:15; Stop at 01:34; Status DC Acetaminophen (Tylenol) 650 mg PRN Q6HRS PRN PO PAIN Last administered on 17:16; Start 06/30/16 at 12:18 Magnesium Hydroxide (Milk Of Magnesia) 2,400 mg PRN DAILY PRN PO CONSTIPATION Last administered on 3/12/17at 14:18; Start 06/30/16 at 17:30; Stop 07/04/16 at 14:29; Status DC Insulin Aspart (Novolog) 7 units TIDAC SQ ; Start 07/01/16 at 12:00; Stop at 12:57; Status DC Insulin Detemir (Levemir) 22 units QHS SQ Last administered on 07/06/16 21:00 ; Start 07/01/16 at 21:00 Insulin Aspart (Novolog) 5 units TIDAC SQ Last administered on 07/07/16 08:11 ; Start 07/01/16 at 16:30 Hydralazine HCl 10 mg 10 mg 1X ONCE IVP Last administered on 07/02/16 10:46; Start 07/02/16 at 10:30; Stop 07/02/16 at 10:31; Status DC Levofloxacin/ Dextrose (LEVAQUIN 500mg PREMIX) 100 ml @ 100 mls/hr Q24H IV Last administered on 07/03/16 11:01; Start 07/02/16 at 11:00; Stop 07/03/16 at 15:50; Status DC Lisinopril 20 mg 20 mg DAILY PO Last administered on 07/07/16 07:57; Start 02/08 at 11:00 Propofol (Diprivan) 50 ml @ As Directed STK-MED ONCE IV ; Start 07/02/16 at 12: 00; Stop 07/02/16 at 12:01; Status DC Midazolam HCl (Versed) 2 mg STK-MED ONCE .ROUTE ; Start 07/02/16 at 12:43; Stop 07/02/16 at 12:44; Status DC Iohexol (Omnipaque 300 Mg/ml) 50 ml STK-MED ONCE .ROUTE ; Start 07/02/16 at 12: 45; Stop 07/02/16 at 12:46; Status DC Lidocaine/Sodium Bicarbonate 20 ml 20 ml STK-MED ONCE IJ ; Start 07/02/16 at 12: 46; Stop 07/02/16 at 12:47; Status DC Cefazolin Sodium (Ancef 1gm Ivpb For Omni) 50 ml @ As Directed STK-MED ONCE IV ; Start 07/02/16 at 13:05; Stop 07/02/16 at 13:06; Status DC Lidocaine/Sodium Bicarbonate (Buffered Lidocaine 1%) 20 ml 1X ONCE IJ Last administered on 07/02/16 13:32; Start 07/02/16 at 13:30; Stop 07/02/16 at 13:31 ; Status DC Iohexol (Omnipaque 300 Mg/ml) 50 ml 1X ONCE IART Last administered on 13:31; Start 07/02/16 at 13:30; Stop 07/02/16 at 13:31; Status DC Info (Do NOT chart on this entry -- for MONITORING) 1 each PRN DAILY PRN MC SEE COMMENTS; Start 07/02/16 at 13:45; Stop 07/04/16 at 13:44; Status DC Hydralazine HCl (Apresoline) 10 mg 1X PACU PRN IVP HYPERTENSION, SEE COMMENTS; Start 07/02/16 at 14:15 Fentanyl Citrate (Fentanyl 2ml Vial) 25 mcg PRN Q5MIN PRN IV MILD PAIN Last administered on 07/02/16 14:27; Start 07/02/16 at 14:30; Stop 07/02/16 at 20:00 ; Status DC Fentanyl Citrate (Fentanyl 2ml Vial) 50 mcg PRN Q5MIN PRN IV MODERATE PAIN; Start 07/02/16 at 14:30; Stop 07/02/16 at 20:00; Status DC Morphine Sulfate 1 mg 1 mg PRN Q10MIN PRN IV SEVERE PAIN Last administered on 15:10; Start 07/02/16 at 14:30; Stop 07/02/16 at 18:00; Status DC Lactated Ringer's (Iv Lactated Ringers) 1,000 ml @ 30 mls/hr Q24H IV ; Start at 14:20; Stop 07/03/16 at 02:19; Status DC Lidocaine HCl 2 ml 1X PRN PRN ID IV START; Start 07/02/16 at 14:30; Stop at 20:00; Status DC Hydromorphone HCl (Dilaudid) 0.5 mg PRN Q10MIN PRN IV SEV PAIN,Second choice; Start 07/02/16 at 14:30; Stop 07/02/16 at 20:00; Status DC Prochlorperazine Edisylate (Compazine) 5 mg PACU PRN PRN IV NAUSEA; Start 07/02 at 14:30; Stop 07/02/16 at 20:00; Status DC Multi-Ingredient Mouthwash/Gargle (Gi Cocktail Single Dose) 15 ml PRN 1X PRN SWSW CHEST PAIN; Start 07/02/16 at 16:45 Al Hydroxide/Mg Hydroxide (Mylanta Plus Xs) 30 ml PRN Q2HR PRN PO HEARTBURN / GAS Last administered on 07/04/16 19:31; Start 07/02/16 at 16:45 Aspirin 325 mg 325 mg 1X ONCE PO Last administered on 07/02/16 16:55; Start 07/02/16 at 17:00; Stop 07/02/16 at 17:01; Status DC Sodium Chloride 1,000 ml @ 75 mls/hr 1X ONCE IV Last administered on 11:02; Start 07/03/16 at 10:30; Stop 07/03/16 at 23:49; Status DC Ceftriaxone Sodium/Sodium Chloride (Rocephin/Iv Sodium Chloride 0.9% 50ml) 50 ml @ 100 mls/hr Q24H IV Last administered on 07/05/16 16:42; Start 07/03/16 at 16:00; Stop 07/06/16 at 11:40; Status DC Iohexol (Omnipaque 300 Mg/ml) 60 ml 1X ONCE IV Last administered on 07/04/16 09:58; Start 07/04/16 at 09:45; Stop 07/04/16 at 09:46; Status DC Senna/Docusate Sodium (Senna Plus) 1 tab BID PO Last administered on 07/07/16 07:59; Start 07/04/16 at 21:00 Docusate Sodium (Colace) 100 mg BID PO Last administered on 07/07/16 07:58; Start 07/04/16 at 21:00 Magnesium Hydroxide (Milk Of Magnesia) 2,400 mg PRN Q12HR PRN PO CONSTIPATION; Start 07/04/16 at 14:30 Bisacodyl (Dulcolax Supp) 10 mg PRN DAILY PRN GA CONSTIPATION; Start 07/04/16 at 14:30 Ondansetron HCl (Zofran) 4 mg PRN Q6HRS PRN IV Nausea; Start 07/06/16 at 07:00 ; Stop 07/07/16 at 06:59; Status DC Fentanyl Citrate (Fentanyl 2ml Vial) 25 mcg PRN Q5MIN PRN IV MILD PAIN; Start 07/06/16 at 07:00; Stop 07/07/16 at 06:59; Status DC Fentanyl Citrate (Fentanyl 2ml Vial) 50 mcg PRN Q5MIN PRN IV MODERATE PAIN; Start 07/06/16 at 07:00; Stop 07/07/16 at 06:59; Status DC Morphine Sulfate 1 mg 1 mg PRN Q10MIN PRN IV SEVERE PAIN; Start 07/06/16 at 07: 00; Stop 07/07/16 at 06:59; Status DC Lactated Ringer's (Iv Lactated Ringers) 1,000 ml @ 0 mls/hr Q0M IV Last administered on 07/06/16t 15:32; Start 07/06/16 at 07:00; Stop 07/06/16 at 18:59 ; Status DC Lidocaine HCl 2 ml 1X PRN PRN ID IV START; Start 07/06/16 at 07:00; Stop at 06:59; Status DC Hydromorphone HCl (Dilaudid) 0.5 mg PRN Q10MIN PRN IV SEVERE PAIN, Second choice; Start 07/06/16 at 07:00; Stop 07/07/16 at 06:59; Status DC Prochlorperazine Edisylate (Compazine) 5 mg PACU PRN PRN IV NAUSEA; Start 07/06 at 07:00; Stop 07/07/16 at 06:59; Status DC Fentanyl Citrate (Fentanyl 2ml Vial) 100 mcg STK-MED ONCE .ROUTE ; Start at 11:37; Stop 07/06/16 at 11:38; Status DC Midazolam HCl (Versed) 2 mg STK-MED ONCE .ROUTE ; Start 07/06/16 at 11:37; Stop 07/06/16 at 11:38; Status DC Ketamine HCl 500 mg 500 mg STK-MED ONCE .ROUTE ; Start 07/06/16 at 11:37; Stop 07/06/16 at 11:38; Status DC Propofol (Diprivan) 0 ml @ As Directed STK-MED ONCE IV ; Start 07/06/16 at 11:39 ; Stop 07/06/16 at 11:40; Status DC Iohexol (Omnipaque 300 Mg/ml) 100 ml STK-MED ONCE .ROUTE ; Start 07/06/16 at 12: 54; Stop 07/06/16 at 12:55; Status DC Lidocaine/Sodium Bicarbonate 20 ml 20 ml STK-MED ONCE IJ ; Start 07/06/16 at 12: 54; Stop 07/06/16 at 12:55; Status DC Heparin Sodium/ Sodium Chloride 2,000 ml @ As Directed STK-MED ONCE .ROUTE ; Start 07/06/16 at 12:54; Stop 07/06/16 at 12:55; Status DC Iohexol 100 ml 100 ml STK-MED ONCE .ROUTE ; Start 07/06/16 at 12:58; Stop at 12:59; Status DC Propofol (Diprivan) 20 ml @ As Directed STK-MED ONCE IV ; Start 07/06/16 at 13: 09; Stop 07/06/16 at 13:10; Status DC Heparin Sodium/ Sodium Chloride 1,000 unit 1X ONCE IART ; Start 07/06/16 at 14: 00; Stop 07/06/16 at 14:01; Status DC Lidocaine/Sodium Bicarbonate (Buffered Lidocaine 1%) 20 ml 1X ONCE IJ Last administered on 07/06/16t 14:00; Start 07/06/16 at 14:00; Stop 07/06/16 at 14:01 ; Status DC Iohexol (Omnipaque 300 Mg/ml) 100 ml 1X ONCE IART Last administered on t 14:00; Start 07/06/16 at 14:00; Stop 07/06/16 at 14:01; Status DC Info (Do NOT chart on this entry -- for MONITORING) 1 each PRN DAILY PRN MC SEE COMMENTS; Start 07/06/16 at 14:00; Stop 07/08/16 at 13:59 Heparin Sodium (Porcine) 47383 unit 10,000 unit STK-MED ONCE .ROUTE ; Start at 13:59; Stop 07/06/16 at 14:00; Status DC Propofol 0 ml @ As Directed STK-MED ONCE IV ; Start 07/06/16 at 14:04; Stop at 14:05; Status DC Propofol (Diprivan) 50 ml @ As Directed STK-MED ONCE IV ; Start 07/06/16 at 14: 04; Stop 07/06/16 at 14:05; Status DC Quinine Sulfate (Qualaquin) 324 mg PRN Q8HRS PO ; Start 07/06/16 at 18:30; Status UNV Active Scripts Active Reported Tylenol (Acetaminophen) 325 Mg Tablet 650 Mg PO TID Senna-Docusate Sodium Tablet (Sennosides/Docusate Sodium) 1 Each Tablet 2 Each PO HS Protonix (Pantoprazole Sodium) 40 Mg Tablet.dr 1 Tab PO DAILY NICODERM CQ 21mg (Nicotine) 1 Each Patch.td24 1 Patch TP DAILY Miralax (Polyethylene Glycol 3350) 17 Gm Powd.pack 1 Packet PO DAILY Miralax (Polyethylene Glycol 3350) 17 Gm Powd.pack 1 Packet PO PRN DAILY PRN Melatonin 3 Mg Tablet 10 Mg PO QHS Mirtazapine 15 Mg Tablet 1 Tab PO QHS Cymbalta (Duloxetine Hcl) 30 Mg Capsule.dr 1 Cap PO DAILY Acetaminophen 500 Mg Tablet 1 Tab PO PRN Q6HRS PRN Novolog (Insulin Aspart) 100 Unit/1 Ml Cartridge 5 Unit SQ DAILYWSUP Restasis (Cyclosporine) 1 Each Droperette 1 Drop EACHEYE HS Multiple Vitamins (Multivitamin) 1 Each Tablet 1 Each PO Potassium Chloride 10 Meq Capsule.er 1 Cap PO DAILY05 Levemir (Insulin Detemir) 100 Unit/1 Ml Vial 30 Unit SQ DAILY Atorvastatin Calcium 40 Mg Tablet 1 Tab PO DAILY Lisinopril 20 Mg Tablet 1 Tab PO DAILY Oxybutynin Chloride 5 Mg Tablet 5 Mg PO BID Norvasc (Amlodipine Besylate) 5 Mg Tablet 10 Mg PO DAILY Clopidogrel (Clopidogrel Bisulfate) 75 Mg Tablet 75 Mg PO DAILY Coreg (Carvedilol) 12.5 Mg Tablet 25 Mg PO BID Vitals/I & O Vital Sign - Last 24 Hours 07/06/16 07/06/16 07/06/16 07/06/16 11:00 14:26 14:51 14:51 Temp 98.6 98.6 Pulse 81 68 66 Resp 19 14 20 B/P 147/81 141/50 Pulse Ox 98 95 99 O2 Delivery Nasal Cannula Room Air Nasal Cannula Nasal Cannula O2 Flow Rate 3.0 2 2 3/1407/06/16 07/06/16 07/06/16 15:06 15:21 15:36 15:51 Temp 99.3 99.3 99.3 99.3 Pulse 68 64 75 78 Resp 20 20 20 20 B/P 149/57 132/52 134/56 134/64 Pulse Ox 98 99 76 99 O2 Delivery Nasal Cannula Nasal Cannula Nasal Cannula Nasal Cannula O2 Flow Rate 2 2 2 2 07/06/16 07/06/16 07/06/16 07/06/16 16:00 16:15 16:24 16:30 Temp 97.9 97.9 Pulse 54 66 72 65 Resp 19 B/P 128/37 148/55 128/37 141/47 Pulse Ox 96 O2 Delivery Nasal Cannula O2 Flow Rate 2.0 07/06/16 07/06/16 07/06/16 07/06/16 16:45 17:05 17:30 17:48 Pulse 65 64 66 64 B/P 97/53 121/42 141/45 141/42 07/06/16 07/06/16 07/06/16 07/07/16 18:16 19:37 22:39 03:00 Temp 99.0 98.7 97.4 99.0 98.7 97.4 Pulse 63 60 61 Resp 18 18 20 B/P 118/41 109/33 114/31 Pulse Ox 93 96 94 O2 Delivery Nasal Cannula Nasal Cannula Nasal Cannula Nasal Cannula O2 Flow Rate 2.0 2.0 2.0 2.0 07/07/16 07/07/16 07/07/16 07/07/16 07:00 07:57 07:58 07:58 Temp 98.5 98.5 Pulse 65 75 74 74 Resp 17 B/P 146/39 120/98 120/98 120/98 Pulse Ox 93 O2 Delivery Nasal Cannula O2 Flow Rate 2.0 07/07/16 08:31 O2 Delivery Nasal Cannula O2 Flow Rate 2.0 Intake and Output 07/06/16 07/06/16 07/07/16 15:00 23:00 07:00 Intake Total 980 ml 200 ml Balance 980 ml 200 ml FLORY SMITH MD Jul 07, 2016 10:21
--- NOTE | 2016-07-07 10:46 | PDOC ---
PROGRESS NOTES Chief Complaint Chief Complaint Assessment/Plan 1. Acute respiratory failure Improvign. 2. fall, 2/2 unsteady gait likely 3. recent syncope and left forearm fx, no sx 4. h/o CAD 5. h/o CHF 6. H/O cva WITH MILD left side weakness 7. depression 8. dm2 on insulin 9. gerd 10. htn 11. hld 12. MELONIE, vasomotor. CKD2-3 13. h/o PEG 14. cervical DJD, CHRONIC spine fx, subacute L1 fx s/p kyphoplasty on 07/02 15 . >70% stenosis within the proximal and mid left internal carotid artery on US, had sx before Plan s/p Bilateral cervical and intracranial carotid angio. Left proximal CCA stent placement Pain control with Tylenol 3 and iv morphin iv hydration monitor renal functions severe anxiety - Xanax o.25 prn prognosis guarded SSI History of Present Illness History of Present Illness no sob no chest pain Vitals Vitals Vital Signs Date Time Temp Pulse Resp B/P Pulse Ox O2 Delivery O2 Flow Rate FiO2 07/07/16 08:31 Nasal Cannula 2.0 07/07/16 07:58 74 120/98 07/07/16 07:00 98.5 17 93 98.5 Physical Exam General: Alert, Oriented X3, Cooperative, Other (Weak in apperance. ) Heart: Regular rate, Normal S1, Other (Early systolic murmur at LSB, 2/6, mildly diminshed PMI) Lungs: Clear, Other (decrease bs) Abdomen: Soft, No tenderness Extremities: No edema Skin: No breakdown, No significant lesion Labs LABS Laboratory Tests Test 07/06/16 12:00 07/06/16 14:56 07/06/16 16:39 07/06/16 20:58 Glucose (Fingerstick) 160mg/dL (70-99) 131mg/dL (70-99) 151mg/dL (70-99) 152mg/dL (70-99) Test 07/07/16 07:12 07/07/16 07:30 Glucose (Fingerstick) 113mg/dL (70-99) White Blood Count 7.6x10^3/uL (4.0-11.0) Red Blood Count 3.26x10^6/uL (3.50-5.40) Hemoglobin 9.6g/dL (12.0-15.5) Hematocrit 29.3% (36.0-47.0) Mean Corpuscular Volume 90fL (79-100) Mean Corpuscular Hemoglobin 29pg (25-35) Mean Corpuscular Hemoglobin Concent 33g/dL (31-37) Red Cell Distribution Width 13.9% (11.5-14.5) Platelet Count 179x10^3/uL (140-400) Neutrophils (%) (Auto) 73% (31-73) Lymphocytes (%) (Auto) 12% (24-48) Monocytes (%) (Auto) 13% (0-9) Eosinophils (%) (Auto) 2% (0-3) Basophils (%) (Auto) 1% (0-3) Neutrophils # (Auto) 5.5x10^3uL (1.8-7.7) Lymphocytes # (Auto) 0.9x10^3/uL (1.0-4.8) Monocytes # (Auto) 1.0x10^3/uL (0.0-1.1) Eosinophils # (Auto) 0.1x10^3/uL (0.0-0.7) Basophils # (Auto) 0.0x10^3/uL (0.0-0.2) Sodium Level 137mmol/L (136-145) Potassium Level 5.0mmol/L (3.5-5.1) Chloride Level 105mmol/L (98-107) Carbon Dioxide Level 25mmol/L (21-32) Anion Gap 7 (6-14) Blood Urea Nitrogen 19mg/dL (7-20) Creatinine 1.4mg/dL (0.6-1.0) Estimated GFR (Cockcroft-Gault) 37.0 Glucose Level 114mg/dL (70-99) Calcium Level 9.4mg/dL (8.5-10.1) Assessment and Plan Assessmemt and Plan Problems Medical Problems: (1) Hypoxia Status: Acute (2) Syncope Status: Acute Problems: Comment Review of Relevant I have reviewed the following items carlota (where applicable) has been applied. Labs Laboratory Tests Test 07/05/16 10:55 07/05/16 11:17 07/05/16 16:06 07/05/16 20:15 Sodium Level 138mmol/L (136-145) Potassium Level 4.8mmol/L (3.5-5.1) Chloride Level 106mmol/L (98-107) Carbon Dioxide Level 23mmol/L (21-32) Anion Gap 9 (6-14) Blood Urea Nitrogen 17mg/dL (7-20) Creatinine 1.1mg/dL (0.6-1.0) Estimated GFR (Cockcroft-Gault) 48.8 Glucose Level 176mg/dL (70-99) Calcium Level 9.4mg/dL (8.5-10.1) Glucose (Fingerstick) 155mg/dL (70-99) 228mg/dL (70-99) 216mg/dL (70-99) Test 07/06/16 04:00 07/06/16 07:48 07/06/16 12:00 07/06/16 14:56 White Blood Count 8.0x10^3/uL (4.0-11.0) Red Blood Count 3.38x10^6/uL (3.50-5.40) Hemoglobin 10.0g/dL (12.0-15.5) Hematocrit 30.9% (36.0-47.0) Mean Corpuscular Volume 91fL (79-100) Mean Corpuscular Hemoglobin 30pg (25-35) Mean Corpuscular Hemoglobin Concent 32g/dL (31-37) Red Cell Distribution Width 13.9% (11.5-14.5) Platelet Count 180x10^3/uL (140-400) Neutrophils (%) (Auto) 70% (31-73) Lymphocytes (%) (Auto) 15% (24-48) Monocytes (%) (Auto) 13% (0-9) Eosinophils (%) (Auto) 2% (0-3) Basophils (%) (Auto) 0% (0-3) Neutrophils # (Auto) 5.6x10^3uL (1.8-7.7) Lymphocytes # (Auto) 1.2x10^3/uL (1.0-4.8) Monocytes # (Auto) 1.0x10^3/uL (0.0-1.1) Eosinophils # (Auto) 0.1x10^3/uL (0.0-0.7) Basophils # (Auto) 0.0x10^3/uL (0.0-0.2) Sodium Level 140mmol/L (136-145) Potassium Level 4.8mmol/L (3.5-5.1) Chloride Level 105mmol/L (98-107) Carbon Dioxide Level 23mmol/L (21-32) Anion Gap 12 (6-14) Blood Urea Nitrogen 18mg/dL (7-20) Creatinine 1.0mg/dL (0.6-1.0) Estimated GFR (Cockcroft-Gault) 54.5 Glucose Level 172mg/dL (70-99) Calcium Level 9.1mg/dL (8.5-10.1) Glucose (Fingerstick) 188mg/dL (70-99) 160mg/dL (70-99) 131mg/dL (70-99) Test 07/06/16 16:39 07/06/16 20:58 07/07/16 07:12 07/07/16 07:30 Glucose (Fingerstick) 151mg/dL (70-99) 152mg/dL (70-99) 113mg/dL (70-99) White Blood Count 7.6x10^3/uL (4.0-11.0) Red Blood Count 3.26x10^6/uL (3.50-5.40) Hemoglobin 9.6g/dL (12.0-15.5) Hematocrit 29.3% (36.0-47.0) Mean Corpuscular Volume 90fL (79-100) Mean Corpuscular Hemoglobin 29pg (25-35) Mean Corpuscular Hemoglobin Concent 33g/dL (31-37) Red Cell Distribution Width 13.9% (11.5-14.5) Platelet Count 179x10^3/uL (140-400) Neutrophils (%) (Auto) 73% (31-73) Lymphocytes (%) (Auto) 12% (24-48) Monocytes (%) (Auto) 13% (0-9) Eosinophils (%) (Auto) 2% (0-3) Basophils (%) (Auto) 1% (0-3) Neutrophils # (Auto) 5.5x10^3uL (1.8-7.7) Lymphocytes # (Auto) 0.9x10^3/uL (1.0-4.8) Monocytes # (Auto) 1.0x10^3/uL (0.0-1.1) Eosinophils # (Auto) 0.1x10^3/uL (0.0-0.7) Basophils # (Auto) 0.0x10^3/uL (0.0-0.2) Sodium Level 137mmol/L (136-145) Potassium Level 5.0mmol/L (3.5-5.1) Chloride Level 105mmol/L (98-107) Carbon Dioxide Level 25mmol/L (21-32) Anion Gap 7 (6-14) Blood Urea Nitrogen 19mg/dL (7-20) Creatinine 1.4mg/dL (0.6-1.0) Estimated GFR (Cockcroft-Gault) 37.0 Glucose Level 114mg/dL (70-99) Calcium Level 9.4mg/dL (8.5-10.1) Laboratory Tests Test 07/06/16 12:00 07/06/16 14:56 07/06/16 16:39 07/06/16 20:58 Glucose (Fingerstick) 160mg/dL (70-99) 131mg/dL (70-99) 151mg/dL (70-99) 152mg/dL (70-99) Test 07/07/16 07:12 07/07/16 07:30 Glucose (Fingerstick) 113mg/dL (70-99) White Blood Count 7.6x10^3/uL (4.0-11.0) Red Blood Count 3.26x10^6/uL (3.50-5.40) Hemoglobin 9.6g/dL (12.0-15.5) Hematocrit 29.3% (36.0-47.0) Mean Corpuscular Volume 90fL (79-100) Mean Corpuscular Hemoglobin 29pg (25-35) Mean Corpuscular Hemoglobin Concent 33g/dL (31-37) Red Cell Distribution Width 13.9% (11.5-14.5) Platelet Count 179x10^3/uL (140-400) Neutrophils (%) (Auto) 73% (31-73) Lymphocytes (%) (Auto) 12% (24-48) Monocytes (%) (Auto) 13% (0-9) Eosinophils (%) (Auto) 2% (0-3) Basophils (%) (Auto) 1% (0-3) Neutrophils # (Auto) 5.5x10^3uL (1.8-7.7) Lymphocytes # (Auto) 0.9x10^3/uL (1.0-4.8) Monocytes # (Auto) 1.0x10^3/uL (0.0-1.1) Eosinophils # (Auto) 0.1x10^3/uL (0.0-0.7) Basophils # (Auto) 0.0x10^3/uL (0.0-0.2) Sodium Level 137mmol/L (136-145) Potassium Level 5.0mmol/L (3.5-5.1) Chloride Level 105mmol/L (98-107) Carbon Dioxide Level 25mmol/L (21-32) Anion Gap 7 (6-14) Blood Urea Nitrogen 19mg/dL (7-20) Creatinine 1.4mg/dL (0.6-1.0) Estimated GFR (Cockcroft-Gault) 37.0 Glucose Level 114mg/dL (70-99) Calcium Level 9.4mg/dL (8.5-10.1) Microbiology 06/30/16 Urine Culture - Final, Complete 06/30/16 Urine Culture Result 1 (ÁNGEL) - Final, Complete 06/30/16 Urine Culture Result 2 (ÁNGEL) - Final, Complete 06/30/16 Antimicrobic Susceptibility - Final, Complete Medications Current Medications Acetaminophen (Tylenol) 1,000 mg 1X ONCE PO Last administered on 06/30/16 07: 33; Start 06/30/16 at 07:00; Stop 06/30/16 at 07:04; Status DC Ondansetron HCl 4 mg 4 mg 1X ONCE IV Last administered on 06/30/16 07:32; Start 06/30/16 at 07:15; Stop 06/30/16 at 07:16; Status DC Sodium Chloride (Iv Sodium Chloride 0.9% 500ml Bag) 500 ml @ 500 mls/hr 1X ONCE IV Last administered on 06/30/16 09:57; Start 06/30/16 at 08:45; Stop at 09:44; Status DC Ondansetron HCl (Zofran) 4 mg PRN Q8HRS PRN IV NAUSEA/VOMITING Last administered on 06/30/16 20:58; Start 06/30/16 at 08:45; Stop 07/01/16 at 08:44; Status DC Morphine Sulfate 2 mg PRN Q2HR PRN IV PAIN Last administered on 07/01/16 05:16 ; Start 06/30/16 at 08:45; Stop 07/01/16 at 08:44; Status DC Acetaminophen (Tylenol) 650 mg PRN Q4HRS PRN PO FEVER Last administered on 20:40; Start 06/30/16 at 08:45; Stop 07/01/16 at 08:44; Status DC Insulin Aspart (Novolog) 0-7 UNITS TIDWMEALS SQ Last administered on 07/06/16 17:52; Start 06/30/16 at 12:00 Dextrose 12.5 gm PRN Q15MIN PRN IV SEE COMMENTS; Start 06/30/16 at 08:45 Pneumococcal Polyvalent Vaccine (Do NOT chart on this placeholder) 1 each 1X ONCE MC ; Start 06/30/16 at 11:30; Stop 06/30/16 at 11:31; Status UNV Acetaminophen (Tylenol) 650 mg PRN Q6HRS PRN PO PAIN; Start 06/30/16 at 12:15; Stop 06/30/16 at 12:18; Status DC Amlodipine Besylate (Norvasc) 10 mg DAILY PO Last administered on 07/07/16 07: 58; Start 06/30/16 at 13:00 Atorvastatin Calcium (Lipitor) 40 mg QHS PO Last administered on 07/06/16 20: 56; Start 06/30/16 at 21:00 Carvedilol (Coreg) 25 mg BIDWMEALS PO Last administered on 07/07/16 07:58; Start 06/30/16 at 17:00 Clopidogrel Bisulfate (Plavix) 75 mg DAILY07 PO Last administered on 07/07/16 06:19; Start 06/30/16 at 13:00 Cyclosporine (Restasis) 1 drop HS OU Last administered on 07/06/16 20:56; Start 06/30/16 at 21:00 Duloxetine HCl (Cymbalta) 30 mg DAILY PO Last administered on 07/07/16 07:58; Start 06/30/16 at 13:00 Mirtazapine (Remeron) 15 mg QHS PO Last administered on 07/06/16 20:56; Start 06/30/16 at 21:00 Nicotine (Nicoderm Cq 21mg) 1 patch DAILY TD Last administered on 07/07/16 08: 00; Start 06/30/16 at 13:00 Oxybutynin Chloride (Ditropan) 5 mg BID PO Last administered on 07/07/16 07:59 ; Start 06/30/16 at 13:00 Pantoprazole Sodium (Protonix) 40 mg DAILY07 PO Last administered on 07/07/16 06:20; Start 06/30/16 at 13:00 Polyethylene Glycol (miraLAX PACKET) 17 gm DAILY PO Last administered on 08:00; Start 06/30/16 at 13:00 Senna/Docusate Sodium (Senna Plus) 2 tab HS PO Last administered on 07/03/16 20:48; Start 06/30/16 at 21:00; Stop 07/04/16 at 14:29; Status DC Non-Formulary Medication 10 mg QHS PO ; Start 06/30/16 at 21:00; Status UNV Potassium Chloride (Klor-Con) 10 meq DAILYWBKFT PO Last administered on 07:55; Start 06/30/16 at 13:00 Acetaminophen (Tylenol) 650 mg PRN Q6HRS PRN PO MILD PAIN / TEMP; Start at 12:15; Status UNV Ondansetron HCl (Zofran) 4 mg PRN Q6HRS PRN IV NAUSEA/VOMITING Last administered on 07/06/16 19:58; Start 06/30/16 at 12:15 Heparin Sodium (Porcine) 5,000 unit Q8HRS SQ Last administered on 07/07/16 06: 20; Start 06/30/16 at 14:00 Insulin Aspart (Novolog) 5 units TIDAC SQ Last administered on 07/01/16 08:46; Start 06/30/16 at 16:30; Stop 07/01/16 at 11:45; Status DC Insulin Detemir (Levemir) 20 units QHS SQ Last administered on 06/30/16 20:55; Start 06/30/16 at 21:00; Stop 07/01/16 at 11:45; Status DC Doxycycline Hyclate (Vibra-Tab) 100 mg BID PO Last administered on 07/01/16 20: 40; Start 06/30/16 at 13:00; Stop 07/02/16 at 10:36; Status DC Guaifenesin 600 mg 600 mg BID PO Last administered on 07/07/16 07:59; Start at 13:00 Sodium Chloride (Iv Sodium Chloride 0.9% 1000ml Bag) 1,000 ml @ 75 mls/hr 1X ONCE IV Last administered on 06/30/16 13:21; Start 06/30/16 at 12:15; Stop at 01:34; Status DC Acetaminophen (Tylenol) 650 mg PRN Q6HRS PRN PO PAIN Last administered on 17:16; Start 06/30/16 at 12:18 Magnesium Hydroxide (Milk Of Magnesia) 2,400 mg PRN DAILY PRN PO CONSTIPATION Last administered on 07/04/16 14:18; Start 06/30/16 at 17:30; Stop 07/04/16 at 14:29; Status DC Insulin Aspart (Novolog) 7 units TIDAC SQ ; Start 07/01/16 at 12:00; Stop at 12:57; Status DC Insulin Detemir (Levemir) 22 units QHS SQ Last administered on 07/06/16 21:00 ; Start 07/01/16 at 21:00 Insulin Aspart (Novolog) 5 units TIDAC SQ Last administered on 07/07/16 08:11 ; Start 07/01/16 at 16:30 Hydralazine HCl 10 mg 10 mg 1X ONCE IVP Last administered on 07/02/16 10:46; Start 07/02/16 at 10:30; Stop 07/02/16 at 10:31; Status DC Levofloxacin/ Dextrose (LEVAQUIN 500mg PREMIX) 100 ml @ 100 mls/hr Q24H IV Last administered on 07/03/16 11:01; Start 07/02/16 at 11:00; Stop 07/03/16 at 15:50; Status DC Lisinopril 20 mg 20 mg DAILY PO Last administered on 07/07/16 07:57; Start 02/08 at 11:00 Propofol (Diprivan) 50 ml @ As Directed STK-MED ONCE IV ; Start 07/02/16 at 12: 00; Stop 07/02/16 at 12:01; Status DC Midazolam HCl (Versed) 2 mg STK-MED ONCE .ROUTE ; Start 07/02/16 at 12:43; Stop 07/02/16 at 12:44; Status DC Iohexol (Omnipaque 300 Mg/ml) 50 ml STK-MED ONCE .ROUTE ; Start 07/02/16 at 12: 45; Stop 07/02/16 at 12:46; Status DC Lidocaine/Sodium Bicarbonate 20 ml 20 ml STK-MED ONCE IJ ; Start 07/02/16 at 12: 46; Stop 07/02/16 at 12:47; Status DC Cefazolin Sodium (Ancef 1gm Ivpb For Omni) 50 ml @ As Directed STK-MED ONCE IV ; Start 07/02/16 at 13:05; Stop 07/02/16 at 13:06; Status DC Lidocaine/Sodium Bicarbonate (Buffered Lidocaine 1%) 20 ml 1X ONCE IJ Last administered on 07/02/16 13:32; Start 07/02/16 at 13:30; Stop 07/02/16 at 13:31 ; Status DC Iohexol (Omnipaque 300 Mg/ml) 50 ml 1X ONCE IART Last administered on 13:31; Start 07/02/16 at 13:30; Stop 07/02/16 at 13:31; Status DC Info (Do NOT chart on this entry -- for MONITORING) 1 each PRN DAILY PRN MC SEE COMMENTS; Start 07/02/16 at 13:45; Stop 07/04/16 at 13:44; Status DC Hydralazine HCl (Apresoline) 10 mg 1X PACU PRN IVP HYPERTENSION, SEE COMMENTS; Start 07/02/16 at 14:15 Fentanyl Citrate (Fentanyl 2ml Vial) 25 mcg PRN Q5MIN PRN IV MILD PAIN Last administered on 07/02/16 14:27; Start 07/02/16 at 14:30; Stop 07/02/16 at 20:00 ; Status DC Fentanyl Citrate (Fentanyl 2ml Vial) 50 mcg PRN Q5MIN PRN IV MODERATE PAIN; Start 07/02/16 at 14:30; Stop 07/02/16 at 20:00; Status DC Morphine Sulfate 1 mg 1 mg PRN Q10MIN PRN IV SEVERE PAIN Last administered on 15:10; Start 07/02/16 at 14:30; Stop 07/02/16 at 18:00; Status DC Lactated Ringer's (Iv Lactated Ringers) 1,000 ml @ 30 mls/hr Q24H IV ; Start at 14:20; Stop 07/03/16 at 02:19; Status DC Lidocaine HCl 2 ml 1X PRN PRN ID IV START; Start 07/02/16 at 14:30; Stop at 20:00; Status DC Hydromorphone HCl (Dilaudid) 0.5 mg PRN Q10MIN PRN IV SEV PAIN,Second choice; Start 07/02/16 at 14:30; Stop 07/02/16 at 20:00; Status DC Prochlorperazine Edisylate (Compazine) 5 mg PACU PRN PRN IV NAUSEA; Start 07/02 at 14:30; Stop 07/02/16 at 20:00; Status DC Multi-Ingredient Mouthwash/Gargle (Gi Cocktail Single Dose) 15 ml PRN 1X PRN SWSW CHEST PAIN; Start 07/02/16 at 16:45 Al Hydroxide/Mg Hydroxide (Mylanta Plus Xs) 30 ml PRN Q2HR PRN PO HEARTBURN / GAS Last administered on 07/04/16 19:31; Start 07/02/16 at 16:45 Aspirin 325 mg 325 mg 1X ONCE PO Last administered on 07/02/16 16:55; Start 07/02/16 at 17:00; Stop 07/02/16 at 17:01; Status DC Sodium Chloride 1,000 ml @ 75 mls/hr 1X ONCE IV Last administered on 11:02; Start 07/03/16 at 10:30; Stop 07/03/16 at 23:49; Status DC Ceftriaxone Sodium/Sodium Chloride (Rocephin/Iv Sodium Chloride 0.9% 50ml) 50 ml @ 100 mls/hr Q24H IV Last administered on 07/05/16 16:42; Start 07/03/16 at 16:00; Stop 07/06/16 at 11:40; Status DC Iohexol (Omnipaque 300 Mg/ml) 60 ml 1X ONCE IV Last administered on 07/04/16 09:58; Start 07/04/16 at 09:45; Stop 07/04/16 at 09:46; Status DC Senna/Docusate Sodium (Senna Plus) 1 tab BID PO Last administered on 07/07/16 07:59; Start 07/04/16 at 21:00 Docusate Sodium (Colace) 100 mg BID PO Last administered on 07/07/16 07:58; Start 07/04/16 at 21:00 Magnesium Hydroxide (Milk Of Magnesia) 2,400 mg PRN Q12HR PRN PO CONSTIPATION; Start 07/04/16 at 14:30 Bisacodyl (Dulcolax Supp) 10 mg PRN DAILY PRN PA CONSTIPATION; Start 07/04/16 at 14:30 Ondansetron HCl (Zofran) 4 mg PRN Q6HRS PRN IV Nausea; Start 07/06/16 at 07:00 ; Stop 07/07/16 at 06:59; Status DC Fentanyl Citrate (Fentanyl 2ml Vial) 25 mcg PRN Q5MIN PRN IV MILD PAIN; Start 07/06/16 at 07:00; Stop 07/07/16 at 06:59; Status DC Fentanyl Citrate (Fentanyl 2ml Vial) 50 mcg PRN Q5MIN PRN IV MODERATE PAIN; Start 07/06/16 at 07:00; Stop 07/07/16 at 06:59; Status DC Morphine Sulfate 1 mg 1 mg PRN Q10MIN PRN IV SEVERE PAIN; Start 07/06/16 at 07: 00; Stop 07/07/16 at 06:59; Status DC Lactated Ringer's (Iv Lactated Ringers) 1,000 ml @ 0 mls/hr Q0M IV Last administered on 07/06/16 15:32; Start 07/06/16 at 07:00; Stop 07/06/16 at 18:59 ; Status DC Lidocaine HCl 2 ml 1X PRN PRN ID IV START; Start 07/06/16 at 07:00; Stop at 06:59; Status DC Hydromorphone HCl (Dilaudid) 0.5 mg PRN Q10MIN PRN IV SEVERE PAIN, Second choice; Start 07/06/16 at 07:00; Stop 07/07/16 at 06:59; Status DC Prochlorperazine Edisylate (Compazine) 5 mg PACU PRN PRN IV NAUSEA; Start 07/06 at 07:00; Stop 07/07/16 at 06:59; Status DC Fentanyl Citrate (Fentanyl 2ml Vial) 100 mcg STK-MED ONCE .ROUTE ; Start at 11:37; Stop 07/06/16 at 11:38; Status DC Midazolam HCl (Versed) 2 mg STK-MED ONCE .ROUTE ; Start 07/06/16 at 11:37; Stop 07/06/16 at 11:38; Status DC Ketamine HCl 500 mg 500 mg STK-MED ONCE .ROUTE ; Start 07/06/16 at 11:37; Stop 07/06/16 at 11:38; Status DC Propofol (Diprivan) 0 ml @ As Directed STK-MED ONCE IV ; Start 07/06/16 at 11:39 ; Stop 07/06/16 at 11:40; Status DC Iohexol (Omnipaque 300 Mg/ml) 100 ml STK-MED ONCE .ROUTE ; Start 07/06/16 at 12: 54; Stop 07/06/16 at 12:55; Status DC Lidocaine/Sodium Bicarbonate 20 ml 20 ml STK-MED ONCE IJ ; Start 07/06/16 at 12: 54; Stop 07/06/16 at 12:55; Status DC Heparin Sodium/ Sodium Chloride 2,000 ml @ As Directed STK-MED ONCE .ROUTE ; Start 07/06/16 at 12:54; Stop 07/06/16 at 12:55; Status DC Iohexol 100 ml 100 ml STK-MED ONCE .ROUTE ; Start 07/06/16 at 12:58; Stop at 12:59; Status DC Propofol (Diprivan) 20 ml @ As Directed STK-MED ONCE IV ; Start 07/06/16 at 13: 09; Stop 07/06/16 at 13:10; Status DC Heparin Sodium/ Sodium Chloride 1,000 unit 1X ONCE IART ; Start 07/06/16 at 14: 00; Stop 07/06/16 at 14:01; Status DC Lidocaine/Sodium Bicarbonate (Buffered Lidocaine 1%) 20 ml 1X ONCE IJ Last administered on 07/06/16t 14:00; Start 07/06/16 at 14:00; Stop 07/06/16 at 14:01 ; Status DC Iohexol (Omnipaque 300 Mg/ml) 100 ml 1X ONCE IART Last administered on t 14:00; Start 07/06/16 at 14:00; Stop 07/06/16 at 14:01; Status DC Info (Do NOT chart on this entry -- for MONITORING) 1 each PRN DAILY PRN MC SEE COMMENTS; Start 07/06/16 at 14:00; Stop 07/08/16 at 13:59 Heparin Sodium (Porcine) 35329 unit 10,000 unit STK-MED ONCE .ROUTE ; Start at 13:59; Stop 07/06/16 at 14:00; Status DC Propofol 0 ml @ As Directed STK-MED ONCE IV ; Start 07/06/16 at 14:04; Stop at 14:05; Status DC Propofol (Diprivan) 50 ml @ As Directed STK-MED ONCE IV ; Start 07/06/16 at 14: 04; Stop 07/06/16 at 14:05; Status DC Quinine Sulfate (Qualaquin) 324 mg PRN Q8HRS PO ; Start 07/06/16 at 18:30; Status UNV Active Scripts Active Reported Tylenol (Acetaminophen) 325 Mg Tablet 650 Mg PO TID Senna-Docusate Sodium Tablet (Sennosides/Docusate Sodium) 1 Each Tablet 2 Each PO HS Protonix (Pantoprazole Sodium) 40 Mg Tablet. 1 Tab PO DAILY NICODERM CQ 21mg (Nicotine) 1 Each Patch.td24 1 Patch TP DAILY Miralax (Polyethylene Glycol 3350) 17 Gm Powd.pack 1 Packet PO DAILY Miralax (Polyethylene Glycol 3350) 17 Gm Powd.pack 1 Packet PO PRN DAILY PRN Melatonin 3 Mg Tablet 10 Mg PO QHS Mirtazapine 15 Mg Tablet 1 Tab PO QHS Cymbalta (Duloxetine Hcl) 30 Mg Capsule.dr 1 Cap PO DAILY Acetaminophen 500 Mg Tablet 1 Tab PO PRN Q6HRS PRN Novolog (Insulin Aspart) 100 Unit/1 Ml Cartridge 5 Unit SQ DAILYWSUP Restasis (Cyclosporine) 1 Each Droperette 1 Drop EACHEYE HS Multiple Vitamins (Multivitamin) 1 Each Tablet 1 Each PO Potassium Chloride 10 Meq Capsule.er 1 Cap PO DAILY05 Levemir (Insulin Detemir) 100 Unit/1 Ml Vial 30 Unit SQ DAILY Atorvastatin Calcium 40 Mg Tablet 1 Tab PO DAILY Lisinopril 20 Mg Tablet 1 Tab PO DAILY Oxybutynin Chloride 5 Mg Tablet 5 Mg PO BID Norvasc (Amlodipine Besylate) 5 Mg Tablet 10 Mg PO DAILY Clopidogrel (Clopidogrel Bisulfate) 75 Mg Tablet 75 Mg PO DAILY Coreg (Carvedilol) 12.5 Mg Tablet 25 Mg PO BID Vitals/I & O Vital Sign - Last 24 Hours 07/06/16 07/06/16 07/06/16 07/06/16 11:00 14:26 14:51 14:51 Temp 98.6 98.6 Pulse 81 68 66 Resp 19 14 20 B/P 147/81 141/50 Pulse Ox 98 95 99 O2 Delivery Nasal Cannula Room Air Nasal Cannula Nasal Cannula O2 Flow Rate 3.0 2 2 07/06/16 07/06/16 07/06/16 07/06/16 15:06 15:21 15:36 15:51 Temp 99.3 99.3 99.3 99.3 Pulse 68 64 75 78 Resp 20 20 20 20 B/P 149/57 132/52 134/56 134/64 Pulse Ox 98 99 76 99 O2 Delivery Nasal Cannula Nasal Cannula Nasal Cannula Nasal Cannula O2 Flow Rate 2 2 2 2 07/06/16 07/06/16 07/06/16 07/06/16 16:00 16:15 16:24 16:30 Temp 97.9 97.9 Pulse 54 66 72 65 Resp 19 B/P 128/37 148/55 128/37 141/47 Pulse Ox 96 O2 Delivery Nasal Cannula O2 Flow Rate 2.0 07/06/16 07/06/16 07/06/16 07/06/16 16:45 17:05 17:30 17:48 Pulse 65 64 66 64 B/P 97/53 121/42 141/45 141/42 07/06/16 07/06/16 07/06/16 07/07/16 18:16 19:37 22:39 03:00 Temp 99.0 98.7 97.4 99.0 98.7 97.4 Pulse 63 60 61 Resp 18 18 20 B/P 118/41 109/33 114/31 Pulse Ox 93 96 94 O2 Delivery Nasal Cannula Nasal Cannula Nasal Cannula Nasal Cannula O2 Flow Rate 2.0 2.0 2.0 2.0 07/07/16 07/07/16 07/07/16 07/07/16 07:00 07:57 07:58 07:58 Temp 98.5 98.5 Pulse 65 75 74 74 Resp 17 B/P 146/39 120/98 120/98 120/98 Pulse Ox 93 O2 Delivery Nasal Cannula O2 Flow Rate 2.0 07/07/16 08:31 O2 Delivery Nasal Cannula O2 Flow Rate 2.0 Intake and Output 07/06/16 07/06/16 07/07/16 15:00 23:00 07:00 Intake Total 980 ml 200 ml Balance 980 ml 200 ml RAMESH HERNANDEZ MD Jul 07, 2016 10:45
[2016-07-07 11:00] VITALS: BP 115/33
[2016-07-07] MEDS ORDERED: IV NORMAL SALINE 1000ML BAG 1,000 ML IV ONE (11:00)
--- NOTE | 2016-07-07 11:07 | PDOC ---
PULMONARY PROGRESS NOTES Subjective pt with no increase soa Vitals Vital Signs Date Time Temp Pulse Resp B/P Pulse Ox O2 Delivery O2 Flow Rate FiO2 07/07/16 08:31 Nasal Cannula 2.0 07/07/16 07:58 74 120/98 07/07/16 07:00 98.5 17 93 98.5 General: Alert, No acute distress Lungs: Other (decrease bs) Cardiovascular: S1, S2 Abdomen: Soft Extremities: No Edema Labs Laboratory Tests Test 07/05/16 11:17 07/05/16 16:06 07/05/16 20:15 07/06/16 04:00 Glucose (Fingerstick) 155mg/dL (70-99) 228mg/dL (70-99) 216mg/dL (70-99) White Blood Count 8.0x10^3/uL (4.0-11.0) Red Blood Count 3.38x10^6/uL (3.50-5.40) Hemoglobin 10.0g/dL (12.0-15.5) Hematocrit 30.9% (36.0-47.0) Mean Corpuscular Volume 91fL (79-100) Mean Corpuscular Hemoglobin 30pg (25-35) Mean Corpuscular Hemoglobin Concent 32g/dL (31-37) Red Cell Distribution Width 13.9% (11.5-14.5) Platelet Count 180x10^3/uL (140-400) Neutrophils (%) (Auto) 70% (31-73) Lymphocytes (%) (Auto) 15% (24-48) Monocytes (%) (Auto) 13% (0-9) Eosinophils (%) (Auto) 2% (0-3) Basophils (%) (Auto) 0% (0-3) Neutrophils # (Auto) 5.6x10^3uL (1.8-7.7) Lymphocytes # (Auto) 1.2x10^3/uL (1.0-4.8) Monocytes # (Auto) 1.0x10^3/uL (0.0-1.1) Eosinophils # (Auto) 0.1x10^3/uL (0.0-0.7) Basophils # (Auto) 0.0x10^3/uL (0.0-0.2) Sodium Level 140mmol/L (136-145) Potassium Level 4.8mmol/L (3.5-5.1) Chloride Level 105mmol/L (98-107) Carbon Dioxide Level 23mmol/L (21-32) Anion Gap 12 (6-14) Blood Urea Nitrogen 18mg/dL (7-20) Creatinine 1.0mg/dL (0.6-1.0) Estimated GFR (Cockcroft-Gault) 54.5 Glucose Level 172mg/dL (70-99) Calcium Level 9.1mg/dL (8.5-10.1) Test 07/06/16 07:48 07/06/16 12:00 07/06/16 14:56 07/06/16 16:39 Glucose (Fingerstick) 188mg/dL (70-99) 160mg/dL (70-99) 131mg/dL (70-99) 151mg/dL (70-99) Test 07/06/16 20:58 07/07/16 07:12 07/07/16 07:30 Glucose (Fingerstick) 152mg/dL (70-99) 113mg/dL (70-99) White Blood Count 7.6x10^3/uL (4.0-11.0) Red Blood Count 3.26x10^6/uL (3.50-5.40) Hemoglobin 9.6g/dL (12.0-15.5) Hematocrit 29.3% (36.0-47.0) Mean Corpuscular Volume 90fL (79-100) Mean Corpuscular Hemoglobin 29pg (25-35) Mean Corpuscular Hemoglobin Concent 33g/dL (31-37) Red Cell Distribution Width 13.9% (11.5-14.5) Platelet Count 179x10^3/uL (140-400) Neutrophils (%) (Auto) 73% (31-73) Lymphocytes (%) (Auto) 12% (24-48) Monocytes (%) (Auto) 13% (0-9) Eosinophils (%) (Auto) 2% (0-3) Basophils (%) (Auto) 1% (0-3) Neutrophils # (Auto) 5.5x10^3uL (1.8-7.7) Lymphocytes # (Auto) 0.9x10^3/uL (1.0-4.8) Monocytes # (Auto) 1.0x10^3/uL (0.0-1.1) Eosinophils # (Auto) 0.1x10^3/uL (0.0-0.7) Basophils # (Auto) 0.0x10^3/uL (0.0-0.2) Sodium Level 137mmol/L (136-145) Potassium Level 5.0mmol/L (3.5-5.1) Chloride Level 105mmol/L (98-107) Carbon Dioxide Level 25mmol/L (21-32) Anion Gap 7 (6-14) Blood Urea Nitrogen 19mg/dL (7-20) Creatinine 1.4mg/dL (0.6-1.0) Estimated GFR (Cockcroft-Gault) 37.0 Glucose Level 114mg/dL (70-99) Calcium Level 9.4mg/dL (8.5-10.1) Laboratory Tests Test 07/06/16 12:00 07/06/16 14:56 07/06/16 16:39 07/06/16 20:58 Glucose (Fingerstick) 160mg/dL (70-99) 131mg/dL (70-99) 151mg/dL (70-99) 152mg/dL (70-99) Test 07/07/16 07:12 07/07/16 07:30 Glucose (Fingerstick) 113mg/dL (70-99) White Blood Count 7.6x10^3/uL (4.0-11.0) Red Blood Count 3.26x10^6/uL (3.50-5.40) Hemoglobin 9.6g/dL (12.0-15.5) Hematocrit 29.3% (36.0-47.0) Mean Corpuscular Volume 90fL (79-100) Mean Corpuscular Hemoglobin 29pg (25-35) Mean Corpuscular Hemoglobin Concent 33g/dL (31-37) Red Cell Distribution Width 13.9% (11.5-14.5) Platelet Count 179x10^3/uL (140-400) Neutrophils (%) (Auto) 73% (31-73) Lymphocytes (%) (Auto) 12% (24-48) Monocytes (%) (Auto) 13% (0-9) Eosinophils (%) (Auto) 2% (0-3) Basophils (%) (Auto) 1% (0-3) Neutrophils # (Auto) 5.5x10^3uL (1.8-7.7) Lymphocytes # (Auto) 0.9x10^3/uL (1.0-4.8) Monocytes # (Auto) 1.0x10^3/uL (0.0-1.1) Eosinophils # (Auto) 0.1x10^3/uL (0.0-0.7) Basophils # (Auto) 0.0x10^3/uL (0.0-0.2) Sodium Level 137mmol/L (136-145) Potassium Level 5.0mmol/L (3.5-5.1) Chloride Level 105mmol/L (98-107) Carbon Dioxide Level 25mmol/L (21-32) Anion Gap 7 (6-14) Blood Urea Nitrogen 19mg/dL (7-20) Creatinine 1.4mg/dL (0.6-1.0) Estimated GFR (Cockcroft-Gault) 37.0 Glucose Level 114mg/dL (70-99) Calcium Level 9.4mg/dL (8.5-10.1) Medications Active Scripts Medications Dose Route/Sig Days Date Category Tylenol (Acetaminophen) 325 Mg Tablet 650 Mg PO TID 06/15/16 Reported Senna-Docusate Sodium Tablet (Sennosides/Docusate Sodium) 1 Each Tablet 2 Each PO HS 06/15/16 Reported Protonix (Pantoprazole Sodium) 40 Mg Tablet.dr 1 Tab PO DAILY 06/15/16 Reported NICODERM CQ 21mg (Nicotine) 1 Each Patch.td24 1 Patch TP DAILY 06/15/16 Reported Miralax (Polyethylene Glycol 3350) 17 Gm Powd.pack 1 Packet PO DAILY 06/15/16 Reported Miralax (Polyethylene Glycol 3350) 17 Gm Powd.pack 1 Packet PO PRN DAILY PRN 06/15/16 Reported Melatonin 3 Mg Tablet 10 Mg PO QHS 06/15/16 Reported Mirtazapine 15 Mg Tablet 1 Tab PO QHS 07/17/15 Reported Cymbalta (Duloxetine Hcl) 30 Mg Capsule.dr 1 Cap PO DAILY 3/24/16 Reported Acetaminophen 500 Mg Tablet 1 Tab PO PRN Q6HRS PRN 07/17/15 Reported Novolog (Insulin Aspart) 100 Unit/1 Ml Cartridge 5 Unit SQ DAILYWSUP 07/17/15 Reported Restasis (Cyclosporine) 1 Each Droperette 1 Drop EACHEYE HS 07/17/15 Reported Multiple Vitamins (Multivitamin) 1 Each Tablet 1 Each PO 07/17/15 Reported Potassium Chloride 10 Meq Capsule.er 1 Cap PO DAILY05 07/17/15 Reported Levemir (Insulin Detemir) 100 Unit/1 Ml Vial 30 Unit SQ DAILY 07/17/15 Reported Atorvastatin Calcium 40 Mg Tablet 1 Tab PO DAILY 08/17/14 Reported Lisinopril 20 Mg Tablet 1 Tab PO DAILY 08/17/14 Reported Oxybutynin Chloride 5 Mg Tablet 5 Mg PO BID 07/08/14 Reported Norvasc (Amlodipine Besylate) 5 Mg Tablet 10 Mg PO DAILY 07/08/14 Reported Clopidogrel (Clopidogrel Bisulfate) 75 Mg Tablet 75 Mg PO DAILY 09/28/13 Reported Coreg (Carvedilol) 12.5 Mg Tablet 25 Mg PO BID 09/28/13 Reported Impression . 1. Syncope s/p IR interventional stent carotid vessel 2. Possible mild chronic obstructive pulmonary disease. 3. Status post fall with no obvious fracture. 4. [id number] hiatal hernia. 5. fever Plan . resp status is compensated 1. Continue with present oxygen. 2. Noncontrast CT chest reviewed 3. 02 nc 4. Continue with antibiotics per ID 5. Bronchodilators as needed. NADIRA MARINO MD Jul 07, 2016 11:07
[2016-07-07] MEDS ORDERED: MORPHINE SULFATE 2 MG/ML DISP.SYRIN. IV PRN ×2 (14:30→17:15)
[2016-07-07 15:00] VITALS: BP 115/37
[2016-07-07] MEDS ORDERED: ALPRAZOLAM 0.5 MG TABLET PO ONE (17:30)
[2016-07-07] MEDS: ACETAMINOPHEN/CODEINE 300/30MG TABLET PO PRN (17:33)
[2016-07-07 19:18] VITALS: BP 126/44
[2016-07-07] MEDS: CYCLOSPORINE 0.05% OPTH DROPERETTE. OU SCH (21:12)
[2016-07-07] MEDS: ATORVASTATIN CALCIUM 40 MG TABLET. PO SCH (21:12)
[2016-07-07] MEDS: ONDANSETRON PF 4 MG/2 ML VIAL. IV PRN (21:13)
[2016-07-07] MEDS: MIRTAZAPINE 15 MG TABLET PO SCH (21:13)
[2016-07-07] MEDS: INSULIN DETEMIR 300 UNITS/3 ML INSULN.PEN. SQ SCH (21:18)
[2016-07-07 23:18] VITALS: BP 154/45
[2016-07-08 03:18] VITALS: BP 140/44
[2016-07-08 05:05] LABS: BASO % 1 % (0-3); EOS % 2 % (0-3); HEMATOCRIT 27.9 % (36.0-47.0); HEMOGLOBIN 9.1 g/dL (12.0-15.5); LYMPH # 1.1 x10^3/uL (1.0-4.8); LYMPH % 14 % (24-48); MEAN CORPUSCULAR HEMOGLOBIN 29 pg (25-35); MEAN CORPUSCULAR HGB CONC 33 g/dL (31-37); MEAN CORPUSCULAR VOLUME 90 fL (79-100); MONO % 13 % (0-9); NEUT % 70 % (31-73); PLATELET COUNT 154 x10^3/uL (140-400); RED CELL DISTRIBUTION WIDTH 13.6 % (11.5-14.5)
[2016-07-08 05:16] LABS: CALCIUM 9.5 mg/dL (8.5-10.1); CREATININE 1.5 mg/dL (0.6-1.0); GFR 34.1; POTASSIUM 4.9 mmol/L (3.5-5.1)
[2016-07-08] MEDS: INSULIN ASPART 300 UNITS/3 ML INSULN.PEN SQ SCH ×6 (07:30→17:07)
--- NOTE | 2016-07-08 07:52 | RAD ---
Aortic arch with bilateral common carotid cervical and intracranial arteriogram Percutaneous stenting of proximal intrathoracic left common carotid artery without distal embolic protection Indication: 70-year-old female with known severe cerebrovascular disease. She is status post left carotid endarterectomy x2, right carotid endarterectomy x2, and right carotid stent placement with distal embolic protection. She has recurrent dizziness, with abnormal carotid duplex Doppler and with CTA neck and head revealing focal 80-90% stenosis of proximal left common carotid artery approximately 4 cm above its origin. Percutaneous stenting of the proximal left common carotid artery stenosis has been requested by vascular surgery. Fluoroscopy time: 14.7 minutes Kerma-area Product: 224 Gycm2 Contrast material: 54 cc Omnipaque 300 Anesthesia: MAC anesthesia was provided by the department of anesthesiology. Consent: The procedure was explained in its entirety to the patient and/or the patient's designated sales representative raw fibers by a member of the treatment team. This included a discussion of risks and benefits and commonly accepted alternatives to the procedure, as well as expected consequences of no treatment at all. Discussion of risks included, but was not limited to, those that are most frequent and those that are rare, but possibly severe or life-threatening, as well as the possibility of unforeseen complications. Sterility: All elements of maximal sterile barrier technique were utilized, including cap, mask, sterile gown, sterile gloves, large sterile sheet, appropriate hand hygiene, and 2% chlorhexidine for cutaneous antisepsis. Procedure: Informed consent was obtained from the patient. She was placed supine on the angiography table. Preliminary ultrasound examination of right groin revealed wide patency of right common femoral artery, which was documented with a single hard copy ultrasound image. Right groin was then prepped and draped in the usual sterile fashion, utilizing all elements of maximal sterile barrier technique, as described above. Moderate sedation was provided with IV Versed and fentanyl. Using aseptic technique, local anesthesia, direct ultrasound guidance, and the micropuncture system, a 5 Beninese right common femoral artery sheath was successfully introduced. Aortic arch injection: A 5 Beninese Omni Flush catheter was advanced through the right groin sheath and was positioned within a sending thoracic aorta. Omnipaque 300 was injected and arch cervical DSA images were obtained in the MICRONESIAN projection. Findings: Aortic arch shows atherosclerotic elongation and calcification, without intimal flap and without aneurysmal dilatation. Calcific plaques are present at origins of great vessels from aortic arch, without hemodynamically significant stenosis. Focal high-grade stenosis is identified within proximal left common carotid artery, just above clavicle. Postoperative mid-distal left common carotid artery and postoperative left carotid bifurcation appear widely patent. There is moderate narrowing at proximal right common carotid artery, followed by widely patent right carotid artery stent. Left vertebral artery is poorly opacified. There appears to be high-grade stenosis at origin of right vertebral artery. Right CCA injection: The Omni Flush catheter was exchanged for a 5 Beninese H1 catheter, which was carefully advanced over a Glidewire into proximal right common carotid artery. Omnipaque 300 was injected and cervical DSA images were obtained in the lateral projection and intracranial DSA images were obtained in AP and lateral projections. Findings: There is moderate, smooth narrowing within proximal right CCA. The right carotid stent, previously placed across right carotid bifurcation, remains widely patent. Occlusion of right external carotid artery is again seen. Areas of minor plaquing are noted within cavernous and supraclinoid right ICA, without significant stenosis. There is prompt contrast opacification of right middle cerebral artery, bilateral anterior cerebral arteries (via patent anterior communicating artery), and right posterior cerebral artery (via patent posterior communicating artery). There is faint contrast opacification of contralateral left middle cerebral artery. No intracranial aneurysm or vascular malformation was demonstrated. Left CCA injection: The H1 catheter was then carefully introduced into proximal left common carotid artery over the Glidewire. Omnipaque 300 was injected and cervical DSA images were obtained in the MICRONESIAN projection. Following IV bolus ministration of 5000 units heparin, the H1 catheter was then very gently advanced across the severe proximal left common carotid artery stenosis into left external carotid artery over the Glidewire. The H1 catheter was then exchanged over a long Amplatz wire for a 6 Beninese shuttle sheath, which was positioned with its tip within proximal left CCA, below the severe stenosis. The Amplatz wire was left in place. Additional Omnipaque 300 was injected through the shuttle sheath, and intracranial DSA images were obtained in AP and lateral projections. Findings: There is moderate stenosis at origin of left common carotid artery from aortic arch. The localized high-grade stenosis, previously demonstrated at CTA, is again seen within proximal left CCA. Postoperative changes of widely patent patch angioplasty extend from mid left common carotid artery through left carotid bifurcation. Left external carotid artery is widely patent. Left internal carotid artery is diffusely small in caliber, with mild focal stenosis just above the endarterectomy site. Petrous, cavernous, and supraclinoid left ICA appear widely patent. There is suboptimal opacification of left middle cerebral artery. There is flash filling of left anterior and posterior cerebral arteries, which are largely perfused from contralateral right side. Left CCA stent placement: Following left carotid angiography, the 6 Beninese sheath was left in position within proximal left CCA and the Amplatz wire was left in position with its tip extending into left external carotid artery. A 7 mm x 30 mm MIOX control Smart stent was then advanced through the shuttle sheath over the Amplatz wire, and was carefully positioned across the high-grade proximal left CCA stenosis, utilizing magnification fluoroscopic guidance and road mapping technique. The SMART stent was then carefully deployed under fluoroscopic control. Gentle post dilatation of the stent was then performed utilizing a 6 mm x 20 mm Cordis Power[employer] balloon. Omnipaque 300 was injected through the shuttle sheath and completion cervical and intracranial DSA images were obtained. Those images images revealed widely patent proximal left common carotid artery, without complicating dissection or thrombosis. Those images also revealed improved perfusion to left anterior, posterior, and middle cerebral arteries, without angiographic evidence of distal embolization. Patient tolerated the procedure well, without new focal neurologic defect, or other complication. She was transported from the angiography suite to the postanesthesia care unit in stable condition. Impression: Successful, uneventful aortic arch and bilateral common carotid cervical and intracranial arteriogram, followed by successful, uneventful proximal left common carotid artery stent placement, as described.
[2016-07-08 07:55] VITALS: BP 115/39
[2016-07-08] MEDS: CARVEDILOL 12.5 MG TABLET PO SCH ×2 (08:00→17:03)
[2016-07-08] MEDS: CLOPIDOGREL BISULFATE 75 MG TABLET PO SCH (08:40)
[2016-07-08] MEDS: GUAIFENESIN ER 600 MG TABLET.ER PO SCH ×2 (08:40→21:41)
[2016-07-08] MEDS: PANTOPRAZOLE 40 MG TABLET. PO SCH (08:40)
[2016-07-08] MEDS: HEPARIN PF for SUB-Q USE 5,000 UNIT/0.5 ML VIAL. SQ SCH ×3 (08:40→21:51)
[2016-07-08] MEDS: OXYBUTYNIN CHLORIDE 5 MG TABLET PO SCH ×2 (08:41→21:42)
[2016-07-08] MEDS: DOCUSATE SODIUM 100 MG CAPSULE PO SCH ×2 (08:41→21:42)
[2016-07-08] MEDS: ALPRAZOLAM 0.5 MG TABLET PO PRN ×2 (08:41→17:04)
[2016-07-08] MEDS: POTASSIUM CHLORIDE 10 MEQ TABLET.ER. PO SCH (08:41)
[2016-07-08] MEDS: SENNOSIDES/DOCUSATE 8.6/50MG TABLET. PO SCH ×2 (08:42→21:42)
[2016-07-08] MEDS: LISINOPRIL 20 MG TABLET PO SCH (08:44)
[2016-07-08] MEDS: DULOXETINE HCL 30 MG CAPSULE.DR. PO SCH (08:44)
[2016-07-08] MEDS: POLYETHYLENE GLYCOL 3350 17 GM PACKET. PO SCH (08:48)
[2016-07-08] MEDS: NICOTINE 21MG PATCH. TD SCH (09:00)
[2016-07-08] MEDS: AMLODIPINE BESYLATE 10 MG TABLET PO SCH (09:00)
--- NOTE | 2016-07-08 10:44 | PDOC ---
PROGRESS NOTES Subjective Subjective She admits low back soreness. Objective Objective Vital Signs Date Time Temp Pulse Resp B/P Pulse Ox O2 Delivery O2 Flow Rate FiO2 07/08/16 08:15 Room Air 07/08/16 07:55 98.3 69 18 115/39 98 2.5 98.3 Intake and Output 07/08/16 07:00 Intake Total 2310 ml Balance 2310 ml Intake Oral 2310 ml # Voids 3 # Bowel Movements 2 Physical Exam Physical Exam She is lethargic this AM supine in bed. Assessment Assessment Problems Medical Problems: (1) Hypoxia Status: Acute (2) Syncope Status: Acute Plan Plan of Care To get her up as tolerated and to SNF when medically stable. Comment Review of Relevant I have reviewed the following items carlota (where applicable) has been applied. Labs Laboratory Tests Test 07/06/16 12:00 07/06/16 14:56 07/06/16 16:39 07/06/16 20:58 Glucose (Fingerstick) 160mg/dL (70-99) 131mg/dL (70-99) 151mg/dL (70-99) 152mg/dL (70-99) Test 07/07/16 07:12 07/07/16 07:30 07/07/16 12:30 07/07/16 17:02 Glucose (Fingerstick) 113mg/dL (70-99) 183mg/dL (70-99) 223mg/dL (70-99) White Blood Count 7.6x10^3/uL (4.0-11.0) Red Blood Count 3.26x10^6/uL (3.50-5.40) Hemoglobin 9.6g/dL (12.0-15.5) Hematocrit 29.3% (36.0-47.0) Mean Corpuscular Volume 90fL (79-100) Mean Corpuscular Hemoglobin 29pg (25-35) Mean Corpuscular Hemoglobin Concent 33g/dL (31-37) Red Cell Distribution Width 13.9% (11.5-14.5) Platelet Count 179x10^3/uL (140-400) Neutrophils (%) (Auto) 73% (31-73) Lymphocytes (%) (Auto) 12% (24-48) Monocytes (%) (Auto) 13% (0-9) Eosinophils (%) (Auto) 2% (0-3) Basophils (%) (Auto) 1% (0-3) Neutrophils # (Auto) 5.5x10^3uL (1.8-7.7) Lymphocytes # (Auto) 0.9x10^3/uL (1.0-4.8) Monocytes # (Auto) 1.0x10^3/uL (0.0-1.1) Eosinophils # (Auto) 0.1x10^3/uL (0.0-0.7) Basophils # (Auto) 0.0x10^3/uL (0.0-0.2) Sodium Level 137mmol/L (136-145) Potassium Level 5.0mmol/L (3.5-5.1) Chloride Level 105mmol/L (98-107) Carbon Dioxide Level 25mmol/L (21-32) Anion Gap 7 (6-14) Blood Urea Nitrogen 19mg/dL (7-20) Creatinine 1.4mg/dL (0.6-1.0) Estimated GFR (Cockcroft-Gault) 37.0 Glucose Level 114mg/dL (70-99) Calcium Level 9.4mg/dL (8.5-10.1) Test 07/07/16 20:38 07/08/16 04:30 07/08/16 07:52 Glucose (Fingerstick) 309mg/dL (70-99) 158mg/dL (70-99) White Blood Count 8.0x10^3/uL (4.0-11.0) Red Blood Count 3.10x10^6/uL (3.50-5.40) Hemoglobin 9.1g/dL (12.0-15.5) Hematocrit 27.9% (36.0-47.0) Mean Corpuscular Volume 90fL (79-100) Mean Corpuscular Hemoglobin 29pg (25-35) Mean Corpuscular Hemoglobin Concent 33g/dL (31-37) Red Cell Distribution Width 13.6% (11.5-14.5) Platelet Count 154x10^3/uL (140-400) Neutrophils (%) (Auto) 70% (31-73) Lymphocytes (%) (Auto) 14% (24-48) Monocytes (%) (Auto) 13% (0-9) Eosinophils (%) (Auto) 2% (0-3) Basophils (%) (Auto) 1% (0-3) Neutrophils # (Auto) 5.6x10^3uL (1.8-7.7) Lymphocytes # (Auto) 1.1x10^3/uL (1.0-4.8) Monocytes # (Auto) 1.0x10^3/uL (0.0-1.1) Eosinophils # (Auto) 0.2x10^3/uL (0.0-0.7) Basophils # (Auto) 0.0x10^3/uL (0.0-0.2) Sodium Level 137mmol/L (136-145) Potassium Level 4.9mmol/L (3.5-5.1) Chloride Level 103mmol/L (98-107) Carbon Dioxide Level 23mmol/L (21-32) Anion Gap 11 (6-14) Blood Urea Nitrogen 21mg/dL (7-20) Creatinine 1.5mg/dL (0.6-1.0) Estimated GFR (Cockcroft-Gault) 34.1 Glucose Level 229mg/dL (70-99) Calcium Level 9.5mg/dL (8.5-10.1) Laboratory Tests Test 07/07/16 12:30 07/07/16 17:02 07/07/16 20:38 07/08/16 04:30 Glucose (Fingerstick) 183mg/dL (70-99) 223mg/dL (70-99) 309mg/dL (70-99) White Blood Count 8.0x10^3/uL (4.0-11.0) Red Blood Count 3.10x10^6/uL (3.50-5.40) Hemoglobin 9.1g/dL (12.0-15.5) Hematocrit 27.9% (36.0-47.0) Mean Corpuscular Volume 90fL (79-100) Mean Corpuscular Hemoglobin 29pg (25-35) Mean Corpuscular Hemoglobin Concent 33g/dL (31-37) Red Cell Distribution Width 13.6% (11.5-14.5) Platelet Count 154x10^3/uL (140-400) Neutrophils (%) (Auto) 70% (31-73) Lymphocytes (%) (Auto) 14% (24-48) Monocytes (%) (Auto) 13% (0-9) Eosinophils (%) (Auto) 2% (0-3) Basophils (%) (Auto) 1% (0-3) Neutrophils # (Auto) 5.6x10^3uL (1.8-7.7) Lymphocytes # (Auto) 1.1x10^3/uL (1.0-4.8) Monocytes # (Auto) 1.0x10^3/uL (0.0-1.1) Eosinophils # (Auto) 0.2x10^3/uL (0.0-0.7) Basophils # (Auto) 0.0x10^3/uL (0.0-0.2) Sodium Level 137mmol/L (136-145) Potassium Level 4.9mmol/L (3.5-5.1) Chloride Level 103mmol/L (98-107) Carbon Dioxide Level 23mmol/L (21-32) Anion Gap 11 (6-14) Blood Urea Nitrogen 21mg/dL (7-20) Creatinine 1.5mg/dL (0.6-1.0) Estimated GFR (Cockcroft-Gault) 34.1 Glucose Level 229mg/dL (70-99) Calcium Level 9.5mg/dL (8.5-10.1) Test 07/08/16 07:52 Glucose (Fingerstick) 158mg/dL (70-99) Microbiology 06/30/16 Urine Culture - Final, Complete 06/30/16 Urine Culture Result 1 (ÁNGEL) - Final, Complete 06/30/16 Urine Culture Result 2 (ÁNGEL) - Final, Complete 06/30/16 Antimicrobic Susceptibility - Final, Complete Medications Current Medications Acetaminophen (Tylenol) 1,000 mg 1X ONCE PO Last administered on 06/30/16 07: 33; Start 06/30/16 at 07:00; Stop 06/30/16 at 07:04; Status DC Ondansetron HCl 4 mg 4 mg 1X ONCE IV Last administered on 06/30/16 07:32; Start 06/30/16 at 07:15; Stop 06/30/16 at 07:16; Status DC Sodium Chloride (Iv Sodium Chloride 0.9% 500ml Bag) 500 ml @ 500 mls/hr 1X ONCE IV Last administered on 06/30/16 09:57; Start 06/30/16 at 08:45; Stop at 09:44; Status DC Ondansetron HCl (Zofran) 4 mg PRN Q8HRS PRN IV NAUSEA/VOMITING Last administered on 06/30/16 20:58; Start 06/30/16 at 08:45; Stop 07/01/16 at 08:44; Status DC Morphine Sulfate 2 mg PRN Q2HR PRN IV PAIN Last administered on 07/01/16 05:16 ; Start 06/30/16 at 08:45; Stop 07/01/16 at 08:44; Status DC Acetaminophen (Tylenol) 650 mg PRN Q4HRS PRN PO FEVER Last administered on 20:40; Start 06/30/16 at 08:45; Stop 07/01/16 at 08:44; Status DC Insulin Aspart (Novolog) 0-7 UNITS TIDWMEALS SQ Last administered on 07/07/16 17:36; Start 06/30/16 at 12:00 Dextrose 12.5 gm PRN Q15MIN PRN IV SEE COMMENTS; Start 06/30/16 at 08:45 Pneumococcal Polyvalent Vaccine (Do NOT chart on this placeholder) 1 each 1X ONCE MC ; Start 06/30/16 at 11:30; Stop 06/30/16 at 11:31; Status UNV Acetaminophen (Tylenol) 650 mg PRN Q6HRS PRN PO PAIN; Start 06/30/16 at 12:15; Stop 06/30/16 at 12:18; Status DC Amlodipine Besylate (Norvasc) 10 mg DAILY PO Last administered on 07/07/16 07: 58; Start 06/30/16 at 13:00 Atorvastatin Calcium (Lipitor) 40 mg QHS PO Last administered on 07/07/16 21: 12; Start 06/30/16 at 21:00 Carvedilol (Coreg) 25 mg BIDWMEALS PO Last administered on 07/07/16 17:35; Start 06/30/16 at 17:00 Clopidogrel Bisulfate (Plavix) 75 mg DAILY07 PO Last administered on 07/08/16 08:40; Start 06/30/16 at 13:00 Cyclosporine (Restasis) 1 drop HS OU Last administered on 07/07/16 21:12; Start 06/30/16 at 21:00 Duloxetine HCl (Cymbalta) 30 mg DAILY PO Last administered on 07/08/16 08:44; Start 06/30/16 at 13:00 Mirtazapine (Remeron) 15 mg QHS PO Last administered on 07/07/16 21:13; Start 06/30/16 at 21:00 Nicotine (Nicoderm Cq 21mg) 1 patch DAILY TD Last administered on 07/07/16 08: 00; Start 06/30/16 at 13:00 Oxybutynin Chloride (Ditropan) 5 mg BID PO Last administered on 07/08/16 08:41 ; Start 06/30/16 at 13:00 Pantoprazole Sodium (Protonix) 40 mg DAILY07 PO Last administered on 07/08/16 08:40; Start 06/30/16 at 13:00 Polyethylene Glycol (miraLAX PACKET) 17 gm DAILY PO Last administered on 08:00; Start 06/30/16 at 13:00 Senna/Docusate Sodium (Senna Plus) 2 tab HS PO Last administered on 07/03/16 20:48; Start 06/30/16 at 21:00; Stop 07/04/16 at 14:29; Status DC Non-Formulary Medication 10 mg QHS PO ; Start 06/30/16 at 21:00; Status UNV Potassium Chloride (Klor-Con) 10 meq DAILYWBKFT PO Last administered on 08:41; Start 06/30/16 at 13:00 Acetaminophen (Tylenol) 650 mg PRN Q6HRS PRN PO MILD PAIN / TEMP; Start at 12:15; Status UNV Ondansetron HCl (Zofran) 4 mg PRN Q6HRS PRN IV NAUSEA/VOMITING Last administered on 07/07/16 21:13; Start 06/30/16 at 12:15 Heparin Sodium (Porcine) 5,000 unit Q8HRS SQ Last administered on 07/08/16 08: 40; Start 06/30/16 at 14:00 Insulin Aspart (Novolog) 5 units TIDAC SQ Last administered on 07/01/16 08:46; Start 06/30/16 at 16:30; Stop 07/01/16 at 11:45; Status DC Insulin Detemir (Levemir) 20 units QHS SQ Last administered on 06/30/16 20:55; Start 06/30/16 at 21:00; Stop 07/01/16 at 11:45; Status DC Doxycycline Hyclate (Vibra-Tab) 100 mg BID PO Last administered on 07/01/16 20: 40; Start 06/30/16 at 13:00; Stop 07/02/16 at 10:36; Status DC Guaifenesin 600 mg 600 mg BID PO Last administered on 07/08/16 08:40; Start at 13:00 Sodium Chloride (Iv Sodium Chloride 0.9% 1000ml Bag) 1,000 ml @ 75 mls/hr 1X ONCE IV Last administered on 06/30/16 13:21; Start 06/30/16 at 12:15; Stop at 01:34; Status DC Acetaminophen (Tylenol) 650 mg PRN Q6HRS PRN PO PAIN Last administered on 17:16; Start 06/30/16 at 12:18 Magnesium Hydroxide (Milk Of Magnesia) 2,400 mg PRN DAILY PRN PO CONSTIPATION Last administered on 07/04/16 14:18; Start 06/30/16 at 17:30; Stop 07/04/16 at 14:29; Status DC Insulin Aspart (Novolog) 7 units TIDAC SQ ; Start 07/01/16 at 12:00; Stop at 12:57; Status DC Insulin Detemir (Levemir) 22 units QHS SQ Last administered on 07/07/16 21:18 ; Start 07/01/16 at 21:00 Insulin Aspart (Novolog) 5 units TIDAC SQ Last administered on 07/07/16 17:37 ; Start 07/01/16 at 16:30 Hydralazine HCl 10 mg 10 mg 1X ONCE IVP Last administered on 07/02/16 10:46; Start 07/02/16 at 10:30; Stop 07/02/16 at 10:31; Status DC Levofloxacin/ Dextrose (LEVAQUIN 500mg PREMIX) 100 ml @ 100 mls/hr Q24H IV Last administered on 07/03/16 11:01; Start 07/02/16 at 11:00; Stop 07/03/16 at 15:50; Status DC Lisinopril 20 mg 20 mg DAILY PO Last administered on 07/07/16 07:57; Start 02/08 at 11:00 Propofol (Diprivan) 50 ml @ As Directed STK-MED ONCE IV ; Start 07/02/16 at 12: 00; Stop 07/02/16 at 12:01; Status DC Midazolam HCl (Versed) 2 mg STK-MED ONCE .ROUTE ; Start 07/02/16 at 12:43; Stop 07/02/16 at 12:44; Status DC Iohexol (Omnipaque 300 Mg/ml) 50 ml STK-MED ONCE .ROUTE ; Start 07/02/16 at 12: 45; Stop 07/02/16 at 12:46; Status DC Lidocaine/Sodium Bicarbonate 20 ml 20 ml STK-MED ONCE IJ ; Start 07/02/16 at 12: 46; Stop 07/02/16 at 12:47; Status DC Cefazolin Sodium (Ancef 1gm Ivpb For Omni) 50 ml @ As Directed STK-MED ONCE IV ; Start 07/02/16 at 13:05; Stop 07/02/16 at 13:06; Status DC Lidocaine/Sodium Bicarbonate (Buffered Lidocaine 1%) 20 ml 1X ONCE IJ Last administered on 07/02/16 13:32; Start 07/02/16 at 13:30; Stop 07/02/16 at 13:31 ; Status DC Iohexol (Omnipaque 300 Mg/ml) 50 ml 1X ONCE IART Last administered on 13:31; Start 07/02/16 at 13:30; Stop 07/02/16 at 13:31; Status DC Info (Do NOT chart on this entry -- for MONITORING) 1 each PRN DAILY PRN MC SEE COMMENTS; Start 07/02/16 at 13:45; Stop 07/04/16 at 13:44; Status DC Hydralazine HCl (Apresoline) 10 mg 1X PACU PRN IVP HYPERTENSION, SEE COMMENTS; Start 07/02/16 at 14:15 Fentanyl Citrate (Fentanyl 2ml Vial) 25 mcg PRN Q5MIN PRN IV MILD PAIN Last administered on 07/02/16 14:27; Start 07/02/16 at 14:30; Stop 07/02/16 at 20:00 ; Status DC Fentanyl Citrate (Fentanyl 2ml Vial) 50 mcg PRN Q5MIN PRN IV MODERATE PAIN; Start 07/02/16 at 14:30; Stop 07/02/16 at 20:00; Status DC Morphine Sulfate 1 mg 1 mg PRN Q10MIN PRN IV SEVERE PAIN Last administered on 15:10; Start 07/02/16 at 14:30; Stop 07/02/16 at 18:00; Status DC Lactated Ringer's (Iv Lactated Ringers) 1,000 ml @ 30 mls/hr Q24H IV ; Start at 14:20; Stop 07/03/16 at 02:19; Status DC Lidocaine HCl 2 ml 1X PRN PRN ID IV START; Start 07/02/16 at 14:30; Stop at 20:00; Status DC Hydromorphone HCl (Dilaudid) 0.5 mg PRN Q10MIN PRN IV SEV PAIN,Second choice; Start 07/02/16 at 14:30; Stop 07/02/16 at 20:00; Status DC Prochlorperazine Edisylate (Compazine) 5 mg PACU PRN PRN IV NAUSEA; Start 07/02 at 14:30; Stop 07/02/16 at 20:00; Status DC Multi-Ingredient Mouthwash/Gargle (Gi Cocktail Single Dose) 15 ml PRN 1X PRN SWSW CHEST PAIN; Start 07/02/16 at 16:45 Al Hydroxide/Mg Hydroxide (Mylanta Plus Xs) 30 ml PRN Q2HR PRN PO HEARTBURN / GAS Last administered on 07/04/16 19:31; Start 07/02/16 at 16:45 Aspirin 325 mg 325 mg 1X ONCE PO Last administered on 07/02/16 16:55; Start 07/02/16 at 17:00; Stop 07/02/16 at 17:01; Status DC Sodium Chloride 1,000 ml @ 75 mls/hr 1X ONCE IV Last administered on 11:02; Start 07/03/16 at 10:30; Stop 07/03/16 at 23:49; Status DC Ceftriaxone Sodium/Sodium Chloride (Rocephin/Iv Sodium Chloride 0.9% 50ml) 50 ml @ 100 mls/hr Q24H IV Last administered on 07/05/16 16:42; Start 07/03/16 at 16:00; Stop 07/06/16 at 11:40; Status DC Iohexol (Omnipaque 300 Mg/ml) 60 ml 1X ONCE IV Last administered on 07/04/16 09:58; Start 07/04/16 at 09:45; Stop 07/04/16 at 09:46; Status DC Senna/Docusate Sodium (Senna Plus) 1 tab BID PO Last administered on 07/08/16 08:42; Start 07/04/16 at 21:00 Docusate Sodium (Colace) 100 mg BID PO Last administered on 07/08/16 08:41; Start 07/04/16 at 21:00 Magnesium Hydroxide (Milk Of Magnesia) 2,400 mg PRN Q12HR PRN PO CONSTIPATION; Start 07/04/16 at 14:30 Bisacodyl (Dulcolax Supp) 10 mg PRN DAILY PRN AL CONSTIPATION; Start 07/04/16 at 14:30 Ondansetron HCl (Zofran) 4 mg PRN Q6HRS PRN IV Nausea; Start 07/06/16 at 07:00 ; Stop 07/07/16 at 06:59; Status DC Fentanyl Citrate (Fentanyl 2ml Vial) 25 mcg PRN Q5MIN PRN IV MILD PAIN; Start 07/06/16 at 07:00; Stop 07/07/16 at 06:59; Status DC Fentanyl Citrate (Fentanyl 2ml Vial) 50 mcg PRN Q5MIN PRN IV MODERATE PAIN; Start 07/06/16 at 07:00; Stop 07/07/16 at 06:59; Status DC Morphine Sulfate 1 mg 1 mg PRN Q10MIN PRN IV SEVERE PAIN; Start 07/06/16 at 07: 00; Stop 07/07/16 at 06:59; Status DC Lactated Ringer's (Iv Lactated Ringers) 1,000 ml @ 0 mls/hr Q0M IV Last administered on 3/14/17at 15:32; Start 07/06/16 at 07:00; Stop 07/06/16 at 18:59 ; Status DC Lidocaine HCl 2 ml 1X PRN PRN ID IV START; Start 07/06/16 at 07:00; Stop at 06:59; Status DC Hydromorphone HCl (Dilaudid) 0.5 mg PRN Q10MIN PRN IV SEVERE PAIN, Second choice; Start 07/06/16 at 07:00; Stop 07/07/16 at 06:59; Status DC Prochlorperazine Edisylate (Compazine) 5 mg PACU PRN PRN IV NAUSEA; Start 07/06 at 07:00; Stop 07/07/16 at 06:59; Status DC Fentanyl Citrate (Fentanyl 2ml Vial) 100 mcg STK-MED ONCE .ROUTE ; Start at 11:37; Stop 07/06/16 at 11:38; Status DC Midazolam HCl (Versed) 2 mg STK-MED ONCE .ROUTE ; Start 07/06/16 at 11:37; Stop 07/06/16 at 11:38; Status DC Ketamine HCl 500 mg 500 mg STK-MED ONCE .ROUTE ; Start 07/06/16 at 11:37; Stop 07/06/16 at 11:38; Status DC Propofol (Diprivan) 0 ml @ As Directed STK-MED ONCE IV ; Start 07/06/16 at 11:39 ; Stop 07/06/16 at 11:40; Status DC Iohexol (Omnipaque 300 Mg/ml) 100 ml STK-MED ONCE .ROUTE ; Start 07/06/16 at 12: 54; Stop 07/06/16 at 12:55; Status DC Lidocaine/Sodium Bicarbonate 20 ml 20 ml STK-MED ONCE IJ ; Start 07/06/16 at 12: 54; Stop 07/06/16 at 12:55; Status DC Heparin Sodium/ Sodium Chloride 2,000 ml @ As Directed STK-MED ONCE .ROUTE ; Start 07/06/16 at 12:54; Stop 07/06/16 at 12:55; Status DC Iohexol 100 ml 100 ml STK-MED ONCE .ROUTE ; Start 07/06/16 at 12:58; Stop at 12:59; Status DC Propofol (Diprivan) 20 ml @ As Directed STK-MED ONCE IV ; Start 07/06/16 at 13: 09; Stop 07/06/16 at 13:10; Status DC Heparin Sodium/ Sodium Chloride 1,000 unit 1X ONCE IART ; Start 07/06/16 at 14: 00; Stop 07/06/16 at 14:01; Status DC Lidocaine/Sodium Bicarbonate (Buffered Lidocaine 1%) 20 ml 1X ONCE IJ Last administered on 07/06/16 14:00; Start 07/06/16 at 14:00; Stop 07/06/16 at 14:01 ; Status DC Iohexol (Omnipaque 300 Mg/ml) 100 ml 1X ONCE IART Last administered on 14:00; Start 07/06/16 at 14:00; Stop 07/06/16 at 14:01; Status DC Info (Do NOT chart on this entry -- for MONITORING) 1 each PRN DAILY PRN MC SEE COMMENTS; Start 07/06/16 at 14:00; Stop 07/08/16 at 13:59 Heparin Sodium (Porcine) 16959 unit 10,000 unit STK-MED ONCE .ROUTE ; Start at 13:59; Stop 07/06/16 at 14:00; Status DC Propofol 0 ml @ As Directed STK-MED ONCE IV ; Start 07/06/16 at 14:04; Stop at 14:05; Status DC Propofol (Diprivan) 50 ml @ As Directed STK-MED ONCE IV ; Start 07/06/16 at 14: 04; Stop 07/06/16 at 14:05; Status DC Quinine Sulfate 324 mg 324 mg PRN Q8HRS PO ; Start 07/06/16 at 18:30; Status UNV Sodium Chloride (Iv Sodium Chloride 0.9% 1000ml Bag) 1,000 ml @ 1,000 mls/hr 1X ONCE IV ; Start 07/07/16 at 11:00; Stop 07/07/16 at 11:59; Status DC Morphine Sulfate 2 mg PRN Q4HRS PRN IV PAIN Last administered on 07/07/16 14: 45; Start 07/07/16 at 14:30; Stop 07/07/16 at 17:14; Status DC Alprazolam (Xanax) 0.5 mg PRN Q8HRS PRN PO ANXIETY / AGITATION; Start 07/08/16 at 00:00 Alprazolam (Xanax) 0.5 mg 1X ONCE PO Last administered on 07/07/16 17:34; Start 07/07/16 at 17:30; Stop 07/07/16 at 17:31; Status DC Morphine Sulfate 1 mg PRN Q4HRS PRN IV PAIN; Start 07/07/16 at 17:15 Acetaminophen/ Codeine Phosphate (Tylenol #3) 1 tab PRN Q4HRS PRN PO PAIN Last administered on 07/07/16 17:33; Start 07/07/16 at 17:15 Active Scripts Active Reported Tylenol (Acetaminophen) 325 Mg Tablet 650 Mg PO TID Senna-Docusate Sodium Tablet (Sennosides/Docusate Sodium) 1 Each Tablet 2 Each PO HS Protonix (Pantoprazole Sodium) 40 Mg Tablet.dr 1 Tab PO DAILY NICODERM CQ 21mg (Nicotine) 1 Each Patch.td24 1 Patch TP DAILY Miralax (Polyethylene Glycol 3350) 17 Gm Powd.pack 1 Packet PO DAILY Miralax (Polyethylene Glycol 3350) 17 Gm Powd.pack 1 Packet PO PRN DAILY PRN Melatonin 3 Mg Tablet 10 Mg PO QHS Mirtazapine 15 Mg Tablet 1 Tab PO QHS Cymbalta (Duloxetine Hcl) 30 Mg Capsule.dr 1 Cap PO DAILY Acetaminophen 500 Mg Tablet 1 Tab PO PRN Q6HRS PRN Novolog (Insulin Aspart) 100 Unit/1 Ml Cartridge 5 Unit SQ DAILYWSUP Restasis (Cyclosporine) 1 Each Droperette 1 Drop EACHEYE HS Multiple Vitamins (Multivitamin) 1 Each Tablet 1 Each PO Potassium Chloride 10 Meq Capsule.er 1 Cap PO DAILY05 Levemir (Insulin Detemir) 100 Unit/1 Ml Vial 30 Unit SQ DAILY Atorvastatin Calcium 40 Mg Tablet 1 Tab PO DAILY Lisinopril 20 Mg Tablet 1 Tab PO DAILY Oxybutynin Chloride 5 Mg Tablet 5 Mg PO BID Norvasc (Amlodipine Besylate) 5 Mg Tablet 10 Mg PO DAILY Clopidogrel (Clopidogrel Bisulfate) 75 Mg Tablet 75 Mg PO DAILY Coreg (Carvedilol) 12.5 Mg Tablet 25 Mg PO BID Vitals/I & O Vital Sign - Last 24 Hours 07/07/16 07/07/16 07/07/1607/07/17 11:00 14:45 15:00 16:20 Temp 98.3 98.9 98.3 98.9 Pulse 66 73 Resp 18 18 B/P 115/33 115/37 Pulse Ox 96 95 95 95 O2 Delivery Nasal Cannula Nasal Cannula Nasal Cannula Nasal Cannula O2 Flow Rate 2.0 2.0 2.0 2.0 07/07/16 07/07/16 07/07/16 07/07/16 17:33 17:35 19:18 20:00 Temp 98.9 98.9 Pulse 73 74 Resp 18 B/P 130/48 126/44 Pulse Ox 95 92 O2 Delivery Nasal Cannula Nasal Cannula Nasal Cannula O2 Flow Rate 2.0 2.0 2.5 07/07/16 07/08/16 07/08/16 07/08/16 23:18 03:18 07:55 08:00 Temp 98.8 97.8 98.3 98.8 97.8 98.3 Pulse 75 74 69 Resp 16 18 18 B/P 154/45 140/44 115/39 Pulse Ox 95 98 98 O2 Delivery Nasal Cannula Nasal Cannula Nasal Cannula Room Air O2 Flow Rate 2.5 2.5 2.5 07/08/16 08:15 O2 Delivery Room Air Intake and Output 07/07/16 07/07/16 07/08/16 15:00 23:00 07:00 Intake Total 1200 ml 1000 ml 110 ml Balance 1200 ml 1000 ml 110 ml FLORY SMITH MD Jul 08, 2016 10:44
[2016-07-08 10:58] VITALS: BP 137/32
[2016-07-08] MEDS ORDERED: IV NORMAL SALINE 1000ML BAG 1,000 ML IV ONE (11:15)
--- NOTE | 2016-07-08 12:54 | PDOC ---
PROGRESS NOTES Chief Complaint Chief Complaint Assessment/Plan 1. Acute respiratory failure Improving. 2. fall, 2/2 unsteady gait likely 3. recent syncope and left forearm fx, no sx 4. h/o CAD 5. h/o CHF 6. H/O cva WITH MILD left side weakness 7. depression 8. dm2 on insulin 9. GERD 10. htn 11. hld 12. MELONIE, vasomotor. CKD2-3 13. h/o PEG 14. cervical DJD, CHRONIC spine fx, subacute L1 fx s/p kyphoplasty on 07/02 15 . >70% stenosis within the proximal and mid left internal carotid artery on US, had sx before Plan s/p Bilateral cervical and intracranial carotid angio. Left proximal CCA stent placement Pain control with Tylenol 3 and iv morphine iv hydration NS at 75mls/hr. monitor renal functions, worsening, Decreased oral intake Severe anxiety - Xanax o.25 prn prognosis guarded SSI PT/OT History of Present Illness History of Present Illness no sob no chest pain Vitals Vitals Vital Signs Date Time Temp Pulse Resp B/P Pulse Ox O2 Delivery O2 Flow Rate FiO2 07/08/16 10:58 98.7 74 19 137/32 94 Room Air 98.7 07/08/16 07:55 2.5 Physical Exam General: Alert, Other (Weak in apperance. ) Heart: Regular rate, Normal S1, Other (Early systolic murmur at LSB, 2/6, mildly diminshed PMI) Lungs: Clear, Other (decrease bs) Abdomen: Soft, No tenderness Extremities: No edema Skin: No breakdown, No significant lesion Labs LABS Laboratory Tests Test 07/07/16 17:02 07/07/16 20:38 07/08/16 04:30 07/08/16 07:52 Glucose (Fingerstick) 223mg/dL (70-99) 309mg/dL (70-99) 158mg/dL (70-99) White Blood Count 8.0x10^3/uL (4.0-11.0) Red Blood Count 3.10x10^6/uL (3.50-5.40) Hemoglobin 9.1g/dL (12.0-15.5) Hematocrit 27.9% (36.0-47.0) Mean Corpuscular Volume 90fL (79-100) Mean Corpuscular Hemoglobin 29pg (25-35) Mean Corpuscular Hemoglobin Concent 33g/dL (31-37) Red Cell Distribution Width 13.6% (11.5-14.5) Platelet Count 154x10^3/uL (140-400) Neutrophils (%) (Auto) 70% (31-73) Lymphocytes (%) (Auto) 14% (24-48) Monocytes (%) (Auto) 13% (0-9) Eosinophils (%) (Auto) 2% (0-3) Basophils (%) (Auto) 1% (0-3) Neutrophils # (Auto) 5.6x10^3uL (1.8-7.7) Lymphocytes # (Auto) 1.1x10^3/uL (1.0-4.8) Monocytes # (Auto) 1.0x10^3/uL (0.0-1.1) Eosinophils # (Auto) 0.2x10^3/uL (0.0-0.7) Basophils # (Auto) 0.0x10^3/uL (0.0-0.2) Sodium Level 137mmol/L (136-145) Potassium Level 4.9mmol/L (3.5-5.1) Chloride Level 103mmol/L (98-107) Carbon Dioxide Level 23mmol/L (21-32) Anion Gap 11 (6-14) Blood Urea Nitrogen 21mg/dL (7-20) Creatinine 1.5mg/dL (0.6-1.0) Estimated GFR (Cockcroft-Gault) 34.1 Glucose Level 229mg/dL (70-99) Calcium Level 9.5mg/dL (8.5-10.1) Test 07/08/16 11:54 Glucose (Fingerstick) 175mg/dL (70-99) Assessment and Plan Assessmemt and Plan Problems Medical Problems: (1) Hypoxia Status: Acute (2) Syncope Status: Acute Problems: Comment Review of Relevant I have reviewed the following items carlota (where applicable) has been applied. Labs Laboratory Tests Test 07/06/16 14:56 07/06/16 16:39 07/06/16 20:58 07/07/16 07:12 Glucose (Fingerstick) 131mg/dL (70-99) 151mg/dL (70-99) 152mg/dL (70-99) 113mg/dL (70-99) Test 07/07/16 07:30 07/07/16 12:30 07/07/16 17:02 07/07/16 20:38 White Blood Count 7.6x10^3/uL (4.0-11.0) Red Blood Count 3.26x10^6/uL (3.50-5.40) Hemoglobin 9.6g/dL (12.0-15.5) Hematocrit 29.3% (36.0-47.0) Mean Corpuscular Volume 90fL (79-100) Mean Corpuscular Hemoglobin 29pg (25-35) Mean Corpuscular Hemoglobin Concent 33g/dL (31-37) Red Cell Distribution Width 13.9% (11.5-14.5) Platelet Count 179x10^3/uL (140-400) Neutrophils (%) (Auto) 73% (31-73) Lymphocytes (%) (Auto) 12% (24-48) Monocytes (%) (Auto) 13% (0-9) Eosinophils (%) (Auto) 2% (0-3) Basophils (%) (Auto) 1% (0-3) Neutrophils # (Auto) 5.5x10^3uL (1.8-7.7) Lymphocytes # (Auto) 0.9x10^3/uL (1.0-4.8) Monocytes # (Auto) 1.0x10^3/uL (0.0-1.1) Eosinophils # (Auto) 0.1x10^3/uL (0.0-0.7) Basophils # (Auto) 0.0x10^3/uL (0.0-0.2) Sodium Level 137mmol/L (136-145) Potassium Level 5.0mmol/L (3.5-5.1) Chloride Level 105mmol/L (98-107) Carbon Dioxide Level 25mmol/L (21-32) Anion Gap 7 (6-14) Blood Urea Nitrogen 19mg/dL (7-20) Creatinine 1.4mg/dL (0.6-1.0) Estimated GFR (Cockcroft-Gault) 37.0 Glucose Level 114mg/dL (70-99) Calcium Level 9.4mg/dL (8.5-10.1) Glucose (Fingerstick) 183mg/dL (70-99) 223mg/dL (70-99) 309mg/dL (70-99) Test 07/08/16 04:30 07/08/16 07:52 07/08/16 11:54 White Blood Count 8.0x10^3/uL (4.0-11.0) Red Blood Count 3.10x10^6/uL (3.50-5.40) Hemoglobin 9.1g/dL (12.0-15.5) Hematocrit 27.9% (36.0-47.0) Mean Corpuscular Volume 90fL (79-100) Mean Corpuscular Hemoglobin 29pg (25-35) Mean Corpuscular Hemoglobin Concent 33g/dL (31-37) Red Cell Distribution Width 13.6% (11.5-14.5) Platelet Count 154x10^3/uL (140-400) Neutrophils (%) (Auto) 70% (31-73) Lymphocytes (%) (Auto) 14% (24-48) Monocytes (%) (Auto) 13% (0-9) Eosinophils (%) (Auto) 2% (0-3) Basophils (%) (Auto) 1% (0-3) Neutrophils # (Auto) 5.6x10^3uL (1.8-7.7) Lymphocytes # (Auto) 1.1x10^3/uL (1.0-4.8) Monocytes # (Auto) 1.0x10^3/uL (0.0-1.1) Eosinophils # (Auto) 0.2x10^3/uL (0.0-0.7) Basophils # (Auto) 0.0x10^3/uL (0.0-0.2) Sodium Level 137mmol/L (136-145) Potassium Level 4.9mmol/L (3.5-5.1) Chloride Level 103mmol/L (98-107) Carbon Dioxide Level 23mmol/L (21-32) Anion Gap 11 (6-14) Blood Urea Nitrogen 21mg/dL (7-20) Creatinine 1.5mg/dL (0.6-1.0) Estimated GFR (Cockcroft-Gault) 34.1 Glucose Level 229mg/dL (70-99) Calcium Level 9.5mg/dL (8.5-10.1) Glucose (Fingerstick) 158mg/dL (70-99) 175mg/dL (70-99) Laboratory Tests Test 07/07/16 17:02 07/07/16 20:38 07/08/16 04:30 07/08/16 07:52 Glucose (Fingerstick) 223mg/dL (70-99) 309mg/dL (70-99) 158mg/dL (70-99) White Blood Count 8.0x10^3/uL (4.0-11.0) Red Blood Count 3.10x10^6/uL (3.50-5.40) Hemoglobin 9.1g/dL (12.0-15.5) Hematocrit 27.9% (36.0-47.0) Mean Corpuscular Volume 90fL (79-100) Mean Corpuscular Hemoglobin 29pg (25-35) Mean Corpuscular Hemoglobin Concent 33g/dL (31-37) Red Cell Distribution Width 13.6% (11.5-14.5) Platelet Count 154x10^3/uL (140-400) Neutrophils (%) (Auto) 70% (31-73) Lymphocytes (%) (Auto) 14% (24-48) Monocytes (%) (Auto) 13% (0-9) Eosinophils (%) (Auto) 2% (0-3) Basophils (%) (Auto) 1% (0-3) Neutrophils # (Auto) 5.6x10^3uL (1.8-7.7) Lymphocytes # (Auto) 1.1x10^3/uL (1.0-4.8) Monocytes # (Auto) 1.0x10^3/uL (0.0-1.1) Eosinophils # (Auto) 0.2x10^3/uL (0.0-0.7) Basophils # (Auto) 0.0x10^3/uL (0.0-0.2) Sodium Level 137mmol/L (136-145) Potassium Level 4.9mmol/L (3.5-5.1) Chloride Level 103mmol/L (98-107) Carbon Dioxide Level 23mmol/L (21-32) Anion Gap 11 (6-14) Blood Urea Nitrogen 21mg/dL (7-20) Creatinine 1.5mg/dL (0.6-1.0) Estimated GFR (Cockcroft-Gault) 34.1 Glucose Level 229mg/dL (70-99) Calcium Level 9.5mg/dL (8.5-10.1) Test 07/08/16 11:54 Glucose (Fingerstick) 175mg/dL (70-99) Microbiology 06/30/16 Urine Culture - Final, Complete 06/30/16 Urine Culture Result 1 (ÁNGEL) - Final, Complete 06/30/16 Urine Culture Result 2 (ÁNGEL) - Final, Complete 06/30/16 Antimicrobic Susceptibility - Final, Complete Medications Current Medications Acetaminophen (Tylenol) 1,000 mg 1X ONCE PO Last administered on 06/30/16 07: 33; Start 06/30/16 at 07:00; Stop 06/30/16 at 07:04; Status DC Ondansetron HCl 4 mg 4 mg 1X ONCE IV Last administered on 06/30/16 07:32; Start 06/30/16 at 07:15; Stop 06/30/16 at 07:16; Status DC Sodium Chloride (Iv Sodium Chloride 0.9% 500ml Bag) 500 ml @ 500 mls/hr 1X ONCE IV Last administered on 06/30/16 09:57; Start 06/30/16 at 08:45; Stop at 09:44; Status DC Ondansetron HCl (Zofran) 4 mg PRN Q8HRS PRN IV NAUSEA/VOMITING Last administered on 06/30/16 20:58; Start 06/30/16 at 08:45; Stop 07/01/16 at 08:44; Status DC Morphine Sulfate 2 mg PRN Q2HR PRN IV PAIN Last administered on 07/01/16 05:16 ; Start 06/30/16 at 08:45; Stop 07/01/16 at 08:44; Status DC Acetaminophen (Tylenol) 650 mg PRN Q4HRS PRN PO FEVER Last administered on 20:40; Start 06/30/16 at 08:45; Stop 07/01/16 at 08:44; Status DC Insulin Aspart (Novolog) 0-7 UNITS TIDWMEALS SQ Last administered on 07/07/16 17:36; Start 06/30/16 at 12:00 Dextrose 12.5 gm PRN Q15MIN PRN IV SEE COMMENTS; Start 06/30/16 at 08:45 Pneumococcal Polyvalent Vaccine (Do NOT chart on this placeholder) 1 each 1X ONCE MC ; Start 06/30/16 at 11:30; Stop 06/30/16 at 11:31; Status UNV Acetaminophen (Tylenol) 650 mg PRN Q6HRS PRN PO PAIN; Start 06/30/16 at 12:15; Stop 06/30/16 at 12:18; Status DC Amlodipine Besylate (Norvasc) 10 mg DAILY PO Last administered on 07/07/16 07: 58; Start 06/30/16 at 13:00 Atorvastatin Calcium (Lipitor) 40 mg QHS PO Last administered on 07/07/16 21: 12; Start 06/30/16 at 21:00 Carvedilol (Coreg) 25 mg BIDWMEALS PO Last administered on 07/07/16 17:35; Start 06/30/16 at 17:00 Clopidogrel Bisulfate (Plavix) 75 mg DAILY07 PO Last administered on 07/08/16 08:40; Start 06/30/16 at 13:00 Cyclosporine (Restasis) 1 drop HS OU Last administered on 07/07/16 21:12; Start 06/30/16 at 21:00 Duloxetine HCl (Cymbalta) 30 mg DAILY PO Last administered on 07/08/16 08:44; Start 06/30/16 at 13:00 Mirtazapine (Remeron) 15 mg QHS PO Last administered on 07/07/16 21:13; Start 06/30/16 at 21:00 Nicotine (Nicoderm Cq 21mg) 1 patch DAILY TD Last administered on 07/07/16 08: 00; Start 06/30/16 at 13:00 Oxybutynin Chloride (Ditropan) 5 mg BID PO Last administered on 07/08/16 08:41 ; Start 06/30/16 at 13:00 Pantoprazole Sodium (Protonix) 40 mg DAILY07 PO Last administered on 07/08/16 08:40; Start 06/30/16 at 13:00 Polyethylene Glycol (miraLAX PACKET) 17 gm DAILY PO Last administered on 08:00; Start 06/30/16 at 13:00 Senna/Docusate Sodium (Senna Plus) 2 tab HS PO Last administered on 07/03/16 20:48; Start 06/30/16 at 21:00; Stop 07/04/16 at 14:29; Status DC Non-Formulary Medication 10 mg QHS PO ; Start 06/30/16 at 21:00; Status UNV Potassium Chloride (Klor-Con) 10 meq DAILYWBKFT PO Last administered on 08:41; Start 06/30/16 at 13:00 Acetaminophen (Tylenol) 650 mg PRN Q6HRS PRN PO MILD PAIN / TEMP; Start at 12:15; Status UNV Ondansetron HCl (Zofran) 4 mg PRN Q6HRS PRN IV NAUSEA/VOMITING Last administered on 07/07/16 21:13; Start 06/30/16 at 12:15 Heparin Sodium (Porcine) 5,000 unit Q8HRS SQ Last administered on 07/08/16 08: 40; Start 06/30/16 at 14:00 Insulin Aspart (Novolog) 5 units TIDAC SQ Last administered on 07/01/16 08:46; Start 06/30/16 at 16:30; Stop 07/01/16 at 11:45; Status DC Insulin Detemir (Levemir) 20 units QHS SQ Last administered on 06/30/16 20:55; Start 06/30/16 at 21:00; Stop 07/01/16 at 11:45; Status DC Doxycycline Hyclate (Vibra-Tab) 100 mg BID PO Last administered on 07/01/16 20: 40; Start 06/30/16 at 13:00; Stop 07/02/16 at 10:36; Status DC Guaifenesin 600 mg 600 mg BID PO Last administered on 07/08/16 08:40; Start at 13:00 Sodium Chloride (Iv Sodium Chloride 0.9% 1000ml Bag) 1,000 ml @ 75 mls/hr 1X ONCE IV Last administered on 06/30/16 13:21; Start 06/30/16 at 12:15; Stop at 01:34; Status DC Acetaminophen (Tylenol) 650 mg PRN Q6HRS PRN PO PAIN Last administered on 17:16; Start 06/30/16 at 12:18 Magnesium Hydroxide (Milk Of Magnesia) 2,400 mg PRN DAILY PRN PO CONSTIPATION Last administered on 07/04/16 14:18; Start 06/30/16 at 17:30; Stop 07/04/16 at 14:29; Status DC Insulin Aspart (Novolog) 7 units TIDAC SQ ; Start 07/01/16 at 12:00; Stop at 12:57; Status DC Insulin Detemir (Levemir) 22 units QHS SQ Last administered on 07/07/16 21:18 ; Start 07/01/16 at 21:00 Insulin Aspart (Novolog) 5 units TIDAC SQ Last administered on 07/07/16 17:37 ; Start 07/01/16 at 16:30 Hydralazine HCl 10 mg 10 mg 1X ONCE IVP Last administered on 07/02/16 10:46; Start 07/02/16 at 10:30; Stop 07/02/16 at 10:31; Status DC Levofloxacin/ Dextrose (LEVAQUIN 500mg PREMIX) 100 ml @ 100 mls/hr Q24H IV Last administered on 07/03/16 11:01; Start 07/02/16 at 11:00; Stop 07/03/16 at 15:50; Status DC Lisinopril 20 mg 20 mg DAILY PO Last administered on 07/07/16 07:57; Start 02/08 at 11:00 Propofol (Diprivan) 50 ml @ As Directed STK-MED ONCE IV ; Start 07/02/16 at 12: 00; Stop 07/02/16 at 12:01; Status DC Midazolam HCl (Versed) 2 mg STK-MED ONCE .ROUTE ; Start 07/02/16 at 12:43; Stop 07/02/16 at 12:44; Status DC Iohexol (Omnipaque 300 Mg/ml) 50 ml STK-MED ONCE .ROUTE ; Start 07/02/16 at 12: 45; Stop 07/02/16 at 12:46; Status DC Lidocaine/Sodium Bicarbonate 20 ml 20 ml STK-MED ONCE IJ ; Start 07/02/16 at 12: 46; Stop 07/02/16 at 12:47; Status DC Cefazolin Sodium (Ancef 1gm Ivpb For Omni) 50 ml @ As Directed STK-MED ONCE IV ; Start 07/02/16 at 13:05; Stop 07/02/16 at 13:06; Status DC Lidocaine/Sodium Bicarbonate (Buffered Lidocaine 1%) 20 ml 1X ONCE IJ Last administered on 07/02/16 13:32; Start 07/02/16 at 13:30; Stop 07/02/16 at 13:31 ; Status DC Iohexol (Omnipaque 300 Mg/ml) 50 ml 1X ONCE IART Last administered on 13:31; Start 07/02/16 at 13:30; Stop 07/02/16 at 13:31; Status DC Info (Do NOT chart on this entry -- for MONITORING) 1 each PRN DAILY PRN MC SEE COMMENTS; Start 07/02/16 at 13:45; Stop 07/04/16 at 13:44; Status DC Hydralazine HCl (Apresoline) 10 mg 1X PACU PRN IVP HYPERTENSION, SEE COMMENTS; Start 07/02/16 at 14:15 Fentanyl Citrate (Fentanyl 2ml Vial) 25 mcg PRN Q5MIN PRN IV MILD PAIN Last administered on 07/02/16 14:27; Start 07/02/16 at 14:30; Stop 07/02/16 at 20:00 ; Status DC Fentanyl Citrate (Fentanyl 2ml Vial) 50 mcg PRN Q5MIN PRN IV MODERATE PAIN; Start 07/02/16 at 14:30; Stop 07/02/16 at 20:00; Status DC Morphine Sulfate 1 mg 1 mg PRN Q10MIN PRN IV SEVERE PAIN Last administered on 15:10; Start 07/02/16 at 14:30; Stop 07/02/16 at 18:00; Status DC Lactated Ringer's (Iv Lactated Ringers) 1,000 ml @ 30 mls/hr Q24H IV ; Start at 14:20; Stop 07/03/16 at 02:19; Status DC Lidocaine HCl 2 ml 1X PRN PRN ID IV START; Start 07/02/16 at 14:30; Stop at 20:00; Status DC Hydromorphone HCl (Dilaudid) 0.5 mg PRN Q10MIN PRN IV SEV PAIN,Second choice; Start 07/02/16 at 14:30; Stop 07/02/16 at 20:00; Status DC Prochlorperazine Edisylate (Compazine) 5 mg PACU PRN PRN IV NAUSEA; Start 07/02 at 14:30; Stop 07/02/16 at 20:00; Status DC Multi-Ingredient Mouthwash/Gargle (Gi Cocktail Single Dose) 15 ml PRN 1X PRN SWSW CHEST PAIN; Start 07/02/16 at 16:45 Al Hydroxide/Mg Hydroxide (Mylanta Plus Xs) 30 ml PRN Q2HR PRN PO HEARTBURN / GAS Last administered on 07/04/16 19:31; Start 07/02/16 at 16:45 Aspirin 325 mg 325 mg 1X ONCE PO Last administered on 07/02/16 16:55; Start 07/02/16 at 17:00; Stop 07/02/16 at 17:01; Status DC Sodium Chloride 1,000 ml @ 75 mls/hr 1X ONCE IV Last administered on 11:02; Start 07/03/16 at 10:30; Stop 07/03/16 at 23:49; Status DC Ceftriaxone Sodium/Sodium Chloride (Rocephin/Iv Sodium Chloride 0.9% 50ml) 50 ml @ 100 mls/hr Q24H IV Last administered on 07/05/16 16:42; Start 07/03/16 at 16:00; Stop 07/06/16 at 11:40; Status DC Iohexol (Omnipaque 300 Mg/ml) 60 ml 1X ONCE IV Last administered on 07/04/16 09:58; Start 07/04/16 at 09:45; Stop 07/04/16 at 09:46; Status DC Senna/Docusate Sodium (Senna Plus) 1 tab BID PO Last administered on 07/08/16 08:42; Start 07/04/16 at 21:00 Docusate Sodium (Colace) 100 mg BID PO Last administered on 07/08/16 08:41; Start 07/04/16 at 21:00 Magnesium Hydroxide (Milk Of Magnesia) 2,400 mg PRN Q12HR PRN PO CONSTIPATION; Start 07/04/16 at 14:30 Bisacodyl (Dulcolax Supp) 10 mg PRN DAILY PRN MO CONSTIPATION; Start 07/04/16 at 14:30 Ondansetron HCl (Zofran) 4 mg PRN Q6HRS PRN IV Nausea; Start 07/06/16 at 07:00 ; Stop 07/07/16 at 06:59; Status DC Fentanyl Citrate (Fentanyl 2ml Vial) 25 mcg PRN Q5MIN PRN IV MILD PAIN; Start 07/06/16 at 07:00; Stop 07/07/16 at 06:59; Status DC Fentanyl Citrate (Fentanyl 2ml Vial) 50 mcg PRN Q5MIN PRN IV MODERATE PAIN; Start 07/06/16 at 07:00; Stop 07/07/16 at 06:59; Status DC Morphine Sulfate 1 mg 1 mg PRN Q10MIN PRN IV SEVERE PAIN; Start 07/06/16 at 07: 00; Stop 07/07/16 at 06:59; Status DC Lactated Ringer's (Iv Lactated Ringers) 1,000 ml @ 0 mls/hr Q0M IV Last administered on 07/06/16t 15:32; Start 07/06/16 at 07:00; Stop 07/06/16 at 18:59 ; Status DC Lidocaine HCl 2 ml 1X PRN PRN ID IV START; Start 07/06/16 at 07:00; Stop at 06:59; Status DC Hydromorphone HCl (Dilaudid) 0.5 mg PRN Q10MIN PRN IV SEVERE PAIN, Second choice; Start 07/06/16 at 07:00; Stop 07/07/16 at 06:59; Status DC Prochlorperazine Edisylate (Compazine) 5 mg PACU PRN PRN IV NAUSEA; Start 07/06 at 07:00; Stop 07/07/16 at 06:59; Status DC Fentanyl Citrate (Fentanyl 2ml Vial) 100 mcg STK-MED ONCE .ROUTE ; Start at 11:37; Stop 07/06/16 at 11:38; Status DC Midazolam HCl (Versed) 2 mg STK-MED ONCE .ROUTE ; Start 07/06/16 at 11:37; Stop 07/06/16 at 11:38; Status DC Ketamine HCl 500 mg 500 mg STK-MED ONCE .ROUTE ; Start 07/06/16 at 11:37; Stop 07/06/16 at 11:38; Status DC Propofol (Diprivan) 0 ml @ As Directed STK-MED ONCE IV ; Start 07/06/16 at 11:39 ; Stop 07/06/16 at 11:40; Status DC Iohexol (Omnipaque 300 Mg/ml) 100 ml STK-MED ONCE .ROUTE ; Start 07/06/16 at 12: 54; Stop 07/06/16 at 12:55; Status DC Lidocaine/Sodium Bicarbonate 20 ml 20 ml STK-MED ONCE IJ ; Start 07/06/16 at 12: 54; Stop 07/06/16 at 12:55; Status DC Heparin Sodium/ Sodium Chloride 2,000 ml @ As Directed STK-MED ONCE .ROUTE ; Start 07/06/16 at 12:54; Stop 07/06/16 at 12:55; Status DC Iohexol 100 ml 100 ml STK-MED ONCE .ROUTE ; Start 07/06/16 at 12:58; Stop at 12:59; Status DC Propofol (Diprivan) 20 ml @ As Directed STK-MED ONCE IV ; Start 07/06/16 at 13: 09; Stop 07/06/16 at 13:10; Status DC Heparin Sodium/ Sodium Chloride 1,000 unit 1X ONCE IART ; Start 07/06/16 at 14: 00; Stop 07/06/16 at 14:01; Status DC Lidocaine/Sodium Bicarbonate (Buffered Lidocaine 1%) 20 ml 1X ONCE IJ Last administered on 07/06/16t 14:00; Start 07/06/16 at 14:00; Stop 07/06/16 at 14:01 ; Status DC Iohexol (Omnipaque 300 Mg/ml) 100 ml 1X ONCE IART Last administered on t 14:00; Start 07/06/16 at 14:00; Stop 07/06/16 at 14:01; Status DC Info (Do NOT chart on this entry -- for MONITORING) 1 each PRN DAILY PRN MC SEE COMMENTS; Start 07/06/16 at 14:00; Stop 07/08/16 at 13:59 Heparin Sodium (Porcine) 13563 unit 10,000 unit STK-MED ONCE .ROUTE ; Start at 13:59; Stop 07/06/16 at 14:00; Status DC Propofol 0 ml @ As Directed STK-MED ONCE IV ; Start 07/06/16 at 14:04; Stop at 14:05; Status DC Propofol (Diprivan) 50 ml @ As Directed STK-MED ONCE IV ; Start 07/06/16 at 14: 04; Stop 07/06/16 at 14:05; Status DC Quinine Sulfate 324 mg 324 mg PRN Q8HRS PO ; Start 07/06/16 at 18:30; Status UNV Sodium Chloride (Iv Sodium Chloride 0.9% 1000ml Bag) 1,000 ml @ 1,000 mls/hr 1X ONCE IV ; Start 07/07/16 at 11:00; Stop 07/07/16 at 11:59; Status DC Morphine Sulfate 2 mg PRN Q4HRS PRN IV PAIN Last administered on 07/07/16 14: 45; Start 07/07/16 at 14:30; Stop 07/07/16 at 17:14; Status DC Alprazolam (Xanax) 0.5 mg PRN Q8HRS PRN PO ANXIETY / AGITATION; Start 07/08/16 at 00:00 Alprazolam (Xanax) 0.5 mg 1X ONCE PO Last administered on 07/07/16 17:34; Start 07/07/16 at 17:30; Stop 07/07/16 at 17:31; Status DC Morphine Sulfate 1 mg PRN Q4HRS PRN IV PAIN; Start 07/07/16 at 17:15 Acetaminophen/ Codeine Phosphate 1 tab 1 tab PRN Q4HRS PRN PO PAIN Last administered on 07/07/16 17:33; Start 07/07/16 at 17:15 Sodium Chloride (Iv Sodium Chloride 0.9% 1000ml Bag) 1,000 ml @ 75 mls/hr 1X ONCE IV Last administered on 07/08/16 12:00; Start 07/08/16 at 11:15; Stop at 00:34 Active Scripts Active Reported Tylenol (Acetaminophen) 325 Mg Tablet 650 Mg PO TID Senna-Docusate Sodium Tablet (Sennosides/Docusate Sodium) 1 Each Tablet 2 Each PO HS Protonix (Pantoprazole Sodium) 40 Mg Tablet.dr 1 Tab PO DAILY NICODERM CQ 21mg (Nicotine) 1 Each Patch.td24 1 Patch TP DAILY Miralax (Polyethylene Glycol 3350) 17 Gm Powd.pack 1 Packet PO DAILY Miralax (Polyethylene Glycol 3350) 17 Gm Powd.pack 1 Packet PO PRN DAILY PRN Melatonin 3 Mg Tablet 10 Mg PO QHS Mirtazapine 15 Mg Tablet 1 Tab PO QHS Cymbalta (Duloxetine Hcl) 30 Mg Capsule.dr 1 Cap PO DAILY Acetaminophen 500 Mg Tablet 1 Tab PO PRN Q6HRS PRN Novolog (Insulin Aspart) 100 Unit/1 Ml Cartridge 5 Unit SQ DAILYWSUP Restasis (Cyclosporine) 1 Each Droperette 1 Drop EACHEYE HS Multiple Vitamins (Multivitamin) 1 Each Tablet 1 Each PO Potassium Chloride 10 Meq Capsule.er 1 Cap PO DAILY05 Levemir (Insulin Detemir) 100 Unit/1 Ml Vial 30 Unit SQ DAILY Atorvastatin Calcium 40 Mg Tablet 1 Tab PO DAILY Lisinopril 20 Mg Tablet 1 Tab PO DAILY Oxybutynin Chloride 5 Mg Tablet 5 Mg PO BID Norvasc (Amlodipine Besylate) 5 Mg Tablet 10 Mg PO DAILY Clopidogrel (Clopidogrel Bisulfate) 75 Mg Tablet 75 Mg PO DAILY Coreg (Carvedilol) 12.5 Mg Tablet 25 Mg PO BID Vitals/I & O Vital Sign - Last 24 Hours 07/07/16 07/07/16 07/07/16 07/07/16 14:45 15:00 16:20 17:33 Temp 98.9 98.9 Pulse 73 Resp 18 B/P 115/37 Pulse Ox 95 95 95 95 O2 Delivery Nasal Cannula Nasal Cannula Nasal Cannula Nasal Cannula O2 Flow Rate 2.0 2.0 2.0 2.0 07/07/16 07/07/16 07/07/16 07/07/16 17:35 19:18 20:00 23:18 Temp 98.9 98.8 98.9 98.8 Pulse 73 74 75 Resp 18 16 B/P 130/48 126/44 154/45 Pulse Ox 92 95 O2 Delivery Nasal Cannula Nasal Cannula Nasal Cannula O2 Flow Rate 2.0 2.5 2.5 3/07/08/16 07/08/16 07/08/16 03:18 07:55 08:00 08:15 Temp 97.8 98.3 97.8 98.3 Pulse 74 69 Resp 18 18 B/P 140/44 115/39 Pulse Ox 98 98 O2 Delivery Nasal Cannula Nasal Cannula Room Air Room Air O2 Flow Rate 2.5 2.5 07/08/16 10:58 Temp 98.7 98.7 Pulse 74 Resp 19 B/P 137/32 Pulse Ox 94 O2 Delivery Room Air Intake and Output 07/07/16 07/07/16 07/08/16 15:00 23:00 07:00 Intake Total 1200 ml 1000 ml 110 ml Balance 1200 ml 1000 ml 110 ml RAMESH HERNANDEZ MD Jul 08, 2016 12:54
[2016-07-08 14:12] VITALS: BP 113/91
[2016-07-08 19:00] VITALS: BP 143/36
[2016-07-08] MEDS: ATORVASTATIN CALCIUM 40 MG TABLET. PO SCH (21:41)
[2016-07-08] MEDS: MIRTAZAPINE 15 MG TABLET PO SCH (21:41)
[2016-07-08] MEDS: CYCLOSPORINE 0.05% OPTH DROPERETTE. OU SCH (21:42)
[2016-07-08] MEDS: INSULIN DETEMIR 300 UNITS/3 ML INSULN.PEN. SQ SCH (22:28)
[2016-07-08 23:00] VITALS: BP 152/38
[2016-07-09] MEDS: ACETAMINOPHEN/CODEINE 300/30MG TABLET PO PRN (02:13)
[2016-07-09 02:17] VITALS: BP 160/47
[2016-07-09 06:04] LABS: BASO % 1 % (0-3); EOS % 2 % (0-3); HEMATOCRIT 28.5 % (36.0-47.0); HEMOGLOBIN 9.3 g/dL (12.0-15.5); LYMPH # 1.1 x10^3/uL (1.0-4.8); LYMPH % 14 % (24-48); MEAN CORPUSCULAR HEMOGLOBIN 30 pg (25-35); MEAN CORPUSCULAR HGB CONC 33 g/dL (31-37); MEAN CORPUSCULAR VOLUME 91 fL (79-100); MONO % 12 % (0-9); NEUT % 72 % (31-73); PLATELET COUNT 156 x10^3/uL (140-400); RED BLOOD COUNT 3.13 x10^6/uL (3.50-5.40); RED CELL DISTRIBUTION WIDTH 13.7 % (11.5-14.5); WHITE BLOOD COUNT 7.5 x10^3/uL (4.0-11.0)
[2016-07-09 06:15] LABS: CALCIUM 9.3 mg/dL (8.5-10.1); CREATININE 1.2 mg/dL (0.6-1.0); GFR 44.2; POTASSIUM 4.7 mmol/L (3.5-5.1)
[2016-07-09] MEDS: PANTOPRAZOLE 40 MG TABLET. PO SCH ×2 (07:36→08:40)
[2016-07-09] MEDS: CLOPIDOGREL BISULFATE 75 MG TABLET PO SCH ×2 (07:36→08:40)
[2016-07-09] MEDS: HEPARIN PF for SUB-Q USE 5,000 UNIT/0.5 ML VIAL. SQ SCH ×2 (07:37→15:00)
[2016-07-09 07:50] VITALS: BP 142/49
[2016-07-09] MEDS: INSULIN ASPART 300 UNITS/3 ML INSULN.PEN SQ SCH ×4 (08:00→12:58)
[2016-07-09] MEDS: SENNOSIDES/DOCUSATE 8.6/50MG TABLET. PO SCH (08:40)
[2016-07-09] MEDS: OXYBUTYNIN CHLORIDE 5 MG TABLET PO SCH (08:40)
[2016-07-09] MEDS: AMLODIPINE BESYLATE 10 MG TABLET PO SCH (08:40)
[2016-07-09] MEDS: DOCUSATE SODIUM 100 MG CAPSULE PO SCH (08:40)
[2016-07-09] MEDS: POTASSIUM CHLORIDE 10 MEQ TABLET.ER. PO SCH (08:40)
[2016-07-09] MEDS: DULOXETINE HCL 30 MG CAPSULE.DR. PO SCH (08:40)
[2016-07-09] MEDS: CARVEDILOL 12.5 MG TABLET PO SCH (08:41)
[2016-07-09] MEDS: LISINOPRIL 20 MG TABLET PO SCH (08:41)
[2016-07-09] MEDS: GUAIFENESIN ER 600 MG TABLET.ER PO SCH (08:41)
[2016-07-09] MEDS: POLYETHYLENE GLYCOL 3350 17 GM PACKET. PO SCH (08:42)
--- NOTE | 2016-07-09 08:42 | PDOC ---
PULMONARY PROGRESS NOTES Subjective sob is better, no cough, no pain Vitals Vital Signs Date Time Temp Pulse Resp B/P Pulse Ox O2 Delivery O2 Flow Rate FiO2 07/09/16 07:50 97.9 65 19 142/49 93 Room Air 97.9 07/08/16 07:55 2.5 Comments ros as mentioned as above other sys otherwise neg General: Alert, No acute distress HEENT: Other (nc at perrl) Lungs: Clear, Other (decrease bs) Cardiovascular: S1, S2 Abdomen: Soft Extremities: No Edema Skin: Warm Labs Laboratory Tests Test 07/07/16 12:30 07/07/16 17:02 07/07/16 20:38 07/08/16 04:30 Glucose (Fingerstick) 183mg/dL (70-99) 223mg/dL (70-99) 309mg/dL (70-99) White Blood Count 8.0x10^3/uL (4.0-11.0) Red Blood Count 3.10x10^6/uL (3.50-5.40) Hemoglobin 9.1g/dL (12.0-15.5) Hematocrit 27.9% (36.0-47.0) Mean Corpuscular Volume 90fL (79-100) Mean Corpuscular Hemoglobin 29pg (25-35) Mean Corpuscular Hemoglobin Concent 33g/dL (31-37) Red Cell Distribution Width 13.6% (11.5-14.5) Platelet Count 154x10^3/uL (140-400) Neutrophils (%) (Auto) 70% (31-73) Lymphocytes (%) (Auto) 14% (24-48) Monocytes (%) (Auto) 13% (0-9) Eosinophils (%) (Auto) 2% (0-3) Basophils (%) (Auto) 1% (0-3) Neutrophils # (Auto) 5.6x10^3uL (1.8-7.7) Lymphocytes # (Auto) 1.1x10^3/uL (1.0-4.8) Monocytes # (Auto) 1.0x10^3/uL (0.0-1.1) Eosinophils # (Auto) 0.2x10^3/uL (0.0-0.7) Basophils # (Auto) 0.0x10^3/uL (0.0-0.2) Sodium Level 137mmol/L (136-145) Potassium Level 4.9mmol/L (3.5-5.1) Chloride Level 103mmol/L (98-107) Carbon Dioxide Level 23mmol/L (21-32) Anion Gap 11 (6-14) Blood Urea Nitrogen 21mg/dL (7-20) Creatinine 1.5mg/dL (0.6-1.0) Estimated GFR (Cockcroft-Gault) 34.1 Glucose Level 229mg/dL (70-99) Calcium Level 9.5mg/dL (8.5-10.1) Test 07/08/16 07:52 07/08/16 11:54 07/08/16 16:45 07/08/16 20:44 Glucose (Fingerstick) 158mg/dL (70-99) 175mg/dL (70-99) 198mg/dL (70-99) 287mg/dL (70-99) Test 07/09/16 05:25 07/09/16 07:45 White Blood Count 7.5x10^3/uL (4.0-11.0) Red Blood Count 3.13x10^6/uL (3.50-5.40) Hemoglobin 9.3g/dL (12.0-15.5) Hematocrit 28.5% (36.0-47.0) Mean Corpuscular Volume 91fL (79-100) Mean Corpuscular Hemoglobin 30pg (25-35) Mean Corpuscular Hemoglobin Concent 33g/dL (31-37) Red Cell Distribution Width 13.7% (11.5-14.5) Platelet Count 156x10^3/uL (140-400) Neutrophils (%) (Auto) 72% (31-73) Lymphocytes (%) (Auto) 14% (24-48) Monocytes (%) (Auto) 12% (0-9) Eosinophils (%) (Auto) 2% (0-3) Basophils (%) (Auto) 1% (0-3) Neutrophils # (Auto) 5.4x10^3uL (1.8-7.7) Lymphocytes # (Auto) 1.1x10^3/uL (1.0-4.8) Monocytes # (Auto) 0.9x10^3/uL (0.0-1.1) Eosinophils # (Auto) 0.1x10^3/uL (0.0-0.7) Basophils # (Auto) 0.0x10^3/uL (0.0-0.2) Sodium Level 139mmol/L (136-145) Potassium Level 4.7mmol/L (3.5-5.1) Chloride Level 106mmol/L (98-107) Carbon Dioxide Level 25mmol/L (21-32) Anion Gap 8 (6-14) Blood Urea Nitrogen 17mg/dL (7-20) Creatinine 1.2mg/dL (0.6-1.0) Estimated GFR (Cockcroft-Gault) 44.2 Glucose Level 159mg/dL (70-99) Calcium Level 9.3mg/dL (8.5-10.1) Glucose (Fingerstick) 132mg/dL (70-99) Laboratory Tests Test 07/08/16 11:54 07/08/16 16:45 07/08/16 20:44 07/09/16 05:25 Glucose (Fingerstick) 175mg/dL (70-99) 198mg/dL (70-99) 287mg/dL (70-99) White Blood Count 7.5x10^3/uL (4.0-11.0) Red Blood Count 3.13x10^6/uL (3.50-5.40) Hemoglobin 9.3g/dL (12.0-15.5) Hematocrit 28.5% (36.0-47.0) Mean Corpuscular Volume 91fL (79-100) Mean Corpuscular Hemoglobin 30pg (25-35) Mean Corpuscular Hemoglobin Concent 33g/dL (31-37) Red Cell Distribution Width 13.7% (11.5-14.5) Platelet Count 156x10^3/uL (140-400) Neutrophils (%) (Auto) 72% (31-73) Lymphocytes (%) (Auto) 14% (24-48) Monocytes (%) (Auto) 12% (0-9) Eosinophils (%) (Auto) 2% (0-3) Basophils (%) (Auto) 1% (0-3) Neutrophils # (Auto) 5.4x10^3uL (1.8-7.7) Lymphocytes # (Auto) 1.1x10^3/uL (1.0-4.8) Monocytes # (Auto) 0.9x10^3/uL (0.0-1.1) Eosinophils # (Auto) 0.1x10^3/uL (0.0-0.7) Basophils # (Auto) 0.0x10^3/uL (0.0-0.2) Sodium Level 139mmol/L (136-145) Potassium Level 4.7mmol/L (3.5-5.1) Chloride Level 106mmol/L (98-107) Carbon Dioxide Level 25mmol/L (21-32) Anion Gap 8 (6-14) Blood Urea Nitrogen 17mg/dL (7-20) Creatinine 1.2mg/dL (0.6-1.0) Estimated GFR (Cockcroft-Gault) 44.2 Glucose Level 159mg/dL (70-99) Calcium Level 9.3mg/dL (8.5-10.1) Test 07/09/16 07:45 Glucose (Fingerstick) 132mg/dL (70-99) Medications Active Scripts Medications Dose Route/Sig Days Date Category Tylenol (Acetaminophen) 325 Mg Tablet 650 Mg PO TID 06/15/16 Reported Senna-Docusate Sodium Tablet (Sennosides/Docusate Sodium) 1 Each Tablet 2 Each PO HS 06/15/16 Reported Protonix (Pantoprazole Sodium) 40 Mg Tablet.dr 1 Tab PO DAILY 06/15/16 Reported NICODERM CQ 21mg (Nicotine) 1 Each Patch.td24 1 Patch TP DAILY 06/15/16 Reported Miralax (Polyethylene Glycol 3350) 17 Gm Powd.pack 1 Packet PO DAILY 06/15/16 Reported Miralax (Polyethylene Glycol 3350) 17 Gm Powd.pack 1 Packet PO PRN DAILY PRN 06/15/16 Reported Melatonin 3 Mg Tablet 10 Mg PO QHS 06/15/16 Reported Mirtazapine 15 Mg Tablet 1 Tab PO QHS 07/17/15 Reported Cymbalta (Duloxetine Hcl) 30 Mg Capsule.dr 1 Cap PO DAILY 07/17/15 Reported Acetaminophen 500 Mg Tablet 1 Tab PO PRN Q6HRS PRN 07/17/15 Reported Novolog (Insulin Aspart) 100 Unit/1 Ml Cartridge 5 Unit SQ DAILYWSUP 07/17/15 Reported Restasis (Cyclosporine) 1 Each Droperette 1 Drop EACHEYE HS 07/17/15 Reported Multiple Vitamins (Multivitamin) 1 Each Tablet 1 Each PO 07/17/15 Reported Potassium Chloride 10 Meq Capsule.er 1 Cap PO DAILY05 07/17/15 Reported Levemir (Insulin Detemir) 100 Unit/1 Ml Vial 30 Unit SQ DAILY 07/17/15 Reported Atorvastatin Calcium 40 Mg Tablet 1 Tab PO DAILY 08/17/14 Reported Lisinopril 20 Mg Tablet 1 Tab PO DAILY 08/17/14 Reported Oxybutynin Chloride 5 Mg Tablet 5 Mg PO BID 07/08/14 Reported Norvasc (Amlodipine Besylate) 5 Mg Tablet 10 Mg PO DAILY 07/08/14 Reported Clopidogrel (Clopidogrel Bisulfate) 75 Mg Tablet 75 Mg PO DAILY 09/28/13 Reported Coreg (Carvedilol) 12.5 Mg Tablet 25 Mg PO BID 09/28/13 Reported Impression . 1. Syncope s/p IR interventional stent carotid vessel 2. Possible mild chronic obstructive pulmonary disease. 3. Status post fall with no obvious fracture. 4. [id number] hiatal hernia. 5. fever Plan . resp status is compensated 1. off o2 2. Noncontrast CT chest reviewed 3. increase activity 4. Continue with antibiotics per ID 5. Bronchodilators as needed. discussed w rn, pt will so but will be available for any help, MABLE MCDONOUGH MD Jul 09, 2016 08:42
[2016-07-09] MEDS: NICOTINE 21MG PATCH. TD SCH (09:00)
[2016-07-09 10:27] VITALS: BP 96/49
--- NOTE | 2016-07-09 10:30 | PDOC ---
PROGRESS NOTES Subjective Subjective She admits continued low back pain. Objective Objective Vital Signs Date Time Temp Pulse Resp B/P Pulse Ox O2 Delivery O2 Flow Rate FiO2 07/09/16 08:41 65 142/49 07/09/16 08:00 Room Air 07/09/16 07:50 97.9 19 93 97.9 07/08/16 07:55 2.5 Intake and Output 07/09/16 07:00 Intake Total 1215 ml Balance 1215 ml Intake Oral 840 ml IV Total 375 ml # Voids 6 Physical Exam Physical Exam She got up to bedside chair and she is helping with transfers but she needs significant assistance.She had lumbar corset and left wrist cock up splint in place. Assessment Assessment Problems Medical Problems: (1) Hypoxia Status: Acute (2) Syncope Status: Acute Plan Plan of Care Agree with plans for transfer to SNF when medically stable. Comment Review of Relevant I have reviewed the following items carlota (where applicable) has been applied. Labs Laboratory Tests Test 07/07/16 12:30 07/07/16 17:02 07/07/16 20:38 07/08/16 04:30 Glucose (Fingerstick) 183mg/dL (70-99) 223mg/dL (70-99) 309mg/dL (70-99) White Blood Count 8.0x10^3/uL (4.0-11.0) Red Blood Count 3.10x10^6/uL (3.50-5.40) Hemoglobin 9.1g/dL (12.0-15.5) Hematocrit 27.9% (36.0-47.0) Mean Corpuscular Volume 90fL (79-100) Mean Corpuscular Hemoglobin 29pg (25-35) Mean Corpuscular Hemoglobin Concent 33g/dL (31-37) Red Cell Distribution Width 13.6% (11.5-14.5) Platelet Count 154x10^3/uL (140-400) Neutrophils (%) (Auto) 70% (31-73) Lymphocytes (%) (Auto) 14% (24-48) Monocytes (%) (Auto) 13% (0-9) Eosinophils (%) (Auto) 2% (0-3) Basophils (%) (Auto) 1% (0-3) Neutrophils # (Auto) 5.6x10^3uL (1.8-7.7) Lymphocytes # (Auto) 1.1x10^3/uL (1.0-4.8) Monocytes # (Auto) 1.0x10^3/uL (0.0-1.1) Eosinophils # (Auto) 0.2x10^3/uL (0.0-0.7) Basophils # (Auto) 0.0x10^3/uL (0.0-0.2) Sodium Level 137mmol/L (136-145) Potassium Level 4.9mmol/L (3.5-5.1) Chloride Level 103mmol/L (98-107) Carbon Dioxide Level 23mmol/L (21-32) Anion Gap 11 (6-14) Blood Urea Nitrogen 21mg/dL (7-20) Creatinine 1.5mg/dL (0.6-1.0) Estimated GFR (Cockcroft-Gault) 34.1 Glucose Level 229mg/dL (70-99) Calcium Level 9.5mg/dL (8.5-10.1) Test 07/08/16 07:52 07/08/16 11:54 07/08/16 16:45 07/08/16 20:44 Glucose (Fingerstick) 158mg/dL (70-99) 175mg/dL (70-99) 198mg/dL (70-99) 287mg/dL (70-99) Test 07/09/16 05:25 07/09/16 07:45 White Blood Count 7.5x10^3/uL (4.0-11.0) Red Blood Count 3.13x10^6/uL (3.50-5.40) Hemoglobin 9.3g/dL (12.0-15.5) Hematocrit 28.5% (36.0-47.0) Mean Corpuscular Volume 91fL (79-100) Mean Corpuscular Hemoglobin 30pg (25-35) Mean Corpuscular Hemoglobin Concent 33g/dL (31-37) Red Cell Distribution Width 13.7% (11.5-14.5) Platelet Count 156x10^3/uL (140-400) Neutrophils (%) (Auto) 72% (31-73) Lymphocytes (%) (Auto) 14% (24-48) Monocytes (%) (Auto) 12% (0-9) Eosinophils (%) (Auto) 2% (0-3) Basophils (%) (Auto) 1% (0-3) Neutrophils # (Auto) 5.4x10^3uL (1.8-7.7) Lymphocytes # (Auto) 1.1x10^3/uL (1.0-4.8) Monocytes # (Auto) 0.9x10^3/uL (0.0-1.1) Eosinophils # (Auto) 0.1x10^3/uL (0.0-0.7) Basophils # (Auto) 0.0x10^3/uL (0.0-0.2) Sodium Level 139mmol/L (136-145) Potassium Level 4.7mmol/L (3.5-5.1) Chloride Level 106mmol/L (98-107) Carbon Dioxide Level 25mmol/L (21-32) Anion Gap 8 (6-14) Blood Urea Nitrogen 17mg/dL (7-20) Creatinine 1.2mg/dL (0.6-1.0) Estimated GFR (Cockcroft-Gault) 44.2 Glucose Level 159mg/dL (70-99) Calcium Level 9.3mg/dL (8.5-10.1) Glucose (Fingerstick) 132mg/dL (70-99) Laboratory Tests Test 07/08/16 11:54 07/08/16 16:45 07/08/16 20:44 07/09/16 05:25 Glucose (Fingerstick) 175mg/dL (70-99) 198mg/dL (70-99) 287mg/dL (70-99) White Blood Count 7.5x10^3/uL (4.0-11.0) Red Blood Count 3.13x10^6/uL (3.50-5.40) Hemoglobin 9.3g/dL (12.0-15.5) Hematocrit 28.5% (36.0-47.0) Mean Corpuscular Volume 91fL (79-100) Mean Corpuscular Hemoglobin 30pg (25-35) Mean Corpuscular Hemoglobin Concent 33g/dL (31-37) Red Cell Distribution Width 13.7% (11.5-14.5) Platelet Count 156x10^3/uL (140-400) Neutrophils (%) (Auto) 72% (31-73) Lymphocytes (%) (Auto) 14% (24-48) Monocytes (%) (Auto) 12% (0-9) Eosinophils (%) (Auto) 2% (0-3) Basophils (%) (Auto) 1% (0-3) Neutrophils # (Auto) 5.4x10^3uL (1.8-7.7) Lymphocytes # (Auto) 1.1x10^3/uL (1.0-4.8) Monocytes # (Auto) 0.9x10^3/uL (0.0-1.1) Eosinophils # (Auto) 0.1x10^3/uL (0.0-0.7) Basophils # (Auto) 0.0x10^3/uL (0.0-0.2) Sodium Level 139mmol/L (136-145) Potassium Level 4.7mmol/L (3.5-5.1) Chloride Level 106mmol/L (98-107) Carbon Dioxide Level 25mmol/L (21-32) Anion Gap 8 (6-14) Blood Urea Nitrogen 17mg/dL (7-20) Creatinine 1.2mg/dL (0.6-1.0) Estimated GFR (Cockcroft-Gault) 44.2 Glucose Level 159mg/dL (70-99) Calcium Level 9.3mg/dL (8.5-10.1) Test 07/09/16 07:45 Glucose (Fingerstick) 132mg/dL (70-99) Microbiology 06/30/16 Urine Culture - Final, Complete 06/30/16 Urine Culture Result 1 (ÁNGEL) - Final, Complete 06/30/16 Urine Culture Result 2 (ÁNGEL) - Final, Complete 06/30/16 Antimicrobic Susceptibility - Final, Complete Medications Current Medications Acetaminophen (Tylenol) 1,000 mg 1X ONCE PO Last administered on 06/30/16 07: 33; Start 06/30/16 at 07:00; Stop 06/30/16 at 07:04; Status DC Ondansetron HCl 4 mg 4 mg 1X ONCE IV Last administered on 06/30/16 07:32; Start 06/30/16 at 07:15; Stop 06/30/16 at 07:16; Status DC Sodium Chloride (Iv Sodium Chloride 0.9% 500ml Bag) 500 ml @ 500 mls/hr 1X ONCE IV Last administered on 06/30/16 09:57; Start 06/30/16 at 08:45; Stop at 09:44; Status DC Ondansetron HCl (Zofran) 4 mg PRN Q8HRS PRN IV NAUSEA/VOMITING Last administered on 06/30/16 20:58; Start 06/30/16 at 08:45; Stop 07/01/16 at 08:44; Status DC Morphine Sulfate 2 mg PRN Q2HR PRN IV PAIN Last administered on 07/01/16 05:16 ; Start 06/30/16 at 08:45; Stop 07/01/16 at 08:44; Status DC Acetaminophen (Tylenol) 650 mg PRN Q4HRS PRN PO FEVER Last administered on 20:40; Start 06/30/16 at 08:45; Stop 07/01/16 at 08:44; Status DC Insulin Aspart (Novolog) 0-7 UNITS TIDWMEALS SQ Last administered on 07/07/16 17:36; Start 06/30/16 at 12:00 Dextrose 12.5 gm PRN Q15MIN PRN IV SEE COMMENTS; Start 06/30/16 at 08:45 Pneumococcal Polyvalent Vaccine (Do NOT chart on this placeholder) 1 each 1X ONCE MC ; Start 06/30/16 at 11:30; Stop 06/30/16 at 11:31; Status UNV Acetaminophen (Tylenol) 650 mg PRN Q6HRS PRN PO PAIN; Start 06/30/16 at 12:15; Stop 06/30/16 at 12:18; Status DC Amlodipine Besylate (Norvasc) 10 mg DAILY PO Last administered on 07/09/16 08: 40; Start 06/30/16 at 13:00 Atorvastatin Calcium (Lipitor) 40 mg QHS PO Last administered on 07/08/16 21: 41; Start 06/30/16 at 21:00 Carvedilol (Coreg) 25 mg BIDWMEALS PO Last administered on 07/09/16 08:41; Start 06/30/16 at 17:00 Clopidogrel Bisulfate (Plavix) 75 mg DAILY07 PO Last administered on 07/09/16 08:40; Start 06/30/16 at 13:00 Cyclosporine (Restasis) 1 drop HS OU Last administered on 07/08/16 21:42; Start 06/30/16 at 21:00 Duloxetine HCl (Cymbalta) 30 mg DAILY PO Last administered on 07/09/16 08:40; Start 06/30/16 at 13:00 Mirtazapine (Remeron) 15 mg QHS PO Last administered on 07/08/16 21:41; Start 06/30/16 at 21:00 Nicotine (Nicoderm Cq 21mg) 1 patch DAILY TD Last administered on 07/07/16 08: 00; Start 06/30/16 at 13:00 Oxybutynin Chloride (Ditropan) 5 mg BID PO Last administered on 07/09/16 08:40 ; Start 06/30/16 at 13:00 Pantoprazole Sodium (Protonix) 40 mg DAILY07 PO Last administered on 07/09/16 08:40; Start 06/30/16 at 13:00 Polyethylene Glycol (miraLAX PACKET) 17 gm DAILY PO Last administered on 08:42; Start 06/30/16 at 13:00 Senna/Docusate Sodium (Senna Plus) 2 tab HS PO Last administered on 07/03/16 20:48; Start 06/30/16 at 21:00; Stop 07/04/16 at 14:29; Status DC Non-Formulary Medication 10 mg QHS PO ; Start 06/30/16 at 21:00; Status UNV Potassium Chloride (Klor-Con) 10 meq DAILYWBKFT PO Last administered on 08:40; Start 06/30/16 at 13:00 Acetaminophen (Tylenol) 650 mg PRN Q6HRS PRN PO MILD PAIN / TEMP; Start at 12:15; Status UNV Ondansetron HCl (Zofran) 4 mg PRN Q6HRS PRN IV NAUSEA/VOMITING Last administered on 07/07/16 21:13; Start 06/30/16 at 12:15 Heparin Sodium (Porcine) 5,000 unit Q8HRS SQ Last administered on 07/09/16 07: 37; Start 06/30/16 at 14:00 Insulin Aspart (Novolog) 5 units TIDAC SQ Last administered on 07/01/16 08:46; Start 06/30/16 at 16:30; Stop 07/01/16 at 11:45; Status DC Insulin Detemir (Levemir) 20 units QHS SQ Last administered on 06/30/16 20:55; Start 06/30/16 at 21:00; Stop 07/01/16 at 11:45; Status DC Doxycycline Hyclate (Vibra-Tab) 100 mg BID PO Last administered on 07/01/16 20: 40; Start 06/30/16 at 13:00; Stop 07/02/16 at 10:36; Status DC Guaifenesin 600 mg 600 mg BID PO Last administered on 07/09/16 08:41; Start at 13:00 Sodium Chloride (Iv Sodium Chloride 0.9% 1000ml Bag) 1,000 ml @ 75 mls/hr 1X ONCE IV Last administered on 06/30/16 13:21; Start 06/30/16 at 12:15; Stop at 01:34; Status DC Acetaminophen (Tylenol) 650 mg PRN Q6HRS PRN PO PAIN Last administered on 17:16; Start 06/30/16 at 12:18 Magnesium Hydroxide (Milk Of Magnesia) 2,400 mg PRN DAILY PRN PO CONSTIPATION Last administered on 07/04/16 14:18; Start 06/30/16 at 17:30; Stop 07/04/16 at 14:29; Status DC Insulin Aspart (Novolog) 7 units TIDAC SQ ; Start 07/01/16 at 12:00; Stop at 12:57; Status DC Insulin Detemir (Levemir) 22 units QHS SQ Last administered on 07/08/16 22:28 ; Start 07/01/16 at 21:00 Insulin Aspart (Novolog) 5 units TIDAC SQ Last administered on 07/09/16 08:58 ; Start 07/01/16 at 16:30 Hydralazine HCl 10 mg 10 mg 1X ONCE IVP Last administered on 07/02/16 10:46; Start 07/02/16 at 10:30; Stop 07/02/16 at 10:31; Status DC Levofloxacin/ Dextrose (LEVAQUIN 500mg PREMIX) 100 ml @ 100 mls/hr Q24H IV Last administered on 07/03/16 11:01; Start 07/02/16 at 11:00; Stop 07/03/16 at 15:50; Status DC Lisinopril 20 mg 20 mg DAILY PO Last administered on 07/09/16 08:41; Start 02/08 at 11:00 Propofol (Diprivan) 50 ml @ As Directed STK-MED ONCE IV ; Start 07/02/16 at 12: 00; Stop 07/02/16 at 12:01; Status DC Midazolam HCl (Versed) 2 mg STK-MED ONCE .ROUTE ; Start 07/02/16 at 12:43; Stop 07/02/16 at 12:44; Status DC Iohexol (Omnipaque 300 Mg/ml) 50 ml STK-MED ONCE .ROUTE ; Start 07/02/16 at 12: 45; Stop 07/02/16 at 12:46; Status DC Lidocaine/Sodium Bicarbonate 20 ml 20 ml STK-MED ONCE IJ ; Start 07/02/16 at 12: 46; Stop 07/02/16 at 12:47; Status DC Cefazolin Sodium (Ancef 1gm Ivpb For Omni) 50 ml @ As Directed STK-MED ONCE IV ; Start 07/02/16 at 13:05; Stop 07/02/16 at 13:06; Status DC Lidocaine/Sodium Bicarbonate (Buffered Lidocaine 1%) 20 ml 1X ONCE IJ Last administered on 07/02/16 13:32; Start 07/02/16 at 13:30; Stop 07/02/16 at 13:31 ; Status DC Iohexol (Omnipaque 300 Mg/ml) 50 ml 1X ONCE IART Last administered on 13:31; Start 07/02/16 at 13:30; Stop 07/02/16 at 13:31; Status DC Info (Do NOT chart on this entry -- for MONITORING) 1 each PRN DAILY PRN MC SEE COMMENTS; Start 07/02/16 at 13:45; Stop 07/04/16 at 13:44; Status DC Hydralazine HCl (Apresoline) 10 mg 1X PACU PRN IVP HYPERTENSION, SEE COMMENTS; Start 07/02/16 at 14:15 Fentanyl Citrate (Fentanyl 2ml Vial) 25 mcg PRN Q5MIN PRN IV MILD PAIN Last administered on 07/02/16 14:27; Start 07/02/16 at 14:30; Stop 07/02/16 at 20:00 ; Status DC Fentanyl Citrate (Fentanyl 2ml Vial) 50 mcg PRN Q5MIN PRN IV MODERATE PAIN; Start 07/02/16 at 14:30; Stop 07/02/16 at 20:00; Status DC Morphine Sulfate 1 mg 1 mg PRN Q10MIN PRN IV SEVERE PAIN Last administered on 15:10; Start 07/02/16 at 14:30; Stop 07/02/16 at 18:00; Status DC Lactated Ringer's (Iv Lactated Ringers) 1,000 ml @ 30 mls/hr Q24H IV ; Start at 14:20; Stop 07/03/16 at 02:19; Status DC Lidocaine HCl 2 ml 1X PRN PRN ID IV START; Start 07/02/16 at 14:30; Stop at 20:00; Status DC Hydromorphone HCl (Dilaudid) 0.5 mg PRN Q10MIN PRN IV SEV PAIN,Second choice; Start 07/02/16 at 14:30; Stop 07/02/16 at 20:00; Status DC Prochlorperazine Edisylate (Compazine) 5 mg PACU PRN PRN IV NAUSEA; Start 07/02 at 14:30; Stop 07/02/16 at 20:00; Status DC Multi-Ingredient Mouthwash/Gargle (Gi Cocktail Single Dose) 15 ml PRN 1X PRN SWSW CHEST PAIN; Start 07/02/16 at 16:45 Al Hydroxide/Mg Hydroxide (Mylanta Plus Xs) 30 ml PRN Q2HR PRN PO HEARTBURN / GAS Last administered on 07/04/16 19:31; Start 07/02/16 at 16:45 Aspirin 325 mg 325 mg 1X ONCE PO Last administered on 07/02/16 16:55; Start 07/02/16 at 17:00; Stop 07/02/16 at 17:01; Status DC Sodium Chloride 1,000 ml @ 75 mls/hr 1X ONCE IV Last administered on 11:02; Start 07/03/16 at 10:30; Stop 07/03/16 at 23:49; Status DC Ceftriaxone Sodium/Sodium Chloride (Rocephin/Iv Sodium Chloride 0.9% 50ml) 50 ml @ 100 mls/hr Q24H IV Last administered on 07/05/16 16:42; Start 07/03/16 at 16:00; Stop 07/06/16 at 11:40; Status DC Iohexol (Omnipaque 300 Mg/ml) 60 ml 1X ONCE IV Last administered on 07/04/16 09:58; Start 07/04/16 at 09:45; Stop 07/04/16 at 09:46; Status DC Senna/Docusate Sodium (Senna Plus) 1 tab BID PO Last administered on 07/09/16 08:40; Start 07/04/16 at 21:00 Docusate Sodium (Colace) 100 mg BID PO Last administered on 07/09/16 08:40; Start 07/04/16 at 21:00 Magnesium Hydroxide (Milk Of Magnesia) 2,400 mg PRN Q12HR PRN PO CONSTIPATION; Start 07/04/16 at 14:30 Bisacodyl (Dulcolax Supp) 10 mg PRN DAILY PRN AL CONSTIPATION; Start 07/04/16 at 14:30 Ondansetron HCl (Zofran) 4 mg PRN Q6HRS PRN IV Nausea; Start 07/06/16 at 07:00 ; Stop 07/07/16 at 06:59; Status DC Fentanyl Citrate (Fentanyl 2ml Vial) 25 mcg PRN Q5MIN PRN IV MILD PAIN; Start 07/06/16 at 07:00; Stop 07/07/16 at 06:59; Status DC Fentanyl Citrate (Fentanyl 2ml Vial) 50 mcg PRN Q5MIN PRN IV MODERATE PAIN; Start 07/06/16 at 07:00; Stop 07/07/16 at 06:59; Status DC Morphine Sulfate 1 mg 1 mg PRN Q10MIN PRN IV SEVERE PAIN; Start 07/06/16 at 07: 00; Stop 07/07/16 at 06:59; Status DC Lactated Ringer's (Iv Lactated Ringers) 1,000 ml @ 0 mls/hr Q0M IV Last administered on 07/06/16t 15:32; Start 07/06/16 at 07:00; Stop 07/06/16 at 18:59 ; Status DC Lidocaine HCl 2 ml 1X PRN PRN ID IV START; Start 07/06/16 at 07:00; Stop at 06:59; Status DC Hydromorphone HCl (Dilaudid) 0.5 mg PRN Q10MIN PRN IV SEVERE PAIN, Second choice; Start 07/06/16 at 07:00; Stop 07/07/16 at 06:59; Status DC Prochlorperazine Edisylate (Compazine) 5 mg PACU PRN PRN IV NAUSEA; Start 07/06 at 07:00; Stop 07/07/16 at 06:59; Status DC Fentanyl Citrate (Fentanyl 2ml Vial) 100 mcg STK-MED ONCE .ROUTE ; Start at 11:37; Stop 07/06/16 at 11:38; Status DC Midazolam HCl (Versed) 2 mg STK-MED ONCE .ROUTE ; Start 07/06/16 at 11:37; Stop 07/06/16 at 11:38; Status DC Ketamine HCl 500 mg 500 mg STK-MED ONCE .ROUTE ; Start 07/06/16 at 11:37; Stop 07/06/16 at 11:38; Status DC Propofol (Diprivan) 0 ml @ As Directed STK-MED ONCE IV ; Start 07/06/16 at 11:39 ; Stop 07/06/16 at 11:40; Status DC Iohexol (Omnipaque 300 Mg/ml) 100 ml STK-MED ONCE .ROUTE ; Start 07/06/16 at 12: 54; Stop 07/06/16 at 12:55; Status DC Lidocaine/Sodium Bicarbonate 20 ml 20 ml STK-MED ONCE IJ ; Start 07/06/16 at 12: 54; Stop 07/06/16 at 12:55; Status DC Heparin Sodium/ Sodium Chloride 2,000 ml @ As Directed STK-MED ONCE .ROUTE ; Start 07/06/16 at 12:54; Stop 07/06/16 at 12:55; Status DC Iohexol 100 ml 100 ml STK-MED ONCE .ROUTE ; Start 07/06/16 at 12:58; Stop at 12:59; Status DC Propofol (Diprivan) 20 ml @ As Directed STK-MED ONCE IV ; Start 07/06/16 at 13: 09; Stop 07/06/16 at 13:10; Status DC Heparin Sodium/ Sodium Chloride 1,000 unit 1X ONCE IART ; Start 07/06/16 at 14: 00; Stop 07/06/16 at 14:01; Status DC Lidocaine/Sodium Bicarbonate (Buffered Lidocaine 1%) 20 ml 1X ONCE IJ Last administered on 07/06/16 14:00; Start 07/06/16 at 14:00; Stop 07/06/16 at 14:01 ; Status DC Iohexol (Omnipaque 300 Mg/ml) 100 ml 1X ONCE IART Last administered on 14:00; Start 07/06/16 at 14:00; Stop 07/06/16 at 14:01; Status DC Info (Do NOT chart on this entry -- for MONITORING) 1 each PRN DAILY PRN MC SEE COMMENTS; Start 07/06/16 at 14:00; Stop 07/08/16 at 13:59; Status DC Heparin Sodium (Porcine) 56423 unit 10,000 unit STK-MED ONCE .ROUTE ; Start at 13:59; Stop 07/06/16 at 14:00; Status DC Propofol 0 ml @ As Directed STK-MED ONCE IV ; Start 07/06/16 at 14:04; Stop at 14:05; Status DC Propofol (Diprivan) 50 ml @ As Directed STK-MED ONCE IV ; Start 07/06/16 at 14: 04; Stop 07/06/16 at 14:05; Status DC Quinine Sulfate 324 mg 324 mg PRN Q8HRS PO ; Start 07/06/16 at 18:30; Status UNV Sodium Chloride (Iv Sodium Chloride 0.9% 1000ml Bag) 1,000 ml @ 1,000 mls/hr 1X ONCE IV ; Start 07/07/16 at 11:00; Stop 07/07/16 at 11:59; Status DC Morphine Sulfate 2 mg PRN Q4HRS PRN IV PAIN Last administered on 07/07/16 14: 45; Start 07/07/16 at 14:30; Stop 07/07/16 at 17:14; Status DC Alprazolam (Xanax) 0.5 mg PRN Q8HRS PRN PO ANXIETY / AGITATION Last administered on 07/08/16 17:04; Start 07/08/16 at 00:00 Alprazolam (Xanax) 0.5 mg 1X ONCE PO Last administered on 07/07/16 17:34; Start 07/07/16 at 17:30; Stop 07/07/16 at 17:31; Status DC Morphine Sulfate 1 mg PRN Q4HRS PRN IV PAIN; Start 07/07/16 at 17:15 Acetaminophen/ Codeine Phosphate 1 tab 1 tab PRN Q4HRS PRN PO PAIN Last administered on 07/09/16 02:13; Start 07/07/16 at 17:15 Sodium Chloride (Iv Sodium Chloride 0.9% 1000ml Bag) 1,000 ml @ 75 mls/hr 1X ONCE IV Last administered on 07/08/16 12:00; Start 07/08/16 at 11:15; Stop at 00:34; Status DC Active Scripts Active Reported Tylenol (Acetaminophen) 325 Mg Tablet 650 Mg PO TID Senna-Docusate Sodium Tablet (Sennosides/Docusate Sodium) 1 Each Tablet 2 Each PO HS Protonix (Pantoprazole Sodium) 40 Mg Tablet.dr 1 Tab PO DAILY NICODERM CQ 21mg (Nicotine) 1 Each Patch.td24 1 Patch TP DAILY Miralax (Polyethylene Glycol 3350) 17 Gm Powd.pack 1 Packet PO DAILY Miralax (Polyethylene Glycol 3350) 17 Gm Powd.pack 1 Packet PO PRN DAILY PRN Melatonin 3 Mg Tablet 10 Mg PO QHS Mirtazapine 15 Mg Tablet 1 Tab PO QHS Cymbalta (Duloxetine Hcl) 30 Mg Capsule.dr 1 Cap PO DAILY Acetaminophen 500 Mg Tablet 1 Tab PO PRN Q6HRS PRN Novolog (Insulin Aspart) 100 Unit/1 Ml Cartridge 5 Unit SQ DAILYWSUP Restasis (Cyclosporine) 1 Each Droperette 1 Drop EACHEYE HS Multiple Vitamins (Multivitamin) 1 Each Tablet 1 Each PO Potassium Chloride 10 Meq Capsule.er 1 Cap PO DAILY05 Levemir (Insulin Detemir) 100 Unit/1 Ml Vial 30 Unit SQ DAILY Atorvastatin Calcium 40 Mg Tablet 1 Tab PO DAILY Lisinopril 20 Mg Tablet 1 Tab PO DAILY Oxybutynin Chloride 5 Mg Tablet 5 Mg PO BID Norvasc (Amlodipine Besylate) 5 Mg Tablet 10 Mg PO DAILY Clopidogrel (Clopidogrel Bisulfate) 75 Mg Tablet 75 Mg PO DAILY Coreg (Carvedilol) 12.5 Mg Tablet 25 Mg PO BID Vitals/I & O Vital Sign - Last 24 Hours 07/08/16 07/08/16 07/08/16 07/08/16 10:58 14:12 17:03 19:00 Temp 98.7 99.1 99.8 98.7 99.1 99.8 Pulse 74 74 80 81 Resp 19 18 18 B/P 137/32 113/91 113/91 143/36 Pulse Ox 94 96 91 O2 Delivery Room Air Room Air Room Air 07/08/16 07/08/16 07/09/16 07/09/16 19:30 23:00 02:13 02:17 Temp 99.5 99.7 99.5 99.7 Pulse 78 82 Resp 18 20 20 B/P 152/38 160/47 Pulse Ox 91 92 O2 Delivery Room Air Room Air Room Air Room Air 07/09/16 07/09/16 07/09/16 07/09/16 03:13 07:50 08:00 08:40 Temp 97.9 97.9 Pulse 65 65 Resp 20 19 B/P 142/49 142/49 Pulse Ox 93 O2 Delivery Room Air Room Air Room Air 07/09/16 07/09/16 08:41 08:41 Pulse 65 65 B/P 142/49 142/49 Intake and Output 07/08/16 07/08/16 07/09/16 15:00 23:00 07:00 Intake Total 720 ml 495 ml Balance 720 ml 495 ml FLORY SMITH MD Jul 09, 2016 10:30
[2016-07-09 14:03] VITALS: BP 138/45
--- NOTE | 2016-07-09 23:50 | DS ---
DATE OF DISCHARGE: 07/09/2016 DISCHARGE DIAGNOSES: 1. Acute respiratory failure, improving. 2. Fall due to physical debility. 3. Recent syncope. 4. Left forearm fracture. 5. History of coronary artery disease. 6. History of congestive heart failure. 7. History of cerebrovascular accident with mild left-sided weakness. 8. Depression. 9. Diabetes mellitus, on insulin. 10. Gastroesophageal reflux disease. 11. Hypertension. 12. Hyperlipidemia. 13. Acute kidney injury, somewhat resolving. 14. History of PEG tube. 15. Cervical degenerative disease, chronic spine picture, subacute L1 fracture status post kyphoplasty on 07/02/2016. 16. More than 70% stenosis within the proximal and mid left internal carotid artery, status post bilateral cervical and internal carotid angio with the left proximal carotid stent placement. BRIEF HOSPITAL COURSE: A 70-year-old female patient admitted to the hospital on 06/30/[address] Rush. Reportedly, the patient found down on the floor at her residence at [facility]. During hospitalization, the patient was evaluated by several consulting physician, Dr. Steinberg, Dr. Archer and Dr. López, Dr. Rubio and Dr. Arevalo and Dr. Claros. The patient's hospital course was complicated and prolonged due to her comorbid conditions and MELONIE and anxiety and carotid stenosis. She has bilateral cervical and internal carotid angiogram and left proximal CCA stent placement by Dr. Roberts on 07/06/2016. Post surgery, patient is recovering in step down cardiac floor; however, she developed acute kidney injury, which has been resolved with IV hydration. The patient appears to be at baseline; however, at this time, she is alert and oriented x 2. Plan has been discussed with the family member, agree to discharge to residential facility for physical therapy and continued care. DISCHARGE EXAMINATION: GENERAL: Alert, oriented x 2. HEART: S1, S2 present. LUNGS: Anterior chest clear. ABDOMEN: Soft, nontender, no organomegaly. EXTREMITIES: No edema. DISCHARGE DISPOSITION: nursing home facility. DISCHARGE CONDITION: Stable. MEDICATIONS: Reviewed and reconciled. Please see MRAD. DIET: Cardiac diet. TIME: Total time spent for discharge is 33 minutes for patient education, counseling, and coordination of care. RAMESH HERNANDEZ MD DR: EFREN/cl JOB#: [id number] / [id number] [facility]
== END 2016-07-09 16:00 | DRG 37 ==
LOC: ER 06:41 → 5 NORTH 08:43 → CVICU 07-06 14:54
PROVIDERS: ADMIT Internal Medicine; ATTEND Internal Medicine
PROC: 0QS03ZZ Reposition Lumbar Vertebra, Percutaneous Approach (ICD-10-PCS; 2016-07-02)
PROC: 0QU03JZ Supplement Lumbar Vertebra with Synthetic Substitute, Percutaneous Approach (ICD-10-PCS; 2016-07-02)
PROC: B3151ZZ Fluoroscopy of Bilateral Common Carotid Arteries using Low Osmolar Contrast (ICD-10-PCS; 2016-07-06)
PROC: 037J34Z Dilation of Left Common Carotid Artery with Drug-eluting Intraluminal Device, Percutaneous Approach (ICD-10-PCS; principal; 2016-07-06 13:00)
DX: I65.23 Occlusion and stenosis of bilateral carotid arteries (principal); N17.0 Acute kidney failure with tubular necrosis; J96.01 Acute respiratory failure with hypoxia; I69.354 Hemiplegia and hemiparesis following cerebral infarction affecting left non-dominant side; I13.0 Hypertensive heart and chronic kidney disease with heart failure and stage 1 through stage 4 chronic kidney disease, or unspecified chronic kidney disease; J98.11 Atelectasis; M48.56XA Collapsed vertebra, not elsewhere classified, lumbar region, initial encounter for fracture; N39.0 Urinary tract infection, site not specified; E03.9 Hypothyroidism, unspecified; E11.22 Type 2 diabetes mellitus with diabetic chronic kidney disease; E78.00 Pure hypercholesterolemia, unspecified; E78.5 Hyperlipidemia, unspecified; F03.90 Unspecified dementia, unspecified severity, without behavioral disturbance, psychotic disturbance, mood disturbance, and anxiety; F17.210 Nicotine dependence, cigarettes, uncomplicated; F32.9 Major depressive disorder, single episode, unspecified; G62.9 Polyneuropathy, unspecified; G89.29 Other chronic pain; G93.89 Other specified disorders of brain; I25.10 Atherosclerotic heart disease of native coronary artery without angina pectoris; I50.9 Heart failure, unspecified; J44.9 Chronic obstructive pulmonary disease, unspecified; K21.9 Gastro-esophageal reflux disease without esophagitis; K44.9 Diaphragmatic hernia without obstruction or gangrene; K59.09 Other constipation; M48.00 Spinal stenosis, site unspecified; F41.9 Anxiety disorder, unspecified; Z96.642 Presence of left artificial hip joint; N18.2 Chronic kidney disease, stage 2 (mild); W19.XXXA Unspecified fall, initial encounter; Z79.4 Long term (current) use of insulin; Z81.8 Family history of other mental and behavioral disorders; I25.2 Old myocardial infarction; Z82.49 Family history of ischemic heart disease and other diseases of the circulatory system; Z82.5 Family history of asthma and other chronic lower respiratory diseases; Z83.3 Family history of diabetes mellitus; Z91.14 Patient's other noncompliance with medication regimen; Z99.3 Dependence on wheelchair; Z91.048 Other nonmedicinal substance allergy status
CPT/HCPCS: 22514; 36223; 36415; 37218; 70450; 70496; 70498; 71010; 71250; 72100; 72125; 72148; 73020; 73030; 73100; 73502; 76937; 80048; 80053; 80061; 81001; 82306; 82947; 84443; 84484; 85007; 85027; 85610; 87086; 87186; 87641; 87804; 93005; 93306; 93880; 96374; C1758; C1760; C1769; C1892; C1894; G0269; J0360; J0696; J1815; J1956; J2250; J2270; J2405; J2704; J3010; J3490; J7030; J7040; J7120; Q9967; 92523; 92610; 97110; 97116; 97530; 97535; 99285-25